=== PATIENT | female | born 1950 | race Caucasian/White ===

== ENCOUNTER → 2017-07-28 12:04 | Outpatient (CLI) | payer MEDICARE, OTHER, SELFPAY | PROVIDERS: PCP Family Medicine; Visit Provider Internal Medicine Cardiovascular Disease | DX: I48.0 Paroxysmal atrial fibrillation (principal) | CPT/HCPCS: 93005 ==

== ENCOUNTER → 2019-01-04 13:30 | Outpatient (CLI) | payer MEDICARE, OTHER, SELFPAY ==
--- NOTE | 2019-01-04 13:33 | CA_ITS ---
PROCEDURE: 2-D M-mode and color Doppler study INDICATIONS FOR THE TEST: Chest pain COPD Heart Murmur Tobacco Smoking Palpitations+ Fatigue Syncope Edema Hypertension+Diabetes Mellitus Rheumatic Fever SOB FRANCES+Obesity Hyperlipidemia Family History HD Additional History A-FIB,ABLATION 10/2018 PATIENT INFORMATION HEIGHT: 65 WEIGHT:230 GENDER: Female B/P:133/76 2-D/M-MODE INTERPRETATION: 2-D MEASUREMENTS OBSERVED VALUES IN CMS Right Ventricular Dimension (RVDd) 1.6 Interventricular Septum (Thickness)(IVsd) 0.9 Left Ventricular Internal Dimensions(LVIDd) 5.7 Left Ventricular Posterior Wall (Thickness)(LVPWd) 0.7 Aortic Root 2.3 Aortic Cusp Separation 1.7 Left Atrial Dimensions (LAD) 4.1 2D 1. Left atrium is mildly enlarged, left ventricle is normal size, mild concentric left ventricular hypertrophy, visually estimated ejection fraction 55% with no regional wall motion abnormality. 2. The right atrium and right ventricle are normal size and contractility. 3. The aortic valve is minimally thickened and fibrosed. 4. The mitral and tricuspid valvular grossly normal. 5. The pulmonic valve is poorly visualized. 6. No significant pericardial effusion noted. DOPPLER INTERROGATION: Doppler interrogation of the aortic, mitral and tricuspid valvular presence of mild mitral and tricuspid regurgitation, tricuspid regurgitation jet velocity is inadequate for calculation of the right ventricular systolic pressure, grade 1 diastolic dysfunction seen with tissue Doppler evidence of raised left atrial pressure. CONCLUSION: 1. Mildly enlarged left atrium, normal left ventricular size, visually estimated ejection fraction 55% with no regional wall motion abnormality, mild concentric left ventricular hypertrophy present. Grade 1 diastolic dysfunction seen with tissue Doppler evidence of raised left atrial pressure. 2. Mild mitral and tricuspid regurgitation 3. No significant pericardial effusion noted.
== END ==
PROVIDERS: PCP Family Medicine; Visit Provider Internal Medicine Cardiovascular Disease
DX: R06.02 Shortness of breath (principal); Z86.79 Personal history of other diseases of the circulatory system; Z98.890 Other specified postprocedural states
CPT/HCPCS: 93306

== ENCOUNTER → 2019-01-27 10:59 | Outpatient (CLI) | payer MEDICARE, OTHER, SELFPAY | PROVIDERS: Visit Provider Internal Medicine Cardiovascular Disease | DX: R06.02 Shortness of breath (principal) | CPT/HCPCS: 36415; 83880 ==

== ENCOUNTER → 2019-02-02 06:48 | Outpatient (CLI) | payer MEDICARE, OTHER, SELFPAY ==
--- NOTE | 2019-02-02 06:51 | NM_ITS ---
CARDIOLITE SPECT MYOCARDIAL PERFUSION LEXISCAN, REST AND STRESS: History: Hypertension, hyperlipidemia, family history, shortness of breath and fatigue Procedure: Patient received a 0.4 mg of intravenous Lexiscan, resting heart rate 77 bpm resting blood pressure 133/64, with Lexiscan maximum heart rate achieved was 84 bpm which is less than 85% of the maximum predicted heart rate and a blood pressure was 127/54. With Lexiscan patient denied any complained of chest pain. Electrocardiogram: Resting electrocardiogram showed sinus rhythm, with Lexiscan there is less than 1.[address] segment depression noted from the baseline EKG. The EKG portion of the Lexiscan Myoview is nondiagnostic. Cardiac stress and resting SPECT images: Cardiac stress and resting SPECT images were obtained using technetium 99 Myoview 30.2 mCi stress and 10.6 mCi at rest. Gated SPECT further analysis of segmental wall motion and calculation of ejection fraction also done. Cardiac stress and resting SPECT images show uniform myocardial activity without segmental perfusion abnormality, computer derived ejection fraction is over 65% with no regional wall motion abnormality, right ventricle is normal size and contractility. Conclusion: 1. The EKG portion of the Lexiscan Myoview is nondiagnostic. 2. No scintigraphic evidence of reversible ischemia seen, computer derived ejection fraction is over 65% with no regional wall motion abnormality, right ventricle is normal size and contractility. 3. Normal Lexiscan Myoview study.
--- NOTE | 2019-02-02 09:32 | HMH.ITSHM ---
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 [] simvastatin diltiazam xarelto lasartan flecainide hydrocodon
== END ==
PROVIDERS: PCP Family Medicine; Visit Provider Internal Medicine Cardiovascular Disease
DX: R06.02 Shortness of breath (principal); I11.9 Hypertensive heart disease without heart failure; I48.0 Paroxysmal atrial fibrillation; R53.83 Other fatigue
CPT/HCPCS: 78452; 93017; A9502; J2785

== ENCOUNTER → 2019-02-06 10:49 | Outpatient (CLI) | payer SELFPAY ==
--- NOTE | 2019-02-06 10:54 | CT_ITS ---
CT heart w calcium score . HISTORY: short of breath. Chest pain. No previous studies Report Ordering Physician: Jonnie Longoria MD Patient Age: 68 years: Female .. COMPARISON: None Technique: . Routine CT heart w calcium score technique All CT scans at this facility use one or more dose reduction techniques, viz.: automated exposure control, ma/kV adjustment per patient size (including targeted exams where dose is matched to indication, i.e. head) or iterative reconstruction technique. FINDINGS: Coronary calcium score is 0 a. No identifiable atherosclerotic lack. Very low cardiovascular disease CVD risk. These limited images of the heart and mediastinum show normal caliber ascending aorta 3.8 cm These Limited images of the heart and mediastinum demonstrate no significant findings otherwise. Minimal calcified hilar nodes in the right silviano as well as base of right silviano towards mediastinum reflect over elements disease. Normal moderate caliber proximal ascending aorta 3.8 cm. Limited views at the medial aspect of the lungs are unremarkable.. Marginal osteophytes T-spine. IMPRESSION: Calcium score = 0. No identifiable plaque. Implies Very low risk of cardiovascular disease.
== END ==
PROVIDERS: PCP Family Medicine; Visit Provider Internal Medicine Cardiovascular Disease
DX: R06.02 Shortness of breath (principal)
CPT/HCPCS: 75571

== ENCOUNTER 2019-05-10 13:00 | Outpatient (RCR) | payer MEDICARE, OTHER, SELFPAY | END 2019-05-22 10:59 | disposition home or self-care (01) | LOC: OT 13:00 | PROVIDERS: PCP Family Medicine; Visit Provider Orthopaedic Surgery Adult Reconstructive Orthopaedic Surgery | DX: M19.032 Primary osteoarthritis, left wrist (principal) | CPT/HCPCS: 97033; 97110; 97165 ==

== ENCOUNTER → 2019-05-15 13:05 | Outpatient (POV) | payer MEDICARE, OTHER, SELFPAY ==
--- NOTE | 2019-05-16 09:43 | HMH.PMCON ---
Assessment and Plan (1) Sacroiliitis Current visit: Yes Status: Chronic Category: Medical Code(s): M46.1 - Sacroiliitis, not elsewhere classified - Assessment and plan all Dx Assessment and Plan for all problems:: We will plan a right SI joint injection for the patient to see if this is beneficial. She may be a candidate for a percutaneous SI joint fusion. I will follow-up with her after injection reassess her symptoms at that time she is to continue her anti-inflammatories and her home stretching program. She is been instructed to call the office if she has any issues prior to her next appointment. Dr. Soto has reviewed this note and agrees with this plan of care. This note was dictated using voice recognition software and may contain errors or omissions HPI - Data of Consult Consult date: 05/15/19 Requesting Physician: Ana Barreto APRN Primary Care Provider: Marilu Martinez - Consult Narrative Reason for consult: Low back pain History of present illness: Ms. Hebert is a 68 year old female who presents today for consultation in regards to her low back pain. Patient has a low back and right sided pain that radiates into her groin. Patient has had this pain for several years. The only relief she gets is when she takes steroids. Patient and I talked about long-term steroid use and she understands this. Patient is interested in potential injective therapy. Patient is tried and failed physical therapy. She is continuing a home stretching program. She is trying to stay as active as possible she rates her pain today a 6 out of 10. CC: Ana Barreto APRN [facility] History I have reviewed the patient's past medical history: Yes Medical History: Reports:: Atrial Fibrillation, Hypertension *Have you ever received a pneumonia vaccine?: Yes *Have you received a flu vaccine this season?: Yes Other Surgeries: Yes: No Previous Surgery, Hysterectomy-Partial, Other - *Social History Smoking Status: Never smoker Alcohol Intake: never Alcohol Intake Frequency:: other Substance Use Type: denies use *Occupational Status:: retired *Travel in the last 8 weeks: None Family Hx:: Coronary Artery Disease Review of Systems - Review of Systems ROS General: no recent weight change, no fever, no sleep disturbances Respiratory: no cough, no shortness of air, no recurring pulmonary infections Cardiovascular/Peripheral Vascular: No chest pain, No palpitations, no edema, no shortness of breath. Gastrointestinal: no new onset incontinence, normal bowel movements reported Genitourinary: no new onset incontinence Musculoskeletal: SI joint pain Psychiatric: normal mood/ affect Neurological: [denies new onset weakness in extremities], [denies new onset balance issues] Meds Home Medications Medication Instructions Recorded Confirmed Type cholecalciferol (vitamin D3) 1,000 1,000 unit PO BID cap 07/22/17 01/27/19 History unit capsule diltiazem CD 240 mg 240 mg PO QDAY 07/22/17 01/27/19 History capsule,extended release 24 hr fexofenadine 180 mg tablet 180 mg PO QDAY PRN 07/22/17 01/27/19 History hydrocodone 10 mg-acetaminophen 1 tab PO Q6H PRN 07/22/17 01/27/19 History 325 mg tablet ipratropium 20 mcg-albuterol 100 1 puff INHALATION BID PRN g 07/22/17 01/27/19 History mcg/actuation mist for inhalation losartan 100 1 tab PO QDAY 07/22/17 01/27/19 History mg-hydrochlorothiazide 25 mg tablet simvastatin 10 mg tablet 10 mg PO QPM 07/22/17 01/27/19 History rivaroxaban 20 mg tablet 20 mg PO QDAY #30 tab 09/02/17 01/27/19 Rx spironolactone 25 mg tablet 25 mg PO QAM #30 tab 09/02/17 01/27/19 Rx flecainide 100 mg tablet 100 mg PO BID #60 tab 06/13/18 01/27/19 Rx baclofen 10 mg tablet 10 mg PO BID PRN tab 01/27/19 01/27/19 History tramadol 50 mg tablet 50 mg PO TID PRN tab 02/24/19 History Allergies Allergy/AdvReac Type Severity Reaction Status Date / Time No Known Allergies Allergy Verified 0
--- NOTE | 2019-05-16 09:46 | P.CONS_ITS ---
Assessment and Plan (1) Sacroiliitis Current visit: Yes Status: Chronic Category: Medical Code(s): M46.1 - Sacroiliitis, not elsewhere classified - Assessment and plan all Dx Assessment and Plan for all problems:: We will plan a right SI joint injection for the patient to see if this is beneficial. She may be a candidate for a percutaneous SI joint fusion. I will follow-up with her after injection reassess her symptoms at that time she is to continue her anti-inflammatories and her home stretching program. She is been instructed to call the office if she has any issues prior to her next appointment. Dr. Soto has reviewed this note and agrees with this plan of care. This note was dictated using voice recognition software and may contain errors or omissions HPI - Data of Consult Consult date: 05/15/19 Requesting Physician: Ana Barreto APRN Primary Care Provider: Marilu Martinez - Consult Narrative Reason for consult: Low back pain History of present illness: Ms. Hebert is a 68 year old female who presents today for consultation in regards to her low back pain. Patient has a low back and right sided pain that radiates into her groin. Patient has had this pain for several years. The only relief she gets is when she takes steroids. Patient and I talked about long-term steroid use and she understands this. Patient is interested in potential injective therapy. Patient is tried and failed physical therapy. She is continuing a home stretching program. She is trying to stay as active as possible she rates her pain today a 6 out of 10. CC: Ana Barreto APRN [facility] History I have reviewed the patient's past medical history: Yes Medical History: Reports:: Atrial Fibrillation, Hypertension *Have you ever received a pneumonia vaccine?: Yes *Have you received a flu vaccine this season?: Yes Other Surgeries: Yes: No Previous Surgery, Hysterectomy-Partial, Other - *Social History Smoking Status: Never smoker Alcohol Intake: never Alcohol Intake Frequency:: other Substance Use Type: denies use *Occupational Status:: retired *Travel in the last 8 weeks: None Family Hx:: Coronary Artery Disease Review of Systems - Review of Systems ROS General: no recent weight change, no fever, no sleep disturbances Respiratory: no cough, no shortness of air, no recurring pulmonary infections Cardiovascular/Peripheral Vascular: No chest pain, No palpitations, no edema, no shortness of breath. Gastrointestinal: no new onset incontinence, normal bowel movements reported Genitourinary: no new onset incontinence Musculoskeletal: SI joint pain Psychiatric: normal mood/ affect Neurological: [denies new onset weakness in extremities], [denies new onset balance issues] Meds Home Medications Medication Instructions Recorded Confirmed Type cholecalciferol (vitamin D3) 1,000 1,000 unit PO BID cap 07/22/17 01/27/19 History unit capsule diltiazem CD 240 mg 240 mg PO QDAY 07/22/17 01/27/19 History capsule,extended release 24 hr fexofenadine 180 mg tablet 180 mg PO QDAY PRN 07/22/17 01/27/19 History hydrocodone 10 mg-acetaminophen 1 tab PO Q6H PRN 07/22/17 01/27/19 History 325 mg tablet ipratropium 20 mcg-albuterol 100 1 puff INHALATION BID PRN g 07/22/17 01/27/19 History mcg/actuation mist for inhalation losartan 100 1 tab PO QDAY 07/22/17 01/27/19 History mg-hydrochlorothiazide 25 mg tablet
== END ==
PROVIDERS: PCP Family Medicine; Visit Provider Clinical Nurse Specialist Family Health
DX: M46.1 Sacroiliitis, not elsewhere classified (principal)
CPT/HCPCS: 99202

== ENCOUNTER → 2019-06-19 11:38 | Outpatient (POV) | payer MEDICARE, OTHER, SELFPAY ==
[2019-06-19 11:54] VITALS: BP 135/74; PULSE 71; RESP 18; O2SAT 99; BMI 39.9
--- NOTE | 2019-06-19 12:11 | P.CONS_ITS ---
[facility] Pain Management SOAP Note Subjective:: Patient is a pleasant 69-year-old white female who presents today for follow-up after right SI joint injection. Patient got good relief 80% for a week. It was short-lived however she did get some benefit from it. Patient was able to increase her activity. Patient is interested in pursuing an ablation of this area I do believe that would be beneficial she is continuing a home stretching program. She does have a positive SI joint compression test Yoon test and Vic's test on the right side. She is failed medications, anti- inflammatories, steroids. ROS General: no recent weight change, no fever, no sleep disturbances Respiratory: no cough, no shortness of air, no recurring pulmonary infections Cardiovascular/Peripheral Vascular: No chest pain, No palpitations, no edema, no shortness of breath. Gastrointestinal: no new onset incontinence, normal bowel movements reported Genitourinary: no new onset incontinence Musculoskeletal: Right SI joint pain Psychiatric: normal mood/ affect Neurological: [denies new onset weakness in extremities], [denies new onset balance issues] Objective:: Physical Exam General: Alert and oriented x3, no acute distress, pleasant and cooperative, [on room air] Lungs: Resps E/U, Symmetrical chest expansion, Eyes: PERRL Musculoskeletal: Flexion and extension of lumbar spine somewhat guarded secondary to pain, deep tendon reflexes normal, strength in upper and lower extremities [5/5], antalgic gait noted Neurological: speech clear, social insurance adviser equal, no gross sensory deficits Assessment:: Chronic sacroiliitis Plan:: We will plan on a right SI joint RFA. Patient may be a candidate for a SI joint percutaneous fusion. We did discuss this briefly. We will follow-up with her after her SI joint RFA and reassess her at that time she is been instructed to call the office if she has any issues prior to her next appointment. Dr. Soto has reviewed this note and agrees with this plan of care. This note was dictated using voice recognition software and may contain errors or omissions [facility] History I have reviewed the patient's past medical history: Yes Medical History: Reports:: Atrial Fibrillation, Hypertension Denies:: Cancer, Diabetes Mellitus Type 1, Diabetes Mellitus Type 2, MRSA, Seizures *Have you ever received a pneumonia vaccine?: Yes *Have you received a flu vaccine this season?: Yes Other Surgeries: Yes: No Previous Surgery, Cardiac Surgery, Hysterectomy- Partial, Other Amputation: No Fractures: No - *Social History Smoking Status: Never smoker Alcohol Intake: never Alcohol Intake Frequency:: other Substance Use Type: denies use *Occupational Status:: other Housing: apartment Household Members: significant other *Travel in the last 8 weeks: None Family Hx:: Coronary Artery Disease
== END ==
PROVIDERS: PCP Family Medicine; Visit Provider Clinical Nurse Specialist Family Health
DX: M46.1 Sacroiliitis, not elsewhere classified (principal)
CPT/HCPCS: 99212

== ENCOUNTER → 2019-08-07 13:43 | Outpatient (POV) | payer MEDICARE, OTHER, SELFPAY ==
[2019-08-07 14:36] VITALS: BP 140/57; PULSE 69; RESP 18; O2SAT 98; BMI 44.2
--- NOTE | 2019-08-08 09:55 | HMH.PAINSOAP ---
[facility] Pain Management SOAP Note Subjective:: Patient is a pleasant 69-year-old white female who presents today for follow-up after radiofrequency ablation of her SI joint. Patient states that she is doing much better rating her pain a 3 out of 10. Patient is more active. Patient states she has not been able to come off of her pain pills quite yet. However this is her ultimate goal. Patient and I discussed neuro stimulation she may be interested in this in the future. I will give her information in regards to this and see her back in several weeks reassess her at that time she is been instructed to call the office if she has any issues prior to her next appointment. ROS General: no recent weight change, no fever, no sleep disturbances Respiratory: no cough, no shortness of air, no recurring pulmonary infections Cardiovascular/Peripheral Vascular: No chest pain, No palpitations, no edema, no shortness of breath. Gastrointestinal: no new onset incontinence, normal bowel movements reported Genitourinary: no new onset incontinence Musculoskeletal: Back pain, SI joint pain Psychiatric: normal mood/ affect Neurological: [denies new onset weakness in extremities], [denies new onset balance issues] Objective:: Physical Exam General: Alert and oriented x3, no acute distress, pleasant and cooperative, [on room air] Lungs: Resps E/U, Symmetrical chest expansion, Eyes: PERRL Musculoskeletal: Flexion and extension of lumbar spine somewhat guarded secondary to pain, deep tendon reflexes normal, strength in upper and lower extremities [5/5], antalgic gait noted Neurological: speech clear, 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 Patient's been instructed to call the office if she has any issues prior to her next appointment. Dr. Soto has reviewed this note and agrees with this plan of care. This note was dictated using voice recognition software and may contain errors or omissions [facility] History I have reviewed the patient's past medical history: Yes Medical History: Reports:: Atrial Fibrillation, Hypertension Denies:: Cancer, Diabetes Mellitus Type 1, Diabetes Mellitus Type 2, MRSA, Seizures *Have you ever received a pneumonia vaccine?: Yes *Have you received a flu vaccine this season?: Yes Other Surgeries: Yes: No Previous Surgery, Cardiac Surgery, Hysterectomy-Partial, Other Amputation: No Fractures: No - *Social History Smoking Status: Never smoker Alcohol Intake: never Alcohol Intake Frequency:: other Substance Use Type: denies use *Occupational Status:: other Housing: apartment Household Members: significant other *Travel in the last 8 weeks: None Family Hx:: Coronary Artery Disease
== END ==
PROVIDERS: PCP Family Medicine; Visit Provider Clinical Nurse Specialist Family Health
DX: M46.1 Sacroiliitis, not elsewhere classified (principal); I48.91 Unspecified atrial fibrillation; I10 Essential (primary) hypertension; Z82.49 Family history of ischemic heart disease and other diseases of the circulatory system
CPT/HCPCS: 99212

== ENCOUNTER → 2019-09-11 13:37 | Outpatient (POV) | payer MEDICARE, OTHER, SELFPAY ==
[2019-09-11 14:06] VITALS: BP 143/62; PULSE 74; RESP 18; O2SAT 99; BMI 42.9
--- NOTE | 2019-09-11 14:37 | HMH.PAINSOAP ---
[facility] Pain Management SOAP Note Subjective:: Patient is a pleasant 69-year-old white female who presents today for follow-up. Patient and I talked about a neurostimulator at her last visit. She is still considering this. However her biggest issue at this time is her low back. Patient and I discussed an epidural steroid injection she would like to move forward with this. She has low back pain that radiates into her hips at times. Patient is currently on any anticoagulation therapy. We will see if she can come off of this prior to an injection. She is continuing a home stretching program and is on anti-inflammatories. ROS General: no recent weight change, no fever, no sleep disturbances Respiratory: no cough, no shortness of air, no recurring pulmonary infections Cardiovascular/Peripheral Vascular: No chest pain, No palpitations, no edema, no shortness of breath. Gastrointestinal: no new onset incontinence, normal bowel movements reported Genitourinary: no new onset incontinence Musculoskeletal: Back pain Psychiatric: normal mood/ affect Neurological: [denies new onset weakness in extremities], [denies new onset balance issues] Objective:: Physical Exam General: Alert and oriented x3, no acute distress, pleasant and cooperative, [on room air] Lungs: Resps E/U, Symmetrical chest expansion, Eyes: PERRL Musculoskeletal: Flexion and extension of lumbar spine somewhat guarded secondary to pain, deep tendon reflexes normal, strength in upper and lower extremities [5/5], slightly antalgic gait noted, positive straight leg raise test bilaterally at 30 degrees Neurological: speech clear, emergency dispatcher equal, no gross sensory deficits Assessment:: Degenerative disc disease lumbar spine with lumbar radiculopathy Plan:: We will schedule an L4-L5 lumbar epidural steroid injection for the patient. I do believe it would be beneficial given her symptomology. I will follow-up with her after this reassess her symptoms at that time she has been instructed to call the office if she has any issues prior to her next appointment. Dr. Soto has reviewed this note and agrees with this plan of care. This note was dictated using voice recognition software and may contain errors or omissions [facility] History I have reviewed the patient's past medical history: Yes Medical History: Reports:: Atrial Fibrillation, Hypertension Denies:: Cancer, Diabetes Mellitus Type 1, Diabetes Mellitus Type 2, MRSA, Seizures *Have you ever received a pneumonia vaccine?: Yes *Have you received a flu vaccine this season?: Yes Other Surgeries: Yes: No Previous Surgery, Cardiac Surgery, Hysterectomy-Partial, Other Amputation: No Fractures: No - *Social History Smoking Status: Never smoker Alcohol Intake: never Alcohol Intake Frequency:: other Substance Use Type: denies use *Occupational Status:: other Housing: apartment Household Members: significant other *Travel in the last 8 weeks: None Family Hx:: Coronary Artery Disease
== END ==
PROVIDERS: PCP Family Medicine; Visit Provider Clinical Nurse Specialist Family Health
DX: M51.16 Intervertebral disc disorders with radiculopathy, lumbar region (principal)
CPT/HCPCS: 99212

== ENCOUNTER 2019-11-03 08:01 | Day surgery (SDC) | payer MEDICARE, OTHER, SELFPAY ==
[2019-11-03 08:14] VITALS: BP 163/84; PULSE 74; RESP 18; TEMP 36.9; O2SAT 96; BMI 36.0
[2019-11-03 08:48] VITALS: BP 160/77; PULSE 70; RESP 18
[2019-11-03 08:49] VITALS: BP 155/75; PULSE 79; RESP 18; O2SAT 99
--- NOTE | 2019-11-03 08:50 | HMH.PMPROC ---
- Procedure Date: 11/03/19 Time: 08:50 Anesthesiologist:: Demetrius Soto MD Complications:: None Pre-procedure Diagnosis:: Degenerative disc disease of lumbar spine with lumbar radiculopathy symptoms Post-procedure Diagnosis:: Same Indications for Procedure:: This patient is a pleasant 69-year-old white female who we are treating for low back pain with lumbar radiculopathy symptoms. She has low back pain which radiates into both hips. We will do a lumbar epidural steroid injection today to see if this will help with her pain symptoms primarily in the low back area and hips area. Pain is increased significantly is affecting her function activities of daily living. We will do an injection today to keep her out of the emergency room and off oral opioids. Procedure Details:: Lumbar epidural steroid injection under fluoroscopy Informed consent was obtained and the risk and benefits of the procedure was explained to the patient. The patient was taken to the procedure room. The patient was placed prone on the procedure table. The patient was prepped and draped in sterile fashion. C-arm fluoroscopy was used to view the lumbar spine. Skin and subcutaneous tissues were anesthetized using lidocaine. I placed an 18-gauge epidural needle and advanced into the L4-L5 interspace using fluoroscopic guidance and [id number] to air. After confirmation of needle placement in the epidural space with dye I injected 2 mL of lidocaine 1.5% with Depo-Medrol 80 mg. Patient tolerated the procedure well with no complications. Plan and Disposition:: We will follow-up with her in 2 weeks. Will reevaluate her symptoms at that time.
[2019-11-03 08:56] VITALS: BP 177/93; PULSE 74; RESP 20; O2SAT 96
== END 2019-11-03 08:57 | disposition home or self-care (01) ==
LOC: SC.PAINP 08:03
PROVIDERS: PCP Family Medicine; Visit Provider Anesthesiology
DX: M51.16 Intervertebral disc disorders with radiculopathy, lumbar region (principal)
CPT/HCPCS: 62323; J1040; Q9966

== ENCOUNTER → 2019-12-13 13:11 | Outpatient (CLI) | payer MEDICARE, OTHER, SELFPAY ==
--- NOTE | 2019-12-13 13:12 | CA_ITS ---
APPROVED REPORT EXAM: Comprehensive 2D, Doppler, and color-flow Echocardiogram Well Driller: Nereida Amanda RT(R) Ht: 5 ft 5 in Wt: 265lbs BSA: 2.23 BP: 148/97 mmHg Indications: AFLUTTER,PAF,HTN,ORION,ABLATION 10/2018 2D Dimensions LVOT 2.09 cm (M/F) 1.5-2.5 M-Mode Dimensions RVDd 2.58 cm (0.9-2.6) LVDd 5.48 cm (3.5-5.7) LVDs 3.83 cm (3.5-5.7) IVSd 0.56 cm (0.6-1.1) PWd 0.89 cm (0.6-1.1) EF (Teich) 56.80% FS 30.10% EDV (Teich) 146.20 mL ESV (Teich) 63.10 mL LV Diastology E/A Ratio 0.57 Mitral Valve MV A Velocity 81.00 (40-130 cm/s) Left Ventricle Left atrium is mildly enlarged, left ventricle is normal size, mild concentric left ventricular hypertrophy, visually estimated ejection fraction 55% with no regional wall motion abnormality, grade 1 diastolic dysfunction seen without tissue Doppler evidence of raise left atrial pressure. Right Ventricle Right atrium and right ventricular normal size and contractility. Aortic Valve Aortic valve is minimally thickened and fibrosed. There is no aortic stenosis or aortic insufficiency. Mitral Valve Mitral valve is grossly normal, there is mild mitral regurgitation. Tricuspid Valve Tricuspid valve grossly normal, there is mild tricuspid regurgitation noted. Pulmonic Valve Pulmonic valve is poorly visualized. Great Vessels Aortic root is normal size. Pericardium No significant pericardial effusion noted. Conclusion 1. Mildly enlarged left atrium, normal left ventricular size, mild concentric left ventricular hypertrophy, visually estimated ejection fraction 55% with no regional wall motion abnormality, grade 1 diastolic dysfunction seen without tissue Doppler evidence of raise left atrial pressure. 2. Mild mitral and tricuspid regurgitation. 3. No significant pericardial effusion noted. Electronically signed by : Jonnie Longoria, 12/14/2019 16:10:31
== END ==
PROVIDERS: PCP Family Medicine; Visit Provider Internal Medicine Cardiovascular Disease
DX: G47.33 Obstructive sleep apnea (adult) (pediatric) (principal); I11.9 Hypertensive heart disease without heart failure; I48.0 Paroxysmal atrial fibrillation; Z79.01 Long term (current) use of anticoagulants
CPT/HCPCS: 93306

== ENCOUNTER → 2019-12-14 13:17 | Outpatient (CLI) | payer MEDICARE, OTHER, SELFPAY ==
[2019-12-14 15:15] LABS: Chloride 102 mmol/L (98-107); Sodium 136 mmol/L (136-145)
[2019-12-14 15:18] LABS: Blood Urea Nitrogen 44 mg/dl (7-17); Carbon Dioxide 27 mmol/L (22.0-30.0); Estimated Glomerular Filt Rate 40 ml/min (>60); GFR (African American) 49 ML/MIN (>60)
[2019-12-14 15:24] LABS: Calcium 9.7 mg/dl (8.4-10.2)
[2019-12-14 15:51] LABS: Glucose 89 mg/dl (74-100)
== END ==
PROVIDERS: Visit Provider Internal Medicine Cardiovascular Disease
DX: I48.0 Paroxysmal atrial fibrillation; I11.9 Hypertensive heart disease without heart failure; G47.33 Obstructive sleep apnea (adult) (pediatric); Z79.01 Long term (current) use of anticoagulants
CPT/HCPCS: 36415; 80048

== ENCOUNTER → 2019-12-19 09:09 | Outpatient (POV) | payer MEDICARE, OTHER, SELFPAY ==
[2019-12-19 10:10] VITALS: BP 129/89; PULSE 76; RESP 18; TEMP 36.4; O2SAT 99; BMI 41.5
--- NOTE | 2019-12-19 15:44 | P.CONS_ITS ---
[facility] Pain Management SOAP Note Subjective:: Is a pleasant 69-year-old white female who presents today for follow-up after lumbar epidural steroid injection. She rates her pain a 5 out of 10 and is doing extremely well. Her only pain is some trigger points that are palpable along the left thoracic paraspinous muscles. She states that she utilizes a tennis ball or an apple to help massage these out and it works well. At this time she like to follow-up on an as-needed basis. ROS General: no recent weight change, no fever, no sleep disturbances Respiratory: no cough, no shortness of air, no recurring pulmonary infections Cardiovascular/Peripheral Vascular: No chest pain, No palpitations, no edema, no shortness of breath. Gastrointestinal: no new onset incontinence, normal bowel movements reported Genitourinary: no new onset incontinence Musculoskeletal: Back pain, myofascial pain Psychiatric: normal mood/ affect Neurological: [denies new onset weakness in extremities], [denies new onset balance issues] Objective:: Physical Exam General: Alert and oriented x3, no acute distress, pleasant and cooperative, [on room air] Lungs: Resps E/U, Symmetrical chest expansion, Eyes: PERRL Musculoskeletal: Flexion and extension of lumbar spine somewhat guarded secondary to pain, deep tendon reflexes normal, strength in upper and lower extremities [5/5], slightly antalgic gait noted Neurological: speech clear, money manager equal, no gross sensory deficits Assessment:: Degenerative disc disease lumbar spine lumbar radiculopathy and myofascial pain syndrome Plan:: I will follow-up with the patient on an as-needed basis she has been instructed to call the office if she has any issues prior to her next appointment. Dr. Soto has reviewed this note and agrees with this plan of care. This note was dictated using voice recognition software and may contain errors or omissions [facility] History I have reviewed the patient's past medical history: Yes Medical History: Reports:: Atrial Fibrillation, Hypertension Denies:: Cancer, Diabetes Mellitus Type 1, Diabetes Mellitus Type 2, MRSA, Seizures *Have you ever received a pneumonia vaccine?: Yes *Have you received a flu vaccine this season?: Yes Other Medical History: Reports: Arthritis Other Surgeries: Yes: No Previous Surgery, Cardiac Surgery, Hysterectomy- Partial, Other Amputation: No Fractures: No - *Social History Smoking Status: Never smoker Alcohol Intake: never Alcohol Intake Frequency:: other Substance Use Type: denies use *Occupational Status:: other Housing: apartment Household Members: significant other *Travel in the last 8 weeks: None Family Hx:: Coronary Artery Disease
== END ==
PROVIDERS: PCP Family Medicine; Visit Provider Clinical Nurse Specialist Family Health
DX: M51.16 Intervertebral disc disorders with radiculopathy, lumbar region (principal); M79.18 Myalgia, other site
CPT/HCPCS: 99212

== ENCOUNTER 2019-12-22 10:27 | Day surgery (SDC) | payer MEDICARE, OTHER, SELFPAY ==
[2019-12-22 10:43] VITALS: BP 143/81; PULSE 68; RESP 18; O2SAT 97; BMI 41.5
[2019-12-22 11:08] VITALS: BP 135/85; PULSE 85; RESP 18
[2019-12-22 11:09] VITALS: BP 132/87; PULSE 79; RESP 18; O2SAT 98
--- NOTE | 2019-12-22 11:16 | P.PCN_ITS ---
- Procedure Date: 12/22/19 Time: 11:16 Anesthesiologist:: Demetrius Soto MD Complications:: None Pre-procedure Diagnosis:: Myofascial pain thoracic paraspinous muscles on the left side Post-procedure Diagnosis:: Same Indications for Procedure:: This patient is a pleasant 69-year-old white female who we are treating for low back pain with lumbar radiculopathy symptoms. She did very well after her last lumbar epidural steroid injection. She now has developed some myofascial pain over the left thoracic paraspinous muscles. She does have trigger points identified. We will plan on trigger point injections to the left thoracic paraspinous muscles today. Procedure Details:: Trigger point injections x4 to the left thoracic paraspinous muscles Informed consent was obtained the risk and benefits of the procedure was explained to the patient. Patient was taken to the procedure room. The mid back was prepped using ChloraPrep. Trigger points were palpated marked. Each of these trigger points were injected with bupivacaine 0.25% 3 mils and Depo- Medrol 10 mg. A total of 40 mg Depo-Medrol was used for all 4 trigger points on the left side. Patient tolerated the procedure well with no complications. Plan and Disposition:: We will follow-up with her in 2 weeks. Will reevaluate symptoms at that time.
[2019-12-22 11:25] VITALS: BP 137/78; PULSE 61; RESP 18; O2SAT 95
== END 2019-12-22 11:25 | disposition home or self-care (01) ==
LOC: SC.PAINP 10:29
PROVIDERS: PCP Family Medicine; Visit Provider Anesthesiology
DX: M79.18 Myalgia, other site (principal); I11.9 Hypertensive heart disease without heart failure; I48.91 Unspecified atrial fibrillation; J44.9 Chronic obstructive pulmonary disease, unspecified; Z77.22 Contact with and (suspected) exposure to environmental tobacco smoke (acute) (chronic); M46.1 Sacroiliitis, not elsewhere classified; Z79.899 Other long term (current) drug therapy
CPT/HCPCS: 20552; J1030

== ENCOUNTER → 2019-12-28 08:32 | Outpatient (CLI) | payer MEDICARE, OTHER, SELFPAY ==
[2019-12-28 11:03] LABS: Chloride 100 mmol/L (98-107); Potassium 4.8 mmoL/L (3.5-5.1); Sodium 135 mmol/L (136-145)
[2019-12-28 11:06] LABS: Anion Gap 10.8 mEq/L (5-15); Blood Urea Nitrogen 28 mg/dl (7-17); Calcium 9.5 mg/dl (8.4-10.2); Carbon Dioxide 29 mmol/L (22.0-30.0); Estimated Glomerular Filt Rate 49 ml/min (>60); GFR (African American) 59 ML/MIN (>60); Glucose 89 mg/dl (74-100)
== END ==
PROVIDERS: Visit Provider Internal Medicine Cardiovascular Disease
DX: I10 Essential (primary) hypertension (principal)
CPT/HCPCS: 36415; 80048

== ENCOUNTER → 2020-01-08 13:37 | Outpatient (POV) | payer MEDICARE, OTHER, SELFPAY ==
[2020-01-08 14:21] VITALS: BP 129/46; PULSE 66; RESP 18; O2SAT 99; BMI 41.5
--- NOTE | 2020-01-09 08:46 | HMH.PAINSOAP ---
[facility] Pain Management SOAP Note Subjective:: Patient is a pleasant 69-year-old white female who we are treating for low back pain. Patient is following up after thoracic trigger point injections. Patient is doing well rating her pain a 1 out of 10 overall she feels like her injections have been very beneficial for her. Patient is going to follow-up in several months for reassessment. ROS General: no recent weight change, no fever, no sleep disturbances Respiratory: no cough, no shortness of air, no recurring pulmonary infections Cardiovascular/Peripheral Vascular: No chest pain, No palpitations, no edema, no shortness of breath. Gastrointestinal: no new onset incontinence, normal bowel movements reported Genitourinary: no new onset incontinence Musculoskeletal: Back pain Psychiatric: normal mood/ affect Neurological: [denies new onset weakness in extremities], [denies new onset balance issues] Objective:: Physical Exam General: Alert and oriented x3, no acute distress, pleasant and cooperative, [on room air] Lungs: Resps E/U, Symmetrical chest expansion, Eyes: PERRL Musculoskeletal: Flexion and extension of lumbar and thoracic spine somewhat guarded secondary to pain, deep tendon reflexes normal, strength in upper and lower extremities [5/5], slightly antalgic gait noted Neurological: speech clear, turn down worker equal, no gross sensory deficits Assessment:: Myofascial pain, degenerative disc disease lumbar spine lumbar radiculopathy sacroiliitis Plan:: We will see the patient back in 2 to 3 months reassess her symptoms at that time she has been instructed to call the office if she has any issues prior to her next appointment. Dr. Soto has reviewed this note and agrees with this plan of care. This note was dictated using voice recognition software and may contain errors or omissions [facility] History I have reviewed the patient's past medical history: Yes Medical History: Reports:: Atrial Fibrillation, Hypertension Denies:: Cancer, Diabetes Mellitus Type 1, Diabetes Mellitus Type 2, MRSA, Seizures *Have you ever received a pneumonia vaccine?: Yes *Have you received a flu vaccine this season?: Yes Other Medical History: Reports: Arthritis. Denies: Blood Transfusion Reaction Other Surgeries: Yes: No Previous Surgery, Cardiac Surgery, Hysterectomy-Partial, Other Amputation: No Fractures: No - *Social History Smoking Status: Never smoker Alcohol Intake: never Alcohol Intake Frequency:: other Substance Use Type: denies use *Occupational Status:: other Housing: house Household Members: significant other *Travel in the last 8 weeks: None Family Hx:: Coronary Artery Disease
== END ==
PROVIDERS: PCP Family Medicine; Visit Provider Clinical Nurse Specialist Family Health
DX: M79.18 Myalgia, other site (principal); M51.16 Intervertebral disc disorders with radiculopathy, lumbar region; M46.1 Sacroiliitis, not elsewhere classified
CPT/HCPCS: 99212

== ENCOUNTER → 2020-02-01 09:57 | Outpatient (POV) | payer MEDICARE, OTHER, SELFPAY ==
[2020-02-01 10:04] VITALS: BP 140/60; PULSE 75; RESP 18; TEMP 36.6; O2SAT 98; BMI 41.5
--- NOTE | 2020-02-01 10:34 | P.CONS_ITS ---
[facility] Pain Management SOAP Note Subjective:: Patient is a pleasant 69-year-old white female who presents today for complaints of bilateral buttock pain. Patient says that she has been doing some prolonged sitting making masks with her daughter during the virus pandemic. She says that she started to develop severe bilateral buttock pain. The pain does not radiate into her back or hips or lower extremities. She rates her pain a 10 out of 10. She says it is very painful and causes her to do frequent repositioning. She has tried anti-inflammatory gel which has given her about 30 to 40% relief. Review of Systems General: No recent weight changes, no fever, no sleep disturbances Respiratory: No cough, no shortness of air, no recurring pulmonary infections Cardiovascular/peripheral vascular: No chest pain, no palpitations, no edema, no shortness of breath Gastrointestinal: No new onset incontinence, normal bowel movements reported Genitourinary: No new onset incontinence Musculoskeletal: Lateral buttock pain Psychiatric: Normal mood/affect Neurological: [Denies weakness in extremities], [denies balance issues] Objective:: Physical exam General: Alert and oriented x3, no acute distress, pleasant and cooperative, [on room air] Lungs: Respirations even and unlabored, symmetrical chest expansion Eyes: PERRL Musculoskeletal: Flexion and extension of lumbar spine somewhat guarded secondary to pain, deep tendon reflexes normal, strength in upper and lower extremities [5/5], [abnormal gait noted] Neurological: Speech clear, instructor traffic safety equal, no gross sensory deficit Assessment:: Piriformis syndrome, bilateral buttock pain Plan:: Patient I did discuss plan of care. Will proceed with bilateral piriformis injections. She will also continue with her anti-inflammatory gel that she has currently. We will see her back in the clinic after her injections reassess her symptoms. She has been instructed to contact clinic if she has any concerns before next appointment. The patient and I specifically discussed risk factors for COVID19. These risks include, but are not limited to age greater than 60, heart or lung disease, diabetes, immunosuppression, and travel. We also discussed NSAIDs may worsen COVID19 infection or symptoms. Patient should not use NSAIDs to treat COVID19 signs or symptoms. Patient was also informed that any type of corticosteroid of any form (oral or injection) will decrease the patient's immune system response and may increase the likelihood of COVID19 infection [address] symptoms[address] Soto has reviewed this note and agrees with this plan of care. This note was dictated using voice recognition software and make contain errors or omissions. [facility] History I have reviewed the patient's past medical history: Yes Medical History: Reports:: Atrial Fibrillation, Hypertension Denies:: Cancer, Diabetes Mellitus Type 1, Diabetes Mellitus Type 2, MRSA, Seizures *Have you ever received a pneumonia vaccine?: Yes *Have you received a flu vaccine this season?: Yes Other Medical History: Reports: Arthritis. Denies: Blood Transfusion Reaction Other Surgeries: Yes: No Previous Surgery, Cardiac Surgery, Hysterectomy- Partial, Other Amputation: No Fractures: No - *Social History Smoking Status: Never smoker Alcohol Intake: never Alcohol Intake Frequency:: other Substance Use Type: denies use *Occupational Status:: other Housing: house Household Members: significant other *Travel in the last 8 weeks: None Family Hx:: Coronary Artery Disease
== END ==
PROVIDERS: PCP Family Medicine; Visit Provider Clinical Nurse Specialist Family Health
DX: G57.00 Lesion of sciatic nerve, unspecified lower limb (principal); M79.18 Myalgia, other site
CPT/HCPCS: 99212

== ENCOUNTER 2020-02-12 13:34 | Day surgery (SDC) | payer MEDICARE, OTHER, SELFPAY ==
[2020-02-12 13:44] VITALS: BP 128/64; PULSE 83; RESP 18; TEMP 36.6; O2SAT 97; BMI 41.5
[2020-02-12 14:01] VITALS: BP 125/85; BP 128/88; PULSE 85; RESP 18; O2SAT 98
[2020-02-12 14:10] VITALS: BP 118/61; PULSE 73; RESP 18; O2SAT 97
--- NOTE | 2020-02-12 14:13 | HMH.PMPROC ---
- Procedure Date: 02/12/20 Time: 14:13 Anesthesiologist:: Cherie Damian APRN Complications:: None Pre-procedure Diagnosis:: Piriformis syndrome Post-procedure Diagnosis:: Same Indications for Procedure:: Patient is a pleasant 69-year-old white female who presents today for bilateral piriformis injections. She is having pain in bilateral buttock area. She says the pain is been ongoing for some time is worse with sitting. She says she has been making masks with her daughter during the virus pandemic and says that the pain has gotten worse since then. She rates her pain a 7 out of 10 today. We will perform the injections today to see if she gets relief. Physical exam General: Alert and oriented x3, no acute distress, pleasant and cooperative, [on room air] Lungs: Respirations even and unlabored, symmetrical chest expansion Eyes: PERRL Musculoskeletal: Flexion and extension of lumbar spine somewhat guarded secondary to pain, deep tendon reflexes normal, strength in upper and lower extremities [5/5], [abnormal gait noted] Neurological: Speech clear, outboard system operator equal, no gross sensory deficit Procedure Details:: Informed consent was obtained and the risks and benefits of the procedure were explained to the patient. The patient was taken to the procedure room and noninvasive monitors were placed including a noninvasive blood pressure cuff and pulse examiner. The patient was placed prone on the procedure table. The l bilateral buttock were cleansed using chlorhexidine as a cleansing solution. , a 22-gauge spinal needle was inserted into the right piriformis so. Approximately 5 mL of bupivacaine, at 0.25% and Nlke-Ekbiiz-Vmqrfl, 40 mg was incrementally injected into the piriformis. We then moved to the left piriformis muscle. Approximately 5 mL of bupivacaine 0.25% and Depo-Medrol 40 mg was incrementally injected into the left piriformis muscle. The patient tolerated the procedure without no complications. Plan and Disposition:: We will see the patient back in the clinic in 2 weeks to reassess his symptoms. He has been instructed to contact clinic if he has any concerns before his next appointment. The patient and I specifically discussed risk factors for COVID19. These risks include, but are not limited to age greater than 60, heart or lung disease, diabetes, immunosuppression, and travel. We also discussed NSAIDs may worsen COVID19 infection or symptoms. Patient should not use NSAIDs to treat COVID19 signs or symptoms. Patient was also informed that any type of corticosteroid of any form (oral or injection) will decrease the patient's immune system response and may increase the likelihood of COVID19 infection [address] symptoms[address] Soto has reviewed this note and agrees with this plan of care. This note was dictated using voice recognition software and make contain errors or omissions.
== END 2020-02-12 14:00 | disposition home or self-care (01) ==
LOC: SC.PAINP 13:37
PROVIDERS: PCP Family Medicine; Visit Provider Clinical Nurse Specialist Family Health
DX: G57.03 Lesion of sciatic nerve, bilateral lower limbs; I10 Essential (primary) hypertension; I48.91 Unspecified atrial fibrillation; J44.9 Chronic obstructive pulmonary disease, unspecified; Z77.22 Contact with and (suspected) exposure to environmental tobacco smoke (acute) (chronic); G47.33 Obstructive sleep apnea (adult) (pediatric); M46.1 Sacroiliitis, not elsewhere classified; Z79.899 Other long term (current) drug therapy
CPT/HCPCS: 20552; J1030

== ENCOUNTER → 2020-02-26 11:25 | Outpatient (POV) | payer MEDICARE, OTHER, SELFPAY ==
[2020-02-26 12:18] VITALS: BP 135/85; PULSE 85; RESP 18; TEMP 36.6; O2SAT 98; BMI 42.9
--- NOTE | 2020-02-26 13:01 | HMH.PAINSOAP ---
[facility] Pain Management SOAP Note Subjective:: Is a pleasant 69-year-old white female who presents today for follow-up after bilateral piriformis injections. Patient did not get any relief in regards to this. She is having pain in her low back radiating down her leg and stopping in her buttock region. Patient is had good relief with SI joint injections in the past. However her pain present slightly differently today. Patient and I discussed lumbar epidural steroid injection she like to move forward with this. We she rates her pain today a 7 out of 10. She is on anticoagulation therapy. We will see if she can come off of it prior to her injection. ROS General: no recent weight change, no fever, no sleep disturbances Respiratory: no cough, no shortness of air, no recurring pulmonary infections Cardiovascular/Peripheral Vascular: No chest pain, No palpitations, no edema, no shortness of breath. Gastrointestinal: no new onset incontinence, normal bowel movements reported Genitourinary: no new onset incontinence Musculoskeletal: Back pain, leg pain Psychiatric: normal mood/ affect Neurological: [denies new onset weakness in extremities], [denies new onset balance issues] Objective:: Physical Exam General: Alert and oriented x3, no acute distress, pleasant and cooperative, [on room air] Lungs: Resps E/U, Symmetrical chest expansion, Eyes: PERRL Musculoskeletal: Flexion and extension of lumbar spine somewhat guarded secondary to pain, deep tendon reflexes normal, strength in upper and lower extremities [5/5], antalgic gait noted Neurological: speech clear, aircraft cabin cleaner equal, no gross sensory deficits Assessment:: Degenerative disc disease lumbar spine lumbar radiculopathy, sacroiliitis, piriformis syndrome Plan:: We will set the patient up for an L4-L5 lumbar epidural steroid injection. We will see if she can come off of her anticoagulation therapy prior to this. She has been instructed to call the office if she has any issues prior to her next appointment. Dr. Soto has reviewed this note and agrees with this plan of care. This note was dictated using voice recognition software and may contain errors or omissions [facility] History I have reviewed the patient's past medical history: Yes Medical History: Reports:: Atrial Fibrillation, Hypertension Denies:: Cancer, Diabetes Mellitus Type 1, Diabetes Mellitus Type 2, MRSA, Seizures *Have you ever received a pneumonia vaccine?: Yes *Have you received a flu vaccine this season?: Yes Other Medical History: Reports: Arthritis. Denies: Blood Transfusion Reaction Other Surgeries: Yes: No Previous Surgery, Cardiac Surgery, Hysterectomy-Partial, Other Amputation: No Fractures: No - *Social History Smoking Status: Never smoker Alcohol Intake: never Alcohol Intake Frequency:: other Substance Use Type: denies use *Occupational Status:: other Housing: house Household Members: significant other *Travel in the last 8 weeks: None Family Hx:: Coronary Artery Disease
== END ==
PROVIDERS: PCP Family Medicine; Visit Provider Clinical Nurse Specialist Family Health
DX: M51.16 Intervertebral disc disorders with radiculopathy, lumbar region (principal); M46.1 Sacroiliitis, not elsewhere classified; G57.00 Lesion of sciatic nerve, unspecified lower limb
CPT/HCPCS: 99212

== ENCOUNTER 2020-03-08 10:38 | Day surgery (SDC) | payer MEDICARE, OTHER, SELFPAY ==
[2020-03-08 10:56] VITALS: BP 142/54; PULSE 67; RESP 18; TEMP 36.6; O2SAT 98; BMI 41.5
[2020-03-08 11:48] VITALS: BP 112/78; PULSE 74; RESP 18; O2SAT 99
[2020-03-08 11:49] VITALS: BP 115/74; PULSE 78; RESP 18; O2SAT 99
--- NOTE | 2020-03-08 11:53 | HMH.PMPROC ---
- Procedure Date: 03/08/20 Time: 11:53 Anesthesiologist:: Demetrius Soto MD Complications:: None Pre-procedure Diagnosis:: Degenerative disc disease of lumbar spine with lumbar radiculopathy symptoms Post-procedure Diagnosis:: Same Indications for Procedure:: This patient is a pleasant 69-year-old white female who we are treating for low back pain with lumbar radiculopathy symptoms. There is increasing pain in her low back rating down both buttocks. She did not get good relief with bilateral piriformis injections. Will do lumbar epidural steroid injection today to help her with her pain symptoms. She has been off her Xarelto since Wednesday. Procedure Details:: Epidural steroid injection under fluoroscopy Informed consent was obtained and the risk and benefits of the procedure was explained to the patient. The patient was taken to the procedure room. The patient was placed prone on the procedure table. The patient was prepped and draped in sterile fashion. C-arm fluoroscopy was used to view the lumbar spine. Skin and subcutaneous tissues were anesthetized using lidocaine. I placed an 18-gauge epidural needle and advanced into the L4-L5 interspace using fluoroscopic guidance and [id number] to air. After confirmation of needle placement in the epidural space with dye I injected 2 mL of lidocaine 1.5% with Depo-Medrol 80 mg. Patient tolerated the procedure well with no complications. Plan and Disposition:: We will follow-up with her in 2 weeks. Will reevaluate symptoms at that time. She can restart her Xarelto tomorrow.
[2020-03-08 12:10] VITALS: BP 110/66; PULSE 61; RESP 20; O2SAT 98
== END 2020-03-08 12:10 | disposition home or self-care (01) ==
LOC: SC.PAINP 10:39
PROVIDERS: PCP Family Medicine; Visit Provider Anesthesiology
DX: M51.16 Intervertebral disc disorders with radiculopathy, lumbar region (principal); I10 Essential (primary) hypertension; I48.91 Unspecified atrial fibrillation; J44.9 Chronic obstructive pulmonary disease, unspecified; Z77.22 Contact with and (suspected) exposure to environmental tobacco smoke (acute) (chronic); Z79.899 Other long term (current) drug therapy
CPT/HCPCS: 62323; J1040; Q9966

== ENCOUNTER → 2020-04-04 10:32 | Outpatient (POV) | payer MEDICARE, OTHER, SELFPAY ==
[2020-04-04 10:40] VITALS: BP 125/82; PULSE 72; RESP 18; TEMP 36.6; O2SAT 98; BMI 41.5
--- NOTE | 2020-04-04 11:04 | HMH.PAINSOAP ---
[facility] Pain Management SOAP Note Subjective:: Patient is a 69-year-old white female who presents today for follow-up after a lumbar epidural steroid injection. Patient is being treated for chronic low back pain. Patient does report that she got approximately 85% relief after her injection. She says that her pain is now 4 out of 10. Patient does say that while the injections do help her, she is not tolerating the steroids in the injection. She says that it does cause her heart to go out of rhythm after taking corticosteroids. Patient is currently on Xarelto and recently underwent a cardiac ablation. She says that at this time she does not feel her pain is worse enough to undergo a repeat injection, however, she says that she may need a repeat injection in the future. Patient has requested that any further injective therapy be done without any type of corticosteroid. Patient and I did discuss that she could undergo the injection with lidocaine only. She says her pain is primarily in her low back and is nonradicular. Review of Systems General: No recent weight changes, no fever, no sleep disturbances Respiratory: No cough, no shortness of air, no recurring pulmonary infections Cardiovascular/peripheral vascular: No chest pain, no palpitations, no edema, no shortness of breath Gastrointestinal: No new onset incontinence, normal bowel movements reported Genitourinary: No new onset incontinence Musculoskeletal: Low back pain Psychiatric: Normal mood/affect Neurological: [Denies weakness in extremities], [denies balance issues] Objective:: Physical exam General: Alert and oriented x3, no acute distress, pleasant and cooperative, [on room air] Lungs: Respirations even and unlabored, symmetrical chest expansion Eyes: PERRL Musculoskeletal: Flexion and extension of lumbar spine somewhat guarded secondary to pain, deep tendon reflexes normal, strength in upper and lower extremities [5/5], normal gait noted Neurological: Speech clear, restorative rehab aide equal, no gross sensory deficit Assessment:: Low back pain, degenerative disc disease lumbar spine Plan:: Overall, the patient did well with her injection. Patient would like to postpone any further injective therapy. She does say that the corticosteroid has caused her heart to go out of rhythm. She is on Xarelto and she recently underwent a cardiac ablation. She would like to contact us with her next appointment. She has been instructed to contact the clinic if she has any concerns before her next appointment. The patient and I specifically discussed risk factors for COVID19. These risks include, but are not limited to age greater than 60, heart or lung disease, diabetes, immunosuppression, and travel. We also discussed NSAIDs may worsen COVID19 infection or symptoms. Patient should not use NSAIDs to treat COVID19 signs or symptoms. Patient was also informed that any type of corticosteroid of any form (oral or injection) will decrease the patient's immune system response and may increase the likelihood of COVID19 infection and symptoms. [facility] History I have reviewed the patient's past medical history: Yes Medical History: Reports:: Atrial Fibrillation, Hypertension Denies:: Cancer, Diabetes Mellitus Type 1, Diabetes Mellitus Type 2, MRSA, Seizures *Have you ever received a pneumonia vaccine?: Yes *Have you received a flu vaccine this season?: Yes Other Medical History: Reports: Arthritis. Denies: Blood Transfusion Reaction Other Surgeries: Yes: No Previous Surgery, Cardiac Surgery, Hysterectomy-Partial, Other Amputation: No Fractures: No - *Social History Smoking Status: Never smoker Alcohol Intake: never Alcohol Intake Frequency:: other Substance Use Type: denies use *Occupational Status:: other Housing: house Household Members: significant other *Travel in the last 8 weeks: None Family Hx:: Coronary Artery Disease
== END ==
PROVIDERS: Visit Provider Clinical Nurse Specialist Family Health
DX: M51.36 Other intervertebral disc degeneration, lumbar region (principal)
CPT/HCPCS: 99212

== ENCOUNTER → 2020-04-29 09:34 | Outpatient (POV) | payer MEDICARE, OTHER, SELFPAY ==
[2020-04-29 09:42] VITALS: BP 142/74; PULSE 85; RESP 18; TEMP 37; O2SAT 98; BMI 41.5
--- NOTE | 2020-04-29 10:01 | P.CONS_ITS ---
[facility] Pain Management SOAP Note Subjective:: Pleasant 69-year-old white female who presents today for follow-up. Patient had decided to take a break from her injections due to side effects from the steroid. Patient states that she has arrhythmia after her injections. Patient currently on Xarelto. Patient and I had a long discussion in regard to moving forward in the future with potentially a neurostimulator or intrathecal pain pump. I do believe that she would benefit from this without the contraindication of the steroid. We have also discussed doing injections with decrease steroid. Patient's pain pattern is in her lower back with radiation into her hips and buttock region. Patient rates her pain today a 6 out of 10. She is on Xarelto however she has permission to have it held for procedures. Patient does get good relief up to 85% with her injection therapy. ROS General: no recent weight change, no fever, no sleep disturbances Respiratory: no cough, no shortness of air, no recurring pulmonary infections Cardiovascular/Peripheral Vascular: No chest pain, No palpitations, no edema, no shortness of breath. Gastrointestinal: no new onset incontinence, normal bowel movements reported Genitourinary: no new onset incontinence Musculoskeletal: Back pain, leg pain Psychiatric: normal mood/ affect Neurological: [denies new onset weakness in extremities], [denies new onset balance issues] Objective:: Physical Exam General: Alert and oriented x3, no acute distress, pleasant and cooperative, [on room air] Lungs: Resps E/U, Symmetrical chest expansion, Eyes: PERRL Musculoskeletal: Flexion and extension of lumbar spine somewhat guarded secondary to pain, deep tendon reflexes normal, strength in upper and lower extremities [5/5], slightly antalgic gait noted Neurological: speech clear, bobbin sorter equal, no gross sensory deficits Assessment:: Degenerative disc disease lumbar spine lumbar radiculopathy Plan:: We will schedule the patient for L4-L5 lumbar epidural steroid injection. We will give her half of the steroid dose due to her arrhythmias. Patient I also had a long discussion about implantable therapies including intrathecal therapy and neuro stimulation. I discussed with her that this should be considered due to her inability to tolerate large doses of steroids. Patient is on Xarelto however she has permission to come off of it for her injections I will follow-up with her after her injection reassess her symptoms at that time she has been instructed to call the office if she has any issues prior to her next appointment. Dr. Soto has reviewed this note and agrees with this plan of care. This note was dictated using voice recognition software and may contain errors or omissions [facility] History I have reviewed the patient's past medical history: Yes Medical History: Reports:: Atrial Fibrillation, Hypertension Denies:: Cancer, Diabetes Mellitus Type 1, Diabetes Mellitus Type 2, MRSA, Seizures *Have you ever received a pneumonia vaccine?: Yes *Have you received a flu vaccine this season?: Yes Other Medical History: Reports: Arthritis. Denies: Blood Transfusion Reaction Other Surgeries: Yes: No Previous Surgery, Cardiac Surgery, Hysterectomy- Partial, Other Amputation: No Fractures: No - *Social History Smoking Status: Never smoker Alcohol Intake: never Alcohol Intake Frequency:: other Substance Use Type: denies use *Occupational Status:: other Housing: house Household Members: significant other *Travel in the last 8 weeks: None Family Hx:: Coronary Artery Disease
== END ==
PROVIDERS: PCP Family Medicine; Visit Provider Clinical Nurse Specialist Family Health
DX: M51.16 Intervertebral disc disorders with radiculopathy, lumbar region (principal)
CPT/HCPCS: 99212

== ENCOUNTER 2020-05-10 09:55 | Day surgery (SDC) | payer MEDICARE, OTHER, SELFPAY ==
[2020-05-10 10:21] VITALS: BP 143/78; PULSE 71; RESP 18; TEMP 36.5; O2SAT 98; BMI 41.5
[2020-05-10 11:33] VITALS: BP 133/89; PULSE 89; RESP 79; O2SAT 98
[2020-05-10 11:34] VITALS: BP 141/78; PULSE 89; RESP 18; O2SAT 98
--- NOTE | 2020-05-10 11:35 | HMH.PMPROC ---
- Procedure Date: 05/10/20 Time: 11:35 Anesthesiologist:: Demetrius Soto MD Complications:: None Pre-procedure Diagnosis:: Degenerative disc disease of lumbar spine with lumbar radiculopathy symptoms Post-procedure Diagnosis:: Same Indications for Procedure:: This patient is a pleasant 69-year-old white female who we have been treating for low back pain with lumbar radiculopathy symptoms. She has been off her Xarelto for 5 days. She does get arrhythmias with any steroids so we will decrease her steroid to half and plan on a lumbar pleural steroid injection to help with her low back pain today. Most of her pain radiates to her buttocks. Procedure Details:: Lumbar epidural steroid injection under fluoroscopy Informed consent was obtained and the risk and benefits of the procedure was explained to the patient. The patient was taken to the procedure room. The patient was placed prone on the procedure table. The patient was prepped and draped in sterile fashion. C-arm fluoroscopy was used to view the lumbar spine. Skin and subcutaneous tissues were anesthetized using lidocaine. I placed an 18-gauge epidural needle and advanced into the L4-L5 interspace using fluoroscopic guidance and [id number] to air. After confirmation of needle placement in the epidural space with dye I injected 2 mL of lidocaine 1.5% with Depo-Medrol 40 mg. Patient tolerated the procedure well with no complications. Plan and Disposition:: We will follow-up with her and 2 weeks. Will reevaluate symptoms at that time.
[2020-05-10 11:55] VITALS: BP 109/51; PULSE 65; RESP 18; O2SAT 98
== END 2020-05-10 11:55 | disposition home or self-care (01) ==
LOC: SC.PAINP 09:57
PROVIDERS: PCP Family Medicine; Visit Provider Anesthesiology
DX: M51.16 Intervertebral disc disorders with radiculopathy, lumbar region (principal); I11.0 Hypertensive heart disease with heart failure; E78.5 Hyperlipidemia, unspecified; I50.9 Heart failure, unspecified; I48.91 Unspecified atrial fibrillation; J44.9 Chronic obstructive pulmonary disease, unspecified
CPT/HCPCS: 62323; J1030; Q9966

== ENCOUNTER → 2020-06-03 10:25 | Outpatient (POV) | payer MEDICARE, OTHER, SELFPAY ==
[2020-06-03 10:51] VITALS: BP 118/74; PULSE 77; RESP 18; TEMP 36.8; O2SAT 98; BMI 41.5
--- NOTE | 2020-06-03 11:34 | HMH.PAINSOAP ---
[facility] Pain Management SOAP Note Subjective:: Is a pleasant 70-year-old white female Zentz today for follow-up after lumbar epidural steroid injection. Patient got 80% relief of her symptoms and is doing well she rates her pain today a 2 out of 10. Patient had her steroid cut in half due to palpitations. She had no palpations after having her epidural injection. Overall patient doing well she would like to repeat this in several weeks. Given the efficacy of it. Patient is on Xarelto however she has permission to come off prior to injective therapy. ROS General: no recent weight change, no fever, no sleep disturbances Respiratory: no cough, no shortness of air, no recurring pulmonary infections Cardiovascular/Peripheral Vascular: No chest pain, No palpitations, no edema, no shortness of breath. Gastrointestinal: no new onset incontinence, normal bowel movements reported Genitourinary: no new onset incontinence Musculoskeletal: Back pain, leg pain Psychiatric: normal mood/ affect Neurological: [denies new onset weakness in extremities], [denies new onset balance issues] Objective:: Physical Exam General: Alert and oriented x3, no acute distress, pleasant and cooperative, Lungs: Resps E/U, Symmetrical chest expansion, Eyes: PERRL Musculoskeletal: Flexion and extension of lumbar spine somewhat guarded secondary to pain, deep tendon reflexes normal, strength in upper and lower extremities [5/5], antalgic gait noted Neurological: speech clear, gate watch equal, no gross sensory deficits Assessment:: Degenerative disc disease lumbar spine lumbar radiculopathy Plan:: We will see the patient back in several weeks repeat her epidural steroid injection given the efficacy of the last 1. We will continue to do her epidural steroid injections with decreased steroid. Patient's been instructed to call the office if she has any issues prior to her next appointment. Dr. Soto has reviewed this note and agrees with this plan of care. This note was dictated using voice recognition software and may contain errors or omissions [facility] History I have reviewed the patient's past medical history: Yes Medical History: Reports:: Atrial Fibrillation, Congestive Heart Failure, Hyperlipidemia, Hypertension Denies:: Cancer, Diabetes Mellitus Type 1, Diabetes Mellitus Type 2, MRSA, Seizures *Have you ever received a pneumonia vaccine?: Yes *Have you received a flu vaccine this season?: Yes Other Medical History: Reports: Arthritis. Denies: Blood Transfusion Reaction Other Surgeries: Yes: No Previous Surgery, Cardiac Surgery, Hysterectomy-Partial, Other Amputation: No Fractures: No - *Social History Smoking Status: Never smoker Alcohol Intake: never Alcohol Intake Frequency:: other Substance Use Type: denies use *Occupational Status:: other Housing: house Household Members: significant other *Travel in the last 8 weeks: None Family Hx:: Coronary Artery Disease
== END ==
PROVIDERS: PCP Family Medicine; Visit Provider Clinical Nurse Specialist Family Health
DX: M51.16 Intervertebral disc disorders with radiculopathy, lumbar region (principal)
CPT/HCPCS: 99212

== ENCOUNTER → 2020-06-19 11:09 | Outpatient (CLI) | payer MEDICARE, OTHER, SELFPAY ==
[2020-06-20 09:52] LABS: Covid-19 Nasal PCR Sendout Lex NOT DETECTED
== END ==
PROVIDERS: PCP Family Medicine; Visit Provider Family Medicine
DX: Z03.818 Encounter for observation for suspected exposure to other biological agents ruled out (principal)
CPT/HCPCS: U0004

== ENCOUNTER 2020-07-05 08:50 | Day surgery (SDC) | payer MEDICARE, OTHER, SELFPAY ==
[2020-07-05 08:58] VITALS: BP 122/60; BP 157/62; PULSE 70; PULSE 73; RESP 18; RESP 20; TEMP 36.4; O2SAT 98; BMI 42.9
[2020-07-05 10:02] VITALS: BP 115/79; PULSE 85; RESP 18
[2020-07-05 10:04] VITALS: BP 116/79; PULSE 85; RESP 18; O2SAT 98
--- NOTE | 2020-07-05 10:12 | HMH.PMPROC ---
- Procedure Date: 07/05/20 Time: 10:12 Anesthesiologist:: Demetrius Soto MD Complications:: None Pre-procedure Diagnosis:: Degenerative disc disease of lumbar spine with lumbar radiculopathy symptoms Post-procedure Diagnosis:: Same Indications for Procedure:: This patient is a pleasant 70-year-old white female who we are treating for low back pain with lumbar radiculopathy symptoms. She got 80 to 90% relief of her pain symptoms after her last lumbar epidural steroid injection. She still has some residual pain. We will do repeat lumbar epidural steroid injection today. We will reduce steroid to 40 mg as patient does have arrhythmias with full dose steroids. Procedure Details:: Lumbar epidural steroid injection under fluoroscopy Informed consent was obtained and the risk and benefits of the procedure was explained to the patient. The patient was taken to the procedure room. The patient was placed prone on the procedure table. The patient was prepped and draped in sterile fashion. C-arm fluoroscopy was used to view the lumbar spine. Skin and subcutaneous tissues were anesthetized using lidocaine. I placed an 18-gauge epidural needle and advanced into the L4-L5 interspace using fluoroscopic guidance and [id number] to air. After confirmation of needle placement in the epidural space with dye I injected 2 mL of lidocaine 1.5% with Depo-Medrol 40 mg. Patient tolerated the procedure well with no complications. Plan and Disposition:: We will follow-up with her in 2 weeks. Will reevaluate symptoms at that time.
== END 2020-07-05 10:17 | disposition home or self-care (01) ==
LOC: SC.PAINP 08:53
PROVIDERS: PCP Family Medicine; Visit Provider Anesthesiology
DX: M51.16 Intervertebral disc disorders with radiculopathy, lumbar region (principal); I10 Essential (primary) hypertension; E78.5 Hyperlipidemia, unspecified; I48.91 Unspecified atrial fibrillation; J44.9 Chronic obstructive pulmonary disease, unspecified; F41.9 Anxiety disorder, unspecified; F32.9 Major depressive disorder, single episode, unspecified; Z79.899 Other long term (current) drug therapy
CPT/HCPCS: 62323; J1030; Q9966

== ENCOUNTER → 2020-07-29 09:09 | Outpatient (POV) | payer MEDICARE, OTHER, SELFPAY ==
--- NOTE | 2020-07-29 09:33 | HMH.PAINSOAP ---
[facility] Pain Management SOAP Note Subjective:: Patient is a pleasant 70-year-old white female who presents today for follow-up after lumbar epidural steroid injection. Patient is 90% better. She rates her pain a 2 out of 10. Overall doing extremely well we did reduce her steroids to 40 mg and she had no arrhythmias post epidural. ROS General: no recent weight change, no fever, no sleep disturbances Respiratory: no cough, no shortness of air, no recurring pulmonary infections Cardiovascular/Peripheral Vascular: No chest pain, No palpitations, no edema, no shortness of breath. Gastrointestinal: no new onset incontinence, normal bowel movements reported Genitourinary: no new onset incontinence Musculoskeletal: Back pain at times Psychiatric: normal mood/ affect Neurological: [denies new onset weakness in extremities], [denies new onset balance issues] Objective:: Physical Exam General: Alert and oriented x3, no acute distress, pleasant and cooperative, [on room air] Lungs: Resps E/U, Symmetrical chest expansion, Eyes: PERRL Musculoskeletal: Flexion and extension of lumbar spine somewhat guarded secondary to pain, deep tendon reflexes normal, strength in upper and lower extremities [5/5], slightly antalgic gait noted Neurological: speech clear, 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 Dr. Soto has reviewed this note and agrees with this plan of care. This note was dictated using voice recognition software and may contain errors or omissions [facility] History I have reviewed the patient's past medical history: Yes Medical History: Reports:: Atrial Fibrillation, Congestive Heart Failure, Hyperlipidemia, Hypertension Denies:: Cancer, Diabetes Mellitus Type 1, Diabetes Mellitus Type 2, MRSA, Seizures *Have you ever received a pneumonia vaccine?: No *Have you received a flu vaccine this season?: No Other Medical History: Reports: Arthritis. Denies: Blood Transfusion Reaction Other Surgeries: Yes: No Previous Surgery, Cardiac Surgery, Hysterectomy-Partial, Other Amputation: No Fractures: No - *Social History Smoking Status: Never smoker Alcohol Intake: never Alcohol Intake Frequency:: other Substance Use Type: denies use *Occupational Status:: retired Housing: house Household Members: significant other *Travel in the last 8 weeks: None Family Hx:: Coronary Artery Disease
[2020-07-29 09:55] VITALS: BP 144/90; PULSE 66; RESP 18; O2SAT 98; BMI 42.5
== END ==
PROVIDERS: PCP Family Medicine; Visit Provider Clinical Nurse Specialist Family Health
DX: M51.16 Intervertebral disc disorders with radiculopathy, lumbar region (principal)
CPT/HCPCS: 99212; G0463

== ENCOUNTER → 2021-03-04 08:15 | Outpatient (CLI) | payer MEDICARE, OTHER, SELFPAY ==
--- NOTE | 2021-03-04 08:31 | XR_ITS ---
PROCEDURE: XR KNEE RT 4V CLINICAL INDICATION: WANG KNEE PAIN COMPARISON: No exams were available for comparison FINDINGS: No fracture or dislocation. No lytic or blastic change. There is normal mineralization. Mild osteoarthritic changes involving all 3 compartments greatest at the medial compartment. 13 mm area calcification noted projecting over the distal femur at the intercondylar region which is felt to be due to loose body posteriorly in the intercondylar area of the distal femur. IMPRESSION: Mild osteoarthritis Suspect loose body in the intercondylar region of the distal femur Dictated by: John Monae MD 03/04/2021 09:42 John Monae MD in [place] 03/04/2021 09:42
--- NOTE | 2021-03-04 08:31 | XR_ITS ---
PROCEDURE: XR KNEE LT 4V CLINICAL INDICATION: WANG KNEE PAIN COMPARISON: No exams were available for comparison FINDINGS: No acute fracture or dislocation. Mild osteoarthritic changes involves all 3 compartments greatest at the medial compartment with decrease in the joint space and small bony spurs. Other findings:Lobular soft tissue densities noted along the medial knee which may be due to varicosities. IMPRESSION: Mild osteoarthritis Dictated by: John Monae MD 03/04/2021 09:57 John Monae MD in [place] 03/04/2021 09:57
--- NOTE | 2021-03-04 08:31 | XR_ITS ---
PROCEDURE: XR SHOULDER RT MIN 2V CLINICAL INDICATION: RT SHOULDER PAIN COMPARISON: No exams were available for comparison FINDINGS: There are osteoarthritic changes of the acromioclavicular joint with mild bony hypertrophy of the distal aspect of the right clavicle. Subacromial stenosis is present. There osteoarthritic changes of the glenohumeral joint. No fracture or dislocation. Small bony spur projects off the medial aspect of the coracoid process. No lytic or blastic change. Other findings:None. IMPRESSION: Osteoarthritis of the acromioclavicular and glenohumeral joint with subacromial stenosis Dictated by: John Monae MD 03/04/2021 09:39 John Monae MD in [place] 03/04/2021 09:39
== END ==
PROVIDERS: PCP Family Medicine; Visit Provider Family Medicine
DX: M25.511 Pain in right shoulder (principal); M25.562 Pain in left knee; M25.561 Pain in right knee
CPT/HCPCS: 73030; 73564

== ENCOUNTER → 2021-06-19 11:30 | Outpatient (CLI) | payer MEDICARE, OTHER, SELFPAY | PROVIDERS: Visit Provider Nurse Practitioner | DX: Z20.822 Contact with and (suspected) exposure to COVID-19 (principal) | CPT/HCPCS: C9803; U0003; U0005 ==

== ENCOUNTER → 2021-07-08 08:24 | Outpatient (POV) | payer MEDICARE, OTHER, SELFPAY ==
[2021-07-08 08:50] VITALS: BP 130/95; PULSE 73; RESP 20; TEMP 36.8; O2SAT 96; BMI 45.4
--- NOTE | 2021-07-08 09:28 | HMH.PAINSOAP ---
[facility] Pain Management SOAP Note Subjective:: Patient is a pleasant 72-year-old female who comes in here today for for follow-up. Patient is currently being treated for chronic backpain and multiple joint osteoarthritis including her feet, knees, hips, hands, fingers, and toes. For her joint pains, she is currently taking Quinault 10 mg 4 times a day, prescribed by Dr. Martinez, but according to her, she only takes it three times a day and takes an extra dose on some days. She denies any side effects from this medication. Dr. Martinez referred her to rheumatology for the chronic joint paints, but rheumatology said that they cannot do anything for her. She is currently seeing Dr. Alin Rushing in [place] for her joint injection in her shoulders, hands, fingers, and knees. Patient says that the intraarticular injections work for her but she can't do too much injections because it causes her to have atrial fibrillation if taken too much. Today, patient presents today because Dr. Martinez told her that they are changing policy and won't be able to write her prescriptions anymore. According to Dr. Martinez, patient's current regimen is working for her. She's never had positive drug screen for other drugs and she does not show any signs of abuse or addiction. She came to us because we have established care with her and we're closer to where she lives. She rates her pain today as 8 out of 10. Her Catrachito is [phone] with an active morphine equivalent of 40. We are obtaining a drug screen today. Low Back Pain Patient has had chronic back pain for years and is currently being treated for degenerative disc disease of the lumbar spine with lumbar radiculopathy symptoms. She was seen here in July for a lumbar epidural steroid injection of her back which provided 80-90% relief. She denies any issues with the procedure. Today, patient says that she is starting to have some back pain again and would like to schedule for another lumbar epidural steroid injection. Patient denies any loss of bowel and bladder functions. Objective:: Physical exam General: Alert and oriented x3, no acute distress, pleasant and cooperative Lungs: Respirations even and unlabored, symmetrical chest expansion Eyes: PERRL Musculoskeletal: Flexion and extension of lumbar [spine] somewhat guarded secondary to pain; limited range of motion of bilateral shoulders and bilateral knees. Neurological: Speech clear, no gross sensory deficit Assessment:: Osteoarthritis of bilateral shoulders, hands, fingers, hips, and knees Degenerative disc disease of the lumbar spine with lumbar radiculopathy symptoms Plan:: Patient is currently taking Quinault 10 mg 4 times a day that is prescribed by Dr. Martinez. According to Dr. Martinez, they are changing their policy and won't be able to continue prescribing her medication. Dr. Martinez says that the patient has never had any positive drug screen and has not shown any signs of abuse or addiction. Dr. Martinez also says that this current pain regimen is working well for the patient. I have discussed this patient with Dr. Soto and he said that we can take over her Quinault prescription. However, we will only prescribe Quinault 10 mg 3 times a day instead of 4 times a day. Patient still has enough prescriptions for 1-2 weeks, so we will see her again in July 2021 for follow-up. We will also see if the patient is willing to let us do her knees and shoulder injections where we can work on getting her nerve blocks if the intraarticular joint injections work minimally. At her appointment in July, we will see if the patient would be willing to have her right shoulder injection scheduled then. Degenerative disc disease of the lumbar spine with lumbar radiculopathy symptoms Patient has tried and failed oral medications and at home exercised for greater than6 weeks. Patient also had a lumbar epidural steroid injection in July that provided her about 80 to 90% relief. We will
[2021-07-08 11:05] LABS: Amphetamine/Metha Screen,Urine Negative ng/ml (<1000); Barbiturates Screen,Urine Negative ng/ml (<200)
[2021-07-08 11:06] LABS: Benzodiazepines Screen,Urine Negative ng/ml (<200); Cannabinoid Screen,Urine Negative ng/ml (<50)
[2021-07-08 11:07] LABS: Cocaine Screen,Urine Negative ng/ml (<300)
[2021-07-08 11:08] LABS: Methadone Screen,Urine Negative ng/ml (<300)
[2021-07-08 11:12] LABS: Opiate Screen,Urine Positive ng/ml (<300); Phencyclidine Screen,Urine Negative ng/ml (<25)
[2021-07-22 10:10] LABS: Codeine Negative (Cutoff=100); Hydrocodone Positive (.); Hydromorphone Positive (.); Morphine Negative (Cutoff=100); Opiates Positive (.)
== END ==
PROVIDERS: Visit Provider Clinical Nurse Specialist Family Health
DX: M19.011 Primary osteoarthritis, right shoulder (principal); M19.012 Primary osteoarthritis, left shoulder; M19.041 Primary osteoarthritis, right hand; M16.0 Bilateral primary osteoarthritis of hip; M17.0 Bilateral primary osteoarthritis of knee; M51.16 Intervertebral disc disorders with radiculopathy, lumbar region; M19.042 Primary osteoarthritis, left hand; Z79.899 Other long term (current) drug therapy
CPT/HCPCS: 80305; 80361; 80365; 99212; G0463; G0480

== ENCOUNTER → 2021-07-22 08:20 | Outpatient (POV) | payer MEDICARE, OTHER, SELFPAY ==
[2021-07-22 08:42] VITALS: BP 166/67; PULSE 78; RESP 18; O2SAT 96; BMI 45.4
--- NOTE | 2021-07-22 08:53 | HMH.PAINSOAP ---
[facility] Pain Management SOAP Note Subjective:: Patient is a pleasant 72-year-old female who comes in here today for follow-up and medication refill. Currently being treated for osteoarthritis of bilateral shoulders, hands, fingers, hips, and knees. Patient also has degenerative disc disease of lumbar spine with lumbar radiculopathy symptoms. Patient was being managed Embudo 10mg 4 times a day but since we are taking over her pain management, we will only prescribe Embudo 10mg three times a day starting today. Patient is agreeable to this, since she said that she only takes the fourth medication when she really needs to. Patient also gets injections in her low back, bilateral shoulders, hands, fingers, hips, and knees. We have given lumbar epidural steroid injections to this patient in the past which provided her significant relief. Patient will hold off in getting this injection for now. She does say that her right shoulder is bothering her the most right now and would like an injection in this. She says that she is having trouble putting her clothes on because of the limited range of motion of her right shoulder. She rates her pain as 5/10. Her Catrachito number is [phone] with an active morphine equivalent of 40. Review of Systems General: No recent weight changes, no fever, no sleep disturbances Respiratory: No cough, no shortness of air, no recurring pulmonary infections Cardiovascular/peripheral vascular: No chest pain, no palpitations, no edema, no shortness of breath Gastrointestinal: No new onset incontinence, normal bowel movements reported Genitourinary: No new onset incontinence Musculoskeletal: Low back pain, right shoulder pain, left knee pain Psychiatric: [Normal mood/affect] Neurological: [Denies weakness in extremities], [denies balance issues] Objective:: Physical exam General: Alert and oriented x3, no acute distress, pleasant and cooperative Lungs: Respirations even and unlabored, symmetrical chest expansion Eyes: PERRL Musculoskeletal: Flexion and extension of lumbar [spine] somewhat guarded secondary to pain; Limited ROM on the right shoulder and left knee Neurological: Speech clear, no gross sensory deficit Assessment:: Osteoarthritis of bilateral shoulders, hands, fingers, hips, and her knees Degenerative disc disease of lumbar spine with lumbar radiculopathy symptoms Plan:: Dr. Martinez will not be able to cover the patient's Embudo medication and would like us to start managing it. According to Dr. Martinez, patient has never had positive drug screen for other drugs and does not show any signs of abuse or addiction. I have discussed this patient with Dr. Soto in her last appointment. Starting today, we will take over the patient's Embudo 10 mg. However, we will only give the patient Embudo 10mg three times a day. We will provide the patient 1 month worth of refill. Patient has tried conservative therapy such as oral medication and physical therapy for greater than 6 weeks in the past. Patient has had significant relief from intra-articular injections before. We will schedule the patient for a right shoulder injection. Risks and benefits of this procedure has been discussed with the patient. Then after 2 weeks of the shoulder injection, we will schedule the patient for a left knee injection. Patient says that her low back is not bothering her right now and would like to hold off on getting a lumbar epidural steroid injection. Risks and benefits of the medication have been explained in detail to the patient. The patient does understand the risk of dependence on the medication when given over a prolonged period. Patient has been advised of risks of oversedation with the prescribed medication. Narcan has been offered to the paitent in the event of oversedation. Patient has been advised that a family member should also be educated regarding administration of Narcan. The patient has been advised to consul
== END ==
PROVIDERS: Visit Provider Clinical Nurse Specialist Family Health
DX: M19.011 Primary osteoarthritis, right shoulder (principal); M19.012 Primary osteoarthritis, left shoulder; M19.042 Primary osteoarthritis, left hand; M19.041 Primary osteoarthritis, right hand; M16.0 Bilateral primary osteoarthritis of hip; M17.0 Bilateral primary osteoarthritis of knee; M51.16 Intervertebral disc disorders with radiculopathy, lumbar region
CPT/HCPCS: 99212; G0463

== ENCOUNTER 2021-08-08 08:54 | Day surgery (SDC) | payer MEDICARE, OTHER, SELFPAY ==
[2021-08-08 09:08] VITALS: BP 150/58; PULSE 69; RESP 20; TEMP 36.1; O2SAT 97; BMI 42.9
[2021-08-08 09:24] VITALS: BP 136/72; PULSE 74; RESP 18; O2SAT 97
[2021-08-08 09:25] VITALS: BP 136/72; PULSE 73; RESP 18; O2SAT 97
[2021-08-08 09:34] VITALS: BP 142/56; PULSE 73; RESP 20; O2SAT 97
--- NOTE | 2021-08-08 09:39 | P.PCN_ITS ---
- Procedure Date: 08/08/21 Time: 09:39 Anesthesiologist:: Demetrius Soto MD Complications:: None Pre-procedure Diagnosis:: Right shoulder pain with degenerative osteoarthritis Post-procedure Diagnosis:: Same Indications for Procedure:: This patient is a pleasant 71-year-old white female who we are treating for right shoulder pain with degenerative osteoarthritis. She has multi joint pain and is currently medically managed with Ferris 10 mg 1 tablet 3 times a day. Right shoulder seems to be the worst at this time. We will do an intra- articular injection today to see if this helps with her pain symptoms. Procedure Details:: Right shoulder intra-articular injection Informed consent was obtained risk and benefits of the procedure were explained to the patient. Patient was taken to the procedure room. The right shoulder was prepped using ChloraPrep. A 25-gauge needle was used first anteriorly, laterally, and then posteriorly to inject 10 mL bupivacaine 0.25% and Depo- Medrol 40 mg. Patient tolerated procedure well with no complications. Plan and Disposition:: We will follow-up with her in 2 weeks. Will reevaluate symptoms at that time. We will plan on a knee injection on August 22.
== END 2021-08-08 09:36 | disposition home or self-care (01) ==
LOC: SC.PAINP 08:55
PROVIDERS: PCP Family Medicine; Visit Provider Anesthesiology
DX: M19.011 Primary osteoarthritis, right shoulder (principal); E78.5 Hyperlipidemia, unspecified; I48.91 Unspecified atrial fibrillation; I11.0 Hypertensive heart disease with heart failure; J44.9 Chronic obstructive pulmonary disease, unspecified
CPT/HCPCS: 20610; J1040

== ENCOUNTER → 2021-08-21 07:51 | Outpatient (POV) | payer MEDICARE, OTHER, SELFPAY ==
--- NOTE | 2021-08-21 09:06 | HMH.PAINSOAP ---
[facility] Pain Management SOAP Note Subjective:: Patient is following up via telehealth medicine today. She is a 71-year-old white female who recently underwent shoulder injection with Dr. Soto. She is also managed with [place] 10 mg 1 tablet p.o. 3 times daily. She says she is doing much better since having her right shoulder injection. She got significant relief at about 60 to 70%. She has not had to take as much oral medication since the injection. Patient says that her pain is about a 5 out of 10 today. She denies any side effects to the medicine. Dr. Soto was in agreement to take over the patient's medication regimen from Dr. Marin. Hao and drug screens have been appropriate. We do treat the patient for chronic arthritis. Review of Systems General: No recent weight changes, no fever, no sleep disturbances Respiratory: No cough, no shortness of air, no recurring pulmonary infections Cardiovascular/peripheral vascular: No chest pain, no palpitations, no edema, no shortness of breath Gastrointestinal: No new onset incontinence, normal bowel movements reported Genitourinary: No new onset incontinence Musculoskeletal: Shoulder pain, hand pain, joint pain Psychiatric: [Normal mood/affect] Neurological: [Denies weakness in extremities], [denies balance issues] Objective:: Physical exam General: Alert and oriented x3, no acute distress, pleasant and cooperative Assessment:: Osteoarthritis bilateral shoulders, bilateral hands, bilateral knees Plan:: We will continue the patient's [place] 10 mg 1 tablet p.o. 3 times daily. She will get a month medication will be seen back in clinic in 1 month. She is scheduled a another injection with Dr. Soto. Risks and benefits of the medication have been explained in detail to the patient. The patient does understand the risk of dependence on the medication when given over a prolonged period. Patient has been advised of risks of oversedation with the prescribed medication. Narcan has been offered to the paitent in the event of oversedation. Patient has been advised that a family member should also be educated regarding administration of Narcan. The patient has been advised to consult with his/her primary care provider and pharmacist regarding drug-drug interaction of medications currently prescribed. Patient has been prescribed a controlled substance after being counseled on the medication, medication safety, and possible side effects. HAO report has been obtained and reviewed prior to prescription and found to be appropriate. Opioid contract was reviewed and signed by the patient, and that they have agreed to all of the terms set forth by our compliance program. Patient has been instructed to contact the clinic with any concerns before the next appointment. Dr. Soto has reviewed this note and agrees with this plan of care. This note was dictated using voice recognition software and make contain errors or omissions. [facility] History I have reviewed the patient's past medical history: Yes Medical History: Reports:: Arrhythmia, Atrial Fibrillation, Congestive Heart Failure, Hyperlipidemia, Hypertension Denies:: Cancer, Diabetes Mellitus Type 1, Diabetes Mellitus Type 2, MRSA, Seizures *Have you ever received a pneumonia vaccine?: Yes *Have you received a flu vaccine this season?: Yes Other Medical History: Reports: Arthritis. Denies: Blood Transfusion Reaction Other Surgeries: Yes: No Previous Surgery, Cardiac Surgery, Hysterectomy-Partial, Other Amputation: No Fractures: No - *Social History Smoking Status: Never smoker Alcohol Intake: never Alcohol Intake Frequency:: other Substance Use Type: denies use *Occupational Status:: retired Housing: house Household Members: other *Travel in the last 8 weeks: None Family Hx:: Coronary Artery Disease
--- NOTE | 2021-09-01 15:56 | HMH.VVPMSO ---
[facility] PM Virtual Visit SOAP Consent for virtual visit:: With the recent concerns about the COVID-19, we are trying to minimize exposure to you by shifting to telehealth appointments whenever possible. It restricts me from seeing you in person, but the trade off is protecting you during this pandemic. Can you see and hear me okay, and do you consent to this option? If not, I would be happy to see if we can reschedule your appointment in the future, when feasible. Has patient consented to this virtual visit?: Yes Subjective:: Patient is following up via telehealth medicine today. She is a 71-year-old white female who recently underwent shoulder injection with Dr. Soto. She is also managed with [place] 10 mg 1 tablet p.o. 3 times daily. She says she is doing much better since having her right shoulder injection. She got significant relief at about 60 to 70%. She has not had to take as much oral medication since the injection. Patient says that her pain is about a 5 out of 10 today. She denies any side effects to the medicine. Dr. Soto was in agreement to take over the patient's medication regimen from Dr. Marin. Hao and drug screens have been appropriate. We do treat the patient for chronic arthritis. Objective:: Physical exam General: Alert and oriented x3, no acute distress, pleasant and cooperative Assessment:: Degenerative disc disease lumbar spine with lumbar radiculopathy symptoms Plan:: We will continue the patient's [place] 10 mg 1 tablet p.o. 3 times daily. She will get a month medication will be seen back in clinic in 1 month. She is scheduled a another injection with Dr. Soto. Risks and benefits of the medication have been explained in detail to the patient. The patient does understand the risk of dependence on the medication when given over a prolonged period. Patient has been advised of risks of oversedation with the prescribed medication. Narcan has been offered to the paitent in the event of oversedation. Patient has been advised that a family member should also be educated regarding administration of Narcan. The patient has been advised to consult with his/her primary care provider and pharmacist regarding drug-drug interaction of medications currently prescribed. Patient has been prescribed a controlled substance after being counseled on the medication, medication safety, and possible side effects. HAO report has been obtained and reviewed prior to prescription and found to be appropriate. Opioid contract was reviewed and signed by the patient, and that they have agreed to all of the terms set forth by our compliance program. Patient has been instructed to contact the clinic with any concerns before the next appointment. Dr. Soto has reviewed this note and agrees with this plan of care. This note was dictated using voice recognition software and make contain errors or omissions. [facility] History Time In:: 10:00 Time Out:: 10:10 [facility] History Medical History: Reports:: Arrhythmia, Atrial Fibrillation, Congestive Heart Failure, Hyperlipidemia, Hypertension Denies:: Cancer, Diabetes Mellitus Type 1, Diabetes Mellitus Type 2, MRSA, Seizures *Have you ever received a pneumonia vaccine?: Yes *Have you received a flu vaccine this season?: Yes Other Medical History: Reports: Arthritis. Denies: Blood Transfusion Reaction Other Surgeries: Yes: No Previous Surgery, Cardiac Surgery, Hysterectomy-Partial, Other Amputation: No Fractures: No - *Social History Smoking Status: Never smoker Alcohol Intake: never Alcohol Intake Frequency:: other Substance Use Type: denies use *Occupational Status:: retired Housing: house Household Members: other *Travel in the last 8 weeks: None Family Hx:: Coronary Artery Disease
== END ==
PROVIDERS: Visit Provider Clinical Nurse Specialist Family Health
DX: M19.011 Primary osteoarthritis, right shoulder (principal); M19.012 Primary osteoarthritis, left shoulder; M19.041 Primary osteoarthritis, right hand; M19.042 Primary osteoarthritis, left hand; M17.0 Bilateral primary osteoarthritis of knee
CPT/HCPCS: 99212; G0463

== ENCOUNTER 2021-09-05 09:57 | Day surgery (SDC) | payer MEDICARE, OTHER, SELFPAY ==
[2021-09-05 10:05] VITALS: BP 131/55; PULSE 66; RESP 20; TEMP 36.1; O2SAT 96; BMI 42.9
[2021-09-05 10:16] VITALS: BP 147/63; PULSE 69; RESP 18; O2SAT 97
[2021-09-05 10:20] VITALS: BP 147/63; PULSE 75; RESP 18; O2SAT 97
--- NOTE | 2021-09-05 10:23 | HMH.PMPROC ---
- Procedure Date: 09/05/21 Time: 10:23 Anesthesiologist:: Demetrius Soto MD Complications:: None Pre-procedure Diagnosis:: Right knee pain with degenerative osteoarthritis Post-procedure Diagnosis:: Same Indications for Procedure:: Patient is a pleasant 71-year-old white female who we are treating for right knee pain with degenerative osteoarthritis. She has increasing pain over the right knee worse when walking. We will do a right knee intra-articular injection today to see if this helps with her pain symptoms. She is doing very well after her right shoulder injection. Procedure Details:: Right knee intra-articular injection Informed consent was obtained the risk and benefits of the procedure were explained to the patient. Patient was taken the procedure room. Right knee was prepped using ChloraPrep. A 25-gauge needle was used first medially then laterally to inject 10 mL bupivacaine 0.25% and Depo-Medrol 40 mg into the right knee. Patient tolerated procedure well with no complications. Plan and Disposition:: We will follow-up with her in 2 weeks. Will reevaluate symptoms at that time.
[2021-09-05 10:30] VITALS: BP 145/46; PULSE 63; RESP 20; O2SAT 98
== END 2021-09-05 10:30 | disposition home or self-care (01) ==
LOC: SC.PAINP 09:59
PROVIDERS: PCP Family Medicine; Visit Provider Anesthesiology
DX: M17.11 Unilateral primary osteoarthritis, right knee (principal); E78.5 Hyperlipidemia, unspecified; I48.91 Unspecified atrial fibrillation; I10 Essential (primary) hypertension; Z86.79 Personal history of other diseases of the circulatory system
CPT/HCPCS: 20610; J1040

== ENCOUNTER → 2021-09-18 09:22 | Outpatient (POV) | payer MEDICARE, OTHER, SELFPAY ==
[2021-09-18 10:36] VITALS: BP 144/76; PULSE 50; RESP 18; TEMP 36.4; O2SAT 96; BMI 42.9
--- NOTE | 2021-09-18 14:56 | HMH.PAINSOAP ---
[facility] Pain Management SOAP Note Subjective:: Patient is a very pleasant 71-year-old white female who presents today. She is currently being treated for right knee pain related to primary osteoarthritis. She states that her pain increases with walking. She has recently undergone intra-articular right knee injection 100% pain relief that is ongoing. Very satisfied the results of the last injection. She rates her pain today as a 4 out of 10. She is also prescribed hydrocodone 10 mg 1 tablet p.o. 3 times daily questing refills on this medication today. She denies any adverse effects to this medication. She states that this medication allows her to be more functional and ambulate better. Objective:: General: Alert and oriented x3, no acute distress, pleasant and cooperative Lungs: Resps E/U, symmetric chest expansion Eyes: PERRL Musculoskeletal: limited flexion and extension of the lumbar spine secondary to pain. Deep tendon reflexes were normal in bilateral lower extremities. Motor exam was grossly intact in the bilateral lower extremities, antalgic gait noted. Neurological: Speech is clear, receiving clerk equal, no gross sensory deficits Assessment:: Right knee and secondary to primary osteoarthritis Plan:: I discussed with the patient that we will refill her [place] 10 mg 1 tablet p.o. 3 times daily #90 for 1 month supply. We will follow-up with this patient in 1 month for reassessment of her chronic pain symptoms and medication refills. [place] and prior drug screens were reviewed and appropriate. [facility] History Medical History: Reports:: Arrhythmia, Atrial Fibrillation, Congestive Heart Failure, Coronary Artery Disease, Hyperlipidemia, Hypertension Denies:: Cancer, Diabetes Mellitus Type 1, Diabetes Mellitus Type 2, MRSA, Seizures *Have you ever received a pneumonia vaccine?: Yes *Have you received a flu vaccine this season?: Yes Other Medical History: Reports: Arthritis. Denies: Blood Transfusion Reaction Other Surgeries: Yes: No Previous Surgery, Cardiac Surgery, Hysterectomy-Partial, Other Amputation: No Fractures: No - *Social History Smoking Status: Never smoker Alcohol Intake: never Alcohol Intake Frequency:: other Substance Use Type: denies use *Occupational Status:: other Housing: house Household Members: other *Travel in the last 8 weeks: None Family Hx:: Coronary Artery Disease
== END ==
PROVIDERS: Visit Provider Anesthesiology Pain Medicine
DX: M17.11 Unilateral primary osteoarthritis, right knee (principal)
CPT/HCPCS: 99212; G0463

== ENCOUNTER → 2021-10-20 09:05 | Outpatient (POV) | payer MEDICARE, OTHER, SELFPAY ==
[2021-10-20 09:21] VITALS: BP 141/72; PULSE 73; RESP 18; TEMP 36.5; O2SAT 97; BMI 40.7
--- NOTE | 2021-10-20 09:52 | HMH.PAINSOAP ---
[facility] Pain Management SOAP Note Subjective:: Patient is a pleasant 72-year-old female who presents today for follow-up. Patient is currently being treated for osteoarthritis of right shoulder, right knee. We have been managing this patient with injective therapy. She had a right intra-articular knee injection last month that is providing her significant relief. She also had a right shoulder injection in the last couple of months. Patient continues to have significant relief from these injections. We are also managing this patient with [place] 10 mg 3 times a day. She denies any side effects from this medication. She denies any worsening pain or change in location of pain. She says that the combination of injective therapy and oral medication is helping her significantly. Rates her pain today as 5 out of 10. [facility] #[id number] with an active morphine equivalent of 30. Patient also sees Dr. Rushing for arthritis of her hands. Review of Systems: General: No recent weight changes, no fever, no sleep disturbances Respiratory: No cough, no shortness of air, no recurring pulmonary infections Cardiovascular/peripheral vascular: No chest pain, no palpitations, no edema, no shortness of breath Gastrointestinal: No new onset incontinence, normal bowel movements reported Genitourinary: No new onset incontinence Musculoskeletal: Right shoulder pain, right knee pain, bilateral hand pain Psychiatric: [Normal mood/affect] Neurological: [Denies weakness in extremities], [denies balance issues] Objective:: Physical Exam: General: Alert and oriented x3, no acute distress, pleasant and cooperative, [on room air] Lungs: Respirations even and unlabored, symmetrical chest expansion Eyes: PERRL Musculoskeletal: Increased range of motion of her right shoulder and right knee. Neurological: Speech clear, no gross sensory deficit Assessment:: Osteoarthritis of the right shoulder and right knee. Osteoarthritis of bilateral hands Plan:: We will continue the patient's [place] 10 mg 3 times a day. We will provide the patient with 1 month worth of refill. I would like to follow-up with the patient in 1 month. Patient states that she is still doing well with her intra-articular joint injections. She does not need to schedule any injections at this time. Patient has been instructed to contact the clinic with any concerns before the next appointment. Dr. Soto has reviewed this note and agrees with this plan of care. This note was dictated using voice recognition software and make contain errors or omissions. [facility] History Medical History: Reports:: Arrhythmia, Atrial Fibrillation, Congestive Heart Failure, Coronary Artery Disease, Hyperlipidemia, Hypertension Denies:: Cancer, Diabetes Mellitus Type 1, Diabetes Mellitus Type 2, MRSA, Seizures *Have you ever received a pneumonia vaccine?: Yes *Have you received a flu vaccine this season?: No Other Medical History: Reports: Arthritis. Denies: Blood Transfusion Reaction Other Surgeries: Yes: No Previous Surgery, Cardiac Surgery, Hysterectomy-Partial, Other Amputation: No Fractures: No - *Social History Smoking Status: Never smoker Alcohol Intake: never Alcohol Intake Frequency:: other Substance Use Type: denies use *Occupational Status:: other Housing: house Household Members: other *Travel in the last 8 weeks: None Family Hx:: Coronary Artery Disease
== END ==
PROVIDERS: Visit Provider Student in an Organized Health Care Education/Training Program
DX: M19.042 Primary osteoarthritis, left hand (principal); M19.041 Primary osteoarthritis, right hand; M19.011 Primary osteoarthritis, right shoulder; M17.11 Unilateral primary osteoarthritis, right knee
CPT/HCPCS: 99212; G0463

== ENCOUNTER → 2021-10-20 09:56 | Outpatient (CLI) | payer MEDICARE, OTHER, SELFPAY ==
[2021-10-20 10:57] LABS: Benzodiazepines Screen,Urine Negative ng/ml (<200)
[2021-10-20 10:58] LABS: Amphetamine/Metha Screen,Urine Negative ng/ml (<1000); Barbiturates Screen,Urine Negative ng/ml (<200)
[2021-10-20 10:59] LABS: Cannabinoid Screen,Urine Negative ng/ml (<50)
[2021-10-20 11:00] LABS: Cocaine Screen,Urine Negative ng/ml (<300); Methadone Screen,Urine Negative ng/ml (<300)
[2021-10-20 11:01] LABS: Opiate Screen,Urine Positive ng/ml (<300)
[2021-10-20 11:02] LABS: Phencyclidine Screen,Urine Negative ng/ml (<25)
[2021-10-28 12:36] LABS: Codeine Negative (Cutoff=100); Hydrocodone Positive (.); Hydromorphone Positive (.); Morphine Negative (Cutoff=100); Opiates Positive (.)
== END ==
PROVIDERS: Visit Provider Student in an Organized Health Care Education/Training Program
DX: Z79.891 Long term (current) use of opiate analgesic (principal)
CPT/HCPCS: 80305; 80361; 80365; 99212; G0463; G0480

== ENCOUNTER → 2021-11-20 08:28 | Outpatient (POV) | payer MEDICARE, OTHER, SELFPAY ==
[2021-11-20 08:52] VITALS: BP 134/77; PULSE 69; RESP 18; TEMP 36.4; O2SAT 97; BMI 40.3
--- NOTE | 2021-11-20 09:09 | P.CONS_ITS ---
[facility] Pain Management SOAP Note Subjective:: Patient is a pleasant 71-year-old female who is here for medication refill and follow-up. Patient is currently being treated for osteoarthritis of bilateral shoulders and bilateral knees. We have been managing this patient with injective therapy. Patient typically gets 2 to 3 months of relief with each intra-articular injections. She has a right knee injection scheduled for next week. Patient is also being managed with [place] 10 mg 3 times a day. Patient denies any side effects from the medications. Patient denies any changes to the location and type of pain. Patient states that this is adequately helping manage their pain. Rates pain as 5 out of 10. [facility] number [id number] with an active m orphine equivalent 30. Drug screens have been reviewed and appropriate. Review of Systems: General: No recent weight changes, no fever, no sleep disturbances Respiratory: No cough, no shortness of air, no recurring pulmonary infections Cardiovascular/peripheral vascular: No chest pain, no palpitations, no edema, no shortness of breath Gastrointestinal: No new onset incontinence, normal bowel movements reported Genitourinary: No new onset incontinence Musculoskeletal: Bilateral shoulder pain, bilateral knee pain Psychiatric: [Normal mood/affect] Neurological: [Denies weakness in extremities], [denies balance issues] Objective:: Physical Exam: General: Alert and oriented x3, no acute distress, pleasant and cooperative Lungs: Respirations even and unlabored, symmetrical chest expansion Eyes: PERRL Musculoskeletal: Limited range of motion of bilateral shoulders and knees secondary to pain Neurological: Speech clear, no gross sensory deficit Assessment:: Osteoarthritis of bilateral shoulders and bilateral knees Plan:: We will continue the patient's [place] 10 mg 3 times a day. We will provide the patient with 1 month worth of refill. We will follow-up with the patient in 1 month for evaluation of chronic pain syndrome. Patient typically gets significant relief with age intra-articular injection. She has a right knee intra-articular injection scheduled for next Wednesday. Her shoulder injections were 2 to 3 months ago. Patient has been instructed to contact the clinic with any concerns before the next appointment. Dr. Soto has reviewed this note and agrees with this plan of care. This note was dictated using voice recognition software and make contain errors or omissions. [facility] History Medical History: Reports:: Arrhythmia, Atrial Fibrillation, Congestive Heart Failure, Coronary Artery Disease, Hyperlipidemia, Hypertension Denies:: Cancer, Diabetes Mellitus Type 1, Diabetes Mellitus Type 2, MRSA, Seizures *Have you ever received a pneumonia vaccine?: No *Have you received a flu vaccine this season?: Yes Other Medical History: Reports: Arthritis. Denies: Blood Transfusion Reaction Other Surgeries: Yes: No Previous Surgery, Cardiac Surgery, Hysterectomy- Partial, Other Amputation: No Fractures: No - *Social History Smoking Status: Never smoker Alcohol Intake: never Alcohol Intake Frequency:: other Substance Use Type: denies use *Occupational Status:: retired Housing: house Household Members: other *Travel in the last 8 weeks: None Family Hx:: Coronary Artery Disease
== END ==
PROVIDERS: Visit Provider Student in an Organized Health Care Education/Training Program
DX: M17.0 Bilateral primary osteoarthritis of knee (principal); M19.011 Primary osteoarthritis, right shoulder; M19.012 Primary osteoarthritis, left shoulder
CPT/HCPCS: 99212; G0463

== ENCOUNTER 2021-11-28 07:48 | Day surgery (SDC) | payer MEDICARE, OTHER, SELFPAY ==
[2021-11-28 08:03] VITALS: BP 134/71; PULSE 63; RESP 18; TEMP 36.5; O2SAT 98; BMI 40.3
[2021-11-28 08:27] VITALS: BP 148/85; PULSE 70; RESP 20
[2021-11-28 08:28] VITALS: BP 140/69; BP 146/85; PULSE 62; PULSE 78; RESP 20; O2SAT 97
--- NOTE | 2021-11-28 08:40 | HMH.PMPROC ---
- Procedure Date: 11/28/21 Time: 08:40 Anesthesiologist:: Vic Zarco CRNA Complications:: None Pre-procedure Diagnosis:: Osteoarthritis right knee Post-procedure Diagnosis:: Name Indications for Procedure:: Very pleasant 71-year-old female that we have been seeing from time to time regarding bilateral knee arthritis osteoarthritis. Today she presents for right intra-articular cortisone injection knee. Patient has had significant improvement in her knee pain following previous cortisone injections. Procedure Details:: Details of the procedure explained to the patient. The patient was placed in the sitting position with the right leg at 90 degrees. The knee joint was accessed from the right lateral condylar notch. This was using a 22-gauge inch and a half needle. Milligrams of Depo-Medrol was injection and a solution containing 4 cc of 1% lidocaine and 4 cc of 0.25% Marcaine. Patient tolerated procedure without difficulty. There are no complications. Plan and Disposition:: Patient was discharged without incident
== END 2021-11-28 08:28 | disposition home or self-care (01) ==
LOC: SC.PAINP 07:49
PROVIDERS: PCP Family Medicine; Visit Provider Nurse Anesthetist, Certified Registered
DX: M17.11 Unilateral primary osteoarthritis, right knee (principal); I48.91 Unspecified atrial fibrillation; I50.9 Heart failure, unspecified; I25.10 Atherosclerotic heart disease of native coronary artery without angina pectoris; E78.5 Hyperlipidemia, unspecified; I10 Essential (primary) hypertension; G47.33 Obstructive sleep apnea (adult) (pediatric); J44.9 Chronic obstructive pulmonary disease, unspecified
CPT/HCPCS: 20610; J1040

== ENCOUNTER → 2021-12-18 13:50 | Outpatient (POV) | payer MEDICARE, OTHER, SELFPAY ==
[2021-12-18 14:12] VITALS: BP 130/72; PULSE 73; RESP 18; TEMP 36.7; O2SAT 97; BMI 40.3
--- NOTE | 2021-12-18 15:54 | HMH.PAINSOAP ---
[facility] Pain Management SOAP Note Subjective:: Patient is a pleasant 71-year-old female who is here for follow-up after a right knee intra-articular injection. Patient is currently being treated for osteoarthritis of bilateral shoulders and bilateral knees. We have been managing this patient with injective therapy. Patient typically gets 2 to 3 months of relief with each intra-articular injections. After her recent right knee intra-articular injection, patient had significant relief of 90 to 100%. She has been able to increase her activity. She has been gardening more. She wants to schedule for an injection 3 months from now. She is still doing well with her bilateral shoulders. She does not need any injections in her shoulders at this time. We are also managing the patient with [place] 10 mg 3 times a day. Denies any side effect from this medication. Denies any change to location type of pain. Rates her pain today as 7 out of 10. [place] [phone] with an active morphine equivalent of 30. Drug screen appropriate. Additionally, patient states that she has been doing well with her weight loss. When she recently saw her wildlife refuge manager, they were actually able to decrease her blood pressure medications. She is hopeful that with her continued weight loss, her arthritis would get better. Review of Systems: General: No recent weight changes, no fever, no sleep disturbances Respiratory: No cough, no shortness of air, no recurring pulmonary infections Cardiovascular/peripheral vascular: No chest pain, no palpitations, no edema, no shortness of breath Gastrointestinal: No new onset incontinence, normal bowel movements reported Genitourinary: No new onset incontinence Musculoskeletal: Bilateral shoulder pain, bilateral knee pain Psychiatric: [Normal mood/affect] Neurological: [Denies weakness in extremities], [denies balance issues] Objective:: Physical Exam: General: Alert and oriented x3, no acute distress, pleasant and cooperative Lungs: Respirations even and unlabored, symmetrical chest expansion Eyes: PERRL Musculoskeletal: Flexion and extension of bilateral shoulders and knees somewhat guarded secondary to pain, [antalgic gait noted] Neurological: Speech clear, no gross sensory deficit Assessment:: Osteoarthritis of bilateral shoulders and bilateral knees Plan:: Patient is doing significantly well after a right knee intra-articular injection. We will schedule her for a repeat injection in the first week of February. We will continue the patient's [place] 10 mg 3 times a day. We will provide the patient with 1 month worth of refill. I would like to follow-up with this patient in 1 month. Patient has been instructed to contact the clinic with any concerns before the next appointment. Dr. Soto has reviewed this note and agrees with this plan of care. This note was dictated using voice recognition software and make contain errors or omissions. [facility] History Medical History: Reports:: Arrhythmia, Atrial Fibrillation, Congestive Heart Failure, Coronary Artery Disease, Hyperlipidemia, Hypertension Denies:: Cancer, Diabetes Mellitus Type 1, Diabetes Mellitus Type 2, MRSA, Seizures *Have you ever received a pneumonia vaccine?: Yes *Have you received a flu vaccine this season?: Yes Other Medical History: Reports: Arthritis. Denies: Blood Transfusion Reaction Other Surgeries: Yes: No Previous Surgery, Cardiac Surgery, Hysterectomy-Partial, Other Amputation: No Fractures: No - *Social History Smoking Status: Never smoker Alcohol Intake: never Alcohol Intake Frequency:: other Substance Use Type: denies use *Occupational Status:: retired Housing: house Household Members: other *Travel in the last 8 weeks: None Family Hx:: No significant family history
== END ==
PROVIDERS: Visit Provider Student in an Organized Health Care Education/Training Program
DX: M17.0 Bilateral primary osteoarthritis of knee (principal); M19.012 Primary osteoarthritis, left shoulder; M19.011 Primary osteoarthritis, right shoulder
CPT/HCPCS: 99212; G0463

== ENCOUNTER → 2022-01-20 13:07 | Outpatient (POV) | payer MEDICARE, OTHER, SELFPAY ==
--- NOTE | 2022-01-20 13:27 | HMH.PAINSOAP ---
[facility] Pain Management SOAP Note Subjective:: Patient is a pleasant 71-year-old female who is here for medication refill and follow-up. 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 She has been managed with injective therapy in the past. Typically gets 2 to 3 months of relief with each intra-articular injection. Today she rates her pain a 5 out of 10 with generalized pain. She has been able to increase her activity and gardening this summer. She is scheduled for a knee injection on February 20. We are managing the pain with [place] 10 mg 3 times a day. She is requesting a refill at this time. She denies any side effects of this medication. She denies any change to the location or type of pain. Her Catr[place] is [phone]. It has been reviewed and is appropriate. Patient is continuing to try to lose weight. 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 She is hoping to discontinue some medications at this visit. Review of Systems: General: No recent weight changes, no fever, no sleep disturbances Respiratory: No cough, no shortness of air, no recurring pulmonary infections Cardiovascular/peripheral vascular: No chest pain, no palpitations, no edema, no shortness of breath Gastrointestinal: No new onset incontinence, normal bowel movements reported Genitourinary: No new onset incontinence Musculoskeletal: Bilateral shoulder pain, bilateral knee pain Psychiatric: [Normal mood/affect] Neurological: [Denies weakness in extremities], [denies balance issues] Objective:: Physical Exam: General: Alert and oriented x3, no acute distress, pleasant and cooperative Lungs: Respirations even and unlabored, symmetrical chest expansion Eyes: PERRL Musculoskeletal: Flexion and extension of bilateral shoulders and knees somewhat guarded secondary to pain, [antalgic gait noted] Neurological: Speech clear, no gross sensory deficit Assessment:: Osteoarthritis of bilateral shoulders and bilateral knees Plan:: We will continue the patient's hydrocodone 10 mg 3 times a day. We will provide the patient with 1 month of refills. Patient is scheduled for a knee injection on February 20. At this visit we will also do medication refill as well. Patient has been advised of risks of oversedation with the prescribed medication. Narcan has been offered to the patient in the event of oversedation. Patient has been advised that a family member should also be educated regarding administration of Narcan. Patient has been instructed to contact the clinic with any concerns before the next appointment. Dr. Soto has reviewed this note and agrees with this plan of care. This note was dictated using voice recognition software and make contain errors or omissions. [facility] History I have reviewed the patient's past medical history: Yes Medical History: Reports:: Arrhythmia, Atrial Fibrillation, Congestive Heart Failure, Coronary Artery Disease, Hyperlipidemia, Hypertension Denies:: Cancer, Diabetes Mellitus Type 1, Diabetes Mellitus Type 2, MRSA, Seizures *Have you ever received a pneumonia vaccine?: Yes *Have you received a flu vaccine this season?: Yes Other Medical History: Reports: Arthritis. Denies: Blood Transfusion Reaction Other Surgeries: Yes: No Previous Surgery, Cardiac Surgery, Hysterectomy-Partial, Other Amputation: No Fractures: No - *Social History Smoking Status: Never smoker Alcohol Intake: never Alcohol Intake Frequency:: other Substance Use Type: denies use *Occupational Status:: retired Housing: house Household Members: other *Travel in the last 8 weeks: Inside the [facility] Family Hx:: No significant family history
[2022-01-20 13:32] VITALS: BP 144/64; PULSE 70; RESP 20; TEMP 36.4; O2SAT 97; BMI 39.4
== END ==
PROVIDERS: Visit Provider Student in an Organized Health Care Education/Training Program
DX: M17.0 Bilateral primary osteoarthritis of knee (principal); M19.011 Primary osteoarthritis, right shoulder; M19.012 Primary osteoarthritis, left shoulder
CPT/HCPCS: 99212; G0463

== ENCOUNTER → 2022-01-21 13:13 | Outpatient (CLI) | payer MEDICARE, OTHER, SELFPAY ==
[2022-01-21 15:42] LABS: Amphetamine/Metha Screen,Urine Negative ng/ml (<1000)
[2022-01-21 15:45] LABS: Benzodiazepines Screen,Urine Negative ng/ml (<200)
[2022-01-21 15:46] LABS: Barbiturates Screen,Urine Negative ng/ml (<200); Cannabinoid Screen,Urine Negative ng/ml (<50)
[2022-01-21 15:47] LABS: Methadone Screen,Urine Negative ng/ml (<300); Opiate Screen,Urine Positive ng/ml (<300)
[2022-01-21 15:48] LABS: Cocaine Screen,Urine Negative ng/ml (<300)
[2022-01-21 15:49] LABS: Phencyclidine Screen,Urine Negative ng/ml (<25)
[2022-01-28 10:13] LABS: Codeine Negative (Cutoff=100); Hydrocodone Positive (.); Hydromorphone Positive (.); Morphine Negative (Cutoff=100); Opiates Positive (.)
== END ==
PROVIDERS: PCP Family Medicine; Visit Provider Student in an Organized Health Care Education/Training Program
DX: Z79.891 Long term (current) use of opiate analgesic (principal)
CPT/HCPCS: 80305; 80361; 80365; G0480

== ENCOUNTER 2022-02-20 09:56 | Day surgery (SDC) | payer MEDICARE, OTHER, SELFPAY ==
[2022-02-20 10:07] VITALS: BP 175/63; PULSE 72; RESP 20; TEMP 36.3; O2SAT 98; BMI 39.1
[2022-02-20 10:45] VITALS: BP 156/82; PULSE 76; RESP 20; O2SAT 96
[2022-02-20 11:00] VITALS: BP 144/63; PULSE 61; RESP 20; O2SAT 98
--- NOTE | 2022-02-20 11:02 | HMH.PMPROC ---
- Procedure Date: 02/20/22 Time: 11:02 Anesthesiologist:: Demetrius Soto MD Complications:: None Pre-procedure Diagnosis:: Bilateral knee pain left greater than right Post-procedure Diagnosis:: Same Indications for Procedure:: This patient is a pleasant 71-year-old white female who been treating for bilateral knee pain. She has been receiving intra-articular knee injections which have helped tremendously. She is done injections on her right knee most recently. She has increasing pain in her left knee today. We will do a left knee intra-articular injection today. She is also on [place] 10 mg 3 times a day. Catrachito and drug screen are all appropriate. We will refill her [place] as well. Procedure Details:: Procedure: Left knee intra-articular injection Informed consent was obtained risk and benefits of the procedure were explained to the patient. Patient was taken the procedure room. Left knee was prepped using ChloraPrep. 25-gauge needle was used first medially then laterally to inject 10 mL bupivacaine 0.25% and Depo-Medrol 40 mg into the left knee joint. Patient tolerated procedure well no complications. Plan and Disposition:: We will follow-up with this patient in 2 weeks. Will reevaluate symptoms at that time.
== END 2022-02-20 11:00 | disposition home or self-care (01) ==
LOC: SC.PAINP 02-23 12:10
PROVIDERS: PCP Family Medicine; Visit Provider Anesthesiology
DX: M17.0 Bilateral primary osteoarthritis of knee (principal)
CPT/HCPCS: 20610; J1040

== ENCOUNTER → 2022-03-19 09:55 | Outpatient (POV) | payer MEDICARE, OTHER, SELFPAY ==
[2022-03-19 10:05] VITALS: BP 138/80; PULSE 64; RESP 18; TEMP 36.8; O2SAT 97; BMI 40.3
--- NOTE | 2022-03-19 10:13 | A.OFFVIS_ITS ---
[facility] Pain Management SOAP Note Subjective:: Patient is a pleasant 71-year-old female who presents today for follow-up of bilateral knee intra-articular injections on 02/20/2022. We are currently treating the patient for osteoarthritis of bilateral shoulders and bilateral knees. Patient states that she had minimal relief with this injection. She states that she may have gotten a day or 2 worth of improvement however it was not like her previous injection that provided significant pain relief. Patient denies any new trauma or injury to the site. Patient states this is the same pain she experiences on a daily basis. Patient rates her pain today a 5 out of 10 and states it is primarily in her knees and other joints. She does use her compounding cream that provides significant improvement on her feet, wrist and hands. We are currently managing the patient with [place] 10 mg 3 times a day. She denies any side effects from these medications. She states his medications are adequately managing her pain. She is requesting a refill at today's visit. Her Catrachito is [phone]. Its been reviewed and appropriate. Review of Systems: General: No recent weight changes, no fever, no sleep disturbances Respiratory: No cough, no shortness of air, no recurring pulmonary infections Cardiovascular/peripheral vascular: No chest pain, no palpitations, no edema, no shortness of breath Gastrointestinal: No new onset incontinence, normal bowel movements reported Genitourinary: No new onset incontinence Musculoskeletal: Bilateral knee pain, joint pain Psychiatric: [Normal mood/affect] Neurological: [Denies weakness in extremities], [denies balance issues] Objective:: Physical Exam: General: Alert and oriented x3, no acute distress, pleasant and cooperative Lungs: Respirations even and unlabored, symmetrical chest expansion Eyes: PERRL Musculoskeletal: Flexion and extension of bilateral knees somewhat guarded secondary to pain, [antalgic gait noted] Neurological: Speech clear, no gross sensory deficit Assessment:: Osteoarthritis bilateral shoulders and bilateral knees Plan:: Patient is having significant pain in her bilateral knees with limited range of motion. I have discussed with the patient regarding repeat intra-articular injections. Risk and benefits were discussed with the patient. She would like to proceed forward with this injection. I will also refill the patient's [place] 10 mg 3 times a day and provide a 1 month supply of this medication. We will schedule the patient for bilateral knee intra-articular injections at today's visit. Patient has been instructed to contact the clinic with any concerns before the next appointment. Dr. Soto has reviewed this note and agrees with this plan of care. This note was dictated using voice recognition software and make contain errors or omissions. 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
== END | disposition home or self-care (01) ==
PROVIDERS: PCP Family Medicine; Visit Provider Nurse Practitioner Family
DX: M17.0 Bilateral primary osteoarthritis of knee (principal); M19.011 Primary osteoarthritis, right shoulder; M19.012 Primary osteoarthritis, left shoulder
CPT/HCPCS: 99212; G0463

== ENCOUNTER 2022-03-31 09:53 | Day surgery (SDC) | payer MEDICARE, OTHER, SELFPAY ==
[2022-03-31 09:58] VITALS: BP 149/71; PULSE 67; RESP 20; O2SAT 98; BMI 39.1
[2022-03-31 10:09] VITALS: BP 139/75; PULSE 70; RESP 18; O2SAT 98
[2022-03-31 10:10] VITALS: BP 139/75; PULSE 70; RESP 18; O2SAT 98
--- NOTE | 2022-03-31 10:12 | P.PCN_ITS ---
Procedure Date: 03/31/22 Time: 10:12 Anesthesiologist:: Vic Zarco CRNA Complications:: None Pre-procedure Diagnosis:: Osteoarthritis bilateral shoulders and bilateral knees Post-procedure Diagnosis:: Same Indications for Procedure:: Patient is a pleasant 71-year-old female who presents today for bilateral intra- articular knee injections. Today the patient rates her pain an 8 out of 10 and states primarily is in her knees. Patient denies any new trauma or injury to the site. She states this is the same pain she has been experiencing on a daily basis. Patient does continue to use her compounding cream however she states she has more improvement on her feet, wrists and hands in comparison to on her knees. Patient is currently managed with [place] 10 mg 3 times a day. She denies any side effects from this medications. Procedure Details:: Procedure was explained to the patient in detail and all questions were answered. Informed consent was obtained. The patient was positioned, the bilateral knees were draped appropriately. Anatomical landmarks were identified. The skin was prepped using ChloraPrep as a cleansing solution. Using sterile technique a 22-gauge 3-1/2 inch needle was inserted using the lateral approach into the knee joint space. After negative aspiration 10 mL of 0.25% Marcaine along with 1 mL of Depo-Medrol 40 mg/mL was injected into each knee joint space. The needle was removed and a sterile bandage was applied. Patient tolerated the procedure well. Plan and Disposition:: Patient was brought to the post procedure area following injections where they recovered nicely. We will follow up with this patient in 2 weeks in clinic for reevaluation of symptoms. Patient has been instructed to contact the clinic with any concerns before the next appointment. Dr. Soto agrees with this plan of care. This note was dictated using voice recognition software and may contain errors or omissions.
[2022-03-31 10:24] VITALS: BP 145/53; PULSE 65; RESP 20; O2SAT 97
== END 2022-03-31 10:25 | disposition home or self-care (01) ==
PROVIDERS: PCP Family Medicine; Visit Provider Nurse Anesthetist, Certified Registered
DX: M17.0 Bilateral primary osteoarthritis of knee (principal); M19.012 Primary osteoarthritis, left shoulder; M19.011 Primary osteoarthritis, right shoulder
CPT/HCPCS: 20610; J1030

== ENCOUNTER → 2022-04-20 13:22 | Outpatient (POV) | payer MEDICARE, OTHER, SELFPAY ==
--- NOTE | 2022-04-20 13:59 | EXP.PAIN.SOA ---
[facility] Pain Management SOAP Note Subjective:: Patient is a pleasant 71-year-old female who presents today for follow-up of bilateral intra-articular knee injections on 03/31/2022. We are currently treating the patient for osteoarthritis bilateral shoulders and bilateral knees. Patient states that she has had significant improvement of at least 50% following these injections. She states she does feel like she is still getting some relief following these injections however they are not helping as well as they did in the beginning. Today the patient rates her pain a 5 out of 10. She states the pain is primarily in her bilateral knees. She denies any new trauma or injury. She denies any change to location or type of pain she experiences. Patient describes this as a aching, throbbing sensation that is worse with increased activity. She is currently managed with compounding cream however she states she has better improvement on her feet, wrist and hands in comparison to her knees. She is currently managed with [place] 10 mg 3 times a day. Patient states she does take MiraLAX every other day to help treat her occasional constipation. Patient states that this medication does adequately help manage her pain symptoms. She is requesting a refill at today's visit. Patient states she has been trying to increase ambulation and walking more frequently with her daughter. Her Catrachito is [phone]. Review of Systems: General: No recent weight changes, no fever, no sleep disturbances Respiratory: No cough, no shortness of air, no recurring pulmonary infections Cardiovascular/peripheral vascular: No chest pain, no palpitations, no edema, no shortness of breath Gastrointestinal: No new onset incontinence, normal bowel movements reported Genitourinary: No new onset incontinence Musculoskeletal: Bilateral knee pain Psychiatric: [Normal mood/affect] Neurological: [Denies weakness in extremities], [denies balance issues] Objective:: Physical Exam: General: Alert and oriented x3, no acute distress, pleasant and cooperative Lungs: Respirations even and unlabored, symmetrical chest expansion Eyes: PERRL Musculoskeletal: Flexion and extension of bilateral knees somewhat guarded secondary to pain, [antalgic gait noted] Neurological: Speech clear, no gross sensory deficit Assessment:: Osteoarthritis bilateral shoulder and bilateral knees Plan:: Patient continues to have significant pain along her bilateral knees. I have discussed with the patient that she may benefit from a genicular nerve block. Risk and benefits were discussed with the patient. At this time the patient would like to wait before deciding to proceed forward with these injections. I have also counseled the patient that she may benefit from physical therapy in the future. I will refill her [place] 10 mg 3 times a day and provide a 1 month supply of this medication. We will follow-up with the patient in 1 month. Patient will return to clinic in 1 month for reevaluation of symptoms, medication refill and follow-up. Patient has been advised of risks of oversedation with the prescribed medication. Narcan has been offered to the patient in the event of oversedation. Patient has been advised that a family member should also be educated regarding administration of Narcan. Patient has been instructed to contact the clinic with any concerns before the next appointment. Dr. Soto has reviewed this note and agrees with this plan of care. This note was dictated using voice recognition software and make contain errors or omissions. 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
[2022-04-20 14:02] VITALS: BP 121/75; PULSE 75; RESP 18; TEMP 36.6; O2SAT 98; BMI 38.6
[2022-04-20 15:04] LABS: Amphetamine/Metha Screen,Urine Negative ng/ml (<1000)
[2022-04-20 15:05] LABS: Barbiturates Screen,Urine Negative ng/ml (<200)
[2022-04-20 15:06] LABS: Benzodiazepines Screen,Urine Negative ng/ml (<200); Cannabinoid Screen,Urine Negative ng/ml (<50)
[2022-04-20 15:07] LABS: Cocaine Screen,Urine Negative ng/ml (<300)
[2022-04-20 15:08] LABS: Methadone Screen,Urine Negative ng/ml (<300); Opiate Screen,Urine Positive ng/ml (<300)
[2022-04-20 15:09] LABS: Phencyclidine Screen,Urine Negative ng/ml (<25)
[2022-04-28 11:47] LABS: Codeine Negative (Cutoff=100); Hydrocodone Positive (.); Hydromorphone Positive (.); Morphine Negative (Cutoff=100); Opiates Positive (.)
== END | disposition home or self-care (01) ==
PROVIDERS: PCP Family Medicine; Visit Provider Nurse Practitioner Family
DX: M17.0 Bilateral primary osteoarthritis of knee (principal); Z79.891 Long term (current) use of opiate analgesic; M19.011 Primary osteoarthritis, right shoulder; M19.012 Primary osteoarthritis, left shoulder
CPT/HCPCS: 80305; 80361; 80365; 99212; G0463; G0480

== ENCOUNTER → 2022-04-20 14:10 | Outpatient (CLI) | payer MEDICARE, OTHER, SELFPAY | PROVIDERS: PCP Family Medicine; Visit Provider Nurse Practitioner Family | DX: Z79.891 Long term (current) use of opiate analgesic (principal) ==

== ENCOUNTER 2022-05-13 12:13 | Emergency (ER) | payer MEDICARE, OTHER, SELFPAY ==
--- NOTE | 2022-05-13 12:20 | EXP.UTC ---
Discharge Plan Disposition Patient Disposition: Home, Self-Care Condition: Good Prescriptions Prescriptions: No Action cholecalciferol (vitamin D3) 1,250 mcg (50,000 unit) capsule 1,250 mcg PO WEEKLY ipratropium-albuterol 20-100 mcg/actuation mist 1 puff IH BID PRN (Reason: .) cetirizine 10 MG capsule 10 mg PO DAILY diltiazem HCl 120 MG capsule,extended release 24hr 60 mg PO DAILY losartan-hydrochlorothiazide 1 EACH tablet 1 tab PO DAILY hydrocodone-acetaminophen 1 EACH tablet 1 tab PO TID Qty: 90 0RF rivaroxaban 20 MG tablet 20 mg PO QDAY atorvastatin 20 MG tablet 20 mg PO DAILY spironolactone 50 MG tablet 25 mg PO DAILY Referrals Follow up/Referrals: Marilu Martinez [Primary Care Provider] - See instructions Activity Restrictions/Add. Instructions Additional Instructions/Restrictions: Drink plenty of fluids. Take tylenol or ibuprofen for pain or fever. Take the medications as directed. Follow up with your regular doctor. GO TO THE ER FOR ANY WORSENING SYMPTOMS Clinical Impressions Clinical Impression: Exposure to 2019 novel coronavirus, Viral syndrome Instructions Patient Instructions: Coronavirus Disease 2019, Preventing the Spread of Coronavirus Discharge Instructions Discharge ED Provider: Corwin Ahuja [facility] General Stated complaint: chills, nausea Time Seen by Provider: 05/13/22 12:19 History of Present Illness Provider Complaint: She states that since this morning she has had chills, low grade fever, body aches, cough, and she has felt bad. She states that she tested positive for covid-19 on a home test today. She denies shortness of breath. Related Data Home Medications Medication Instructions Recorded Confirmed ipratropium 20 mcg-albuterol 100 1 puff inhalation BID PRN . 07/22/17 04/20/22 mcg/actuation mist for inhalation rivaroxaban 20 mg tablet 20 mg PO QDAY Blood thinner 05/30/19 04/20/22 atorvastatin 20 mg tablet 20 mg PO DAILY Cholesterol 12/22/19 04/20/22 spironolactone 50 mg tablet 25 mg PO DAILY bp 12/22/19 04/20/22 cetirizine 10 mg capsule 10 mg PO DAILY allergies 07/08/21 04/20/22 cholecalciferol (vitamin D3) 1,250 1,250 mcg PO WEEKLY SUPPLIMENT 11/12/21 04/20/22 mcg (50,000 unit) capsule diltiazem HCl 120 mg 60 mg PO DAILY HEART RATE 11/20/21 04/20/22 capsule,extended release 24 hr losartan 50 mg-hydrochlorothiazide 1 tab PO DAILY blood pressure 11/20/21 04/20/22 12.5 mg tablet Previous Rx's Medication Instructions Recorded hydrocodone 10 mg-acetaminophen 1 tab PO TID Pain #90 tabs 04/20/22 325 mg tablet Allergies Allergy/AdvReac Type Severity Reaction Status Date / Time No Known Allergies Allergy Verified 02/20/22 10:09 [facility] Medical History Atrial fibrillation Dizziness Essential hypertension Fatigue Hypertensive heart disease detention current use of anticoagulant ORION (obstructive sleep apnea) PAF (paroxysmal atrial fibrillation) SOB (shortness of breath) Family History Other No significant family history Social History Smoking Status: Never smoker alcohol intake: never substance use type: denies use current occupational status: retired Travel in the last 8 weeks: None household members: other housing: house current occupational exposures/hazards: No caffeine: Yes ROS Obtained: Yes All systems reviewed & no additional complaints except as documented Constitutional Constitutional: Reports chills and Reports fever(s) Eyes Eyes: Denies eye discharge ENT Ears, Nose, Mouth, and Throat: Reports as per HPI Cardiovascular Cardiovascular: Denies chest pain and Denies dyspnea Respiratory Respiratory: Reports chest congestion, Reports cough, Denies dyspnea, Denies stridor and Denies wheezi
[2022-05-13 12:25] VITALS: BP 133/71; PULSE 70; RESP 20; TEMP 36.7; O2SAT 98; BMI 39.7
[2022-05-13 13:10] VITALS: BP 130/77; PULSE 71; RESP 18; TEMP 36.7; O2SAT 98
== END 2022-05-13 13:11 | disposition home or self-care (01) ==
PROVIDERS: Emergency Provider Nurse Practitioner Family; PCP Family Medicine
DX: Z20.822 Contact with and (suspected) exposure to COVID-19 (principal); R50.9 Fever, unspecified; R11.0 Nausea
CPT/HCPCS: 99212; C9803; G0463; U0003; U0005

== ENCOUNTER 2022-05-17 17:59 | Emergency (ER) | payer MEDICARE, OTHER, SELFPAY ==
[2022-05-17 19:05] VITALS: BP 140/49; PULSE 75; RESP 16; TEMP 37; O2SAT 95; BMI 39.9
--- NOTE | 2022-05-17 19:35 | EXP.UTC ---
Discharge Plan Disposition Patient Disposition: Home, Self-Care Condition: Good Prescriptions Prescriptions: No Action cholecalciferol (vitamin D3) 1,250 mcg (50,000 unit) capsule 1,250 mcg PO WEEKLY ipratropium-albuterol 20-100 mcg/actuation mist 1 puff IH BID PRN (Reason: .) cetirizine 10 MG capsule 10 mg PO DAILY diltiazem HCl 120 MG capsule,extended release 24hr 60 mg PO DAILY losartan-hydrochlorothiazide 1 EACH tablet 1 tab PO DAILY hydrocodone-acetaminophen 1 EACH tablet 1 tab PO TID Qty: 90 0RF rivaroxaban 20 MG tablet 20 mg PO QDAY atorvastatin 20 MG tablet 20 mg PO DAILY spironolactone 50 MG tablet 25 mg PO DAILY Referrals Follow up/Referrals: Marilu Martinez [Primary Care Provider] - See instructions Activity Restrictions/Add. Instructions Additional Instructions/Restrictions: No sign of a bacterial infection. Likely viral. Viruses can take 7-14 days to run their course. Nasal saline and bulb syringe or nose Audra to remove nasal drainage to help with nasal congestion. Hard to eat, drink, sleep with nasal congestion so important to keep this cleaned out. Monitor temp. Tylenol or Motrin as needed for pain or fever Encourage fluids, water, Gatorade, Powerade, Pedialyte if infant/toddler/child Warm salt water gargles Warm fluids Sore throat lozenges Sleep elevated Humidifier/vaporizer Follow-up immediately for new or worsening symptoms or no noticeable improvement over the next 48-72 hours. Clinical Impressions Clinical Impression: Close exposure to COVID-19 virus, Acute upper respiratory infection Discharge ED Provider: Boyd ([facility])[place] [place] General Stated complaint: covid exposure, SOA,weak nausea Mode of Arrival: Ambulatory Source of Information: Patient Limitations: No Limitations Time Seen by Provider: 05/17/22 19:35 Description of Symptoms (Recalled from Triage Doc. by RN): PATIENT C/O CHEST CONGESTION, RUNNY NOSE, FATIGUE, DRAINAGE, SORE THROAT AND NAUSEA. RECENTLY EXPOSED TO COVID HEENT Symptoms (Recalled from RN notes): Yes Resp Symptoms (Recalled from RN notes): Yes Skin Symptoms (Recalled from RN notes): No MS Symptoms (Recalled from RN notes): No Functional Status (Recalled from RN notes): WNL History of Present Illness Provider Complaint: 71 yr old female presents for nasal congestion, chest congestion and runny nose Related Data Home Medications Medication Instructions Recorded Confirmed ipratropium 20 mcg-albuterol 100 1 puff inhalation BID PRN . 07/22/17 04/20/22 mcg/actuation mist for inhalation rivaroxaban 20 mg tablet 20 mg PO QDAY Blood thinner 05/30/19 04/20/22 atorvastatin 20 mg tablet 20 mg PO DAILY Cholesterol 12/22/19 04/20/22 spironolactone 50 mg tablet 25 mg PO DAILY bp 12/22/19 04/20/22 cetirizine 10 mg capsule 10 mg PO DAILY allergies 07/08/21 04/20/22 cholecalciferol (vitamin D3) 1,250 1,250 mcg PO WEEKLY SUPPLIMENT 11/12/21 04/20/22 mcg (50,000 unit) capsule diltiazem HCl 120 mg 60 mg PO DAILY HEART RATE 11/20/21 04/20/22 capsule,extended release 24 hr losartan 50 mg-hydrochlorothiazide 1 tab PO DAILY blood pressure 11/20/21 04/20/22 12.5 mg tablet Previous Rx's Medication Instructions Recorded hydrocodone 10 mg-acetaminophen 1 tab PO TID Pain #90 tabs 04/20/22 325 mg tablet Allergies Allergy/AdvReac Type Severity Reaction Status Date / Time No Known Allergies Allergy Verified 02/20/22 10:09 Worker's Comp Is this a Worker's Comp case?: No PFSH PFSH Medical History , 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
[2022-05-17 19:44] VITALS: BP 140/49; PULSE 75; RESP 16; TEMP 37; O2SAT 95
[2022-05-17 19:45] LABS: UTC Influenza A Antigen Negative (Negative)
[2022-05-17 19:46] LABS: UTC Influenza B Antigen Negative (Negative)
== END 2022-05-17 19:48 | disposition home or self-care (01) ==
PROVIDERS: Emergency Provider Nurse Practitioner Family; PCP Family Medicine
DX: J06.9 Acute upper respiratory infection, unspecified (principal)
CPT/HCPCS: 87804; 99212; C9803; G0463; U0003; U0005

== ENCOUNTER → 2022-05-21 10:22 | Outpatient (POV) | payer MEDICARE, OTHER, SELFPAY ==
[2022-05-21 10:45] VITALS: BP 115/88; PULSE 66; RESP 18; TEMP 36.6; O2SAT 98; BMI 39.9
--- NOTE | 2022-05-21 11:22 | EXP.PAIN.SOA ---
[facility] Pain Management SOAP Note Subjective:: Patient is a pleasant 71-year-old female who presents today for follow-up and medication refill. We are currently treating the patient for osteoarthritis bilateral shoulders and bilateral knees. Today the patient rates her pain a 5 out of 10. Patient denies any new trauma or injury. Patient denies any change in location or type of pain she experiences. In the past we have done bilateral knee intra-articular injections however patient states over time these have became less and less effective. Patient is currently managed with [place] 10 mg 3 times a day. Patient denies any side effects from this medication. Patient states she occasionally will take MiraLAX to help with any constipation related issues. She states this medication does adequately help manage her pain symptoms. Patient is requesting a refill at today's visit. Patient is also managed with compounding cream that she states does provide some additional improvement of her symptoms. Patient is currently waiting to hear back from clinic for an orthopedic physician for her knee pain and whether or not if she possibly needs surgery. Patient states she has tried muscle relaxers in the past however they did not help with her symptoms. Patient's Catrachito is [phone]. It is been reviewed and appropriate. Review of Systems: General: No recent weight changes, no fever, no sleep disturbances Respiratory: No cough, no shortness of air, no recurring pulmonary infections Cardiovascular/peripheral vascular: No chest pain, no palpitations, no edema, no shortness of breath Gastrointestinal: No new onset incontinence, normal bowel movements reported Genitourinary: No new onset incontinence Musculoskeletal: Bilateral shoulder bilateral knee pain Psychiatric: [Normal mood/affect] Neurological: [Denies weakness in extremities], [denies balance issues] Objective:: Physical Exam: General: Alert and oriented x3, no acute distress, pleasant and cooperative Lungs: Respirations even and unlabored, symmetrical chest expansion Eyes: PERRL Musculoskeletal: Flexion and extension of bilateral shoulders, bilateral knees somewhat guarded secondary to pain, [antalgic gait noted] Neurological: Speech clear, no gross sensory deficit Assessment:: Osteoarthritis bilateral shoulders and bilateral knees Plan:: Patient continues to have significant pain in her bilateral shoulders and bilateral knees. I will refill the patient's [place] 10 mg 3 times a day and provide a 1 month supply of this medication. I have discussed with the patient regarding genicular nerve block in the future and that she may get beneficial relief from these injections. We will follow-up with the patient in 1 month. Patient will return to clinic in 1 month for reevaluation of symptoms, medication refill and follow-up. Patient has been advised of risks of oversedation with the prescribed medication. Narcan has been offered to the patient in the event of oversedation. Patient has been advised that a family member should also be educated regarding administration of Narcan. Patient has been instructed to contact the clinic with any concerns before the next appointment. Dr. Soto has reviewed this note and agrees with this plan of care. This note was dictated using voice recognition software and make contain errors or omissions. 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
== END | disposition home or self-care (01) ==
PROVIDERS: PCP Family Medicine; Visit Provider Nurse Practitioner Family
DX: M19.011 Primary osteoarthritis, right shoulder (principal); M19.012 Primary osteoarthritis, left shoulder; M17.0 Bilateral primary osteoarthritis of knee
CPT/HCPCS: 99212; G0463

== ENCOUNTER → 2022-06-18 10:40 | Outpatient (POV) | payer MEDICARE, OTHER, SELFPAY ==
[2022-06-18 10:48] VITALS: BP 125/64; PULSE 78; RESP 18; O2SAT 96; BMI 39.9
--- NOTE | 2022-06-18 11:04 | EXP.PAIN.SOA ---
[facility] Pain Management SOAP Note Subjective:: Patient is a pleasant 72-year-old female who presents today for medication refill and follow-up. We are currently treating the patient for osteoarthritis bilateral shoulders and bilateral knees. Today the patient rates her pain a 8 out of 10. Patient denies any new trauma or injury. Patient denies any change location or type of pain she experiences. Patient is currently managed with [place] 10 mg 3 times a day. Patient denies any side effects from this medication. She states this medication does significantly improve her pain symptoms. She is requesting a refill at today's visit. Patient states she will occasionally take MiraLAX if needed for any constipation issues she may have. Patient is also prescribed compounding cream that she states does provide some improvement however temporary. Patient is going to see Dr. Alin robb for possible gel injections of her knees Or if she needs surgery. Her Catrachito is [phone]. It is been reviewed and appropriate. Review of Systems: General: No recent weight changes, no fever, no sleep disturbances Respiratory: No cough, no shortness of air, no recurring pulmonary infections Cardiovascular/peripheral vascular: No chest pain, no palpitations, no edema, no shortness of breath Gastrointestinal: No new onset incontinence, normal bowel movements reported Genitourinary: No new onset incontinence Musculoskeletal: Right shoulder, right knee pain Psychiatric: [Normal mood/affect] Neurological: [Denies weakness in extremities], [denies balance issues] Objective:: Physical Exam: General: Alert and oriented x3, no acute distress, pleasant and cooperative Lungs: Respirations even and unlabored, symmetrical chest expansion Eyes: PERRL Musculoskeletal: Flexion and extension of right shoulder, bilateral knees somewhat guarded secondary to pain, [antalgic gait noted] Neurological: Speech clear, no gross sensory deficit Assessment:: Osteoarthritis bilateral shoulders and bilateral knees, bilateral knee pain, shoulder pain Plan:: Patient continues to experience significant pain in her shoulders and her knees. I have discussed with the patient that she may benefit from a repeat intra-articular shoulder injection. Risk and benefits were discussed with the patient. She would like to proceed forward with this plan of care. I will also refill the patient's [place] 10 mg 3 times a day and provide a 1 month supply of this medication. I have discussed with the patient that she may benefit from future genicular nerve blocks. Patient states that her right knee is the worst knee. We will discuss this option at future visits. Patient will be scheduled for a right intra-articular shoulder injection at today's visit. Patient has been advised of risks of oversedation with the prescribed medication. Narcan has been offered to the patient in the event of oversedation. Patient has been advised that a family member should also be educated regarding administration of Narcan. Patient has been instructed to contact the clinic with any concerns before the next appointment. Dr. Soto has reviewed this note and agrees with this plan of care. This note was dictated using voice recognition software and make contain errors or omissions. [facility] Disclaimer: The information contained in this section may have been updated after the patient was seen, as this information can be updated by other users. 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
== END | disposition home or self-care (01) ==
PROVIDERS: PCP Family Medicine; Visit Provider Nurse Practitioner Family
DX: M17.0 Bilateral primary osteoarthritis of knee (principal); M19.011 Primary osteoarthritis, right shoulder; M19.012 Primary osteoarthritis, left shoulder; Z79.899 Other long term (current) drug therapy
CPT/HCPCS: 99212; G0463

== ENCOUNTER 2022-06-23 13:02 | Day surgery (SDC) | payer MEDICARE, OTHER, SELFPAY ==
[2022-06-23 13:12] VITALS: BP 153/61; PULSE 68; RESP 18; TEMP 36.4; O2SAT 96; BMI 41.1
--- NOTE | 2022-06-23 13:27 | P.PCN_ITS ---
Procedure Date: 06/23/22 Time: 13:30 Anesthesiologist:: Vic Zarco CRNA Complications:: None Pre-procedure Diagnosis:: Right osteoarthritis shoulder Post-procedure Diagnosis:: Same Indications for Procedure:: Patient is a very pleasant 72-year-old female comes our clinic today with right shoulder pain. She describes the pain as constant, dull, aching. Patient has 5/5 motor strength right arm. However, certain positions increase the pain significantly. Patient reports having intra-articular shoulder injection in the past with significant improvement. Procedure Details:: Procedure Details: Right shoulder intra-articular injection Informed consent was obtained risk and benefits of the procedure were explained to the patient. Patient was taken to the procedure room. The right shoulder was prepped using ChloraPrep. A 25-gauge needle was used first anteriorly, laterally, and then posteriorly to inject 10 mL bupivacaine 0.25% and Depo- Medrol 40 mg. Patient tolerated procedure well with no complications. Plan and Disposition: We will follow-up with her in 2 weeks. Will reevaluate symptoms at that time. We will plan on a knee injection on August 22. Plan and Disposition:: Patient was discharged without incident
[2022-06-23 13:35] VITALS: BP 141/53; PULSE 60; RESP 18; O2SAT 96
== END 2022-06-23 13:35 | disposition home or self-care (01) ==
PROVIDERS: PCP Family Medicine; Visit Provider Nurse Anesthetist, Certified Registered
DX: M19.011 Primary osteoarthritis, right shoulder (principal)
CPT/HCPCS: 20610; J1040

== ENCOUNTER 2022-06-30 14:37 | Day surgery (SDC) | payer MEDICARE, OTHER, SELFPAY ==
[2022-06-30 14:48] VITALS: BP 163/97; PULSE 73; RESP 18; TEMP 36.9; O2SAT 97; BMI 34.6
[2022-06-30 14:58] VITALS: BP 147/74; PULSE 67; RESP 18; O2SAT 98
[2022-06-30 14:59] VITALS: BP 147/74; PULSE 67; RESP 18; O2SAT 98
--- NOTE | 2022-06-30 15:03 | EXP.PAIN.PRO ---
Procedure Date: 06/30/22 Time: 15:00 Anesthesiologist:: Vic Zarco CRNA Complications:: None Pre-procedure Diagnosis:: Osteoarthritis right knee. Post-procedure Diagnosis:: Same. Indications for Procedure:: Very pleasant 72-year-old female comes our clinic today for right genicular nerve block. Patient has continuous dull aching sensation in the right knee joint. This pain intensifies with ambulation. She rates the pain 8/10. Procedure Details:: Right knee genicular block Informed consent was obtained and the risk and benefits of the procedure was explained to the patient. The patient was taken to the procedure room. The left knee was prepped using ChloraPrep. I placed 22-gauge needles into the area of the right superior medial genicular nerve, right superior lateral genicular nerve and right inferior medial genicular nerve. Needle placement was confirmed in AP and lateral views with dye. We then injected bupivacaine 0.25% 3 mL's and Depo-Medrol 25 mg into each area of the right superior medial genicular nerve, right superior lateral genicular nerve and right inferior medial genicular nerve. Patient tolerated the procedure well with no complications. Plan and Disposition:: Patient was discharged without incident. She will follow-up in the clinic in 2 weeks for visit.
[2022-06-30 15:06] VITALS: BP 121/75; PULSE 69; RESP 18; O2SAT 97
== END 2022-06-30 15:06 | disposition home or self-care (01) ==
PROVIDERS: PCP Family Medicine; Visit Provider Nurse Anesthetist, Certified Registered
DX: M17.11 Unilateral primary osteoarthritis, right knee (principal)
CPT/HCPCS: 64454; J1040

== ENCOUNTER → 2022-07-23 10:53 | Outpatient (POV) | payer MEDICARE, OTHER, SELFPAY ==
[2022-07-23 11:39] VITALS: BP 152/80; PULSE 66; RESP 18; O2SAT 98; BMI 39.1
--- NOTE | 2022-08-21 10:15 | EXP.PAIN.SOA ---
[facility] Pain Management SOAP Note Subjective:: Patient is a pleasant 72-year-old female who presents today for follow-up of right knee genicular nerve block on 06/30/2022.? We are currently treating the patient for osteoarthritis bilateral knees, degenerative disc disease of lumbar spine with lumbar radiculopathy symptoms.? Today the patient states that she has had at least 80% relief following this injection and feels like it still continuing to provide improvement.? She does rate her pain a 6 out of 10.? Patient does states she continues to experience pain in her low back and describes it as a aching, throbbing sensation that is worse with increased activity.? Patient does state that she thinks she had gotten injections years ago in the past from Dr. Soto that did provide significant improvement.? Patient states that this time she does not need an injection.? She is currently managed with [place] 10 mg 3 times a day.? Patient denies any side effects from this medication.? She states this medication does help manage her pain symptoms.? She is requesting a refill at today's visit.? Her Catrachito is [phone].? Its been reviewed and appropriate. Review of Systems: General: No recent weight changes, no fever, no sleep disturbances Respiratory: No cough, no shortness of air, no recurring pulmonary infections Cardiovascular/peripheral vascular: No chest pain, no palpitations,? no edema, no shortness of breath Gastrointestinal: No new onset incontinence, normal bowel movements reported Genitourinary: No new onset incontinence Musculoskeletal: Low back pain Psychiatric: [Normal mood/affect] Neurological: [Denies weakness in extremities], [denies balance issues] Objective:: Objective:: Physical Exam: General: Alert and oriented x3, no acute distress, pleasant and cooperative Lungs: Respirations even and unlabored, symmetrical chest expansion Eyes: PERRL Musculoskeletal: Flexion and extension of lumbar [spine] somewhat guarded secondary to pain, [antalgic gait noted] Neurological: Speech clear,? no gross sensory deficit ORT score updated with minimal risk of 0 Assessment:: Degenerative disc disease of lumbar spine with lumbar radiculopathy symptoms, bilateral osteoarthritis knees Plan:: Patient continues to experience significant pain in her low back however she is doing well with her current medication regimen.? I will refill the patient's [place] 10 mg 3 times a day and provide a 1 month supply of this medication.? Patient will return to clinic in 1 month for reevaluation of symptoms, medication refill and follow-up. ? Patient has been advised of risks of oversedation with the prescribed medication.? Narcan has been offered to the patient in the event of oversedation.? Patient has been advised that a family member should also be educated regarding administration of Narcan.? ? Patient has been instructed to contact the clinic with any concerns before the next appointment.? Dr. Soto has reviewed this note and agrees with this plan of care.? This note was dictated using voice recognition software and make contain errors or omissions. [facility] Disclaimer: The information contained in this section may have been updated after the patient was seen, as this information can be updated by other users. Medical History (Updated 08/12/22 @ 11:09 by Bonny Calvert RN) Atrial fibrillation Dizziness Essential hypertension Fatigue Hypertensive heart disease snf current use of anticoagulant ORION (obstructive sleep apnea) PAF (paroxysmal atrial fibrillation) SOB (shortness of breath) Wheezing Family History Other No significant family history Social History Smoking Status: Never smoker alcohol intake: never substance use type: denies use current occupational status: retired Travel in the last 8 weeks: None household members: other housing: house
== END | disposition home or self-care (01) ==
PROVIDERS: PCP Family Medicine; Visit Provider Nurse Practitioner Family
DX: M51.16 Intervertebral disc disorders with radiculopathy, lumbar region (principal); M17.0 Bilateral primary osteoarthritis of knee
CPT/HCPCS: 99212; G0463

== ENCOUNTER → 2022-07-23 11:36 | Outpatient (CLI) | payer MEDICARE, OTHER, SELFPAY ==
--- NOTE | 2022-07-23 11:52 | EXP.PAIN.SOA ---
[facility] Pain Management SOAP Note Subjective:: Patient is a pleasant 72-year-old female who presents today for follow-up of right knee genicular nerve block on 06/30/2022. We are currently treating the patient for osteoarthritis bilateral knees, degenerative disc disease of lumbar spine with lumbar radiculopathy symptoms. Today the patient states that she has had at least 80% relief following this injection and feels like it still continuing to provide improvement. She does rate her pain a 6 out of 10. Patient does states she continues to experience pain in her low back and describes it as a aching, throbbing sensation that is worse with increased activity. Patient does state that she thinks she had gotten injections years ago in the past from Dr. Soto that did provide significant improvement. Patient states that this time she does not need an injection. She is currently managed with [place] 10 mg 3 times a day. Patient denies any side effects from this medication. She states this medication does help manage her pain symptoms. She is requesting a refill at today's visit. Her Catrachito is [phone]. Its been reviewed and appropriate. Review of Systems: General: No recent weight changes, no fever, no sleep disturbances Respiratory: No cough, no shortness of air, no recurring pulmonary infections Cardiovascular/peripheral vascular: No chest pain, no palpitations, no edema, no shortness of breath Gastrointestinal: No new onset incontinence, normal bowel movements reported Genitourinary: No new onset incontinence Musculoskeletal: Low back pain Psychiatric: [Normal mood/affect] Neurological: [Denies weakness in extremities], [denies balance issues] Objective:: Physical Exam: General: Alert and oriented x3, no acute distress, pleasant and cooperative Lungs: Respirations even and unlabored, symmetrical chest expansion Eyes: PERRL Musculoskeletal: Flexion and extension of lumbar [spine] somewhat guarded secondary to pain, [antalgic gait noted] Neurological: Speech clear, no gross sensory deficit ORT score updated with minimal risk of 0 Assessment:: Degenerative disc disease of lumbar spine with lumbar radiculopathy symptoms, bilateral osteoarthritis knees Plan:: Patient continues to experience significant pain in her low back however she is doing well with her current medication regimen. I will refill the patient's [place] 10 mg 3 times a day and provide a 1 month supply of this medication. Patient will return to clinic in 1 month for reevaluation of symptoms, medication refill and follow-up. Patient has been advised of risks of oversedation with the prescribed medication. Narcan has been offered to the patient in the event of oversedation. Patient has been advised that a family member should also be educated regarding administration of Narcan. Patient has been instructed to contact the clinic with any concerns before the next appointment. Dr. Soto has reviewed this note and agrees with this plan of care. This note was dictated using voice recognition software and make contain errors or omissions. [facility] Disclaimer: The information contained in this section may have been updated after the patient was seen, as this information can be updated by other users. 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
[2022-07-23 13:52] LABS: Barbiturates Screen,Urine Negative ng/ml (<200); Benzodiazepines Screen,Urine Negative ng/ml (<200)
[2022-07-23 13:53] LABS: Cannabinoid Screen,Urine Negative ng/ml (<50)
[2022-07-23 13:54] LABS: Cocaine Screen,Urine Negative ng/ml (<300); Methadone Screen,Urine Negative ng/ml (<300)
[2022-07-23 13:55] LABS: Opiate Screen,Urine Positive ng/ml (<300)
[2022-07-23 13:56] LABS: Phencyclidine Screen,Urine Negative ng/ml (<25)
[2022-07-23 14:03] LABS: Amphetamine/Metha Screen,Urine Negative ng/ml (<1000)
[2022-07-27 08:10] LABS: Codeine Negative (Cutoff=100); Hydrocodone Positive (.); Hydromorphone Positive (.); Morphine Negative (Cutoff=100); Opiates Positive (.)
== END ==
PROVIDERS: PCP Family Medicine; Visit Provider Nurse Practitioner Family
DX: Z79.891 Long term (current) use of opiate analgesic (principal)
CPT/HCPCS: 80305; 80361; 80365; 99212; G0463; G0480

== ENCOUNTER → 2022-08-12 11:18 | Outpatient (CLI) | payer MEDICARE, OTHER, SELFPAY ==
--- NOTE | 2022-08-12 11:23 | XR_ITS ---
FINAL REPORT CLINICAL HISTORY: wheezing FINDINGS: TWO-VIEW CHEST Two views of the chest were obtained. The heart size and pulmonary vascularity are within normal limits. The mediastinum is normal. No acute pulmonary abnormality is identified. There is no pneumothorax. The bony thorax is intact. IMPRESSION: No active cardiopulmonary disease. Reviewed, Interpreted and Dictated by Chani Zavaleta MD Transcribed by Linda Barajas Authenticated and [facility]
== END ==
PROVIDERS: PCP Family Medicine; Visit Provider Physician Assistant
DX: E66.9 Obesity, unspecified (principal); I11.9 Hypertensive heart disease without heart failure; I48.0 Paroxysmal atrial fibrillation; R06.2 Wheezing
CPT/HCPCS: 71046

== ENCOUNTER → 2022-08-24 09:33 | Outpatient (POV) | payer MEDICARE, OTHER, SELFPAY ==
--- NOTE | 2022-08-24 09:49 | EXP.PAIN.SOA ---
[facility] Pain Management SOAP Note Subjective:: Patient is a pleasant 72-year-old female who presents today for medication refill and follow-up. We are currently treating the patient for osteoarthritis bilateral knees, degenerative disc disease of lumbar spine with lumbar radiculopathy symptoms. Today she rates her pain a 7 out of 10. Patient denies any new trauma or injury. Patient denies any change in location or type of pain she experiences. Patient does state that her pain in her right knee has been worse since our last visit. Patient does describe this as a aching, throbbing sensation that is worse with increased activity. Patient did have her first right knee genicular nerve block on 06/30/2022 and this did provide upwards of 80% or more relief and has worked almost 2 months. Patient does state that she has recently been to see her cardiac physician for guarding and increased fatigue and that she is scheduled for a reevaluation for her CPAP. Patient is currently managed with [place] 10 mg 3 times a day. Patient denies any side effects from this medication. She states this medication does help manage her pain symptoms. She is requesting a refill. Her Catrachito is [phone]. Has been reviewed and appropriate. Review of Systems: General: No recent weight changes, no fever, no sleep disturbances Respiratory: No cough, no shortness of air, no recurring pulmonary infections Cardiovascular/peripheral vascular: No chest pain, no palpitations, no edema, no shortness of breath Gastrointestinal: No new onset incontinence, normal bowel movements reported Genitourinary: No new onset incontinence Musculoskeletal: Right knee pain Psychiatric: [Normal mood/affect] Neurological: [Denies weakness in extremities], [denies balance issues] Objective:: Physical Exam: General: Alert and oriented x3, no acute distress, pleasant and cooperative Lungs: Respirations even and unlabored, symmetrical chest expansion Eyes: PERRL Musculoskeletal: Flexion and extension of right knee somewhat guarded secondary to pain, [antalgic gait noted] Neurological: Speech clear, no gross sensory deficit Assessment:: Degenerative disc 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 I have discussed with the patient that she may benefit from a second right genicular nerve block. Risk and benefits were discussed with the patient. She would like to proceed forward with this plan of care. I will refill the patient's [place] 10 mg 3 times a day and provide a 1 month supply of this medication. We will schedule the patient for a diagnostic right genicular nerve block #2. Patient has been instructed to contact the clinic with any concerns before the next appointment. Dr. Soto has reviewed this note and agrees with this plan of care. This note was dictated using voice recognition software and make contain errors or omissions. [facility] Disclaimer: The information contained in this section may have been updated after the patient was seen, as this information can be updated by other users. 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
[2022-08-24 09:53] VITALS: BP 138/82; PULSE 70; RESP 18; O2SAT 96; BMI 40.7
== END | disposition home or self-care (01) ==
PROVIDERS: PCP Family Medicine; Visit Provider Nurse Practitioner Family
DX: M51.16 Intervertebral disc disorders with radiculopathy, lumbar region (principal); M17.0 Bilateral primary osteoarthritis of knee
CPT/HCPCS: 99212; G0463

== ENCOUNTER → 2022-09-01 08:29 | Outpatient (CLI) | payer MEDICARE, OTHER, SELFPAY ==
[2022-09-01 09:08] LABS: Basophils % 0.6 % (0.1-2.0); Eosinophils # 0.1 K/mm3 (0.0-0.4); Eosinophils % 0.6 % (0.1-12.0); Hematocrit 44.9 % (37.0-47.0); Lymphocytes # 2.5 K/mm3 (0.7-4.5); Lymphocytes % 32.5 % (10-50); Mean Corpuscular HGB Conc 31.3 g/dL (31.8-35.4); Mean Corpuscular Hemoglobin 31.4 pg (27.0-31.2); Mean Corpuscular Volume 100.4 fl (81-99); Mean Platelet Volume 7.9 fl (7.4-10.4); Monocytes # 0.4 K/mm3 (0.1-1.0); Monocytes % 5.4 % (1.7-9.3); Neutrophils # 4.6 K/mm3 (1.8-7.8); Neutrophils % 60.9 % (37.0-80.0); Platelet Count 347 K/mm3 (142-424); Red Blood Count 4.47 M/mm3 (4.20-5.40); Red Cell Distribution Width 12.8 % (11.5-17.5); White Blood Count 7.5 K/mm3 (4.8-10.8)
[2022-09-01 16:28] LABS: Alanine Aminotransferase 21 U/L (12-78); Albumin Level 4.1 g/dl (3.5-5.0); Albumin/Globulin Ratio 1.6 (1.1-1.8); Alkaline Phosphatase 69 U/L (38-126); Anion Gap 13.3 mEq/L (5-15); Aspartate Amino Transferase 30 U/L (14-36); Bilirubin,Total 0.7 mg/dl (0.2-1.3); Blood Urea Nitrogen 28 mg/dl (7-17); Calcium 8.9 mg/dl (8.4-10.2); Carbon Dioxide 23 mmol/L (22.0-30.0); Chloride 105 mmol/L (98-107); Estimated Glomerular Filt Rate 49 ml/min (>60); GFR (African American) 59 ML/MIN (>60); Globulin 2.6 g/dL (1.3-3.2); Glucose 104 mg/dl (74-100); Potassium 4.3 mmoL/L (3.5-5.1); Sodium 137 mmol/L (136-145); Total Protein,Serum 6.7 g/dl (6.3-8.2)
[2022-09-01 16:56] LABS: 25-OH Vitamin D, Total 39.3 ng/mL (30-100)
[2022-09-01 17:12] LABS: Thyroid Stimulating Hormone 2.59 uIU/mL (0.465-4.68)
[2022-09-01 17:48] LABS: Vitamin B12 407 pg/mL (239-931)
[2022-09-02 07:39] LABS: Ferritin 96.5 ng/ml (11.1-264)
== END ==
PROVIDERS: PCP Family Medicine; Visit Provider Nurse Practitioner Family
DX: R53.83 Other fatigue; E83.10 Disorder of iron metabolism, unspecified; E55.9 Vitamin D deficiency, unspecified
CPT/HCPCS: 36415; 80053; 82306; 82607; 82728; 82746; 84443; 85025

== ENCOUNTER 2022-09-08 09:05 | Day surgery (SDC) | payer MEDICARE, OTHER, SELFPAY ==
[2022-09-08 09:21] VITALS: BP 154/100; PULSE 70; RESP 18; TEMP 36.6; O2SAT 97; BMI 39.9
[2022-09-08 09:33] VITALS: BP 146/87; PULSE 80; RESP 18; O2SAT 97
[2022-09-08 09:34] VITALS: BP 146/87; PULSE 80; RESP 18; O2SAT 97
[2022-09-08 09:38] VITALS: BP 136/60; PULSE 65; RESP 18; O2SAT 97
--- NOTE | 2022-09-08 10:47 | P.PCN_ITS ---
Procedure Date: 09/08/22 Time: 10:00 Anesthesiologist:: Vic Zarco CRNA Complications:: None Pre-procedure Diagnosis:: Osteoarthritis right knee Post-procedure Diagnosis:: Same. Indications for Procedure:: Very pleasant 72-year-old female comes our clinic today for repeat right genicular nerve block. Patient reports 6 to 8 weeks of significant improvement in terms of her right knee pain following her first right genicular nerve block. Procedure Details:: Right knee genicular block Informed consent was obtained and the risk and benefits of the procedure was explained to the patient. The patient was taken to the procedure room. The right knee was prepped using ChloraPrep. I placed 22-gauge needles into the area of the right superior medial genicular nerve, right superior lateral genicular nerve and right inferior medial genicular nerve. Needle placement was confirmed in AP and lateral views with dye. We then injected bupivacaine 0.25% 3 mL's and Depo-Medrol 25 mg into each area of the right superior medial genicular nerve, r ight superior lateral genicular nerve and right inferior medial genicular nerve. Patient tolerated the procedure well with no complications. Plan and Disposition:: Patient was discharged without incident.
== END 2022-09-08 09:38 | disposition home or self-care (01) ==
LOC: SC.PAINP 09:06
PROVIDERS: PCP Family Medicine; Visit Provider Nurse Anesthetist, Certified Registered
DX: M17.0 Bilateral primary osteoarthritis of knee (principal); M25.561 Pain in right knee
CPT/HCPCS: 64454; J1040

== ENCOUNTER → 2022-09-24 14:25 | Outpatient (POV) | payer MEDICARE, OTHER, SELFPAY ==
--- NOTE | 2022-09-24 15:06 | EXP.PAIN.SOA ---
[facility] Pain Management SOAP Note Subjective:: Patient is a pleasant 72-year-old female who presents today for follow-up of right genicular nerve block #2 on 09/08/2022. We are currently treating the patient for degenerative disc disease of lumbar spine with lumbar radiculopathy symptoms, osteoarthritis bilateral knees. Today she rates her pain a 5 out of 10. Patient states that she has had at least 85 to 90% improvement following this injection and it is still providing additional relief. Patient states that she has been able to increase her activity with decreased pain symptoms. Patient did get approximately 2 months of relief following her first genicular nerve block. Patient states that she did have increased pain with her left knee a couple of days ago while she was outside picking up sticks however this has improved and is not bothering her at this time. Patient is currently managed on Cottonwood 10 mg 3 times a day. Patient denies any side effects from this medication. Her Catrachito is [id number]. Its been reviewed and appropriate. Review of Systems: General: No recent weight changes, no fever, no sleep disturbances Respiratory: No cough, no shortness of air, no recurring pulmonary infections Cardiovascular/peripheral vascular: No chest pain, no palpitations, no edema, no shortness of breath Gastrointestinal: No new onset incontinence, normal bowel movements reported Genitourinary: No new onset incontinence Musculoskeletal: Knee pain, low back pain Psychiatric: [Normal mood/affect] Neurological: [Denies weakness in extremities], [denies balance issues] Objective:: Physical Exam: General: Alert and oriented x3, no acute distress, pleasant and cooperative Lungs: Respirations even and unlabored, symmetrical chest expansion Eyes: PERRL Musculoskeletal: Flexion and extension of lumbar [spine] somewhat guarded secondary to pain, [antalgic gait noted] Neurological: Speech clear, no gross sensory deficit Assessment:: Degenerative disc disease of lumbar spine with lumbar radiculopathy symptoms, osteoarthritis bilateral knees Plan:: Patient has had significant improvement following her second right knee genicular nerve block and does not require any additional injective therapy at this time. I will refill the patient's Cottonwood 10 mg 3 times a day and provide a 1 month supply of this medication. Patient will return to clinic in 1 month for reevaluation of symptoms, medication refill and follow-up. Patient has been advised of risks of oversedation with the prescribed medication. Narcan has been offered to the patient in the event of oversedation. Patient has been advised that a family member should also be educated regarding administration of Narcan. Patient has been instructed to contact the clinic with any concerns before the next appointment. Dr. Soto has reviewed this note and agrees with this plan of care. This note was dictated using voice recognition software and make contain errors or omissions. [facility] Disclaimer: The information contained in this section may have been updated after the patient was seen, as this information can be updated by other users. Medical History Atrial fibrillation Dizziness Essential hypertension Fatigue Likely multifactorial in the setting of sleep apnea, suspected RLS, chronic pain, narcotic therapy, COPD. Hypertensive heart disease residential current use of anticoagulant ORION (obstructive sleep apnea) PAF (paroxysmal atrial fibrillation) SOB (shortness of breath) Wheezing Surgical History History of cardiac radiofrequency ablation History of partial hysterectomy Family History Other Coronary artery disease Hypertension Social History Smoking Status: Never smoker alcohol intake: never s
[2022-09-24 16:04] VITALS: BP 116/92; PULSE 74; RESP 18; O2SAT 98; BMI 41.4
== END | disposition home or self-care (01) ==
PROVIDERS: PCP Family Medicine; Visit Provider Nurse Practitioner Family
DX: M51.16 Intervertebral disc disorders with radiculopathy, lumbar region (principal); M17.0 Bilateral primary osteoarthritis of knee
CPT/HCPCS: 99212; G0463

== ENCOUNTER → 2022-10-29 09:03 | Outpatient (POV) | payer MEDICARE, OTHER, SELFPAY ==
--- NOTE | 2022-10-29 09:17 | EXP.PAIN.SOA ---
[facility] Pain Management SOAP Note Subjective:: Patient is a pleasant 72-year-old female who presents today for follow-up. We are currently treating the patient for degenerative disc disease of lumbar spine with lumbar radiculopathy symptoms, osteoarthritis bilateral knees. Today she rates her pain a 9 out of 10. Patient states her pain is all in her left knee and describes it as a sharp, achy, throbbing sensation that is worse with increased activity. Patient denies any specific trauma or injury to this joint. She states it is interfering with her ability to perform activities of daily living such as cooking and cleaning or even simple ambulation is difficult. Patient has gotten intra-articular injections in this knee in the past and that she has currently been doing genicular nerve blocks on the right side due to that being her worst side. Patient is interested in doing something for her left knee pain today. She is currently managed with Millwood 10 mg 3 times a day. Patient denies any side effects from this medication. Her Catrachito is [phone]. Its been reviewed and appropriate. Review of Systems: General: No recent weight changes, no fever, no sleep disturbances Respiratory: No cough, no shortness of air, no recurring pulmonary infections Cardiovascular/peripheral vascular: No chest pain, no palpitations, no edema, no shortness of breath Gastrointestinal: No new onset incontinence, normal bowel movements reported Genitourinary: No new onset incontinence Musculoskeletal: Left knee pain Psychiatric: [Normal mood/affect] Neurological: [Denies weakness in extremities], [denies balance issues] Objective:: Physical Exam: General: Alert and oriented x3, no acute distress, pleasant and cooperative Lungs: Respirations even and unlabored, symmetrical chest expansion Eyes: PERRL Musculoskeletal: Flexion and extension of left knee somewhat guarded secondary to pain, [antalgic gait noted] Neurological: Speech clear, no gross sensory deficit Assessment:: Degenerative disc disease of lumbar spine with lumbar radiculopathy symptoms, osteoarthritis bilateral knees Plan:: Patient is having severe pain in her left knee with limited range of motion. Patient is experiencing significant difficulty in even walking. I have discussed with the patient that she may benefit from a left genicular nerve block. Risk and benefits were discussed with the patient and she would like to proceed forward with this plan of care. I will also refill her Millwood 10 mg 3 times a day and provide a 1 month supply of this medication. We will schedule her for a left genicular nerve block. Patient has been advised of risks of oversedation with the prescribed medication. Narcan has been offered to the patient in the event of oversedation. Patient has been advised that a family member should also be educated regarding administration of Narcan. Patient has been instructed to contact the clinic with any concerns before the next appointment. Dr. Soto has reviewed this note and agrees with this plan of care. This note was dictated using voice recognition software and make contain errors or omissions. [facility] Disclaimer: The information contained in this section may have been updated after the patient was seen, as this information can be updated by other users. Medical History Atrial fibrillation Dizziness Essential hypertension Fatigue Likely multifactorial in the setting of sleep apnea, suspected RLS, chronic pain, narcotic therapy, COPD. 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
[2022-10-29 09:27] VITALS: BP 138/59; PULSE 63; RESP 18; O2SAT 97; BMI 41.4
== END | disposition home or self-care (01) ==
PROVIDERS: PCP Family Medicine; Visit Provider Nurse Practitioner Family
DX: M51.16 Intervertebral disc disorders with radiculopathy, lumbar region (principal); M17.0 Bilateral primary osteoarthritis of knee
CPT/HCPCS: 99212; G0463

== ENCOUNTER 2022-11-03 08:35 | Day surgery (SDC) | payer MEDICARE, OTHER, SELFPAY ==
[2022-11-03 09:01] VITALS: BP 163/76; PULSE 65; RESP 18; TEMP 36.6; O2SAT 99; BMI 41.5
[2022-11-03 09:10] VITALS: BP 137/52; PULSE 66; RESP 18; O2SAT 98
[2022-11-03 09:11] VITALS: BP 137/52; PULSE 66; RESP 18; O2SAT 98
--- NOTE | 2022-11-03 09:18 | EXP.PAIN.PRO ---
Procedure Date: 11/03/22 Time: 09:10 Anesthesiologist:: Vic Zarco CRNA Complications:: None Pre-procedure Diagnosis:: Osteoarthritis left knee. Post-procedure Diagnosis:: Same. Indications for Procedure:: Patient is a very pleasant 72-year-old female comes our clinic today for a left genicular nerve block. She has had 2 right genicular nerve blocks with significant improvement terms of her right knee pain. She describes her left knee pain as constant, dull, aching. She has difficulty with ambulation. Difficulty transitioning from sitting to standing. Procedure Details:: Left knee genicular block Informed consent was obtained and the risk and benefits of the procedure was explained to the patient. The patient was taken to the procedure room. The left knee was prepped using ChloraPrep. I placed 22-gauge needles into the area of the left superior medial genicular nerve, left superior lateral genicular nerve and left inferior medial genicular nerve. Needle placement was confirmed in AP and lateral views with dye. We then injected bupivacaine 0.25% 3 mL's and Depo-Medrol 25 mg into each area of the left superior medial genicular nerve, left superior lateral genicular nerve and left inferior medial genicular nerve. Patient tolerated the procedure well with no complications. Plan and Disposition:: We will follow-up with her in 2 weeks. Will reevaluate symptoms at that time. Plan and Disposition:: Patient was discharged without incident.
[2022-11-03 09:22] VITALS: BP 150/72; PULSE 63; RESP 18; O2SAT 99
--- NOTE | 2022-11-03 09:25 | EXP.PAIN.PRO ---
Procedure Anesthesiologist:: Vic Zarco CRNA Complications:: None Pre-procedure Diagnosis:: Pre-procedure Diagnosis:: Right knee pain with degenerative osteoarthritis Post-procedure Diagnosis: Same Indications for Procedure: This patient is a pleasant 57-year-old white female who we are treating for degenerative arthritis of the right knee with increasing right knee pain. She has had intra-articular injections which have not given her much relief. We will do a right knee genicular nerve block today to see if this helps with her pain symptoms. She also has low back pain and lumbar radicular symptoms Procedure Details: Right knee genicular block Informed consent was obtained and the risk and benefits of the procedure was explained to the patient. The patient was taken to the procedure room. The left knee was prepped using ChloraPrep. I placed 22-gauge needles into the area of the right superior medial genicular nerve, right superior lateral genicular nerve and right inferior medial genicular nerve. Needle placement was confirmed in AP and lateral views with dye. We then injected bupivacaine 0.25% 3 mL's and Depo-Medrol 25 mg into each area of the right superior medial genicular nerve, right superior lateral genicular nerve and right inferior medial genicular nerve. Patient tolerated the procedure well with no complications. Plan and Disposition:: We will follow-up with her in 2 weeks. Will reevaluate symptoms at that time.
== END 2022-11-03 09:22 | disposition home or self-care (01) ==
PROVIDERS: PCP Family Medicine; Visit Provider Nurse Anesthetist, Certified Registered
DX: M17.12 Unilateral primary osteoarthritis, left knee (principal)
CPT/HCPCS: 64454; J1040

== ENCOUNTER → 2022-11-19 10:34 | Outpatient (POV) | payer MEDICARE, OTHER, SELFPAY ==
--- NOTE | 2022-11-19 11:00 | EXP.PAIN.SOA ---
[facility] Pain Management SOAP Note Subjective:: Patient is a pleasant 72-year-old female who presents today for follow-up of left genicular nerve block on 11/03/2022. We are currently treating the patient for degenerative disc disease of lumbar spine with lumbar radiculopathy symptoms, osteoarthritis bilateral knees. Today she rates her pain at a 6 out of 10. Patient denies any new trauma or injury. Patient denies any change location or type of pain that she experiences. She states that initially following this injection she had worsening pain symptoms at the sites and described it as a throbbing toothache sensation. She did state that over 2 days it was worse however from then on it started to progressively increase with less pain symptoms. Today she states she is doing much better and feels like she has had significant improvement along that joint. She does state that her right knee has continued to do well and does not need any injections right now either. Patient is currently managed with Spicewood 10 mg 3 times a day. Patient denies any side effects from this medication. She is requesting a refill at today's visit. Her Catrachito is [phone]. Its been reviewed and appropriate. Review of Systems: General: No recent weight changes, no fever, no sleep disturbances Respiratory: No cough, no shortness of air, no recurring pulmonary infections Cardiovascular/peripheral vascular: No chest pain, no palpitations, no edema, no shortness of breath Gastrointestinal: No new onset incontinence, normal bowel movements reported Genitourinary: No new onset incontinence Musculoskeletal: Low back pain, bilateral knee pain Psychiatric: [Normal mood/affect] Neurological: [Denies weakness in extremities], [denies balance issues] Objective:: Physical Exam: General: Alert and oriented x3, no acute distress, pleasant and cooperative Lungs: Respirations even and unlabored, symmetrical chest expansion Eyes: PERRL Musculoskeletal: Flexion and extension of lumbar [spine] somewhat guarded secondary to pain, [antalgic gait noted] Neurological: Speech clear, no gross sensory deficit Assessment:: Degenerative disc disease of lumbar spine with lumbar radiculopathy symptoms, osteoarthritis bilateral knees Plan:: Patient is currently doing well following her left genicular nerve block and does not require any additional injective therapy. I will refill her Spicewood 10 mg 3 times a day and provide a 1 month supply of this medication. Patient will return to clinic in 1 month for reevaluation of symptoms, medication refill and plan of care. Patient has been advised of risks of oversedation with the prescribed medication. Narcan has been offered to the patient in the event of oversedation. Patient has been advised that a family member should also be educated regarding administration of Narcan. Patient has been instructed to contact the clinic with any concerns before the next appointment. Dr. Soto has reviewed this note and agrees with this plan of care. This note was dictated using voice recognition software and make contain errors or omissions. [facility] Disclaimer: The information contained in this section may have been updated after the patient was seen, as this information can be updated by other users. Medical History Atrial fibrillation Dizziness Essential hypertension Fatigue Likely multifactorial in the setting of sleep apnea, suspected RLS, chronic pain, narcotic therapy, COPD. 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
[2022-11-19 11:24] VITALS: BP 140/65; PULSE 74; RESP 20; BMI 18.8
[2022-11-19 11:44] LABS: Barbiturates Screen,Urine Negative ng/ml (<200)
[2022-11-19 11:45] LABS: Amphetamine/Metha Screen,Urine Negative ng/ml (<1000); Benzodiazepines Screen,Urine Negative ng/ml (<200)
[2022-11-19 11:46] LABS: Cannabinoid Screen,Urine Negative ng/ml (<50)
[2022-11-19 11:47] LABS: Cocaine Screen,Urine Negative ng/ml (<300); Methadone Screen,Urine Negative ng/ml (<300)
[2022-11-19 11:48] LABS: Opiate Screen,Urine Positive ng/ml (<300)
[2022-11-19 11:49] LABS: Phencyclidine Screen,Urine Negative ng/ml (<25)
[2022-11-29 17:55] LABS: Codeine Negative (Cutoff=100); Hydrocodone Positive (.); Hydromorphone Positive (.); Morphine Negative (Cutoff=100); Opiates Positive (.)
== END | disposition home or self-care (01) ==
PROVIDERS: PCP Family Medicine; Visit Provider Nurse Practitioner Family
DX: M51.16 Intervertebral disc disorders with radiculopathy, lumbar region (principal); Z79.891 Long term (current) use of opiate analgesic; M17.0 Bilateral primary osteoarthritis of knee
CPT/HCPCS: 80305; 80361; 80365; 99212; G0463; G0480

== ENCOUNTER → 2022-12-21 10:21 | Outpatient (POV) | payer MEDICARE, OTHER, SELFPAY ==
--- NOTE | 2022-12-21 10:40 | EXP.PAIN.SOA ---
[facility] Pain Management SOAP Note Subjective:: Patient is a pleasant 72-year-old female who presents today for medication refill and follow-up. We are currently treating the patient for degenerative disc disease of lumbar spine with lumbar radiculopathy symptoms, osteoarthritis bilateral knees. Today she rates her pain a 5 out of 10. She states recently mowing she did hurt her left wrist and she does state that she has been having more issues related to her blood thinner and is bruising excessively. Patient denies have a large bruise noted at her right lower leg that she states she merely brushed up against an object and immediately applied ice. She does states she continues to have significant relief in her bilateral knees related to her genicular nerve blocks. Patient has had 2 injections on the right side and 1 injection on the left that was back in October and has continued to do well. Patient states she is scheduled to see cardiology in about 2 weeks to discuss additional options she may be able to do. Patient is currently managed with Sargeant 10 mg 3 times a day. Patient denies any side effects from this medication. Her Catrachito is [phone]. Its been reviewed and appropriate. Review of Systems: General: No recent weight changes, no fever, no sleep disturbances Respiratory: No cough, no shortness of air, no recurring pulmonary infections Cardiovascular/peripheral vascular: No chest pain, no palpitations, no edema, no shortness of breath Gastrointestinal: No new onset incontinence, normal bowel movements reported Genitourinary: No new onset incontinence Musculoskeletal: Low back pain Psychiatric: [Normal mood/affect] Neurological: [Denies weakness in extremities], [denies balance issues] Objective:: Physical Exam: General: Alert and oriented x3, no acute distress, pleasant and cooperative Lungs: Respirations even and unlabored, symmetrical chest expansion Eyes: PERRL Musculoskeletal: Flexion and extension of lumbar [spine] somewhat guarded secondary to pain, [antalgic gait noted] Neurological: Speech clear, no gross sensory deficit Assessment:: Degenerative disc disease of lumbar spine with lumbar radiculopathy symptoms, osteoarthritis bilateral knees Plan:: I will refill the patient's Sargeant 10 mg 3 times a day and provide a 1 month supply of this medication. Patient will return to clinic in 1 month for reevaluation of symptoms, medication refill and follow-up. Patient has been advised of risks of oversedation with the prescribed medication. Narcan has been offered to the patient in the event of oversedation. Patient has been advised that a family member should also be educated regarding administration of Narcan. Patient has been instructed to contact the clinic with any concerns before the next appointment. Dr. Soto has reviewed this note and agrees with this plan of care. This note was dictated using voice recognition software and make contain errors or omissions. [facility] Disclaimer: The information contained in this section may have been updated after the patient was seen, as this information can be updated by other users. Medical History Atrial fibrillation Dizziness Essential hypertension Fatigue Likely multifactorial in the setting of sleep apnea, suspected RLS, chronic pain, narcotic therapy, COPD. 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
[2022-12-21 12:47] VITALS: BP 130/74; PULSE 70; RESP 18; O2SAT 97; BMI 41.4
== END | disposition home or self-care (01) ==
PROVIDERS: PCP Family Medicine; Visit Provider Nurse Practitioner Family
DX: M51.16 Intervertebral disc disorders with radiculopathy, lumbar region (principal); M17.0 Bilateral primary osteoarthritis of knee
CPT/HCPCS: 99212; G0463

== ENCOUNTER → 2023-01-21 10:27 | Outpatient (POV) | payer MEDICARE, OTHER, SELFPAY ==
--- NOTE | 2023-01-21 10:49 | EXP.PAIN.SOA ---
[facility] Pain Management SOAP Note Subjective:: Patient is a pleasant 72-year-old female who presents today for 1 month follow-up and medication refill. We are currently treating the patient for degenerative disc disease of lumbar spine with lumbar radiculopathy symptoms, osteoarthritis bilateral knees. Today she rates her pain a 6 out of 10. She denies any new trauma or injury. Patient denies any change location or type of pain she experiences. She does state that currently her knees are both sore however they continue to do well following their genicular nerve blocks and are still very tolerable at this time. She states she has been doing a lot of increased activity including working outside which is the reason for the increased pain. Patient is currently managed with Mineral 10 mg 3 times a day. She denies any side effects from this medication. At our last visit she had discussed that she had a upcoming cardiology appointment however she states that she is a month early for that visit and it is scheduled now for this month on the . Her Catrachito is [phone]. Its been reviewed and appropriate. Review of Systems: General: No recent weight changes, no fever, no sleep disturbances Respiratory: No cough, no shortness of air, no recurring pulmonary infections Cardiovascular/peripheral vascular: No chest pain, no palpitations, no edema, no shortness of breath Gastrointestinal: No new onset incontinence, normal bowel movements reported Genitourinary: No new onset incontinence Musculoskeletal: Low back pain, bilateral knee pain Psychiatric: [Normal mood/affect] Neurological: [Denies weakness in extremities], [denies balance issues] Objective:: Physical Exam: General: Alert and oriented x3, no acute distress, pleasant and cooperative Lungs: Respirations even and unlabored, symmetrical chest expansion Eyes: PERRL Musculoskeletal: Flexion and extension of lumbar [spine] somewhat guarded secondary to pain, [antalgic gait noted] Neurological: Speech clear, no gross sensory deficit Assessment:: Degenerative disc disease of lumbar spine with lumbar radiculopathy symptoms, bilateral osteoarthritis knees Plan:: I will refill the patient's Mineral 10 mg 3 times a day and provide a 1 month supply of this medication. Patient will return to clinic in 1 month for reevaluation of symptoms and medication refill. Patient has been advised of risks of oversedation with the prescribed medication. Narcan has been offered to the patient in the event of oversedation. Patient has been advised that a family member should also be educated regarding administration of Narcan. Patient has been instructed to contact the clinic with any concerns before the next appointment. Dr. Soto has reviewed this note and agrees with this plan of care. This note was dictated using voice recognition software and make contain errors or omissions. [facility] Disclaimer: The information contained in this section may have been updated after the patient was seen, as this information can be updated by other users. Medical History Atrial fibrillation Dizziness Essential hypertension Fatigue Likely multifactorial in the setting of sleep apnea, suspected RLS, chronic pain, narcotic therapy, COPD. 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
[2023-01-21 11:15] VITALS: BP 115/76; PULSE 73; RESP 20; BMI 41.5
== END | disposition home or self-care (01) ==
PROVIDERS: PCP Family Medicine; Visit Provider Nurse Practitioner Family
DX: M51.16 Intervertebral disc disorders with radiculopathy, lumbar region (principal); M17.0 Bilateral primary osteoarthritis of knee
CPT/HCPCS: 99212; G0463

== ENCOUNTER → 2023-02-18 09:51 | Outpatient (POV) | payer MEDICARE, OTHER, SELFPAY ==
--- NOTE | 2023-02-18 10:24 | EXP.PAIN.SOA ---
[facility] Pain Management SOAP Note Subjective:: Patient is a pleasant 72-year-old female who presents today for medication refill and follow-up. We are currently treating the patient for degenerative disc disease of lumbar spine with lumbar radiculopathy symptoms, osteoarthritis bilateral knees. Today she rates her pain a 7 out of 10. Patient denies any new trauma or injury. She denies any change to location or type of pain she experiences. She does state that she is starting to experience more pain in her bilateral knees and does think that she may have to do additional injective therapy. She does describe the pain as an aching, throbbing sensation that makes it difficult for ambulation or activities of daily living such as cooking and cleaning. Patient previously had significant improvement following her genicular nerve blocks with at least 80% relief. Patient is currently managed with Vista 10 mg 3 times a day. She denies any side effects from this medication. Her Catrachito is [phone]. Its been reviewed and appropriate. Injections: 11/03/2022 left genicular nerve block #1 09/08/2022 right genicular nerve block #2 06/30/2022 right genicular nerve block #1 Review of Systems: General: No recent weight changes, no fever, no sleep disturbances Respiratory: No cough, no shortness of air, no recurring pulmonary infections Cardiovascular/peripheral vascular: No chest pain, no palpitations, no edema, no shortness of breath Gastrointestinal: No new onset incontinence, normal bowel movements reported Genitourinary: No new onset incontinence Musculoskeletal: Bilateral knee pain Psychiatric: [Normal mood/affect] Neurological: [Denies weakness in extremities], [denies balance issues] Objective:: Physical Exam: General: Alert and oriented x3, no acute distress, pleasant and cooperative Lungs: Respirations even and unlabored, symmetrical chest expansion Eyes: PERRL Musculoskeletal: Flexion and extension of bilateral knees somewhat guarded secondary to pain, [antalgic gait noted] Neurological: Speech clear, no gross sensory deficit Assessment:: Degenerative disc disease of lumbar spine with lumbar radiculopathy symptoms, osteoarthritis bilateral knees Plan:: Patient is experiencing significant pain in her bilateral knees with limited range of motion. I have discussed with the patient that she may benefit from a repeat left genicular nerve block or a right genicular RFA. Risk and benefits were discussed with the patient and she states at this time she does have additional appointments that are limiting her schedule. I have counseled the patient that she can call and schedule these procedures over the phone. Patient has had significant improvement from her right genicular nerve blocks in the past of at least 80% lasting several months. I will refill the patient's Vista 10 mg 3 times a day and provide a 1 month supply of this medication. Patient will return to clinic in 1 month for medication refill and follow-up. Patient has been advised of risks of oversedation with the prescribed medication. Narcan has been offered to the patient in the event of oversedation. Patient has been advised that a family member should also be educated regarding administration of Narcan. Patient has been instructed to contact the clinic with any concerns before the next appointment. Dr. Soto has reviewed this note and agrees with this plan of care. This note was dictated using voice recognition software and make contain errors or omissions. [facility] Disclaimer: The information contained in this section may have been updated after the patient was seen, as this information can be updated by other users. Medical History Atrial fibrillation Dizziness Essential hypertension Fatigue Likely multifactorial in the setting of sleep apnea, chronic pain, narcotic therapy, COPD. No indications of desats on AutoPap 6/10 cm. Noncontribu
[2023-02-18 13:19] VITALS: BP 143/73; PULSE 71; RESP 20; O2SAT 96; BMI 41.5
== END | disposition home or self-care (01) ==
PROVIDERS: Visit Provider Nurse Practitioner Family
DX: M51.16 Intervertebral disc disorders with radiculopathy, lumbar region (principal); M17.0 Bilateral primary osteoarthritis of knee
CPT/HCPCS: 99212; G0463

== ENCOUNTER → 2023-02-24 08:30 | Outpatient (CLI) | payer MEDICARE, OTHER, SELFPAY ==
--- NOTE | 2023-02-24 08:32 | CA_ITS ---
APPROVED REPORT EXAM: Comprehensive 2D, Doppler, and color-flow Echocardiogram Clinical Trial Manager: Saira Ann RVT Ht: 5 ft 5 in Wt: 235lbs BSA: 2.12 BP: 132/51 mmHg Indications: FRANCES,A-FIB,PRIOR ABLATION 2019,HTN,FATIGUE,OBESITY,ORION 2D Dimensions LVOT 2.38 cm (M/F) 1.5-2.5 LA Volume 59.50 mL LA Volume Index 28.07 mL/m2 (M/F) 16-34 M-Mode Dimensions RVDd 3.02 cm (0.9-2.6) LA Diam 3.56 cm (1.9-4.0) LVDd 5.27 cm (3.5-5.7) Ao Diam 3.37 cm (2.0-3.7) LVDs 3.36 cm (3.5-5.7) IVSd 0.51 cm (0.6-1.1) PWd 0.55 cm (0.6-1.1) EF (Teich) 65.50% FS 36.20% EDV (Teich) 133.60 mL TAPSE 3.63 (<1.7) ESV (Teich) 46.10 mL LV Diastology E Decel Time 247.00 (160-240 msec) E/A Ratio 1.1 MED E' 7.90 (< 7 cm/sec) E'/MED E' Ratio 10.38 (>14) LAT E' 10.90 (<10 cm/sec) E/LAT E' Ratio 7.52 (>14) Aortic Valve AO Peak GR. 11.30 mmHg Mitral Valve MV E Max Joseluis. 82.00 (40-130 cm/s) MV A Velocity 74.00 (40-130 cm/s) E/A Ratio 1.11 MV Decel. Time 247.00 (160-240 ms) MV PHT 72.00 ms Pulmonary Valve PV Peak Velocity 89.00 (50-150 cm/s) Tricuspid Valve TR P. Velocity 146.00 cm/s RAP Estimate 10.00 mmHg RVSP 18.50 mmHg Left Ventricle The left ventricle is normal size. The left ventricular systolic function is normal. The left ventricular ejection fraction is within the normal range. There is normal left ventricular wall thickness. There is normal LV segmental wall motion. The left ventricular diastolic function is normal. LVEF is 55%. Right Ventricle The right ventricle is normal size. The right ventricular systolic function is normal. Atria The left atrium size is normal. The right atrium size is normal. There is no Doppler evidence of interatrial shunt. Aortic Valve The aortic valve is normal in structure. There is no aortic valvular stenosis. No aortic regurgitation is present. Mitral Valve The mitral valve is normal in structure. No evidence of mitral valve stenosis. There is no mitral valve regurgitation noted. Tricuspid Valve Trace tricuspid regurgitation. RVSP is normal. Pulmonic Valve The pulmonary valve is normal in structure. Mild pulmonic regurgitation. Great Vessels The aortic root is normal in size. The ascending aorta is normal in size. IVC is normal in size and collapses >50% with inspiration. Pericardium There is no pericardial effusion. Other Information Study Quality: Adequate Conclusion Normal biventricular systolic function. No significant valvular disease. Electronically signed by : Clemencia Lepe, 02/24/2023 13:02:24
== END ==
PROVIDERS: PCP Family Medicine; Visit Provider Internal Medicine
DX: E66.9 Obesity, unspecified (principal); G47.33 Obstructive sleep apnea (adult) (pediatric); I11.9 Hypertensive heart disease without heart failure; I48.0 Paroxysmal atrial fibrillation; Z79.01 Long term (current) use of anticoagulants; R06.09 Other forms of dyspnea
CPT/HCPCS: 93306

== ENCOUNTER 2023-03-09 12:42 | Day surgery (SDC) | payer MEDICARE, OTHER, SELFPAY ==
[2023-03-09 13:07] VITALS: BP 185/89; PULSE 82; RESP 18; TEMP 36.3; O2SAT 98; BMI 41.5
[2023-03-09 13:12] VITALS: BP 138/69; PULSE 75; RESP 18; O2SAT 98
--- NOTE | 2023-03-09 13:20 | EXP.PAIN.PRO ---
Procedure Date: 03/09/23 Time: 13:05 Anesthesiologist:: Vic Zarco CRNA Complications:: None Pre-procedure Diagnosis:: Osteoarthritis left knee. Chronic left knee pain. Post-procedure Diagnosis:: Same. Indications for Procedure:: Is a pleasant 72-year-old female comes our clinic today for left genicular nerve block. Patient complains of left chronic knee pain she describes as constant, dull, aching. She rates her pain 8/10. Patient has had left genicular nerve block in the past with significant improvement terms of her overall left knee pain lasting 60 to 90 days. She rates her pain today 8/10. Procedure Details:: Left knee genicular block Informed consent was obtained and the risk and benefits of the procedure was explained to the patient. The patient was taken to the procedure room. The left knee was prepped using ChloraPrep. I placed 22-gauge needles into the area of the left superior medial genicular nerve, left superior lateral genicular nerve and left inferior medial genicular nerve. Needle placement was confirmed in AP and lateral views with dye. We then injected bupivacaine 0.25% 3 mL's and Depo-Medrol 25 mg into each area of the left superior medial genicular nerve, left superior lateral genicular nerve and left inferior medial genicular nerve. Patient tolerated the procedure well with no complications. Plan and Disposition:: Patient was discharged without incident.
[2023-03-09 13:22] VITALS: BP 157/84; PULSE 78; RESP 18; O2SAT 98
== END 2023-03-09 13:22 | disposition home or self-care (01) ==
LOC: SC.PAINP 12:43
PROVIDERS: PCP Family Medicine; Visit Provider Nurse Anesthetist, Certified Registered
DX: M17.12 Unilateral primary osteoarthritis, left knee (principal); M25.562 Pain in left knee; G89.29 Other chronic pain
CPT/HCPCS: 64454; J1040

== ENCOUNTER → 2023-03-29 09:43 | Outpatient (POV) | payer MEDICARE, OTHER, SELFPAY ==
--- NOTE | 2023-03-29 10:04 | EXP.PAIN.SOA ---
[facility] Pain Management SOAP Note Subjective:: Patient is a pleasant 72-year-old female who presents today for follow-up of her second left genicular nerve block on 03/09/2023. We are currently treating the patient for degenerative disc disease of lumbar spine with lumbar radiculopathy symptoms, osteoarthritis bilateral knees, bilateral knee pain. Today she rates her pain a 5 out of 10. Patient denies any new trauma or injury. Patient states that she has had at least 90% improvement of her left knee pain and that it is still continuing to provide additional relief. Patient states that the throbbing sensation that she was experiencing on a daily basis has improved and she has been able to increase her activity with decreased pain symptoms. Patient is currently managed with [place] 10 mg 3 times a day. Patient denies any side effects from this medication. Her Catrachito is [phone]. Its been reviewed and appropriate. Review of Systems: General: No recent weight changes, no fever, no sleep disturbances Respiratory: No cough, no shortness of air, no recurring pulmonary infections Cardiovascular/peripheral vascular: No chest pain, no palpitations, no edema, no shortness of breath Gastrointestinal: No new onset incontinence, normal bowel movements reported Genitourinary: No new onset incontinence Musculoskeletal: Low back pain, bilateral knee pain Psychiatric: [Normal mood/affect] Neurological: [Denies weakness in extremities], [denies balance issues] Objective:: Physical Exam: General: Alert and oriented x3, no acute distress, pleasant and cooperative Lungs: Respirations even and unlabored, symmetrical chest expansion Eyes: PERRL Musculoskeletal: Flexion and extension of lumbar [spine] somewhat guarded secondary to pain, [antalgic gait noted] Neurological: Speech clear, no gross sensory deficit Assessment:: Degenerative disc disease of lumbar spine with lumbar radiculopathy symptoms, osteoarthritis bilateral knees, bilateral knee pain Plan:: Patient continues to do well following her second genicular nerve block with at least 90% improvement. I will refill the patient's [place] 10 mg 3 times a day and provide a 1 month supply of this medication. Patient will return to clinic in 1 month for reevaluation of symptoms, medication refill and follow-up. Patient has been advised of risks of oversedation with the prescribed medication. Narcan has been offered to the patient in the event of oversedation. Patient has been advised that a family member should also be educated regarding administration of Narcan. Patient has been instructed to contact the clinic with any concerns before the next appointment. Dr. Soto has reviewed this note and agrees with this plan of care. This note was dictated using voice recognition software and make contain errors or omissions. [facility] Disclaimer: The information contained in this section may have been updated after the patient was seen, as this information can be updated by other users. Medical History Atrial fibrillation Dizziness Essential hypertension Fatigue Likely multifactorial in the setting of sleep apnea, chronic pain, narcotic therapy, COPD. No indications of desats on AutoPap 6/10 cm. Noncontributory labs including CBC, CMP, B12, folate, TSH, vitamin D, ferritin. Hypertensive heart disease assisted current use of anticoagulant ORION (obstructive sleep apnea) PAF (paroxysmal atrial fibrillation) SOB (shortness of breath) Wheezing Surgical History History of cardiac radiofrequency ablation History of partial hysterectomy Family History Other Coronary artery disease Hypertension Social History Smoking Status: Never smoker alcohol intake: never substance use type: denies use current occu
[2023-03-29 10:22] VITALS: BP 147/82; PULSE 61; RESP 18; O2SAT 97; BMI 41.5
== END | disposition home or self-care (01) ==
PROVIDERS: Visit Provider Nurse Practitioner Family
DX: M51.16 Intervertebral disc disorders with radiculopathy, lumbar region (principal); M17.0 Bilateral primary osteoarthritis of knee; M25.561 Pain in right knee; M25.562 Pain in left knee
CPT/HCPCS: 99212; G0463

== ENCOUNTER → 2023-04-26 10:22 | Outpatient (POV) | payer MEDICARE, OTHER, SELFPAY ==
--- OUTSIDE RECORDS SUMMARY | 2023-04-26 10:25 | XMS_ITS | Continuity of Care Document ---
Author Name Unknown Organization [facility] Address [address] [place] [id number] Phone Care Team Providers Care Glove Presser Name Role Phone Reymundo Yip DO Unavailable Unavailable Allergies, Adverse Reactions, Alerts Substance Reaction Status Criticality No Known Allergies Active No Inform ation Medications Medication Instructions Dosage Effective Dates (start - stop) Status Comments spironolactone 25 mg tablet take 1 tablet by oral route every day 25 MG - Active flecainide 100 mg tablet take 1 tablet by oral route every 2 days 100 MG - Active diltiazem ER 240 mg capsule,24 hr,extended release take 1 capsule by oral route every day 240 MG - Active Xarelto 20 mg tablet take 1 tablet by oral route every day with the evening meal 20 MG - Active hydrocodone-acetaminop hen 10 mg-325 mg/15 mL (15 mL) oral solution - Active Vitamin D3 1,000 unit capsule take 1 capsule by oral route every day 1 capsule - Active tramadol 50 mg tablet take 1 tablet by oral route 4 times every day as needed 50 MG - Active
[2023-04-26 10:45] VITALS: BP 141/75; PULSE 76; RESP 20; BMI 41.5
--- NOTE | 2023-04-26 11:07 | A.OFFVIS_ITS ---
[facility] Pain Management SOAP Note Subjective:: This patient is a very pleasant 72-year-old female that comes our clinic today for follow-up regarding medication refills. We are treating the patient for chronic low back pain she describes as constant, dull, aching. Chronic osteoarthritis multiple joints. Specifically, in the last several months we have given the patient bilateral knee genicular blocks. Patient reports 90% improvement in terms of her overall bilateral knee pain with genicular blocks. Patient discussed with me today regarding genicular ablation in the knee. I discussed in detail with the patient. Answered her questions. She will call the clinic when she is ready for ablation. She still having some moderate rel ief from genicular nerve blocks. Patient is being medically managed with hydrocodone 10 mg 1 p.o. 3 times daily. Patient states medication decreases her pain over 50%. Her Catrachito #[phone] is been reviewed and appropriate. She does not report any side effects from the current medication Objective:: Patient is awake alert [place] x3. In no acute distress. Flexion-extension lumbar spine somewhat guarded secondary to pain. Deep tendon reflexes upper and lower extremities normal. Motor strength upper and lower extremities normal. There is no gross sensory deficit. Gait is normal. Assessment:: Degenerative disc lumbar spine multilevels. Lumbar radiculopathy. Chronic history osteoarthritis. DJD bilateral knee joints. Plan:: Patient will call the office when ready for genicular ablation. Otherwise, we will continue medical management with hydrocodone 10 mg 1 p.o. 3 times daily. [facility] Disclaimer: The information contained in this section may have been updated after the patient was seen, as this information can be updated by other users. Medical History Atrial fibrillation Dizziness Essential hypertension Fatigue Likely multifactorial in the setting of sleep apnea, chronic pain, narcotic therapy, COPD. No indications of desats on AutoPap 6/10 cm. Noncontributory labs including CBC, CMP, B12, folate, TSH, vitamin D, ferritin. Hypertensive heart disease long-term current use of anticoagulant ORION (obstructive sleep apnea) PAF (paroxysmal atrial fibrillation) SOB (shortness of breath) Wheezing Surgical History History of cardiac radiofrequency ablation History of partial hysterectomy Family History Other Coronary artery disease Hypertension Social History Smoking Status: Never smoker alcohol intake: never substance use type: denies use current occupational status: other Travel in the last 8 weeks: None household members: other housing: house current occupational exposures/hazards: No caffeine: Yes
== END | disposition home or self-care (01) ==
PROVIDERS: PCP Family Medicine; Visit Provider Nurse Anesthetist, Certified Registered
DX: M51.16 Intervertebral disc disorders with radiculopathy, lumbar region (principal); M17.0 Bilateral primary osteoarthritis of knee; M15.9 Polyosteoarthritis, unspecified
CPT/HCPCS: 99212; G0463

== ENCOUNTER → 2023-04-26 11:24 | Outpatient (CLI) | payer MEDICARE, OTHER, SELFPAY ==
[2023-04-26 14:34] LABS: Amphetamine/Metha Screen,Urine Negative ng/ml (<1000)
[2023-04-26 14:35] LABS: Barbiturates Screen,Urine Negative ng/ml (<200)
[2023-04-26 14:36] LABS: Benzodiazepines Screen,Urine Negative ng/ml (<200); Cannabinoid Screen,Urine Negative ng/ml (<50)
[2023-04-26 14:37] LABS: Cocaine Screen,Urine Negative ng/ml (<300); Methadone Screen,Urine Negative ng/ml (<300)
[2023-04-26 14:38] LABS: Opiate Screen,Urine Positive ng/ml (<300)
[2023-04-26 14:39] LABS: Phencyclidine Screen,Urine Negative ng/ml (<25)
[2023-05-01 15:35] LABS: Codeine Negative (Cutoff=100); Hydrocodone Positive (.); Hydromorphone Positive (.); Morphine Negative (Cutoff=100); Opiates Positive (.)
== END ==
LOC: LAB 11:29
PROVIDERS: PCP Family Medicine; Visit Provider Nurse Anesthetist, Certified Registered
DX: Z79.891 Long term (current) use of opiate analgesic (principal)
CPT/HCPCS: 80305; 80307; 80361; 80365; 99212; G0463; G0480

== ENCOUNTER → 2023-05-27 08:39 | Outpatient (POV) | payer MEDICARE, OTHER, SELFPAY ==
--- NOTE | 2023-05-27 08:59 | EXP.PAIN.SOA ---
[facility] Pain Management SOAP Note Subjective:: Patient is a pleasant 73-year-old female who presents today for follow-up and medication refill. We are currently treating the patient for degenerative disc disease of lumbar spine with lumbar radiculopathy symptoms, osteoarthritis bilateral knees. Today she rates her pain a 7 out of 10. Patient denies any new trauma or injury. She does state that her right knee has been causing significant pain and that she has been increasing her activity which is worsened it. Patient does describe this as a constant aching, throbbing sensation that is worse with increased range of motion or even ambulation. She states the pain does interfere with the ability perform activities of daily living such as cooking and cleaning. Patient has had 2 genicular nerve blocks that did provide 80% relief for more in this joint. Patient is interested in proceeding forward with the genicular RFA next. Patient is currently managed with Pax 10 mg 3 times a day. She denies any side effects from this medication. Her Catrachito has been reviewed and appropriate. Review of Systems: General: No recent weight changes, no fever, no sleep disturbances Respiratory: No cough, no shortness of air, no recurring pulmonary infections Cardiovascular/peripheral vascular: No chest pain, no palpitations, no edema, no shortness of breath Gastrointestinal: No new onset incontinence, normal bowel movements reported Genitourinary: No new onset incontinence Musculoskeletal: Right knee pain Psychiatric: [Normal mood/affect] Neurological: [Denies weakness in extremities], [denies balance issues] Objective:: Physical Exam: General: Alert and oriented x3, no acute distress, pleasant and cooperative Lungs: Respirations even and unlabored, symmetrical chest expansion Eyes: PERRL Musculoskeletal: Flexion and extension of right knee somewhat guarded secondary to pain, [antalgic gait noted] Neurological: Speech clear, no gross sensory deficit Assessment:: Degenerative disc disease of lumbar spine with lumbar radiculopathy symptoms, bilateral knee pain/osteoarthritis Plan:: Patient is experiencing worsening pain in her right knee with limited range of motion. Patient has had 2 successful right genicular nerve blocks that did provide 80% improvement lasting several months with each 1. I have discussed with the patient that she may benefit from a genicular RFA. Risk and benefits were discussed with patient and she would like to proceed forward with this plan of care. Patient is not on any blood thinners. I will also refill the patient's Pax 10 mg 3 times a day and provide a 1 month supply of this medication. Patient will be scheduled for a right genicular nerve block. Patient has been advised of risks of oversedation with the prescribed medication. Narcan has been offered to the patient in the event of oversedation. Patient has been advised that a family member should also be educated regarding administration of Narcan. Patient has been instructed to contact the clinic with any concerns before the next appointment. Dr. Soto has reviewed this note and agrees with this plan of care. This note was dictated using voice recognition software and make contain errors or omissions. [facility] Disclaimer: The information contained in this section may have been updated after the patient was seen, as this information can be updated by other users. Medical History Atrial fibrillation Dizziness Essential hypertension Fatigue Likely multifactorial in the setting of sleep apnea, chronic pain, narcotic therapy, COPD. No indications of desats on AutoPap 6/10 cm. Noncontributory labs including CBC, CMP, B12, folate, TSH, vitamin D, ferritin. 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
[2023-05-27 09:53] VITALS: BP 101/51; PULSE 67; RESP 18; O2SAT 97; BMI 41.5
== END | disposition home or self-care (01) ==
PROVIDERS: PCP Family Medicine; Visit Provider Nurse Practitioner Family
DX: M51.16 Intervertebral disc disorders with radiculopathy, lumbar region (principal); M17.0 Bilateral primary osteoarthritis of knee; M25.561 Pain in right knee; M25.562 Pain in left knee
CPT/HCPCS: 99212; G0463

== ENCOUNTER → 2023-06-16 16:09 | Outpatient (CLI) | payer MEDICARE, OTHER, SELFPAY ==
[2023-06-16 15:36] LABS: Vitamin B12 > 1000 pg/mL (239-931)
== END ==
PROVIDERS: PCP Nurse Practitioner Family; Visit Provider Nurse Practitioner Family
DX: D64.9 Anemia, unspecified (principal)
CPT/HCPCS: 82607

== ENCOUNTER 2023-06-29 08:44 | Day surgery (SDC) | payer MEDICARE, OTHER, SELFPAY ==
[2023-06-29 08:57] VITALS: BP 161/80; PULSE 74; RESP 16; TEMP 36.6; O2SAT 99; BMI 41.5
[2023-06-29 09:09] VITALS: BP 149/72; PULSE 71; O2SAT 98
[2023-06-29 09:16] VITALS: BP 149/72; PULSE 71; O2SAT 97
[2023-06-29 09:20] VITALS: BP 141/65; PULSE 69; RESP 16; O2SAT 99
--- NOTE | 2023-06-29 09:39 | EXP.PAIN.PRO ---
Procedure Date: 06/29/23 Time: 09:15 Anesthesiologist:: Vic Zarco CRNA Complications:: None Pre-procedure Diagnosis:: DJD right knee. Osteoarthritis right knee. Chronic right knee pain. Post-procedure Diagnosis:: Same. Indications for Procedure:: Patient is a very pleasant 73-year-old female comes our clinic today for right genicular radiofrequency ablation. Patient is status post 2 right genicular knee blocks with significant improvement terms of her overall right knee pain. Patient reports knee pain increases significantly with standing or ambulation. She rates her pain 7/10 Procedure Details:: Right knee genicular RFA Informed consent was obtained risk and benefits of the procedure were explained to the patient. Patient was taken the procedure room. The right knee was prepped using ChloraPrep. The skin and subcutaneous tissues were anesthetized using lidocaine. I placed 20-gauge RF needles into the right superior lateral genicular nerve area of the right superior medial genicular nerve area and inferior medial genicular nerve area we underwent sensory stimulation. There is good sensory stimulation at 1 V. We underwent motor stimulation. There was no motor stimulation at 3 V. We then anesthetized all 3 nerves with bupivacaine and Depo-Medrol. We then burned each genicular nerve superior lateral, superior medial and inferior medial 80 ?C for 4 minutes. Patient tolerated procedure well with no complications. Plan and Disposition: We will follow-up with him in 2 weeks. Will reevaluate symptoms at that time. Plan and Disposition:: Patient was discharged without incident.
== END 2023-06-29 09:20 | disposition home or self-care (01) ==
PROVIDERS: PCP Nurse Practitioner Family; Visit Provider Nurse Anesthetist, Certified Registered
DX: M17.11 Unilateral primary osteoarthritis, right knee (principal); M25.561 Pain in right knee; G89.29 Other chronic pain
CPT/HCPCS: 64624; J1040

== ENCOUNTER → 2023-07-13 10:12 | Outpatient (POV) | payer MEDICARE, OTHER, SELFPAY ==
--- NOTE | 2023-07-13 10:30 | EXP.PAIN.SOA ---
[facility] Pain Management SOAP Note Subjective:: This patient is a very pleasant 73-year-old female that we have been seeing for quite some time for chronic DJD right knee. Osteoarthritis right knee. Chronic right knee pain. Degenerative disc lumbar spine multilevels. Lumbar radicular symptoms. We have been managing the patient with hydrocodone 10 mg 1 p.o. 3 times daily. Her Catrachito #[phone] is been reviewed and appropriate. Patient recently underwent right knee genicular nerve ablation. She is reporting significant improvement terms of her overall right knee pain as well as ambulation. She rates her pain today 2/10. Patient very pleased with the results. She is asking for similar procedure to be done on her left knee. This would be appropriate. Objective:: Patient is awake alert [place] x 3. In no acute distress. Flexion-extension lumbar spine somewhat guarded secondary to pain. Deep tendon reflexes upper lower extremities normal. Motor strength upper and lower extremities normal. There is no gross sensory deficit. Gait is normal. Assessment:: DJD bilateral knees. Chronic knee pain bilaterally. Osteoarthritis bilateral knees. Plan:: Will refill the patient's pain medication. Hydrocodone 10 mg 1 p.o. 3 times daily. Will investigate left knee chronic pain with genicular block and subsequent radiofrequency ablation when patient is ready. [facility] Disclaimer: The information contained in this section may have been updated after the patient was seen, as this information can be updated by other users. Medical History Atrial fibrillation Dizziness Essential hypertension Fatigue Likely multifactorial in the setting of sleep apnea, chronic pain, narcotic therapy, COPD. No indications of desats on AutoPap 6/10 cm. Noncontributory labs including CBC, CMP, B12, folate, TSH, vitamin D, ferritin. 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
[2023-07-13 10:46] VITALS: BP 141/69; PULSE 68; RESP 18; O2SAT 98; BMI 41.5
== END | disposition home or self-care (01) ==
PROVIDERS: PCP Nurse Practitioner Family; Visit Provider Nurse Anesthetist, Certified Registered
DX: M17.0 Bilateral primary osteoarthritis of knee (principal); M25.561 Pain in right knee; M25.562 Pain in left knee; G89.29 Other chronic pain
CPT/HCPCS: 99212; G0463

== ENCOUNTER → 2023-08-12 09:56 | Outpatient (POV) | payer MEDICARE, OTHER, SELFPAY ==
--- NOTE | 2023-08-12 10:13 | EXP.PAIN.SOA ---
[facility] Pain Management SOAP Note Subjective:: Patient is a pleasant 73-year-old female who presents today for 1 month follow-up of right genicular RFA. We are currently treating the patient for degenerative disc disease of lumbar spine with lumbar radiculopathy symptoms, osteoarthritis bilateral knees. Today she rates her pain a 7 out of 10. Patient denies any new trauma or injury. She states that she continues to have significant relief following her RFA procedure in her right knee however today she states her left knee is causing additional pain. This is a constant aching, throbbing sensation that is worse with increased range of motion or even ambulation. She states the pain does interfere with the ability perform activities of daily living such as cooking and cleaning. Patient has already had 2 genicular nerve blocks that did provide significant relief of upwards of 80%. Patient is interested in proceeding forward with the ablation to the left knee. Patient is currently managed with [place] 10 mg 3 times a day. She denies any side effects from this medication. Her Catrachito has been reviewed and appropriate. Review of Systems: General: No recent weight changes, no fever, no sleep disturbances Respiratory: No cough, no shortness of air, no recurring pulmonary infections Cardiovascular/peripheral vascular: No chest pain, no palpitations, no edema, no shortness of breath Gastrointestinal: No new onset incontinence, normal bowel movements reported Genitourinary: No new onset incontinence Musculoskeletal: Left knee pain Psychiatric: [Normal mood/affect] Neurological: [Denies weakness in extremities], [denies balance issues] Objective:: Physical Exam: General: Alert and oriented x3, no acute distress, pleasant and cooperative Lungs: Respirations even and unlabored, symmetrical chest expansion Eyes: PERRL Musculoskeletal: Flexion and extension of left knee somewhat guarded secondary to pain, [antalgic gait noted] Neurological: Speech clear, no gross sensory deficit Assessment:: Degenerative disc disease of lumbar spine with lumbar radiculopathy symptoms, osteoarthritis bilateral knees Plan:: Patient is experiencing worsening pain in her left knee with limited range of motion. I have discussed with the patient that she may benefit from the left genicular RFA. Risk and benefits were discussed with the patient and she would like to proceed forward with this plan of care. Patient has already had 2 successful left knee and blocks. Patient is not on any blood thinners. I will also refill the patient's [place] 10 mg 3 times a day and provide a 1 month supply of this medication. Patient will be scheduled for a left genicular RFA. Risks and benefits of the medication have been explained in detail to the patient. The patient does understand the risk of dependence on the medication when given over a prolonged period. Patient has been advised of risks of oversedation with the prescribed medication. Narcan has been offered to the paitent in the event of oversedation. Patient has been advised that a family member should also be educated regarding administration of Narcan. The patient has been advised to consult with his/her primary care provider and pharmacist regarding drug-drug interaction of medications currently prescribed. Patient has been prescribed a controlled substance after being counseled on the medication, medication safety, and possible side effects. Opioid contract was reviewed and signed by the patient, and that they have agreed to all of the terms set forth by our compliance program. Patient has been instructed to contact the clinic with any concerns before the next appointment. Dr. Soto has reviewed this note and agrees with this plan of care. This note was dictated using voice recognition software and make contain errors or omissions. [facility] Disclaimer: The information contained in this section may have been updated after the patient was seen, as this information can be updated by other users. Medical History Atrial fibrillation Dizziness Essential hypertension Fatigue Likely multifactorial in the setting of sleep apnea, chronic pain, narcotic therapy, COPD. No indications of desats on AutoPap 6/10 cm. Noncontributory labs including CBC, CMP, B12, folate, TSH, vitamin D, ferritin. 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
[2023-08-12 12:16] VITALS: BP 104/79; PULSE 73; RESP 18; O2SAT 98; BMI 41.5
== END | disposition home or self-care (01) ==
PROVIDERS: PCP Internal Medicine; Visit Provider Nurse Practitioner Family
DX: M51.16 Intervertebral disc disorders with radiculopathy, lumbar region (principal); M17.0 Bilateral primary osteoarthritis of knee
CPT/HCPCS: 99212; G0463

== ENCOUNTER 2023-08-12 10:38 | Outpatient (CLI) | payer MEDICARE, OTHER, SELFPAY ==
[2023-08-12 11:36] LABS: Basophils # 0.1 K/mm3 (0-0.2); Basophils % 0.6 % (0.1-2.0); Eosinophils % 0.5 % (0.1-12.0); Hematocrit 46.7 % (37.0-47.0); Hemoglobin 15.5 g/dL (12.2-16.2); Lymphocytes # 2.1 K/mm3 (0.7-4.5); Lymphocytes % 22.5 % (10-50); Mean Corpuscular HGB Conc 33.1 g/dL (31.8-35.4); Mean Corpuscular Volume 99.6 fl (81-99); Mean Platelet Volume 8.7 fl (7.4-10.4); Monocytes # 0.7 K/mm3 (0.1-1.0); Monocytes % 7.3 % (1.7-9.3); Neutrophils # 6.5 K/mm3 (1.8-7.8); Neutrophils % 69.1 % (37.0-80.0); Platelet Count 300 K/mm3 (142-424); Red Blood Count 4.69 M/mm3 (4.20-5.40); Red Cell Distribution Width 12.8 % (11.5-17.5); White Blood Count 9.5 K/mm3 (4.8-10.8)
[2023-08-12 11:47] LABS: Chloride 105 mmol/L (98-107); Sodium 138 mmol/L (136-145)
[2023-08-12 11:50] LABS: Alanine Aminotransferase 32 U/L (12-78); Albumin Level 3.9 g/dl (3.5-5.0); Alkaline Phosphatase 79 U/L (38-126); Aspartate Amino Transferase 39 U/L (14-36); Bilirubin,Direct 0.6 mg/dl (0.0-0.4); Bilirubin,Indirect 0.1 mg/dL (0.0-0.9); Bilirubin,Total 0.7 mg/dl (0.2-1.3); Blood Urea Nitrogen 18 mg/dl (7-17); Calcium 9.6 mg/dl (8.4-10.2); Carbon Dioxide 24 mmol/L (22.0-30.0); Cholesterol 170 mg/dl (140-200); Estimated Glomerular Filt Rate 61 ml/min (>60); GFR (African American) 74 ML/MIN (>60); Glucose 100 mg/dl (74-100); Total Protein,Serum 6.8 g/dl (6.3-8.2); Triglycerides 136 mg/dl (30-150); VLDL Cholesterol 27 mg/dL (0-40)
[2023-08-12 11:51] LABS: Chol/HDL Ratio 2.9 (1-3.5); HDL Cholesterol 58 mg/dl (40-60); Magnesium 1.8 mg/dl (1.6-2.3)
[2023-08-12 12:02] LABS: Direct LDL Cholesterol 78.75 mg/dL (100-129)
[2023-08-12 12:06] LABS: Free T4 (Free Thyroxine) 1.06 ng/dl (0.78-2.19)
[2023-08-12 12:20] LABS: Thyroid Stimulating Hormone 1.02 uIU/mL (0.465-4.68)
== END 2023-08-12 23:59 ==
PROVIDERS: PCP Internal Medicine; Visit Provider Nurse Practitioner Family
DX: E66.9 Obesity, unspecified (principal); G47.33 Obstructive sleep apnea (adult) (pediatric); I11.9 Hypertensive heart disease without heart failure; I48.0 Paroxysmal atrial fibrillation; Z79.01 Long term (current) use of anticoagulants
CPT/HCPCS: 36415; 80048; 80061; 80076; 83735; 84439; 84443; 85025; 99212; G0463

== ENCOUNTER 2023-09-07 10:02 | Day surgery (SDC) | payer MEDICARE, OTHER, SELFPAY ==
[2023-09-07 10:16] VITALS: BP 117/97; PULSE 70; RESP 18; O2SAT 100; BMI 41.5
[2023-09-07] MEDS: methylPREDNISolone ACETATE 80MG/ML VIAL 80 MG (10:35)
[2023-09-07] MEDS: LIDOCAINE 1% 5ML PF VIAL 15 ML (10:35)
[2023-09-07 10:36] VITALS: BP 153/78; PULSE 82; RESP 18; O2SAT 96
[2023-09-07] MEDS: BUPIVACAINE 0.25% 10ML INJ 25 MG IJ (10:36)
[2023-09-07 10:37] VITALS: BP 153/78; PULSE 82; RESP 18; O2SAT 96
[2023-09-07 10:50] VITALS: BP 134/62; PULSE 76; RESP 16; O2SAT 100
--- NOTE | 2023-09-07 10:50 | P.PCN_ITS ---
Procedure Date: 09/07/23 Time: 10:40 Anesthesiologist:: Vic Zarco CRNA Complications:: None Pre-procedure Diagnosis:: DJD left knee. Osteoarthritis left knee. Chronic left knee pain. Post-procedure Diagnosis:: Same. Indications for Procedure:: Patient is a very pleasant 73-year-old female comes our clinic today for a left genicular radiofrequency ablation. Patient has had significant improvement following 2 left genicular nerve blocks. Patient rates her left knee pain 6/10. She describes her left knee pain as dull, aching. Procedure Details:: Informed consent was obtained risk and benefits of the procedure were explained to the patient. Patient was taken the procedure room. The left knee was prepped using ChloraPrep. The skin and subcutaneous tissues were anesthetized using lidocaine. I placed 20-gauge RF needles into the superior lateral genicular nerve area of the superior medial genicular nerve area and inferior medial genicular nerve area we underwent sensory stimulation. There is good sensory stimulation at 1 V. We underwent motor stimulation. There was no motor stimulation at 3 V. We then anesthetized all 3 nerves with bupivacaine and Depo- Medrol. We then burned each genicular nerve superior lateral, superior medial and inferior medial 80 ?C for 4 minutes. Patient tolerated procedure well with no complications. Plan and Disposition:: Patient was discharged without incident.
== END 2023-09-07 10:50 | disposition home or self-care (01) ==
PROVIDERS: PCP Internal Medicine; Visit Provider Nurse Anesthetist, Certified Registered
DX: M17.12 Unilateral primary osteoarthritis, left knee (principal); M25.562 Pain in left knee; G89.29 Other chronic pain
CPT/HCPCS: 64624; J1040

== ENCOUNTER → 2023-09-22 10:12 | Outpatient (POV) | payer MEDICARE, OTHER, SELFPAY ==
[2023-09-22 10:25] VITALS: BP 114/80; PULSE 79; RESP 20; BMI 41.5
--- NOTE | 2023-09-22 10:35 | EXP.PAIN.SOA ---
[facility] Pain Management SOAP Note Subjective:: Patient is a pleasant 73-year-old female who presents today for follow-up of left genicular radiofrequency ablation on 09/07/2023. We are currently treating the patient for degenerative disc disease of lumbar spine with lumbar radiculopathy symptoms, bilateral knee pain/osteoarthritis. Today she rates her pain a 5 out of 10. Patient denies any new trauma or injury. She does state that she has had at least 90% improvement in her left knee symptoms following this procedure. She states she has been able to increase her activity with decreased pain and feels overall more functional. Patient does state that from our last visit she did go to rheumatology and was diagnosed with fibromyalgia. She states that they are starting her on Cymbalta 30 mg daily however she has not yet started this medication. Patient is currently managed with [place] 10 mg 3 times a day and denies any side effects from this medication. Her Catrachito has been reviewed and is appropriate. Review of Systems: General: No recent weight changes, no fever, no sleep disturbances Respiratory: No cough, no shortness of air, no recurring pulmonary infections Cardiovascular/peripheral vascular: No chest pain, no palpitations, no edema, no shortness of breath Gastrointestinal: No new onset incontinence, normal bowel movements reported Genitourinary: No new onset incontinence Musculoskeletal: Low back pain Psychiatric: [Normal mood/affect] Neurological: [Denies weakness in extremities], [denies balance issues] Objective:: Physical Exam: General: Alert and oriented x3, no acute distress, pleasant and cooperative Lungs: Respirations even and unlabored, symmetrical chest expansion Eyes: PERRL Musculoskeletal: Flexion and extension of lumbar [spine] somewhat guarded secondary to pain, [antalgic gait noted] Neurological: Speech clear, no gross sensory deficit Assessment:: Degenerative disc disease of lumbar spine with lumbar radiculopathy symptoms, osteoarthritis bilateral knees, bilateral knee pain Plan:: Patient has had significant improvement following her left knee RFA and does not require any additional injection therapy at this time. I have counseled the patient in future she may also benefit from the addition of Lyrica into her medication regimen with the Cymbalta for the fibromyalgia. I have counseled her that we will wait and give her time to start the Cymbalta to make sure that she does not have any reactions before starting pregabalin. I will refill the patient's [place] 10 mg 3 times a day and provide a 1 month supply of this medication. Patient will return to clinic in 1 month for reevaluation of symptoms and plan of care. Risks and benefits of the medication have been explained in detail to the patient. The patient does understand the risk of dependence on the medication when given over a prolonged period. Patient has been advised of risks of oversedation with the prescribed medication. Narcan has been offered to the paitent in the event of oversedation. Patient has been advised that a family member should also be educated regarding administration of Narcan. The patient has been advised to consult with his/her primary care provider and pharmacist regarding drug-drug interaction of medications currently prescribed. Patient has been prescribed a controlled substance after being counseled on the medication, medication safety, and possible side effects. Opioid contract was reviewed and signed by the patient, and that they have agreed to all of the terms set forth by our compliance program. Patient has been instructed to contact the clinic with any concerns before the next appointment. Dr. Soto has reviewed this note and agrees with this plan of care. This note was dictated using voice recognition software and make contain errors or omissions. [facility] Disclaimer: The information contained in this section may have been updated after the patient was seen, as this information can be updated by other users. 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
== END | disposition home or self-care (01) ==
PROVIDERS: Visit Provider Nurse Practitioner Family
DX: M51.16 Intervertebral disc disorders with radiculopathy, lumbar region (principal); M17.0 Bilateral primary osteoarthritis of knee; M25.561 Pain in right knee; M25.562 Pain in left knee
CPT/HCPCS: 99212; G0463

== ENCOUNTER 2023-10-20 10:42 | Outpatient (POV) | payer MEDICARE, OTHER, SELFPAY ==
[2023-10-20 11:10] VITALS: BP 139/70; PULSE 73; RESP 18; O2SAT 96; BMI 41.5
--- NOTE | 2023-10-20 11:17 | EXP.PAIN.SOA ---
[facility] Pain Management SOAP Note Subjective:: Patient is a pleasant 73-year-old female who presents today for medication refill and follow-up. Today she rates her pain a 7 out of 10. Patient denies any new trauma or injury. She does state that her knees are still doing well. Today she states that she has a lot of pain in her hands and feet and has been experiencing more swelling. Patient does state that she went to the hand specialist and that they did basically say that there was not a whole lot that they could do for her hands because it was just arthritis. Patient was previously ordered compounded cream however she states that this last prescription did end up causing itching and breaking out where she applied it. Patient does state that her son has used a cream that is a combination of CBD and THC and stated that she is interested in possibly trying this medication however she was concerned that it may show in her urine. Patient does also state that she has been using the Cymbalta 30 mg daily however she has not yet noticed improvement. Patient is prescribed [place] 10 mg 3 times a day from our office. She denies any side effects from this medication. Her Catrachito has been reviewed and is appropriate. Review of Systems: General: No recent weight changes, no fever, no sleep disturbances Respiratory: No cough, no shortness of air, no recurring pulmonary infections Cardiovascular/peripheral vascular: No chest pain, no palpitations, no edema, no shortness of breath Gastrointestinal: No new onset incontinence, normal bowel movements reported Genitourinary: No new onset incontinence Musculoskeletal: Bilateral hand swelling, feet swelling, chronic low back pain Psychiatric: [Normal mood/affect] Neurological: [Denies weakness in extremities], [denies balance issues] Objective:: Physical Exam: General: Alert and oriented x3, no acute distress, pleasant and cooperative Lungs: Respirations even and unlabored, symmetrical chest expansion Eyes: PERRL Musculoskeletal: Flexion and extension of lumbar [spine] somewhat guarded secondary to pain, [antalgic gait noted] Neurological: Speech clear, no gross sensory deficit Assessment:: Degenerative disc disease of lumbar spine with lumbar radiculopathy symptoms, osteoarthritis bilateral knees, bilateral knee pain, hand pain/feet pain Plan:: I will refill the patient's [place] 10 mg 3 times a day and provide a 1 month supply of this medication. I have counseled the patient that we can reach out to him. [facility] out of [place] see about sending in a different combination if she would like. We will follow-up with this at future visits. I have counseled the patient regarding the CBD and THC cream that as long as we have clear communication regarding the use of this cream that it will not affect her prescription from our office. Patient acknowledges understanding. Patient will return to clinic in 1 month for reevaluation of symptoms and plan of care. Risks and benefits of the medication have been explained in detail to the patient. The patient does understand the risk of dependence on the medication when given over a prolonged period. Patient has been advised of risks of oversedation with the prescribed medication. Narcan has been offered to the paitent in the event of oversedation. Patient has been advised that a family member should also be educated regarding administration of Narcan. The patient has been advised to consult with his/her primary care provider and pharmacist regarding drug-drug interaction of medications currently prescribed. Patient has been prescribed a controlled substance after being counseled on the medication, medication safety, and possible side effects. Opioid contract was reviewed and signed by the patient, and that they have agreed to all of the terms set forth by our compliance program. Patient has been instructed to contact the clinic with any concerns before the next appointment. Dr. Soto has reviewed this note and agrees with this plan of care. This note was dictated using voice recognition software and make contain errors or omissions. [facility] Disclaimer: The information contained in this section may have been updated after the patient was seen, as this information can be updated by other users. 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
[2023-10-20 16:13] LABS: Amphetamine/Metha Screen,Urine Negative ng/ml (<1000); Benzodiazepines Screen,Urine Negative ng/ml (<200)
[2023-10-20 16:14] LABS: Barbiturates Screen,Urine Negative ng/ml (<200)
[2023-10-20 16:16] LABS: Opiate Screen,Urine Positive ng/ml (<300)
[2023-10-20 16:17] LABS: Phencyclidine Screen,Urine Negative ng/ml (<25)
[2023-10-20 16:26] LABS: Cannabinoid Screen,Urine Negative ng/ml (<50)
[2023-10-20 16:27] LABS: Cocaine Screen,Urine Negative ng/ml (<300); Methadone Screen,Urine Negative ng/ml (<300)
[2023-10-25 12:25] LABS: Codeine Negative (Cutoff=100); Hydrocodone Positive (.); Hydromorphone Positive (.); Morphine Negative (Cutoff=100); Opiates Positive (.)
== END 2023-10-20 23:59 | disposition home or self-care (01) ==
PROVIDERS: PCP Internal Medicine; Visit Provider Nurse Practitioner Family
DX: Z79.891 Long term (current) use of opiate analgesic (principal); M51.16 Intervertebral disc disorders with radiculopathy, lumbar region; M17.0 Bilateral primary osteoarthritis of knee; M25.561 Pain in right knee; M25.562 Pain in left knee; M79.641 Pain in right hand; M79.642 Pain in left hand; M79.671 Pain in right foot; M79.672 Pain in left foot
CPT/HCPCS: 80307; 80361; 80365; 99212; G0463; G0480

== ENCOUNTER 2023-11-18 09:39 | Outpatient (POV) | payer MEDICARE, OTHER, SELFPAY ==
[2023-11-18 09:53] VITALS: BP 136/62; PULSE 70; RESP 16; O2SAT 98; BMI 40.7
--- NOTE | 2023-11-18 10:01 | A.OFFVIS_ITS ---
[facility] Pain Management SOAP Note Subjective:: Patient is a pleasant 73-year-old female who presents today for medication refill and follow-up. Today she rates her pain a 6 out of 10. Patient denies any new trauma or injury. Patient does state that she still continues to have chronic knee pain. Patient has been using her CBD cream along with the Cymbalta 30 mg daily and [place] 10 mg 3 times a day from our office. She denies any side effects from this medication. Patient does state that she did notice she was using her CBD cream a lot and it did cause her to be extremely fatigued. Patient does also state in a side note that she did get 2 bills from her insurance that was secondary for $400 each. Patient states that she is unsure whether or not if she just met her maximum amount in the no longer covered the remainder. Patient states she is planning on reaching back out to her secondary insurance to ask additional questions. Patient states unfortunately if this is what she will have to pay for these injections [id number] if she will be very limited going forward. Her Catrachito has been reviewed and is appropriate. Review of Systems: General: No recent weight changes, no fever, no sleep disturbances Respiratory: No cough, no shortness of air, no recurring pulmonary infections Cardiovascular/peripheral vascular: No chest pain, no palpitations, no edema, no shortness of breath Gastrointestinal: No new onset incontinence, normal bowel movements reported Genitourinary: No new onset incontinence Musculoskeletal: Bilateral knee pain Psychiatric: [Normal mood/affect] Neurological: [Denies weakness in extremities], [denies balance issues] Objective:: Physical Exam: General: Alert and oriented x3, no acute distress, pleasant and cooperative Lungs: Respirations even and unlabored, symmetrical chest expansion Eyes: PERRL Musculoskeletal: Flexion and extension of bilateral knees somewhat guarded secondary to pain, [antalgic gait noted] Neurological: Speech clear, no gross sensory deficit Assessment:: Degenerative disc disease of lumbar spine with lumbar radiculopathy symptoms, osteoarthritis bilateral knees, bilateral knee pain , Hand pain/feet pain Plan:: I will refill the patient's [place] 10 mg 3 times a day and increase her Cymbalta from 30 mg daily to twice daily. Patient agrees with this plan of care. We will provide a 1 month supply of these medications. I discussed with patient in future if she still continues to have to pay [id number] for any dollars with each of her injections that we can look at seeing if we can do the injections cheaper. Through financial services at [facility] or if needed we can send her to the outpatient clinic in [place] for these injections. We will follow-up with her in future regarding this. Patient will return to clinic in 1 month for reevaluation of symptoms and plan of care. Risks and benefits of the medication have been explained in detail to the patient. The patient does understand the risk of dependence on the medication when given over a prolonged period. Patient has been advised of risks of oversedation with the prescribed medication. Narcan has been offered to the paitent in the event of oversedation. Patient has been advised that a family member should also be educated regarding administration of Narcan. The patient has been advised to consult with his/her primary care provider and pharmacist regarding drug-drug interaction of medications currently prescribed. Patient has been prescribed a controlled substance after being counseled on the medication, medication safety, and possible side effects. Opioid contract was reviewed and signed by the patient, and that they have agreed to all of the terms set forth by our compliance program. Patient has been instructed to contact the clinic with any concerns before the next appointment. Dr. Soto has reviewed this note and agrees with this plan of care. This note was dictated using voice recognition software and make contain errors or omissions. [facility] Disclaimer: The information contained in this section may have been updated after the patient was seen, as this information can be updated by other users. Medical History Fibromyalgia Hyperlipidemia Wheezing Dizziness Fatigue Likely multifactorial in the setting of sleep apnea, chronic pain, narcotic therapy, COPD. No indications of desats on AutoPap 6/10 cm. Noncontributory labs including CBC, CMP, B12, folate, TSH, vitamin D, ferritin. 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
== END 2023-11-18 23:59 | disposition home or self-care (01) ==
PROVIDERS: PCP Internal Medicine; Visit Provider Nurse Practitioner Family
DX: M51.16 Intervertebral disc disorders with radiculopathy, lumbar region (principal); M17.0 Bilateral primary osteoarthritis of knee; M25.561 Pain in right knee; M25.562 Pain in left knee; M79.643 Pain in unspecified hand; M79.671 Pain in right foot; M79.672 Pain in left foot
CPT/HCPCS: 99212; G0463

== ENCOUNTER 2023-12-20 10:48 | Outpatient (POV) | payer MEDICARE, OTHER, SELFPAY ==
[2023-12-20 10:49] VITALS: BP 129/58; PULSE 65; RESP 18; O2SAT 98; BMI 39.9
--- NOTE | 2023-12-20 11:03 | A.OFFVIS_ITS ---
[facility] Pain Management SOAP Note Subjective:: Patient is a pleasant 73-year-old female who presents today for medication refill. Today she rates her pain an 8 out of 10. Patient denies any new trauma or injury. She does state that she recently has been experiencing allover itching and she does states she is unsure whether or not it is her CBD cream or the addition of cod liver oil tablets that she started. Patient states that she did go to her PCP and they did prescribe her an anti-itch medication and that she did stop both of these items this morning. Patient does state that she is worried about her continued pain because the CBD cream was really helping. Patient is prescribed Cymbalta 30 mg twice a day and [place] 10 mg 3 times a day. She denies any side effects from this medication. Patient does state that she did just get her Cymbalta prescription and that does not need refills of that medication at this time. Her Catrachito has been reviewed and is appropriate. Review of Systems: General: No recent weight changes, no fever, no sleep disturbances Respiratory: No cough, no shortness of air, no recurring pulmonary infections Cardiovascular/peripheral vascular: No chest pain, no palpitations, no edema, no shortness of breath Gastrointestinal: No new onset incontinence, normal bowel movements reported Genitourinary: No new onset incontinence Musculoskeletal: Low back pain, bilateral knee pain Psychiatric: [Normal mood/affect] Neurological: [Denies weakness in extremities], [denies balance issues] Objective:: Physical Exam: General: Alert and oriented x3, no acute distress, pleasant and cooperative Lungs: Respirations even and unlabored, symmetrical chest expansion Eyes: PERRL Musculoskeletal: Flexion and extension of lumbar [spine] somewhat guarded secondary to pain, [antalgic gait noted] Neurological: Speech clear, no gross sensory deficit Assessment:: Degenerative disc disease of lumbar spine with lumbar radiculopathy symptoms, osteoarthritis bilateral knees, bilateral knee pain Plan:: I have discussed with the patient that she still may be able to use her CBD cream however I do recommend that she wait a few days to make sure the itching resolves completely and then only to start back 1 medication at a time in order to ensure that the itching does not start back. Patient was counseled that it could have even been the combination of the 2 taking them at the same time. Patient acknowledges understanding and agrees with plan of care. I will send in a 1 month supply of her Finley. Patient will return to clinic in 1 month for reevaluation of symptoms and plan of care. Risks and benefits of the medication have been explained in detail to the patient. The patient does understand the risk of dependence on the medication when given over a prolonged period. Patient has been advised of risks of oversedation with the prescribed medication. Narcan has been offered to the paitent in the event of oversedation. Patient has been advised that a family member should also be educated regarding administration of Narcan. The patient has been advised to consult with his/her primary care provider and pharmacist regarding drug-drug interaction of medications currently prescribed. Patient has been prescribed a controlled substance after being counseled on the medication, medication safety, and possible side effects. Opioid contract was reviewed and signed by the patient, and that they have agreed to all of the terms set forth by our compliance program. Patient has been instructed to contact the clinic with any concerns before the next appointment. Dr. Soto has reviewed this note and agrees with this plan of care. This note was dictated using voice recognition software and make contain errors or omissions. [facility] Disclaimer: The information contained in this section may have been updated after the patient was seen, as this information can be updated by other users. Medical History Fibromyalgia Hyperlipidemia Wheezing Dizziness Fatigue Likely multifactorial in the setting of sleep apnea, chronic pain, narcotic therapy, COPD. No indications of desats on AutoPap 6/10 cm. Noncontributory labs including CBC, CMP, B12, folate, TSH, vitamin D, ferritin. SOB (shortness of breath) Atrial fibrillation [facility] current use of anticoagulant ORION (obstructive sleep apnea) Hypertensive heart disease Essential hypertension PAF (paroxysmal atrial fibrillation) Surgical History History of partial hysterectomy History of cardiac radiofrequency ablation Family History Other Coronary artery disease Hypertension Social History Smoking Status: Never smoker alcohol intake: never substance use type: denies use current occupational status: other Travel in the last 8 weeks: None household members: other housing: house current occupational exposures/hazards: No caffeine: Yes
[2023-12-20 15:52] LABS: Basophils # 0.1 K/mm3 (0-0.2); Basophils % 0.6 % (0.1-2.0); Eosinophils % 0.5 % (0.1-12.0); Hematocrit 45.5 % (37.0-47.0); Hemoglobin 14.4 g/dL (12.2-16.2); Lymphocytes # 2.3 K/mm3 (0.7-4.5); Lymphocytes % 27.6 % (10-50); Mean Corpuscular HGB Conc 31.7 g/dL (31.8-35.4); Mean Corpuscular Hemoglobin 32.1 pg (27.0-31.2); Mean Corpuscular Volume 101.2 fl (81-99); Monocytes # 0.6 K/mm3 (0.1-1.0); Monocytes % 7.5 % (1.7-9.3); Neutrophils # 5.3 K/mm3 (1.8-7.8); Neutrophils % 63.8 % (37.0-80.0); Platelet Count 360 K/mm3 (142-424); Red Cell Distribution Width 13.1 % (11.5-17.5); White Blood Count 8.3 K/mm3 (4.8-10.8)
[2023-12-20 16:47] LABS: Alanine Aminotransferase 23 U/L (12-78); Albumin/Globulin Ratio 1.3 (1.1-1.8); Alkaline Phosphatase 77 U/L (38-126); Anion Gap 16.6 mEq/L (5-15); Aspartate Amino Transferase 34 U/L (14-36); Bilirubin,Total 0.8 mg/dl (0.2-1.3); Blood Urea Nitrogen 20 mg/dl (7-17); Carbon Dioxide 24 mmol/L (22.0-30.0); Chloride 100 mmol/L (98-107); Creatinine Clearance Estimated 85 mL/min (50-200); Estimated Glomerular Filt Rate 54 ml/min (>60); GFR (African American) 66 ML/MIN (>60); Globulin 3.1 g/dL (1.3-3.2); Glucose 95 mg/dl (74-100); Potassium 4.6 mmoL/L (3.5-5.1); Sodium 136 mmol/L (136-145); Total Protein,Serum 7.1 g/dl (6.3-8.2)
== END 2023-12-20 23:59 | disposition home or self-care (01) ==
PROVIDERS: Nurse Practitioner Family; Visit Provider Nurse Practitioner Family
DX: L29.9 Pruritus, unspecified (principal); M51.16 Intervertebral disc disorders with radiculopathy, lumbar region; M17.0 Bilateral primary osteoarthritis of knee; M25.561 Pain in right knee; M25.562 Pain in left knee
CPT/HCPCS: 80053; 85025; 99212; G0463

== ENCOUNTER 2024-01-24 11:56 | Outpatient (POV) | payer MEDICARE, OTHER, SELFPAY ==
--- NOTE | 2024-01-24 12:17 | EXP.PAIN.SOA ---
[facility] Disclaimer: The information contained in this section may have been updated after the patient was seen, as this information can be updated by other users. Medical History Fibromyalgia Hyperlipidemia Wheezing Dizziness Fatigue Likely multifactorial in the setting of sleep apnea, chronic pain, narcotic therapy, COPD. No indications of desats on AutoPap 6/10 cm. Noncontributory labs including CBC, CMP, B12, folate, TSH, vitamin D, ferritin. SOB (shortness of breath) Atrial fibrillation jail current use of anticoagulant ORION (obstructive sleep apnea) Hypertensive heart disease Essential hypertension PAF (paroxysmal atrial fibrillation) Surgical History History of partial hysterectomy History of cardiac radiofrequency ablation Family History Other Coronary artery disease Hypertension Social History Smoking Status: Never smoker alcohol intake: never substance use type: denies use current occupational status: other Travel in the last 8 weeks: None household members: other housing: house current occupational exposures/hazards: No caffeine: Yes PM Subjective & Objective Subjective Subjective:: Patient is a pleasant 73-year-old female who presents today for medication refill and follow-up. Today she rates her pain a 7 out of 10. Patient denies any new trauma or injury. She does state that she continues to have pain with her right knee as well as her left wrist where she had a tendon rupture. Patient states that currently her wrist is bothering her more than her knee and thinks that she might have to do surgical intervention coming up due to this pain. Patient has also previously had genicular blocks and genicular ablations that did provide significant relief however her last 1 she believes was not covered by her insurance. Patient states she keeps getting bills or letters in the mail regarding that. Patient is currently managed with Cymbalta 30 mg twice a day and [place] 10 mg 3 times a day. She denies any side effects from this medication and feels like the combination is helping well. Her Catrachito has been reviewed and is appropriate. Review of Systems: General: No recent weight changes, no fever, no sleep disturbances Respiratory: No cough, no shortness of air, no recurring pulmonary infections Cardiovascular/peripheral vascular: No chest pain, no palpitations, no edema, no shortness of breath Gastrointestinal: No new onset incontinence, normal bowel movements reported Genitourinary: No new onset incontinence Musculoskeletal: Left wrist pain, right knee pain Psychiatric: [Normal mood/affect] Neurological: [Denies weakness in extremities], [denies balance issues] Pain at rest (0-10 scale): 7 Objective Objective:: Physical Exam: General: Alert and oriented x3, no acute distress, pleasant and cooperative Lungs: Respirations even and unlabored, symmetrical chest expansion Eyes: PERRL Musculoskeletal: Flexion and extension of right knee somewhat guarded secondary to pain, [antalgic gait noted] Neurological: Speech clear, no gross sensory deficit Has patient had previous pain injection?: No Conservative treatment options previously tried: Home exercise plan Length of treatment: Longer than 6 weeks and Prescription medications Length of treatment: Longer than 6 weeks Meds Home Medications and Allergies Home Medications Medication Instructions Recorded Confirmed Type ipratropium 20 mcg-albuterol 100 1 puff inhalation BID PRN . 07/22/17 12/20/23 History mcg/actuation mist for inhalation atorvastatin 20 mg tablet 20 mg PO DAILY Cholesterol 12/22/19 12/20/23 History cetirizine 10 mg capsule 10 mg PO DAILY allergies 07/08/21 12/20/23 History losartan 50 mg-hydrochlorothiazide 1 tab PO DAILY blood pressure 90 08/10/23 12/20/23 Rx 12.5 mg tablet days #90 tabs rivaroxaban 20 mg tablet 20 mg PO QDAY Blood thinner 90 09/03/23 12/20/23 Rx days #90 tabs spironolactone 50 mg tablet 25 mg (1/2 x 50 mg) PO DAILY bp 90 10/08/23 12/20/23 Rx days #45 tabs duloxetine 30 mg capsule,delayed 30 mg PO DAILY 12/20/23 12/20/23 History release (Cymbalta) fluticasone propionate 50 2 spray intranasal DAILY #3 ea 12/20/23 12/20/23 Rx mcg/actuation nasal spray,suspension (Flonase Allergy Relief) hydrocodone 10 mg-acetaminophen 1 tab PO TID Pain #90 tabs 12/20/23 Rx 325 mg tablet hydroxyzine HCl 25 mg tablet 25 mg PO TID PRN itching #90 tabs 12/20/23 12/20/23 Rx montelukast 10 mg tablet 10 mg PO DAILY allergies #90 tabs 12/20/23 12/20/23 Rx (Singulair) olopatadine 0.2 % eye drops 1 drp ophthalmic (eye) Q24H PRN 12/20/23 12/20/23 Rx itching #2.5 mL diltiazem HCl 120 mg 120 mg PO DAILY 90 days #90 tabs 01/14/24 Rx tablet,extended release 24 hr New Prescriptions to Start Prescriptions: Allergies Allergy/AdvReac Type Severity Reaction Status Date / Time No Known Allergies Allergy Verified 12/20/23 09:24 Assessment and Plan *Assessment and plan (1) Degenerative disc disease, lumbar: Status: Acute Category: Medical Code(s): M51.36 - Other intervertebral disc degeneration, lumbar region (2) Lumbar radiculopathy: Status: Acute Category: Medical Code(s): M54.16 - Radiculopathy, lumbar region (3) Bilateral knee pain: Status: Acute Qualifiers: Chronicity: chronic Qualified Code(s): M25.561 - Pain in right knee; M25.562 - Pain in left knee; G89.29 - Other chronic pain Category: Medical Code(s): M25.561 - Pain in right knee; M25.562 - Pain in left knee (4) Left wrist pain: Status: Acute Category: Medical Code(s): M25.532 - Pain in left wrist Plan I will refill the patient's [place] and Cymbalta and provide a 1 month supply of this medication. Patient was counseled that we can still do the genicular RFA's if she would want to pain out right without insurance. Patient states she will follow-up with us regarding this in future. Patient will return to clinic in 1 month for reevaluation of symptoms and plan of care. Risks and benefits of the medication have been explained in detail to the patient. The patient does understand the risk of dependence on the medication when given over a prolonged period. Patient has been advised of risks of oversedation with the prescribed medication. Narcan has been offered to the paitent in the event of oversedation. Patient has been advised that a family member should also be educated regarding administration of Narcan. The patient has been advised to consult with his/her primary care provider and pharmacist regarding drug-drug interaction of medications currently prescribed. Patient has been prescribed a controlled substance after being counseled on the medication, medication safety, and possible side effects. Opioid contract was reviewed and signed by the patient, and that they have agreed to all of the terms set forth by our compliance program. Patient has been instructed to contact the clinic with any concerns before the next appointment. Dr. Soto has reviewed this note and agrees with this plan of care. This note was dictated using voice recognition software and make contain errors or omissions.
[2024-01-24 12:22] VITALS: BP 111/66; PULSE 65; RESP 16; O2SAT 96; BMI 39.9
== END 2024-01-24 23:59 | disposition home or self-care (01) ==
PROVIDERS: PCP Nurse Practitioner Family; Visit Provider Nurse Practitioner Family
DX: M51.36 Other intervertebral disc degeneration, lumbar region (principal); M54.16 Radiculopathy, lumbar region; M25.561 Pain in right knee; M25.562 Pain in left knee; G89.29 Other chronic pain; M25.532 Pain in left wrist
CPT/HCPCS: 99212; G0463

== ENCOUNTER 2024-02-21 10:31 | Outpatient (POV) | payer MEDICARE, OTHER, SELFPAY ==
--- NOTE | 2024-02-21 10:56 | EXP.PAIN.SOA ---
[facility] Disclaimer: The information contained in this section may have been updated after the patient was seen, as this information can be updated by other users. Medical History Fibromyalgia Hyperlipidemia Wheezing Dizziness Fatigue Likely multifactorial in the setting of sleep apnea, chronic pain, narcotic therapy, COPD. No indications of desats on AutoPap 6/10 cm. Noncontributory labs including CBC, CMP, B12, folate, TSH, vitamin D, ferritin. SOB (shortness of breath) Atrial fibrillation jail current use of anticoagulant ORION (obstructive sleep apnea) Hypertensive heart disease Essential hypertension PAF (paroxysmal atrial fibrillation) Surgical History History of partial hysterectomy History of cardiac radiofrequency ablation Family History Other Coronary artery disease Hypertension Social History Smoking Status: Never smoker alcohol intake: never substance use type: denies use current occupational status: other Travel in the last 8 weeks: None household members: other housing: house current occupational exposures/hazards: No caffeine: Yes PM Subjective & Objective Subjective Subjective:: Patient is a pleasant 73-year-old female who presents today for medication refill and follow-up. She rates her pain at 9 out of 10. Patient does state that she is just been having more pain on a day-to-day basis and does believe that the right knee weather has been playing a role. Patient denies any new trauma or injury. She does state that she is experiencing more pain in her knees and that the left still continues to be the worst knee. Patient has had genicular RFA's in the past with significant relief. Patient does state that she is still getting relief with her Cymbalta 30 mg twice a day and [place] 10 mg 3 times a day. She denies any side effects from this medication. She does state that recently the [facility] mail order prescription of her Cymbalta was delayed and she ended up running out. Patient states that she did have some pins and needle sensation and by the time she got the medicine and that she took it and it did subside. Patient is asking in future if there is a delay in the mail-order medication if she would be able to call and get a temporary medicine from a local pharmacy. Patient does also states she has been recently to her bistro attendant but did discuss possibly putting in a loop recorder and that if she ended up not having any A-fib for a month that they might possibly take her off her blood thinner. Her Catrachito has been reviewed and is appropriate. Review of Systems: General: No recent weight changes, no fever, no sleep disturbances Respiratory: No cough, no shortness of air, no recurring pulmonary infections Cardiovascular/peripheral vascular: No chest pain, no palpitations, no edema, no shortness of breath Gastrointestinal: No new onset incontinence, normal bowel movements reported Genitourinary: No new onset incontinence Musculoskeletal: Bilateral knee pain Psychiatric: [Normal mood/affect] Neurological: [Denies weakness in extremities], [denies balance issues] Pain at rest (0-10 scale): 9 Objective Objective:: Physical Exam: General: Alert and oriented x3, no acute distress, pleasant and cooperative Lungs: Respirations even and unlabored, symmetrical chest expansion Eyes: PERRL Musculoskeletal: Flexion and extension of bilateral knees somewhat guarded secondary to pain, [antalgic gait noted] Neurological: Speech clear, no gross sensory deficit Has patient had previous pain injection?: No Conservative treatment options previously tried: Home exercise plan Length of treatment: Longer than 6 weeks Meds Home Medications and Allergies Home Medications ?Medication ?Instructions ?Recorded ?Confirmed ?Type ipratropium 20 mcg-albuterol 100 1 puff inhalation BID PRN . 07/22/17 02/10/24 History mcg/actuation mist for inhalation cetirizine 10 mg capsule 10 mg PO DAILY allergies 07/08/21 02/10/24 History spironolactone 50 mg tablet 25 mg (1/2 x 50 mg) PO DAILY bp 90 10/08/23 02/10/24 Rx days #45 tabs fluticasone propionate 50 2 spray intranasal DAILY #3 ea 12/20/23 02/10/24 Rx mcg/actuation nasal spray,suspension (Flonase Allergy Relief) hydroxyzine HCl 25 mg tablet 25 mg PO TID PRN itching #90 tabs 12/20/23 02/10/24 Rx montelukast 10 mg tablet 10 mg PO DAILY allergies #90 tabs 12/20/23 02/10/24 Rx (Singulair) olopatadine 0.2 % eye drops 1 drp ophthalmic (eye) Q24H PRN 12/20/23 02/10/24 Rx itching #2.5 mL diltiazem HCl 120 mg 120 mg PO DAILY 90 days #90 tabs 01/14/24 02/10/24 Rx tablet,extended release 24 hr duloxetine 30 mg capsule,delayed 30 mg PO BID #60 caps 01/24/24 02/10/24 Rx release (Cymbalta) hydrocodone 10 mg-acetaminophen 1 tab PO TID Pain #90 tabs 01/24/24 02/10/24 Rx 325 mg tablet atorvastatin 20 mg tablet 20 mg PO DAILY Cholesterol #30 tabs 02/14/24 Rx losartan 50 mg-hydrochlorothiazide 1 tab PO DAILY blood pressure #30 02/14/24 Rx 12.5 mg tablet tabs rivaroxaban 20 mg tablet 20 mg PO QDAY Blood thinner #30 02/14/24 Rx tabs New Prescriptions to Start Prescriptions: Allergies Allergy/AdvReac Type Severity Reaction Status Date / Time No Known Allergies Allergy Verified 02/10/24 10:15 Assessment and Plan *Assessment and plan (1) Lumbar radiculopathy: Status: Acute Category: Medical Code(s): M54.16 - Radiculopathy, lumbar region (2) Bilateral knee pain: Status: Acute Qualifiers: Chronicity: chronic Qualified Code(s): M25.561 - Pain in right knee; M25.562 - Pain in left knee; G89.29 - Other chronic pain Category: Medical Code(s): M25.561 - Pain in right knee; M25.562 - Pain in left knee Plan I did discuss with the patient in the future that we still can try and submit to her insurance for the genicular RFA's because she has had such good relief. Will follow-up with her on this at future visits. I will refill her Cymbalta and provide a 3-month supply of this medication and send in a 1 month supply of her [place]. Patient was counseled that if she has additional issues with her mail-order prescription that she can always call us and we have no problem sending in a temporary dose of her Cymbalta until the mail-order refill arrives. Patient is agreeable to this plan of care. Risks and benefits of the medication have been explained in detail to the patient. The patient does understand the risk of dependence on the medication when given over a prolonged period. Patient has been advised of risks of oversedation with the prescribed medication. Narcan has been offered to the paitent in the event of oversedation. Patient has been advised that a family member should also be educated regarding administration of Narcan. The patient has been advised to consult with his/her primary care provider and pharmacist regarding drug-drug interaction of medications currently prescribed. Patient has been prescribed a controlled substance after being counseled on the medication, medication safety, and possible side effects. Opioid contract was reviewed and signed by the patient, and that they have agreed to all of the terms set forth by our compliance program. Patient has been instructed to contact the clinic with any concerns before the next appointment. Dr. Soto has reviewed this note and agrees with this plan of care. This note was dictated using voice recognition software and make contain errors or omissions.
[2024-02-21 11:56] VITALS: BP 116/65; PULSE 72; RESP 18; O2SAT 96; BMI 39.6
== END 2024-02-21 23:59 | disposition home or self-care (01) ==
PROVIDERS: PCP Nurse Practitioner Family; Visit Provider Nurse Practitioner Family
DX: M54.16 Radiculopathy, lumbar region (principal); M25.561 Pain in right knee; M25.562 Pain in left knee; G89.29 Other chronic pain; Z79.899 Other long term (current) drug therapy
CPT/HCPCS: 99212; G0463

== ENCOUNTER 2024-03-13 13:02 | Outpatient (CLI) | payer MEDICARE, OTHER, SELFPAY ==
[2024-03-13 13:09] LABS: Basophils % 0.4 % (0.1-2.0); Eosinophils % 0.3 % (0.1-12.0); Hematocrit 44.5 % (37.0-47.0); Hemoglobin 14.5 g/dL (12.2-16.2); Lymphocytes # 2.4 K/mm3 (0.7-4.5); Lymphocytes % 30.2 % (10-50); Mean Corpuscular HGB Conc 32.5 g/dL (31.8-35.4); Mean Corpuscular Hemoglobin 33.4 pg (27.0-31.2); Mean Corpuscular Volume 102.8 fl (81-99); Mean Platelet Volume 8.1 fl (7.4-10.4); Monocytes # 0.5 K/mm3 (0.1-1.0); Monocytes % 6.6 % (1.7-9.3); Neutrophils % 62.4 % (37.0-80.0); Platelet Count 312 K/mm3 (142-424); Red Blood Count 4.33 M/mm3 (4.20-5.40); Red Cell Distribution Width 13.2 % (11.5-17.5)
[2024-03-13 13:38] LABS: Alanine Aminotransferase 21 U/L (12-78); Albumin Level 4.2 g/dl (3.5-5.0); Albumin/Globulin Ratio 1.4 (1.1-1.8); Alkaline Phosphatase 83 U/L (38-126); Anion Gap 12.3 mEq/L (5-15); Aspartate Amino Transferase 34 U/L (14-36); Bilirubin,Total 0.9 mg/dl (0.2-1.3); Blood Urea Nitrogen 23 mg/dl (7-17); Calcium 10.1 mg/dl (8.4-10.2); Carbon Dioxide 25 mmol/L (22.0-30.0); Chloride 103 mmol/L (98-107); Chol/HDL Ratio 2.9 (1-3.5); Cholesterol 192 mg/dl (140-200); Estimated Glomerular Filt Rate 54 ml/min (>60); GFR (African American) 66 ML/MIN (>60); Globulin 3.1 g/dL (1.3-3.2); Glucose 91 mg/dl (74-100); HDL Cholesterol 66 mg/dl (40-60); Magnesium 1.9 mg/dl (1.6-2.3); Potassium 4.3 mmoL/L (3.5-5.1); Sodium 136 mmol/L (136-145); Total Protein,Serum 7.3 g/dl (6.3-8.2); Triglycerides 104 mg/dl (30-150); VLDL Cholesterol 21 mg/dL (0-40)
[2024-03-13 13:48] LABS: Direct LDL Cholesterol 86.34 mg/dL (100-129)
[2024-03-13 13:55] LABS: 25-OH Vitamin D, Total 56.7 ng/mL (30-100)
[2024-03-13 13:57] LABS: T4 (Thyroxine) 7.6 ug/dl (5.53-11.0)
[2024-03-13 14:10] LABS: Thyroid Stimulating Hormone 2.46 uIU/mL (0.465-4.68)
[2024-03-13 14:30] LABS: Vitamin B12 742 pg/mL (239-931)
[2024-03-14 08:19] LABS: Triiodothyronine (T3) Free 3.1 pg/mL (2.0-4.4)
== END 2024-03-13 23:59 | disposition home or self-care (01) ==
LOC: LAB.DROPOF 13:03
PROVIDERS: PCP Nurse Practitioner Family; Visit Provider Nurse Practitioner Family
DX: E78.2 Mixed hyperlipidemia (principal); M79.7 Fibromyalgia; R53.83 Other fatigue; R63.4 Abnormal weight loss; R42 Dizziness and giddiness; E55.9 Vitamin D deficiency, unspecified; Z68.37 Body mass index [BMI] 37.0-37.9, adult
CPT/HCPCS: 80053; 80061; 82306; 82607; 83735; 84436; 84443; 84481; 85025

== ENCOUNTER 2024-03-24 11:48 | Outpatient (CLI) | payer MEDICARE, OTHER, SELFPAY ==
--- NOTE | 2024-03-24 | CA_ITS ---
APPROVED REPORT Exam: Pharmacologic Technologist: Nadya Chase, Ht: 5 ft 5 in Wt: 226 lbs BSA: 2.08 m2 HR: 70 bpm BP: 127/43 mmHg Medical History Medications: Losartan,,,,, Atorvastatin,,,,, HCTZ,,,,, Flonase,,,,, Duoneb,,,,, Cymbalta,,,,, Singulair,,,,, DilTiazem,,,,, Hydroxyzine,,,,, CetIRIZINE,,,,, RIvaROXABAN,,,,, Hydrocodone-Acetaminophen,,,,, Stress Test Details Test: LEXISCAN Reason for pharmacologic stress test: physical limitation. HR Resting HR: 76 bpm Max Heart Rate (APMHR): 146 bpm Max HR Achieved: 96 bpm Target HR (85% APMHR): 124 bpm % of APMHR: 66 Recovery HR: 78 bpm BP Resting BP: 127.0/43.0 mmHg Max BP: 138.0/54.0 mmHg Recovery BP: 138.0/54.0 mmHg ECG Resting ECG: NSR, left axis deviation Stress ECG: No significant ST changes Arrhythmia: Occasional PACs Clinical Exercise duration: 04:00 min Highest Stage Achieved: Exercise capacity: 1.0 METs Stress ECG Conclusion Symptoms: Brief SOA, mild CARLSON. No CP. Arrhythmias/Ectopy: Occasional PAC. ST-T Changes: No significant ST changes. Conclusion: Unremarkable Lexiscan stress. Myoview images reported separately. Test Summary REST . . . . . . . Resting REST 04:16 . . 76 . 127/ 43 . . Stage 1 . . . . . . . Cardiolite injected Stage 1 01:00 . . 91 . . . . Stage 2 01:00 . . 89 . . . . Stage 3 01:00 . . 87 . 131/ 47 . . Stage 4 01:00 . . 83 . 120/ 44 . Stop exercise at 04:00 RECOVERY 01:00 . . 86 . . . . RECOVERY 02:00 . . 82 . . . . RECOVERY 03:00 . . 78 . . . . RECOVERY 03:39 . . 78 . 138/ 54 . . Electronically signed by : Clemencia Lepe MD 03/27/2024 10:59:01
--- NOTE | 2024-03-24 11:49 | NM_ITS ---
APPROVED REPORT Exam: Nuclear Stress Test Indication: soa..fatigue Patient Location: Outpatient Stress Tech: Nadya Almodovar MS Tech:[email or web address] Graves RT(R)(N) Ht: 5 ft 5 in Wt: 235 lbs Bra Size: 42c HR: 76 bpm BP: 127/43 mmHg BSA: 2.12 m2 TID: 1.21 BMI: 39.1 History: soa..fatigue Procedure: Patient received 0.4 mg of intravenous Lexiscan, resting heart rate 76 bpm, resting blood pressure 127/43 mmHg, with Lexiscan maximum heart rate achieved was 96 bpm which is 85 % of the maximum predicted heart rate and blood pressure was 138/54 mmHg. With Lexiscan, patient denied any complaint of chest pain. The patient is not able to lay on her abdomen for prone images. Cardiac Stress and Resting SPECT Images: Cardiac Stress and Resting SPECT images were obtained using technetium 99m Myoview 32.8 mCi stress and 10.43 mCi at rest. The patient could not lie on her abdomen. Therefore, prone stress imaging could not be performed. This may affect the diagnostic interpretation of the study findings. Resting and stress imaging in supine positions demonstrate no evidence of focal fixed or reversible perfusion defects. There is increase in transient ischemic dilatation ratio (TID 1.21), suggestive of possible multivessel disease or balanced ischemia. Gated imaging demonstrates normal global and regional LV systolic function. LVEF is calculated at 66%. Conclusion: No evidence of focal fixed or reversible perfusion defects. There is increase in transient ischemic dilatation ratio (TID 1.21), suggestive of possible multivessel disease or balanced ischemia. Gated imaging demonstrates normal global and regional LV systolic function. LVEF is calculated at 66%. Electronically signed by : Clemencia Lepe MD 03/27/2024 11:01:05
--- NOTE | 2024-03-24 12:10 | CA_ITS ---
APPROVED REPORT EXAM: Comprehensive 2D, Doppler, and color-flow Echocardiogram Certified Orthotic Fitter: Lula Justin, RCS, RVS Ht: 5 ft 5 in Wt: 226lbs BSA: 2.08 BP: 122/82 mmHg Indications: A-fib, HTN, SOA, ORION 2D Dimensions IVSd 0.86 cm LVEF (Visual) 53.80 % PWd 0.82 cm LA Volume 97.10 mL LVDd 4.69 cm LA Volume Index [id number] mL/m2 (M/F) 16-34 LVDs 3.39 cm EF AP4 64.30 % Aortic Root 2.72 cm GL Strain -20.6 % Left Atrium 2.99 cm RVID Base (AP4) 3.46 cm (M/F) 2.5-4.1 LVOT 1.95 cm (M/F) 1.5-2.5 M-Mode Dimensions RVDd 1.59 cm (0.9-2.6) LVDd 4.69 cm (3.5-5.7) Ao Diam 2.98 cm (2.0-3.7) LVDs 3.38 cm (3.5-5.7) IVSd 0.99 cm (0.6-1.1) PWd 0.99 cm (0.6-1.1) EF (Teich) 67.30% EPSs 0.42 cm FS 34.43% EDV (Teich) 143.10 mL TAPSE 3.15 (<1.7) ESV (Teich) 46.80 mL LV Diastology E Decel Time 203 (160-240 msec) E/A Ratio 1.15 MED E' 7.3 (>= 7 cm/sec) MED A' 13.40 cm/s E'/MED E' Ratio 12.00 (<= 14) LAT E' 11.4 (>= 10 cm/sec) LAT A' 16.20 cm/s E/LAT E' Ratio 7.68 (<= 14) Aortic Valve LVOT Max 119.0 (70-110 cm/s) GRIFFIN Index 1.07 cm2/m2 LVOT VTI 28.01 cm AoV Peak Joseluis. 170.0 (50-130 cm/s) AO Mean GR. 6.40 (<5 mmHg) AO VTI 37.8 (18-25 cm) GRIFFIN (VTI) 2.22 (2.5-4.5 cm2) Mitral Valve MV E Max Joseluis. 88.0 (40-130 cm/s) MV A Velocity 76.0 (40-130 cm/s) E/A Ratio 1.15 MV Decel. Time 203 (160-240 ms) Left Ventricle The left ventricle is normal size. The left ventricular systolic function is normal. The left ventricular ejection fraction is within the normal range. There is increased LV wall thickness. There is normal LV segmental wall motion. The left ventricular diastolic function is normal. LVEF is 55%. Right Ventricle The right ventricle is normal size. The right ventricular systolic function is normal. Atria Left atrium is mildly dilated. The right atrium size is normal. There is no Doppler evidence of interatrial shunt. Aortic Valve The aortic valve opens well. There is no aortic valvular stenosis. No aortic regurgitation is present. Mitral Valve The mitral valve is normal in structure. No evidence of mitral valve stenosis. Trace mitral regurgitation. Tricuspid Valve Tricuspid valve is grossly normal in structure and function. Trace tricuspid regurgitation. There is insufficient TR jet to estimate RVSP. Pulmonic Valve The pulmonary valve is normal in structure. Trace pulmonic regurgitation. Great Vessels The aortic root is normal in size. The ascending aorta is normal in size. IVC is normal in size and collapses >50% with inspiration. Pericardium There is no pericardial effusion. Other Information Study Quality: Fair Conclusion Normal biventricular systolic function. Mild LA dlation. No significant valvular stenosis or regurgitation. Electronically signed by : Clemencia Lepe MD 04/02/2024 11:43:53
[2024-03-24] MEDS: REGADENOSON 0.4MG/5ML SYRINGE 0.4 MG IV (13:46)
[2024-03-24] MEDS: ISOTOPE MYOVIEW (PER STUDY) 1 DOSE IV (13:46)
[2024-03-24] MEDS: SODIUM CHLORIDE 0.9% 10ML SYR (RAD ONLY) 10 ML IV ×2 (13:46)
== END 2024-03-24 23:59 | disposition home or self-care (01) ==
LOC: RAD 11:49
PROVIDERS: PCP Nurse Practitioner Family; Visit Provider Nurse Practitioner Family
DX: R06.09 Other forms of dyspnea; R42 Dizziness and giddiness; R00.2 Palpitations
CPT/HCPCS: 78452; 93017; 93018; 93270; 93306; A9502; J2785

== ENCOUNTER 2024-03-27 09:00 | Outpatient (POV) | payer MEDICARE, OTHER, SELFPAY ==
[2024-03-27 09:16] VITALS: BP 118/46; PULSE 97; RESP 16; BMI 38.2
--- NOTE | 2024-03-27 10:02 | A.OFFVIS_ITS ---
[facility] Disclaimer: The information contained in this section may have been updated after the patient was seen, as this information can be updated by other users. Medical History Atrial fibrillation Dizziness Essential hypertension Fatigue Likely multifactorial in the setting of sleep apnea, chronic pain, narcotic therapy, COPD. No indications of desats on AutoPap 6/10 cm. Noncontributory labs including CBC, CMP, B12, folate, TSH, vitamin D, ferritin. 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 ORION (obstructive sleep apnea) PAF (paroxysmal atrial fibrillation) SOB (shortness of breath) Wheezing Surgical History History of cardiac radiofrequency ablation History of partial hysterectomy Family History Other Coronary artery disease Hypertension Social History Smoking Status: Never smoker alcohol intake: never substance use type: denies use current occupational status: retired Travel in the last 8 weeks: None household members: other housing: house current occupational exposures/hazards: No caffeine: Yes PM Subjective & Objective Subjective Subjective:: Patient is a pleasant 73-year-old female who presents today for medication refill and follow-up. Today she rates her pain a 7 out of 10. Patient denies any new trauma or injury. She does state that her knees are back to really bothering her and describes this as a chronic aching sensation. Patient does state that she has always had issues with the left however she would like to possibly proceed forward with a repeat genicular RFA on the right first. Patient does state the current pain interferes with her ability to perform activities of daily living such as cooking and cleaning. Patient has had the RFA in the past that provided significant relief of more than 50% lasting several months. Patient does state that the last genicular she did get a bill for and that she talk to her [place] insurance and they were stating to resubmit that she should not have to cover this. Patient states she is waiting to confirm that she does not have to pay for these injection before proceeding forward. Patient is currently managed with Cymbalta 30 mg twice a day and [place] 10 mg 3 times a day. She denies any side effects from this medication. Patient does however state that she has been having more fatigue and low blood pressure. She states that her PCP did recently order additional cardiac workup including a stress test and echo that all came back with no acute findings. Patients Catr[place]ito has been reviewed and is appropriate. Review of Systems: General: No recent weight changes, no fever, no sleep disturbances Respiratory: No cough, no shortness of air, no recurring pulmonary infections Cardiovascular/peripheral vascular: No chest pain, no palpitations, no edema, no shortness of breath Gastrointestinal: No new onset incontinence, normal bowel movements reported Genitourinary: No new onset incontinence Musculoskeletal: Bilateral knee pain Psychiatric: [Normal mood/affect] Neurological: [Denies weakness in extremities], [denies balance issues] Pain at rest (0-10 scale): 7 Objective Objective:: Physical Exam: General: Alert and oriented x3, no acute distress, pleasant and cooperative Lungs: Respirations even and unlabored, symmetrical chest expansion Eyes: PERRL Musculoskeletal: Flexion and extension of bilateral knees somewhat guarded secondary to pain, [antalgic gait noted] Neurological: Speech clear, no gross sensory deficit Has patient had previous pain injection?: No Conservative treatment options previously tried: Home exercise plan Length of treatment: Longer than 6 weeks and Prescription medications Length of treatment: Longer than 6 weeks Meds Home Medications and Allergies Home Medications ?Medication ?Instructions ?Recorded ?Confirmed ?Type ipratropium 20 mcg-albuterol 100 1 puff inhalation BID PRN . 07/22/17 03/27/24 History mcg/actuation mist for inhalation cetirizine 10 mg capsule 10 mg PO DAILY allergies 07/08/21 03/27/24 History fluticasone propionate 50 2 spray intranasal DAILY #3 ea 12/20/23 03/27/24 Rx mcg/actuation nasal spray,suspension (Flonase Allergy Relief) hydroxyzine HCl 25 mg tablet 25 mg PO TID PRN itching #90 tabs 12/20/23 03/27/24 Rx montelukast 10 mg tablet 10 mg PO DAILY allergies #90 tabs 12/20/23 03/27/24 Rx (Singulair) olopatadine 0.2 % eye drops 1 drp ophthalmic (eye) Q24H PRN 12/20/23 03/27/24 Rx itching #2.5 mL diltiazem HCl 120 mg 120 mg PO DAILY 90 days #90 tabs 01/14/24 03/27/24 Rx tablet,extended release 24 hr duloxetine 30 mg capsule,delayed 30 mg PO BID #180 caps 02/21/24 03/27/24 Rx release (Cymbalta) hydrocodone 10 mg-acetaminophen 1 tab PO TID Pain #90 tabs 02/21/24 03/27/24 Rx 325 mg tablet atorvastatin 20 mg tablet 20 mg PO DAILY Cholesterol #90 tabs 03/07/24 03/27/24 Rx losartan 50 mg-hydrochlorothiazide 1 tab PO DAILY blood pressure #90 03/07/24 03/27/24 Rx 12.5 mg tablet tabs rivaroxaban 20 mg tablet 20 mg PO QDAY Blood thinner #90 03/07/24 03/27/24 Rx tabs spironolactone 50 mg tablet 25 mg (1/2 x 50 mg) PO DAILY bp 90 03/13/24 03/27/24 Rx days #45 tabs hydrocodone 10 mg-acetaminophen 1 tab PO TID #18 tabs 03/16/24 03/27/24 Rx 325 mg tablet hydrocodone 10 mg-acetaminophen 1 tab PO TID #18 tabs 03/17/24 03/27/24 Rx 325 mg tablet New Prescriptions to Start Prescriptions: Allergies Allergy/AdvReac Type Severity Reaction Status Date / Time No Known Allergies Allergy Verified 03/15/24 09:33 Assessment and Plan *Assessment and plan (1) Bilateral knee pain: Status: Acute Qualifiers: Chronicity: chronic Qualified Code(s): M25.561 - Pain in right knee; M25.562 - Pain in left knee; G89.29 - Other chronic pain Category: Medical Code(s): M25.561 - Pain in right knee; M25.562 - Pain in left knee Plan I will refill the patient's [place] and provide a 1 month supply of this medication. Patient did just recently get a 3-month supply of her Cymbalta and does not need refills. I did discuss with the patient due to her increased fatigue that to temporarily change her Cymbalta to once a day and see if this does improve any of those symptoms. Patient is agreeable to this. I did also review with the patient over the risk and benefits of repeat genicular RFA. Patient was counseled that she can call and schedule the right genicular RFA over the phone. Patient is currently waiting to confirm that insurance is covering her last genicular. Patient has had significant improvement with the genicular ablations. Patient's last left sided RFA was in August and her last right genicular was in June. Patient does have significant relief generally more than 60% lasting several months with decreased pain and improved function. Risks and benefits of the medication have been explained in detail to the patient. The patient does understand the risk of dependence on the medication when given over a prolonged period. Patient has been advised of risks of oversedation with the prescribed medication. Narcan has been offered to the paitent in the event of oversedation. Patient has been advised that a family member should also be educated regarding administration of Narcan. The patient has been advised to consult with his/her primary care provider and pharmacist regarding drug-drug interaction of medications currently prescribed. Patient has been prescribed a controlled substance after being counseled on the medication, medication safety, and possible side effects. Opioid contract was reviewed and signed by the patient, and that they have agreed to all of the terms set forth by our compliance program. Patient has been instructed to contact the clinic with any concerns before the next appointment. Dr. Soto has reviewed this note and agrees with this plan of care. This note was dictated using voice recognition software and make contain errors or omissions.
== END 2024-03-27 23:59 | disposition home or self-care (01) ==
PROVIDERS: PCP Nurse Practitioner Family; Visit Provider Nurse Practitioner Family
DX: M25.561 Pain in right knee (principal); M25.562 Pain in left knee; G89.29 Other chronic pain; Z73.89 Other problems related to life management difficulty; Z79.899 Other long term (current) drug therapy
CPT/HCPCS: 99212; G0463

== ENCOUNTER 2024-04-18 09:01 | Outpatient (CLI) | payer MEDICARE, OTHER, SELFPAY ==
--- NOTE | 2024-04-18 09:02 | CT_ITS ---
APPROVED REPORT Senior Talent Acquisition Specialist: CLINICAL INDICATION Chest Pain TECHNIQUE Image Acquisition: A 128 slice MDCT scanner (Attentive.lya View) was used for data acquisition. A noncontrast coronary calcium scan was performed. A CT attenuation threshold of 130 Hounsfield units (HU) was used for the detection of calcium in contiguous voxels of 1 sq mm in area to be counted as individual lesions. Bolus tracking in the ascending aorta with a threshold of 180 HU was performed. Immediately afterwards, ECG synchronized cardiac CT was then performed from the cardiac base to apex using retrospective gating with ECG tube current modulation. A total of 85 mL of Isovue 370 mg/mL contrast medium was administered at 5 mL/sec followed by a saline flush using a biphasic injection protocol. A tube voltage of 120 KVp was used. The patient received the following medications prior to the cardiac CT. 25 mg of oral metoprolol 0.8 mg of sublingual nitroglycerin The average heart rate at the time of acquisition was 56 bpm and regular. Image Reconstruction Transaxial images were reconstructed at 0.67 mm slide thickness. Data was reviewed interactively on an advanced workstation capable of 2 and 3-dimensional displays in all conventional reconstruction formats, including multiplanar reformations, maximum intensity projections, curved multiplanar reformations, and volume rendered reconstructions. When applicable, selected routine images describing the relevant coronary anatomy and pathology were saved and sent to PACS. Complications None Technical Quality Overall image quality was good. Coronary artery opacification was adequate. Total DLP (Dose-Length Product) is 1428.9 mGy-cm. The reported value represents the total of one or more individual components during the CT acquisition of this date and at this time, and as such, the same value may appear in more than one CT report depending on the interpreting/reporting physicians. COMPARISON None FINDINGS CT Coronary Calcium Scoring LMA (Left Main Artery) = 0 LAD (Left Anterior Descending) = 0 LCX (Left Coronary Circumflex) = 0 RCA (Right Coronary Artery) = 0 Total Calcium Score = 0 using the AJ-130 method. The interpretation of the calcium heart score is based on the following continuum*: 0 = no calcified plaque detected (risk of coronary artery disease is very low ??? less than 5%) 1-10 = calcium detected in extremely minimal levels (risk of coronary diseases is still low ??? less than 10%) 11-100 = mild levels of plaque detected with certainty (mild or minimal narrowing of heart arteries is likely) 101-400 = definite,at least moderate levels of plaque detected (relatively high risk of a heart attack within 3-5 years) >401-999 = extensive levels of plaque detected (high risk of heart attack, high levels of vascular disease are present, high likelihood of at least one significant coronary narrowing) *The calcium heart score quantifies the burden of coronary calcification/plaque in the coronary arteries. The calcium heart score is not able to evaluate the presence or burden of non-calcified (i.e. soft) plaque. There is mild calcification noted in the aortic valve. Coronary CT Angiography The coronary arterial system is right dominant. Quantitative Stenosis Grading: Left Main (LM): The left main originates normally from the left sinus of Valsalva. The LM bifurcates into the left anterior descending artery and left circumflex artery. The LM is patent with no evidence of atherosclerosis. Left Anterior Descending (LAD) and Diagonal Branches: The LAD gives off 2 diagonal branch(es). The LAD and its branches are patent with no evidence of atherosclerosis. There is a shallow mid-LAD myocardial bridge, measuring approximately 8 mm in length and 2 mm in depth. Left Circumflex (LCX) and Obtuse Marginals (OM): The LCX gives off 1 Obtuse Marginal (OM) branch(es). The LCX and its branches are patent with no evidence of atherosclerosis. Right Coronary Artery (RCA): The RCA originates normally from the right sinus of Valsalva. The RCA gives off a posterior descending artery (PDA) and posterolateral (PL) branches. The RCA and its branches are patent with no evidence of atherosclerosis. Non-Coronary Cardiac Findings: Analysis of the left ventricular (LV) structure and function was performed after 3-D reconstruction of the LV from axial images, with user-corrected automatic contouring for assessment of LV volumes and user-defined reconstruction from oblique planes for measurement of 3-D cardiac structure and function. -The left ventricle systolic function is normal. -There is no left atrial appendage filling defect. Two right pulmonary veins and two left pulmonary veins drain normally into the left atrium. -No pericardial thickening or calcification. -Central and branch pulmonary arteries in the [id number] are unremarkable. -Thoracic aorta within the visualized thoracic aortic-branches in the [id number] is unremarkable. Extracardiac Structures No significant extra-cardiac findings. Note, however, that this study is focused on the cardiac findings. IMPRESSION -Absence of coronary calcification with an Agatston score = 0 using the AJ-130 method. -No evidence of significant flow-limiting atherosclerosis of the coronary arteries. -CAD-RADS 0. Management recommendations per ACC/AHA guidelines*, as clinically appropriate. -Shallow mid-LAD myocardial bridge, measuring approximately 8 mm in length and 2 mm in depth. -Incidental finding of mild aortic valve calcification. *Recommendations: CAD RADS 0: Reassurance. Consider non-atherosclerotic causes of chest pain. CAD RADS 1: Consider non-atherosclerotic causes of chest pain. Consider preventive therapy and risk factor modification. CAD RADS 2: Consider non-atherosclerotic causes of chest pain. Consider preventive therapy and risk factor modification, particularly for patients with nonobstructive plaque in multiple segments. CAD RADS 3: Consider further functional testing. Consider symptom-guided anti-ischemic and preventive pharmacotherapy as well as risk factor modification per published guideline statements. CAD RADS 4A: Consider further functional testing or invasive coronary angiography with revascularization per published guideline statements. Consider symptom-guided anti-ischemic and preventive pharmacotherapy as well as risk factor modification per published guideline statements. CAD RADS 4B: Invasive coronary angiography recommended with revascularization per published guideline statements. Consider symptom-guided anti-ischemic and preventive pharmacotherapy as well as risk factor modification per published guideline statements. CAD RADS 5: Consider invasive angiography and/or viability assessment with revascularization per published guideline statements. Consider symptom-guided anti-ischemic and preventive pharmacotherapy as well as risk factor modification per published guideline statements. CRITICAL RESULT None COMMUNICATION Per this written report The coronary and cardiac findings of this CCTA were reviewed, reported, and signed by Felton Lepe MD (Construction Lineman) Conclusion Electronically signed by : Clemencia Lepe MD 04/18/2024 13:27:12
[2024-04-18 09:13] VITALS: BMI 37.4
[2024-04-18 09:14] VITALS: BP 143/83; PULSE 69; RESP 18; O2SAT 98
[2024-04-18] MEDS: METOPROLOL TARTRATE 25MG TABLET *IVABRADINE+METOPROLOL REGIMINE 25 MG PO (09:29)
[2024-04-18 09:48] LABS: Chloride 100 mmol/L (98-107); Sodium 135 mmol/L (136-145)
[2024-04-18 09:52] LABS: Blood Urea Nitrogen 22 mg/dl (7-17); Calcium 9.7 mg/dl (8.4-10.2); Carbon Dioxide 28 mmol/L (22.0-30.0); Creatinine Clearance Estimated 80 mL/min (50-200); Estimated Glomerular Filt Rate 61 ml/min (>60); GFR (African American) 74 ML/MIN (>60); Glucose 101 mg/dl (74-100)
[2024-04-18 10:25] VITALS: BP 126/92; PULSE 57; RESP 18; O2SAT 99
--- NOTE | 2024-04-18 10:25 | PC.NURSE ---
To CT, BP 126/92, Nitro 0.8mg SL given per CTA protocol.
[2024-04-18 10:30] VITALS: BP 124/63; PULSE 56; O2SAT 99
--- NOTE | 2024-04-18 10:30 | PC.NURSE ---
5 minutes post Nitor VSS.
[2024-04-18 10:38] VITALS: BP 102/43; PULSE 54; RESP 18; O2SAT 97
--- NOTE | 2024-04-18 10:38 | PC.NURSE ---
To post for recovery, VSS, no C/O.
[2024-04-18] MEDS: SODIUM CHLORIDE 0.9% 10ML SYR (RAD ONLY) 10 ML IV (10:42)
[2024-04-18] MEDS: NITROGLYCERIN 0.4MG SL TABLET 0.8 MG SL (10:42)
[2024-04-18] MEDS: 0.9 % SODIUM CHLORIDE 50 ML VIAL IV (10:42)
[2024-04-18] MEDS: IOPAMIDOL-370 (76%);100ML BOTTLE 85 ML IV (10:42)
[2024-04-18 10:52] VITALS: BP 120/45; PULSE 47; RESP 18; O2SAT 98
[2024-04-18 10:57] VITALS: BP 121/71; PULSE 48; O2SAT 99
--- NOTE | 2024-04-18 10:58 | PC.NURSE ---
pt denies any symptoms, says feels fine. VSS.
== END 2024-04-18 11:00 | disposition home or self-care (01) ==
PROVIDERS: PCP Nurse Practitioner Family; Visit Provider Nurse Practitioner Family
DX: R94.39 Abnormal result of other cardiovascular function study (principal); R06.09 Other forms of dyspnea; I10 Essential (primary) hypertension
CPT/HCPCS: 75574; 80048; Q9967

== ENCOUNTER 2024-05-01 08:51 | Outpatient (POV) | payer MEDICARE, OTHER, SELFPAY ==
[2024-05-01 09:13] VITALS: BP 126/70; PULSE 71; RESP 16; O2SAT 97; BMI 37.4
--- NOTE | 2024-05-01 09:30 | EXP.PAIN.SOA ---
[facility] Disclaimer: The information contained in this section may have been updated after the patient was seen, as this information can be updated by other users. Medical History Abnormal cardiovascular stress test Fibromyalgia Hyperlipidemia Wheezing Dizziness Fatigue Likely multifactorial in the setting of sleep apnea, chronic pain, narcotic therapy, COPD. 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 ORION (obstructive sleep apnea) Hypertensive heart disease Essential hypertension PAF (paroxysmal atrial fibrillation) Surgical History History of partial hysterectomy History of cardiac radiofrequency ablation Family History Other Coronary artery disease Hypertension Social History Smoking Status: Never smoker alcohol intake: never substance use type: denies use current occupational status: other Travel in the last 8 weeks: None household members: other housing: house current occupational exposures/hazards: No caffeine: Yes PM Subjective & Objective Subjective Subjective:: Patient is a pleasant 73-year-old female who presents today for medication refill. Today she rates her pain a 7 out of 10. She denies any new trauma or injury. Patient does state that from our last conversation about decreasing her Cymbalta to once a day that that did seem to improve a lot of her fatigue she was having during the middle of the day. Patient states that she does not need refills on this medication at this time. She is also managed with [place] 10 mg 3 times a day. She denies any side effects from this medication. Her Catrachito has been reviewed and is appropriate. Review of Systems: General: No recent weight changes, no fever, no sleep disturbances Respiratory: No cough, no shortness of air, no recurring pulmonary infections Cardiovascular/peripheral vascular: No chest pain, no palpitations, no edema, no shortness of breath Gastrointestinal: No new onset incontinence, normal bowel movements reported Genitourinary: No new onset incontinence Musculoskeletal: Bilateral knee pain Psychiatric: [Normal mood/affect] Neurological: [Denies weakness in extremities], [denies balance issues] Pain at rest (0-10 scale): 7 Objective Objective:: Physical Exam: General: Alert and oriented x3, no acute distress, pleasant and cooperative Lungs: Respirations even and unlabored, symmetrical chest expansion Eyes: PERRL Musculoskeletal: Flexion and extension of bilateral knees somewhat guarded secondary to pain, [antalgic gait noted] Neurological: Speech clear, no gross sensory deficit Has patient had previous pain injection?: No Conservative treatment options previously tried: Home exercise plan Length of treatment: Longer than 6 weeks Meds Home Medications and Allergies Home Medications ?Medication ?Instructions ?Recorded ?Confirmed ?Type ipratropium 20 mcg-albuterol 100 1 puff inhalation BID PRN . 07/22/17 05/01/24 History mcg/actuation mist for inhalation fluticasone propionate 50 2 spray intranasal DAILY #3 ea 12/20/23 05/01/24 Rx mcg/actuation nasal spray,suspension (Flonase Allergy Relief) hydroxyzine HCl 25 mg tablet 25 mg PO TID PRN itching #90 tabs 12/20/23 05/01/24 Rx olopatadine 0.2 % eye drops 1 drp ophthalmic (eye) Q24H PRN 12/20/23 05/01/24 Rx itching #2.5 mL diltiazem HCl 120 mg 120 mg PO DAILY 90 days #90 tabs 01/14/24 05/01/24 Rx tablet,extended release 24 hr losartan 50 mg-hydrochlorothiazide 1 tab PO DAILY blood pressure #90 03/07/24 05/01/24 Rx 12.5 mg tablet tabs spironolactone 50 mg tablet 25 mg (1/2 x 50 mg) PO DAILY bp 90 03/13/24 05/01/24 Rx days #45 tabs atorvastatin 20 mg tablet 20 mg PO DAILY Cholesterol #90 tabs 03/27/24 05/01/24 Rx montelukast 10 mg tablet 10 mg PO DAILY allergies #90 tabs 03/27/24 05/01/24 Rx (Singulair) rivaroxaban 20 mg tablet 20 mg PO QDAY Blood thinner #90 03/27/24 05/01/24 Rx tabs hydrocodone 10 mg-acetaminophen 1 tab PO TID #12 tabs 04/17/24 05/01/24 Rx 325 mg tablet duloxetine 30 mg capsule,delayed 30 mg PO BID 04/18/24 05/01/24 History release (Cymbalta) New Prescriptions to Start Prescriptions: Allergies Allergy/AdvReac Type Severity Reaction Status Date / Time No Known Allergies Allergy Verified 04/19/24 10:14 Assessment and Plan *Assessment and plan (1) Bilateral knee pain: Status: Acute Qualifiers: Chronicity: chronic Qualified Code(s): M25.561 - Pain in right knee; M25.562 - Pain in left knee; G89.29 - Other chronic pain Category: Medical Code(s): M25.561 - Pain in right knee; M25.562 - Pain in left knee Plan I will refill the patient's [place] and provide a 1 month supply of this medication. Patient will return to clinic in 1 month for reevaluation of symptoms and plan of care. Risks and benefits of the medication have been explained in detail to the patient. The patient does understand the risk of dependence on the medication when given over a prolonged period. Patient has been advised of risks of oversedation with the prescribed medication. Narcan has been offered to the paitent in the event of oversedation. Patient has been advised that a family member should also be educated regarding administration of Narcan. The patient has been advised to consult with his/her primary care provider and pharmacist regarding drug-drug interaction of medications currently prescribed. Patient has been prescribed a controlled substance after being counseled on the medication, medication safety, and possible side effects. Opioid contract was reviewed and signed by the patient, and that they have agreed to all of the terms set forth by our compliance program. Patient has been instructed to contact the clinic with any concerns before the next appointment. Dr. Soto has reviewed this note and agrees with this plan of care. This note was dictated using voice recognition software and make contain errors or omissions.
== END 2024-05-01 23:59 | disposition home or self-care (01) ==
PROVIDERS: PCP Nurse Practitioner Family; Visit Provider Nurse Practitioner Family
DX: M25.561 Pain in right knee (principal); M25.562 Pain in left knee; G89.29 Other chronic pain
CPT/HCPCS: 99212; G0463

== ENCOUNTER 2024-05-29 11:24 | Outpatient (POV) | payer MEDICARE, OTHER, SELFPAY ==
[2024-05-29 11:45] VITALS: BP 164/77; PULSE 77; RESP 16; O2SAT 100; BMI 37.4
--- NOTE | 2024-05-29 12:16 | EXP.PAIN.SOA ---
[facility] Disclaimer: The information contained in this section may have been updated after the patient was seen, as this information can be updated by other users. Medical History Abnormal cardiovascular stress test Fibromyalgia Hyperlipidemia Wheezing Dizziness Fatigue Likely multifactorial in the setting of sleep apnea, chronic pain, narcotic therapy, COPD. 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 ORION (obstructive sleep apnea) Hypertensive heart disease Essential hypertension PAF (paroxysmal atrial fibrillation) Surgical History History of partial hysterectomy History of cardiac radiofrequency ablation Family History Other Coronary artery disease Hypertension Social History Smoking Status: Never smoker alcohol intake: never substance use type: denies use current occupational status: other Travel in the last 8 weeks: None household members: other housing: house current occupational exposures/hazards: No caffeine: Yes PM Subjective & Objective Subjective Subjective:: Patient is a pleasant 74-year-old female who presents today for medication refill and worsening pain. Today she rates her pain a 6 out of 10. She denies any new trauma or injury. She does state that she continues to have the chronic low back pain as well as right knee pain. Patient does state that the right knee has started to become much more problematic and causing worsening pain. Patient did previously have a genicular ablation of this joint back in June of last year. Patient did have overall improvement in function and able to move around easier following that procedure. Patient does state that she is interested in repeating this procedure as the pain has came back and is interfering with her ability perform activities of daily living such as cooking and cleaning. Patient does state that the last 1 she needs to call and verify that her insurance did cover it. Patient is currently managed with Cymbalta 30 mg daily and [place] 10 mg 3 times a day. She denies any side effects from this medication. She does state that she is trying to wean herself down off the Cymbalta and will let us know if she needs refills on this medication in future. Her Catrachito has been reviewed and is appropriate. Review of Systems: General: No recent weight changes, no fever, no sleep disturbances Respiratory: No cough, no shortness of air, no recurring pulmonary infections Cardiovascular/peripheral vascular: No chest pain, no palpitations, no edema, no shortness of breath Gastrointestinal: No new onset incontinence, normal bowel movements reported Genitourinary: No new onset incontinence Musculoskeletal: Right knee pain Psychiatric: [Normal mood/affect] Neurological: [Denies weakness in extremities], [denies balance issues] Pain at rest (0-10 scale): 6 Objective Objective:: Physical Exam: General: Alert and oriented x3, no acute distress, pleasant and cooperative Lungs: Respirations even and unlabored, symmetrical chest expansion Eyes: PERRL Musculoskeletal: Flexion and extension of right knee somewhat guarded secondary to pain, [antalgic gait noted] Neurological: Speech clear, no gross sensory deficit Has patient had previous pain injection?: No Conservative treatment options previously tried: Home exercise plan Length of treatment: Longer than 12 weeks Meds Home Medications and Allergies Home Medications ?Medication ?Instructions ?Recorded ?Confirmed ?Type ipratropium 20 mcg-albuterol 100 1 puff inhalation BID PRN . 07/22/17 05/29/24 History mcg/actuation mist for inhalation fluticasone propionate 50 2 spray intranasal DAILY #3 ea 12/20/23 05/29/24 Rx mcg/actuation nasal spray,suspension (Flonase Allergy Relief) hydroxyzine HCl 25 mg tablet 25 mg PO TID PRN itching #90 tabs 12/20/23 05/29/24 Rx olopatadine 0.2 % eye drops 1 drp ophthalmic (eye) Q24H PRN 12/20/23 05/29/24 Rx itching #2.5 mL diltiazem HCl 120 mg 120 mg PO DAILY 90 days #90 tabs 01/14/24 05/29/24 Rx tablet,extended release 24 hr losartan 50 mg-hydrochlorothiazide 1 tab PO DAILY blood pressure #90 03/07/24 05/29/24 Rx 12.5 mg tablet tabs spironolactone 50 mg tablet 25 mg (1/2 x 50 mg) PO DAILY bp 90 03/13/24 05/29/24 Rx days #45 tabs atorvastatin 20 mg tablet 20 mg PO DAILY Cholesterol #90 tabs 03/27/24 05/29/24 Rx montelukast 10 mg tablet 10 mg PO DAILY allergies #90 tabs 03/27/24 05/29/24 Rx (Singulair) rivaroxaban 20 mg tablet 20 mg PO QDAY Blood thinner #90 03/27/24 05/29/24 Rx tabs hydrocodone 10 mg-acetaminophen 1 tab PO TID #90 tabs 05/01/24 05/29/24 Rx 325 mg tablet New Prescriptions to Start Prescriptions: Allergies Allergy/AdvReac Type Severity Reaction Status Date / Time No Known Allergies Allergy Verified 05/15/24 10:16 Assessment and Plan *Assessment and plan (1) Bilateral knee pain: Status: Acute Qualifiers: Chronicity: chronic Qualified Code(s): M25.561 - Pain in right knee; M25.562 - Pain in left knee; G89.29 - Other chronic pain Category: Medical Code(s): M25.561 - Pain in right knee; M25.562 - Pain in left knee Plan I did discuss with the patient that she may benefit from a repeat right genicular ablation. Risk and benefits were discussed with patient and she would like to proceed forward with this plan of care. Patient is having worsening pain in her right knee with limited range of motion. Patient did previously have the genicular ablation on June 29, 2023 that did provide 80% relief and has really helped up until the last couple of months. Patient has continued at home stretching exercise for longer than 12 weeks with no additional improvements. I will submit for the right genicular ablation under fluoroscopy. Patient was counseled that if she ends up finding out that her insurance no longer covers this procedure we can submit for a right infrapatellar nerve block in place. Patient agrees with this plan of care and will let us know. I will refill the patient's Chili and provide a 1 month supply of this medication. Risks and benefits of the medication have been explained in detail to the patient. The patient does understand the risk of dependence on the medication when given over a prolonged period. Patient has been advised of risks of oversedation with the prescribed medication. Narcan has been offered to the paitent in the event of oversedation. Patient has been advised that a family member should also be educated regarding administration of Narcan. The patient has been advised to consult with his/her primary care provider and pharmacist regarding drug-drug interaction of medications currently prescribed. Patient has been prescribed a controlled substance after being counseled on the medication, medication safety, and possible side effects. Opioid contract was reviewed and signed by the patient, and that they have agreed to all of the terms set forth by our compliance program. Patient has been instructed to contact the clinic with any concerns before the next appointment. Dr. Soto has reviewed this note and agrees with this plan of care. This note was dictated using voice recognition software and make contain errors or omissions.
== END 2024-05-29 23:59 | disposition home or self-care (01) ==
PROVIDERS: PCP Nurse Practitioner Family; Visit Provider Nurse Practitioner Family
DX: M25.561 Pain in right knee (principal); M25.562 Pain in left knee; G89.29 Other chronic pain; Z73.89 Other problems related to life management difficulty
CPT/HCPCS: 99212; G0463

== ENCOUNTER 2024-06-27 13:06 | Day surgery (SDC) | payer MEDICARE, OTHER, SELFPAY ==
[2024-06-27 13:24] VITALS: BP 125/42; PULSE 75; RESP 16; TEMP 36.3; O2SAT 99; BMI 37.8
[2024-06-27] MEDS: BUPIVACAINE 0.25% 10ML INJ 25 MG IJ (13:42)
[2024-06-27] MEDS: LIDOCAINE 1% 5ML PF VIAL 10 ML (13:43)
[2024-06-27] MEDS: methylPREDNISolone ACETATE 80MG/ML VIAL 80 MG (13:45)
--- NOTE | 2024-06-27 13:45 | P.PCN_ITS ---
Procedure Date: 06/27/24 Time: 13:40 Anesthesiologist:: Vic Zarco CRNA Complications:: None Pre-procedure Diagnosis:: DJD right knee. Chronic right knee pain. Post-procedure Diagnosis:: Same. Indications for Procedure:: Patient is a very pleasant 74-year-old female who comes our clinic today for right knee genicular nerve radiofrequency ablation. Patient had the same procedure 1 year ago. She has been doing very well since her previous RFA. She describes right knee pain as constant, dull, aching. She rates her pain 6/10. Procedure Details:: Informed consent was obtained risk and benefits of the procedure were explained to the patient. Patient was taken the procedure room. The right knee was prepped using ChloraPrep. The skin and subcutaneous tissues were anesthetized using lidocaine. I placed 20-gauge RF needles into the superior lateral genicular nerve area of the superior medial genicular nerve area and inferior medial genicular nerve area we underwent sensory stimulation. There is good sensory stimulation at 1 V. We underwent motor stimulation. There was no motor stimulation at 3 V. We then anesthetized all 3 nerves with bupivacaine and Depo- Medrol. We then burned each genicular nerve superior lateral, superior medial and inferior medial 80 ?C for 4 minutes. Patient tolerated procedure well with no complications. Plan and Disposition:: Patient was discharged without incident.
[2024-06-27 13:54] VITALS: BP 155/65; PULSE 73; RESP 18; O2SAT 98
[2024-06-27 13:57] VITALS: BP 139/56; PULSE 66; RESP 16; TEMP 36.8; O2SAT 96
[2024-06-27 14:04] VITALS: BP 155/65; PULSE 73; RESP 18; O2SAT 98
== END 2024-06-27 13:57 | disposition home or self-care (01) ==
PROVIDERS: PCP Nurse Practitioner Family; Visit Provider Nurse Anesthetist, Certified Registered
DX: M17.11 Unilateral primary osteoarthritis, right knee (principal); M25.561 Pain in right knee; G89.29 Other chronic pain
CPT/HCPCS: 64624; J1010

== ENCOUNTER 2024-08-02 11:15 | Outpatient (POV) | payer MEDICARE, OTHER, SELFPAY ==
[2024-08-02 11:44] VITALS: BP 129/63; PULSE 71; RESP 14; O2SAT 99; BMI 37.4
--- NOTE | 2024-08-02 11:51 | A.OFFVIS_ITS ---
[facility] Disclaimer: The information contained in this section may have been updated after the patient was seen, as this information can be updated by other users. Medical History Abnormal cardiovascular stress test Fibromyalgia Hyperlipidemia Wheezing Dizziness Fatigue Likely multifactorial in the setting of sleep apnea, chronic pain, narcotic therapy, COPD. 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 ORION (obstructive sleep apnea) Hypertensive heart disease Essential hypertension PAF (paroxysmal atrial fibrillation) Surgical History History of partial hysterectomy History of cardiac radiofrequency ablation Family History Other Coronary artery disease Hypertension Social History Smoking Status: Never smoker alcohol intake: never substance use type: denies use current occupational status: other Travel in the last 8 weeks: None household members: other housing: house current occupational exposures/hazards: No caffeine: Yes PM Subjective & Objective Subjective Subjective:: Patient is a pleasant 74-year-old female who presents today for follow-up of right genicular RFA on 06/27/2024. Today she rates her pain a 8 out of 10. Patient states this pain is all more related to her low back and not her knee pain. She states that she has had 100% improvement the day of this procedure and has continued to get 90% pain relief along the right knee. She does state that her left knee is still maintaining as well and does not require any additional injections at this time. Patient is currently managed with [place] 10 mg 3 times a day from our office and Cymbalta 30 mg daily. Patient is still in the process of weaning herself down off the Cymbalta and states that she is doing every other day and does not need refills. Her Catrachito has been reviewed and is appropriate. Review of Systems: General: No recent weight changes, no fever, no sleep disturbances Respiratory: No cough, no shortness of air, no recurring pulmonary infections Cardiovascular/peripheral vascular: No chest pain, no palpitations, no edema, no shortness of breath Gastrointestinal: No new onset incontinence, normal bowel movements reported Genitourinary: No new onset incontinence Musculoskeletal: Low back pain Psychiatric: [Normal mood/affect] Neurological: [Denies weakness in extremities], [denies balance issues] Pain at rest (0-10 scale): 8 Objective Objective:: Physical Exam: General: Alert and oriented x3, no acute distress, pleasant and cooperative Lungs: Respirations even and unlabored, symmetrical chest expansion Eyes: PERRL Musculoskeletal: Flexion and extension of lumbar [spine] somewhat guarded secondary to pain, [antalgic gait noted] Neurological: Speech clear, no gross sensory deficit Has patient had previous pain injection?: Yes Percent improvement in pain since last injection: 100% to 90% Conservative treatment options previously tried: Home exercise plan Length of treatment: Longer than 12 weeks Meds Home Medications and Allergies Home Medications ?Medication ?Instructions ?Recorded ?Confirmed ?Type ipratropium 20 mcg-albuterol 100 1 puff inhalation BID PRN . 07/22/17 08/02/24 History mcg/actuation mist for inhalation fluticasone propionate 50 2 spray intranasal DAILY #3 ea 12/20/23 08/02/24 Rx mcg/actuation nasal spray,suspension (Flonase Allergy Relief) hydroxyzine HCl 25 mg tablet 25 mg PO TID PRN itching #90 tabs 12/20/23 08/02/24 Rx olopatadine 0.2 % eye drops 1 drp ophthalmic (eye) Q24H PRN 12/20/23 08/02/24 Rx itching #2.5 mL losartan 50 mg-hydrochlorothiazide 1 tab PO DAILY blood pressure #90 03/07/24 08/02/24 Rx 12.5 mg tablet tabs atorvastatin 20 mg tablet 20 mg PO DAILY Cholesterol #90 tabs 03/27/24 08/02/24 Rx montelukast 10 mg tablet 10 mg PO DAILY allergies #90 tabs 03/27/24 08/02/24 Rx (Singulair) rivaroxaban 20 mg tablet 20 mg PO QDAY Blood thinner #90 03/27/24 08/02/24 Rx tabs hydrocodone 10 mg-acetaminophen 1 tab PO TID #90 tabs 06/27/24 08/02/24 Rx 325 mg tablet spironolactone 50 mg tablet 25 mg (1/2 x 50 mg) PO DAILY bp 90 07/04/24 08/02/24 Rx days #45 tabs diltiazem HCl 120 mg 120 mg PO DAILY 90 days #90 tabs 07/24/24 08/02/24 Rx tablet,extended release 24 hr hydrocodone 10 mg-acetaminophen 1 tab PO TID #18 tabs 07/25/24 08/02/24 Rx 325 mg tablet New Prescriptions to Start Prescriptions: Allergies Allergy/AdvReac Type Severity Reaction Status Date / Time No Known Allergies Allergy Verified 05/15/24 10:16 Assessment and Plan *Assessment and plan (1) Lumbar radiculopathy: Status: Acute Category: Medical Code(s): M54.16 - Radiculopathy, lumbar region (2) Degenerative disc disease, lumbar: Status: Acute Category: Medical Code(s): M51.369 - Other intervertebral disc degeneration, lumbar region without mention of lumbar back pain or lower extremity pain (3) Bilateral knee pain: Status: Acute Qualifiers: Chronicity: chronic Qualified Code(s): M25.561 - Pain in right knee; M25.562 - Pain in left knee; G89.29 - Other chronic pain Category: Medical Code(s): M25.561 - Pain in right knee; M25.562 - Pain in left knee Plan Patient has had significant improvement following her right genicular RFA and does not require any additional interventions at this time. I will refill the patient's [place] and provide a 1 month supply of this medication. Patient will return to clinic in 1 month for reevaluation of symptoms and plan of care. Risks and benefits of the medication have been explained in detail to the patient. The patient does understand the risk of dependence on the medication when given over a prolonged period. Patient has been advised of risks of oversedation with the prescribed medication. Narcan has been offered to the paitent in the event of oversedation. Patient has been advised that a family member should also be educated regarding administration of Narcan. The patient has been advised to consult with his/her primary care provider and pharmacist regarding drug-drug interaction of medications currently prescribed. Patient has been prescribed a controlled substance after being counseled on the medication, medication safety, and possible side effects. Opioid contract was reviewed and signed by the patient, and that they have agreed to all of the terms set forth by our compliance program. A UDS is needed to verify patient's compliance with our office pain contract. This is ordered based off specific treatments related to chronic pain with the potential to abuse certain medications. Patient has been instructed to contact the clinic with any concerns before the next appointment. Dr. Soto has reviewed this note and agrees with this plan of care. This note was dictated using voice recognition software and make contain errors or omissions.
== END 2024-08-02 23:59 | disposition home or self-care (01) ==
PROVIDERS: PCP Nurse Practitioner Family; Visit Provider Nurse Practitioner Family
DX: M51.16 Intervertebral disc disorders with radiculopathy, lumbar region (principal); M25.561 Pain in right knee; M25.562 Pain in left knee; G89.29 Other chronic pain
CPT/HCPCS: 99212; G0463

== ENCOUNTER 2024-08-31 10:30 | Outpatient (POV) | payer MEDICARE, OTHER, SELFPAY ==
--- NOTE | 2024-08-31 10:59 | EXP.PAIN.SOA ---
[facility] Disclaimer: The information contained in this section may have been updated after the patient was seen, as this information can be updated by other users. 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 ORION (obstructive sleep apnea) Hypertensive heart disease Essential hypertension PAF (paroxysmal atrial fibrillation) Surgical History History of partial hysterectomy History of cardiac radiofrequency ablation Family History Other Coronary artery disease Hypertension Social History Smoking Status: Never smoker alcohol intake: never substance use type: denies use current occupational status: other Travel in the last 8 weeks: None household members: other housing: house current occupational exposures/hazards: No caffeine: Yes PM Subjective & Objective Subjective Subjective:: Patient is a pleasant 74-year-old female who presents today for medication refill and worsening pain in her left knee. Today she rates her pain a 7 out of 10. She denies any new trauma or injury. She does feel like she does officially need to get scheduled for her next genicular RFA on that left knee. She feels like it is gotten more severe to where it is interfering with her ability to perform activities of daily living such as cooking and cleaning. Patient states the pain is constant and she does feel like she is starting to favor the right knee because of it. She also states she is starting to have more pain in her right shoulder and would like to see it about injections in future for it as well. Patient is currently managed with [place] 10 mg 3 times a day from our office and was weaning herself off the Cymbalta 30 mg daily. Patient does not need any refills on the Cymbalta. She denies any side effects on the [place]. Her Catrachito has been reviewed and is appropriate. Review of Systems: General: No recent weight changes, no fever, no sleep disturbances Respiratory: No cough, no shortness of air, no recurring pulmonary infections Cardiovascular/peripheral vascular: No chest pain, no palpitations, no edema, no shortness of breath Gastrointestinal: No new onset incontinence, normal bowel movements reported Genitourinary: No new onset incontinence Musculoskeletal: Left knee pain, right shoulder pain Psychiatric: [Normal mood/affect] Neurological: [Denies weakness in extremities], [denies balance issues] Pain at rest (0-10 scale): 7 Objective Objective:: She states physical Exam: General: Alert and oriented x3, no acute distress, pleasant and cooperative Lungs: Respirations even and unlabored, symmetrical chest expansion Eyes: PERRL Musculoskeletal: Flexion and extension of left knee somewhat guarded secondary to pain, [antalgic gait noted] Neurological: Speech clear, no gross sensory deficit Has patient had previous pain injection?: No Conservative treatment options previously tried: Home exercise plan Length of treatment: Longer than 12 weeks Meds Home Medications and Allergies Home Medications ?Medication ?Instructions ?Recorded ?Confirmed ?Type ipratropium 20 mcg-albuterol 100 1 puff inhalation BID PRN . 07/22/17 08/22/24 History mcg/actuation mist for inhalation fluticasone propionate 50 2 spray intranasal DAILY #3 ea 12/20/23 08/22/24 Rx mcg/actuation nasal spray,suspension (Flonase Allergy Relief) hydroxyzine HCl 25 mg tablet 25 mg PO TID PRN itching #90 tabs 12/20/23 08/22/24 Rx olopatadine 0.2 % eye drops 1 drp ophthalmic (eye) Q24H PRN 12/20/23 08/22/24 Rx itching #2.5 mL losartan 50 mg-hydrochlorothiazide 1 tab PO DAILY blood pressure #90 03/07/24 08/22/24 Rx 12.5 mg tablet tabs atorvastatin 20 mg tablet 20 mg PO DAILY Cholesterol #90 tabs 03/27/24 08/22/24 Rx montelukast 10 mg tablet 10 mg PO DAILY allergies #90 tabs 03/27/24 08/22/24 Rx (Singulair) rivaroxaban 20 mg tablet 20 mg PO QDAY Blood thinner #90 03/27/24 08/22/24 Rx tabs spironolactone 50 mg tablet 25 mg (1/2 x 50 mg) PO DAILY bp 90 07/04/24 08/22/24 Rx days #45 tabs diltiazem HCl 120 mg 120 mg PO DAILY 90 days #90 tabs 07/24/24 08/22/24 Rx tablet,extended release 24 hr hydrocodone 10 mg-acetaminophen 1 tab PO TID #18 tabs 07/25/24 08/22/24 Rx 325 mg tablet hydrocodone 10 mg-acetaminophen 1 tab PO TID #90 tabs 08/02/24 08/22/24 Rx 325 mg tablet acyclovir 5 % topical ointment 1 applic topical 6XD 7 days #30 08/22/24 08/22/24 Rx grams oseltamivir 75 mg capsule (Tamiflu) 75 mg PO DAILY 10 days #10 caps 08/28/24 Rx New Prescriptions to Start Prescriptions: Allergies Allergy/AdvReac Type Severity Reaction Status Date / Time No Known Allergies Allergy Verified 08/22/24 14:57 Assessment and Plan *Assessment and plan (1) Bilateral knee pain: Status: Acute Qualifiers: Chronicity: chronic Qualified Code(s): M25.561 - Pain in right knee; M25.562 - Pain in left knee; G89.29 - Other chronic pain Category: Medical Code(s): M25.561 - Pain in right knee; M25.562 - Pain in left knee (2) Right shoulder pain: Status: Acute Category: Medical Code(s): M25.511 - Pain in right shoulder Plan Patient is experiencing worsening pain in her left knee with very limited range of motion. Patient has had a left knee genicular RFA in the past that did provide 90% improvement back in August 2023. It is lasted up until the last month or so. I did review over risk and benefits of repeat genicular RFA and she would like to proceed forward with this plan of care. Patient has done very successful with the genicular RFA's for both of her knees and does get improved function with overall deep creased pain. I will refill the patient's [place] and provide a 1 month supply. Patient will be scheduled for a left genicular RFA under fluoroscopy. After we do proceed forward and get this taken care of we will plan on doing a shoulder injection on the right side after at a later date. Risks and benefits of the medication have been explained in detail to the patient. The patient does understand the risk of dependence on the medication when given over a prolonged period. Patient has been advised of risks of oversedation with the prescribed medication. Narcan has been offered to the paitent in the event of oversedation. Patient has been advised that a family member should also be educated regarding administration of Narcan. The patient has been advised to consult with his/her primary care provider and pharmacist regarding drug-drug interaction of medications currently prescribed. Patient has been prescribed a controlled substance after being counseled on the medication, medication safety, and possible side effects. Opioid contract was reviewed and signed by the patient, and that they have agreed to all of the terms set forth by our compliance program. A UDS is needed to verify patient's compliance with our office pain contract. This is ordered based off specific treatments related to chronic pain with the potential to abuse certain medications. Patient has been instructed to contact the clinic with any concerns before the next appointment. Dr. Soto has reviewed this note and agrees with this plan of care. This note was dictated using voice recognition software and make contain errors or omissions.
[2024-08-31 13:26] VITALS: BP 101/53; PULSE 59; RESP 18; O2SAT 98; BMI 38.6
== END 2024-08-31 23:59 | disposition home or self-care (01) ==
PROVIDERS: PCP Nurse Practitioner Family; Visit Provider Nurse Practitioner Family
DX: M25.561 Pain in right knee (principal); M25.562 Pain in left knee; G89.29 Other chronic pain; M25.511 Pain in right shoulder; Z73.89 Other problems related to life management difficulty; Z79.899 Other long term (current) drug therapy
CPT/HCPCS: 99202; 99212; G0463

== ENCOUNTER 2024-09-22 11:03 | Outpatient (CLI) | payer MEDICARE, OTHER, SELFPAY ==
--- NOTE | 2024-09-22 11:06 | XR_ITS ---
FINAL REPORT CLINICAL HISTORY: Foot Pain COMPARISON: None FINDINGS: LEFT FOOT: Three views demonstrate moderate to severe degenerative change of the first MTP joint. A mild hallux valgus deformity is noted. There are moderate degenerative changes present in the midfoot. Moderate calcaneal spurring is present. IMPRESSION: Degenerative changes as described without acute bony abnormality. Reviewed, Interpreted and Dictated by Chani Zavaleta MD Transcribed by Bev Mccallum Authenticated and [facility]
--- NOTE | 2024-09-22 11:06 | XR_ITS ---
FINAL REPORT CLINICAL HISTORY: Foot Pain COMPARISON: None FINDINGS: RIGHT FOOT Three views demonstrate moderate to severe degenerative change of the first MTP joint. A mild hallux valgus deformity is present. There are moderate degenerative changes seen in the midfoot. A moderate calcaneal spur is noted. IMPRESSION: Degenerative changes as described without acute bony abnormality. Reviewed, Interpreted and Dictated by Chani Zavaleta MD Transcribed by Bev Mccallum Authenticated and . [facility]
== END 2024-09-22 23:59 | disposition home or self-care (01) ==
LOC: RAD 11:04
PROVIDERS: PCP Nurse Practitioner Family; Visit Provider Nurse Practitioner Family
DX: M79.671 Pain in right foot (principal); M79.672 Pain in left foot
CPT/HCPCS: 73630

== ENCOUNTER 2024-09-26 09:33 | Day surgery (SDC) | payer MEDICARE, OTHER, SELFPAY ==
[2024-09-26 09:44] VITALS: BP 128/67; PULSE 71; RESP 16; TEMP 36.8; O2SAT 99; BMI 39.4
--- NOTE | 2024-09-26 10:05 | P.PCN_ITS ---
Procedure Date: 09/26/24 Time: 09:50 Anesthesiologist:: Vic Zarco CRNA Complications:: None Pre-procedure Diagnosis:: DJD left knee. Chronic left knee pain. Post-procedure Diagnosis:: Same. Indications for Procedure:: Patient is a very pleasant 74-year-old female who comes our clinic today for left genicular nerve radiofrequency ablation. Patient has responded very well to left genicular knee blocks in the past. She rates her pain 7/10. Procedure Details:: Informed consent was obtained risk and benefits of the procedure were explained to the patient. Patient was taken the procedure room. The left knee was prepped using ChloraPrep. The skin and subcutaneous tissues were anesthetized using lidocaine. I placed 20-gauge RF needles into the superior lateral genicular nerve area of the superior medial genicular nerve area and inferior medial genicular nerve area we underwent sensory stimulation. There is good sensory stimulation at 1 V. We underwent motor stimulation. There was no motor stimulation at 3 V. We then anesthetized all 3 nerves with bupivacaine and Depo- Medrol. We then burned each genicular nerve superior lateral, superior medial and inferior medial 80 ?C for 4 minutes. Patient tolerated procedure well with no complications. Plan and Disposition:: Patient was discharged without incident.
[2024-09-26 10:11] VITALS: BP 163/73; PULSE 63; RESP 16; O2SAT 98
[2024-09-26] MEDS: BUPIVACAINE 0.25% 10ML INJ 25 MG IJ (11:51)
[2024-09-26 11:52] VITALS: BP 128/67; PULSE 71; RESP 18; O2SAT 99
[2024-09-26] MEDS: LIDOCAINE 1% 5ML PF VIAL 5 ML (11:52)
[2024-09-26] MEDS: methylPREDNISolone ACETATE 80MG/ML VIAL 80 MG (11:52)
[2024-09-26 11:54] VITALS: BP 128/67; PULSE 71; RESP 18; O2SAT 99
== END 2024-09-26 10:11 | disposition home or self-care (01) ==
PROVIDERS: PCP Nurse Practitioner Family; Visit Provider Nurse Anesthetist, Certified Registered
DX: M17.12 Unilateral primary osteoarthritis, left knee (principal); M25.562 Pain in left knee; G89.29 Other chronic pain
CPT/HCPCS: 64624; J1010

== ENCOUNTER 2024-09-27 13:01 | Outpatient (CLI) | payer MEDICARE, OTHER, SELFPAY ==
--- NOTE | 2024-09-27 13:06 | US_ITS ---
FINAL REPORT CLINICAL HISTORY: Decreased Pedal Pulses, HTN, HLD FINDINGS: ANKLE-BRACHIAL PRESSURE INDICES Pressure indices are as follows: RIGHT LOWER EXTREMITY: Ankle-brachial pressure index: 1.2 Comments: Normal LEFT LOWER EXTREMITY: Ankle-brachial pressure index: 1.2 Comments: Normal IMPRESSION: No evidence of significant obstructive peripheral vascular disease of the lower extremities Reviewed, Interpreted and Dictated by Jl Kitchen MD Transcribed by Sheron Marie Authenticated and [facility]
== END 2024-09-27 23:59 | disposition home or self-care (01) ==
LOC: RT 13:02
PROVIDERS: PCP Nurse Practitioner Family; Visit Provider Podiatrist
DX: R09.89 Other specified symptoms and signs involving the circulatory and respiratory systems (principal)
CPT/HCPCS: 93923

== ENCOUNTER 2024-10-09 11:28 | Outpatient (POV) | payer MEDICARE, OTHER, SELFPAY ==
[2024-10-09 11:50] VITALS: BP 131/63; PULSE 68; RESP 16; O2SAT 98; BMI 38.2
--- NOTE | 2024-10-09 12:29 | EXP.PAIN.SOA ---
[facility] Disclaimer: The information contained in this section may have been updated after the patient was seen, as this information can be updated by other users. 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 ORION (obstructive sleep apnea) Hypertensive heart disease Essential hypertension PAF (paroxysmal atrial fibrillation) Surgical History History of partial hysterectomy History of cardiac radiofrequency ablation Family History Other Coronary artery disease Hypertension Social History Smoking Status: Never smoker alcohol intake: never substance use type: denies use current occupational status: other Travel in the last 8 weeks: None household members: other housing: house current occupational exposures/hazards: No caffeine: Yes PM Subjective & Objective Subjective Subjective:: Patient is a pleasant 74-year-old female who presents today for follow-up of left genicular RFA on 09/26/2024. Today she rates her pain a 4 out of 10. Patient does state that she had approximately 90 to 95% improvement following this procedure and feels like it is still working wonderful. Patient does also make mention that she recently had bilateral feet injections with her primary care and that those did help as well. Patient does make mention today that she did start having severe pain in her mid back over the last few weeks and that her primary care did specify that these were trigger points. Patient states this has been a chronic issue however she has not had this come back about 4 years. Patient states that the pain when it was severe was interfering with her ability perform activities of daily living such as cooking and cleaning. Patient does state that the pain did ease off and is not as bothersome currently. She does state that massage and pressure does seem to help with this. Patient is currently managed with [place] 10 mg 3 times a day from our office and Cymbalta 30 mg daily. Patient has been weaning herself off the Cymbalta. Her Catrachito has been reviewed and is appropriate. Review of Systems: General: No recent weight changes, no fever, no sleep disturbances Respiratory: No cough, no shortness of air, no recurring pulmonary infections Cardiovascular/peripheral vascular: No chest pain, no palpitations, no edema, no shortness of breath Gastrointestinal: No new onset incontinence, normal bowel movements reported Genitourinary: No new onset incontinence Musculoskeletal: Mid back pain Psychiatric: [Normal mood/affect] Neurological: [Denies weakness in extremities], [denies balance issues] Pain at rest (0-10 scale): 4 Objective Objective:: Physical Exam: General: Alert and oriented x3, no acute distress, pleasant and cooperative Lungs: Respirations even and unlabored, symmetrical chest expansion Eyes: PERRL Musculoskeletal: Flexion and extension of thoracic [spine] somewhat guarded secondary to pain, [antalgic gait noted] point tenderness along her bilateral thoracic paraspinous/latissimus muscles Neurological: Speech clear, no gross sensory deficit Has patient had previous pain injection?: Yes Percent improvement in pain since last injection: 90 to 95% improvement Conservative treatment options previously tried: Home exercise plan Length of treatment: Longer than 12 weeks Meds Home Medications and Allergies Home Medications ?Medication ?Instructions ?Recorded ?Confirmed ?Type ipratropium 20 mcg-albuterol 100 1 puff inhalation BID PRN . 07/22/17 10/09/24 History mcg/actuation mist for inhalation fluticasone propionate 50 2 spray intranasal DAILY #3 ea 12/20/23 10/09/24 Rx mcg/actuation nasal spray,suspension (Flonase Allergy Relief) olopatadine 0.2 % eye drops 1 drp ophthalmic (eye) Q24H PRN 12/20/23 10/09/24 Rx itching #2.5 mL montelukast 10 mg tablet 10 mg PO DAILY allergies #90 tabs 03/27/24 10/09/24 Rx (Singulair) rivaroxaban 20 mg tablet 20 mg PO QDAY Blood thinner #90 03/27/24 10/09/24 Rx tabs spironolactone 50 mg tablet 25 mg (1/2 x 50 mg) PO DAILY bp 90 07/04/24 10/09/24 Rx days #45 tabs hydrocodone 10 mg-acetaminophen 1 tab PO TID #18 tabs 07/25/24 10/09/24 Rx 325 mg tablet atorvastatin 20 mg tablet 20 mg PO DAILY Cholesterol #90 tabs 09/05/24 10/09/24 Rx diltiazem HCl 120 mg 120 mg PO DAILY 90 days #90 tabs 09/05/24 10/09/24 Rx tablet,extended release 24 hr losartan 50 mg-hydrochlorothiazide See Rx Instructions .Route 09/26/24 10/09/24 Rx 12.5 mg tablet (Hyzaar) .COMPLEX #90 tabs hydrocodone 10 mg-acetaminophen 1 tab PO TID #90 tabs 09/27/24 10/09/24 Rx 325 mg tablet lidocaine 5 % topical patch 1 patch topical DAILY #90 ea 10/02/24 10/09/24 Rx (Lidoderm) New Prescriptions to Start Prescriptions: Allergies Allergy/AdvReac Type Severity Reaction Status Date / Time No Known Allergies Allergy Verified 10/02/24 11:02 Assessment and Plan *Assessment and plan (1) Myofascial pain syndrome of thoracic spine: Status: Acute Category: Medical Code(s): M79.18 - Myalgia, other site Plan Patient did have point tenderness along her bilateral thoracic paraspinals muscles during today's visit. I did discuss with the patient that she may benefit from trigger point injections in future. Patient did have some improvement over the last week. I did work counselor her over the risk and benefits of these injections and did discuss that if it does start to flare back up she can call our office and schedule these injections over the phone. Patient would be scheduled for bilateral thoracic paraspinous trigger point injections without fluoroscopic or ultrasound guidance. I will refill the patient's [place] and provide a 1 month supply of this medication. Patient will be given a tentative 1 month follow-up appointment. Risks and benefits of the medication have been explained in detail to the patient. The patient does understand the risk of dependence on the medication when given over a prolonged period. Patient has been advised of risks of oversedation with the prescribed medication. Narcan has been offered to the paitent in the event of oversedation. Patient has been advised that a family member should also be educated regarding administration of Narcan. The patient has been advised to consult with his/her primary care provider and pharmacist regarding drug-drug interaction of medications currently prescribed. Patient has been prescribed a controlled substance after being counseled on the medication, medication safety, and possible side effects. Opioid contract was reviewed and signed by the patient, and that they have agreed to all of the terms set forth by our compliance program. A UDS is needed to verify patient's compliance with our office pain contract. This is ordered based off specific treatments related to chronic pain with the potential to abuse certain medications. Patient has been instructed to contact the clinic with any concerns before the next appointment. Dr. Soto has reviewed this note and agrees with this plan of care. This note was dictated using voice recognition software and make contain errors or omissions.
== END 2024-10-09 23:59 | disposition home or self-care (01) ==
PROVIDERS: PCP Nurse Practitioner Family; Visit Provider Nurse Practitioner Family
DX: M79.18 Myalgia, other site (principal); Z73.89 Other problems related to life management difficulty
CPT/HCPCS: 99212; G0463

== ENCOUNTER 2024-10-11 11:45 | Emergency (ER) | payer MEDICARE, OTHER, SELFPAY ==
--- NOTE | 2024-10-11 12:07 | PC.NURSE ---
1204hrs- electrical maintenance worker came to nurses station and advised there was a patient in the lobby that was bleeding on blood thinners. 1205hrs- patients paper towel was removed with a dry sterile dressing was placed and wrapped with coband.
[2024-10-11 12:09] VITALS: BP 135/78; PULSE 69; RESP 14; TEMP 37.4; O2SAT 100; BMI 39.1
--- NOTE | 2024-10-11 12:22 | PC.NURSE ---
1215- Patient ambulatory to triage room for initial triage. Patient is A & O x 4. No distress noted. Patient has a bandage to the right lower ferreira, bleeding is currently controlled. Positive PMS to foot. 1220- Patient ambulatory to room 12 for evaluation. Awaiting provider and orders.
--- NOTE | 2024-10-11 12:24 | HMH.EDGENADL ---
Discharge Plan Disposition Patient Disposition: Home, Self-Care Condition: Good Prescriptions Prescriptions: No Action fluticasone propionate [Flonase Allergy Relief] 50 mcg/actuation spray,suspension 2 spray intranasal DAILY Qty: 3 3RF olopatadine 0.2 % drops 1 drp ophthalmic (eye) Q24H PRN (Reason: itching) Qty: 2.5 0RF ipratropium-albuterol 20-100 mcg/actuation mist 1 puff IH BID PRN (Reason: .) lidocaine [Lidoderm] 5 % adhesive patch,medicated 1 patch topical DAILY Qty: 90 2RF Rx Instructions: leave on most painful area for up to 12 hrs montelukast [Singulair] 10 mg tablet 10 mg PO DAILY Qty: 90 1RF rivaroxaban 20 mg tablet 20 mg PO QDAY Qty: 90 1RF spironolactone 50 mg tablet 25 mg PO DAILY 90 Days Qty: 45 1RF atorvastatin 20 mg tablet 20 mg PO DAILY Qty: 90 1RF diltiazem HCl 120 mg tablet extended release 24 hr 120 mg PO DAILY 90 Days Qty: 90 1RF losartan-hydrochlorothiazide [Hyzaar] 50-12.5 mg tablet See Rx Instructions .ROUTE .COMPLEX Qty: 90 1RF Dose Instruction: TAKE ONE TABLET BY MOUTH EVERY DAY FOR BLOOD PRESSURE Rx Instructions: TAKE ONE TABLET BY MOUTH EVERY DAY FOR BLOOD PRESSURE hydrocodone-acetaminophen 10-325 mg tablet 1 tab PO TID Qty: 18 0RF hydrocodone-acetaminophen 10-325 mg tablet 1 tab PO TID Qty: 90 0RF Referrals Follow up/Referrals: Cassandra Collazo APRN [Primary Care Provider] - See instructions Activity Restrictions/Add. Instructions Additional Instructions/Restrictions: As we discussed please keep the wound clean dry and covered to protect the stitches with a nonocclusive dressing. You may wash with soap and water as normal and pat dry. If you see any signs of redness drainage increasing pain or fever in the area return for a visit. Your stitches need to stay in for at least 10 days and you may return to the [facility] PCP or the ER to have your stitches removed. Clinical Impressions Clinical Impression: Laceration of lower leg, right Qualifiers: Encounter type: initial encounter Qualified Code(s): S81.811A - Laceration without foreign body, right lower leg, initial encounter Instructions Patient Instructions: DI for Laceration Repair Print Language Print Language: Moldovan Discharge ED Provider: Francis Massey General Adult HPI <BETTY Hinojosa - Last Filed: 10/11/24 13:11> General Chief complaint: Wound/Laceration Stated complaint: AO 10/11 1130 dropped battery on Rft cut Time Seen by Provider: 10/11/24 12:24 Mode of Arrival: Ambulatory Source of Information: Patient Description of Symptoms (Recalled from ER Triage Doc. 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 Reports laceration to the right lower leg. Bleeding is currently controlled with a bandage. History of Present Illness HPI narrative: Patient presents for a right lower extremity laceration. Patient dropped a lawnmower battery and it struck the anterior portion of her right ferreira causing a skin tear/laceration. She denies any numbness tingling she denies any other injury and she no loss of motor or sensory. Related Data Home Medications ?Medication ?Instructions ?Recorded ?Confirmed ipratropium 20 mcg-albuterol 100 1 puff inhalation BID PRN . 07/22/17 10/11/24 mcg/actuation mist for inhalation Previous Rx's ?Medication ?Instructions ?Recorded fluticasone propionate 50 2 spray intranasal DAILY #3 ea 12/20/23 mcg/actuation nasal spray,suspension (Flonase Allergy Relief) olopatadine 0.2 % eye drops 1 drp ophthalmic (eye) Q24H PRN 12/20/23 itching #2.5 mL montelukast 10 mg tablet 10 mg PO DAILY allergies #90 tabs 03/27/24 (Singulair) rivaroxaban 20 mg tablet 20 mg PO QDAY Blood thinner #90 03/27/24 tabs spironolactone 50 mg tablet 25 mg (1/2 x 50 mg) PO DAILY bp 90 07/04/24 days #45 tabs hydrocodone 10 mg-acetaminophen 1 tab PO TID #18 tabs 07/25/24 325 mg tablet atorvastatin 20 mg tablet 20 mg PO DAILY Cholesterol #90 tabs 09/05/24 diltiazem HCl 120 mg 120 mg PO DAILY 90 days #90 tabs 09/05/24 tablet,extended release 24 hr losartan 50 mg-hydrochlorothiazide See Rx Instructions .Route 03/11/25 12.5 mg tablet (Hyzaar) .COMPLEX #90 tabs lidocaine 5 % topical patch 1 patch topical DAILY #90 ea 10/02/24 (Lidoderm) hydrocodone 10 mg-acetaminophen 1 tab PO TID #90 tabs 10/09/24 325 mg tablet Allergies Allergy/AdvReac Type Severity Reaction Status Date / Time No Known Allergies Allergy Verified 10/02/24 11:02 [facility] <BETTY Hinojosa - Last Filed: 10/11/24 13:11> [facility] Disclaimer: The information contained in this section may have been updated after the patient was seen, as this information can be updated by other users. Medical History Abnormal cardiovascular stress test Fibromyalgia Hyperlipidemia Wheezing Dizziness Fatigue SOB (shortness of breath) Atrial fibrillation residential current use of anticoagulant ORION (obstructive sleep apnea) Hypertensive heart disease Essential hypertension PAF (paroxysmal atrial fibrillation) Surgical History History of partial hysterectomy History of cardiac radiofrequency ablation Family History Other Coronary artery disease Hypertension Social History Smoking Status: Never smoker alcohol intake: never substance use type: denies use current occupational status: other Travel in the last 8 weeks: None household members: other housing: house current occupational exposures/hazards: No caffeine: Yes Have you lived/traveled outside [place] in past 30 days?: No Contact w/someone who lives/traveled outside US past 30 days?: No Exposure to someone with infectious disease in past 14 days?: No Do you have a fever (greater than 100.4 F or 38 C)?: No Have you tested positive for COVID-19: No Exposed to someone with COVID-19 in past 14 days?: No Do you have a sore throat?: No Do you have a cough?: No Do you have any weakness?: No Do you have any diarrhea?: No Are you experiencing any unusual bleeding?: No Do you have any muscle aches/pain?: No Do you have any abdominal pain?: No Are you experiencing loss of taste or smell?: No Other Medical History Have you received the Flu Vaccine for this season: No Have you received the Pneumonia Vaccine: No <BETTY Hinojosa - Last Filed: 10/11/24 13:11> ROS Obtained: Yes Systems reviewed as appropriate & no additional complaints except as documented Physical Exam <BETTY Hinojosa - Last Filed: 10/11/24 13:11> General General appearance: alert and in no apparent distress Respiratory Respiratory exam: Present normal lung sounds bilaterally Cardiovascular Cardiovascular exam: Present regular rate Neurological Exam Neurological exam: Present alert and oriented X3 Medical Decision Making <BETTY Hinojosa - Last Filed: 10/11/24 13:11> Medical Records Medical records reviewed: Yes I reviewed the patient's medical records. Screening: Per USPSTF and CDC recommendations, given the prevalence of disease in our region, it is our hospital?s policy to screen for HIV and viral Hepatitis for all patients aged 18 and over and those with ongoing risk factors. Catrachito Inquiry Pt receiving controlled substance: No Vital Signs: 10/11/24 12:09 10/11/24 13:21 Temperature 99.3 F 98.1 F Temperature Source Oral Pulse Rate 72 Pulse Rate [Right] 69 Respiratory Rate 14 14 Blood Pressure 135/80 Blood Pressure [Right Arm] 135/78 Blood Pressure Mean [Right Arm] 97 02 Sat by Pulse Oximetry 100 Oxygen Delivery Method Room Air Orders (Tests/Meds): ED MEDICATIONS Discontinued Medications Generic Name Dose Route Start Last Admin Trade Name Freq PRN Reason Stop Dose Admin Lidocaine/Epinephrine 20 ml 10/11/24 12:28 10/11/24 13:12 Lidocaine 1% W/Epi 1:100,000 20ml Vial SQ 10/11/24 12:29 20 ml ONCE ONE Administration Tetanus/Reduced Diphtheria/Acell Pertussis 0.5 ml 10/11/24 12:29 10/11/24 13:02 Tet/Diphth/Pert-Adult 0.5ml Syringe IM 10/11/24 12:30 0.5 ml .ONCE ONE Administration Medical Decision Narrative: In summary patient is a 74-year-old female who presents to the emergency department for evaluation of right lower extremity laceration. Patient is hemodynamically stable upon arrival, afebrile. Physical exam is remarkable for a 5 cm chevron shaped anterior medial laceration of her right lower extremity above the ankle joint. Patient is neurovascular intact distally has full range of motion no palpable bony deformity. Differential diagnosis includes superficial versus deep laceration. Initial workup will be conducted with exam under local subcutaneous anesthesia and images were considered however patient only suffered a glancing blow and has no palpable bony deformity on exam thus deferred. Initial interventions include updated tetanus. After adequate anesthesia with 10 cc of lidocaine with epinephrine were infiltrated about the wound wound was probed and explored and irrigated with a liter of normal saline. Wound is superficial and does not penetrate deeper structures. Subsequently wound was repaired with ten 4.0 nylon interrupted sutures. Patient is appropriate for discharge with wound care instructions given to her by myself and instructions to leave the stitches in at least 10 days possibly 14 depending on wound healing. <Francis Massey MD - Last Filed: 10/11/24 14:59> Vital Signs: 10/11/24 12:09 10/11/24 13:21 Temperature 99.3 F 98.1 F Temperature Source Oral Pulse Rate 72 Pulse Rate [Right] 69 Respiratory Rate 14 14 Blood Pressure 135/80 Blood Pressure [Right Arm] 135/78 Blood Pressure Mean [Right Arm] 97 02 Sat by Pulse Oximetry 100 Oxygen Delivery Method Room Air Orders (Tests/Meds): ED MEDICATIONS Discontinued Medications Generic Name Dose Route Start Last Admin Trade Name Freq PRN Reason Stop Dose Admin Lidocaine/Epinephrine 20 ml 10/11/24 12:28 10/11/24 13:12 Lidocaine 1% W/Epi 1:100,000 20ml Vial SQ 10/11/24 12:29 20 ml ONCE ONE Administration Tetanus/Reduced Diphtheria/Acell Pertussis 0.5 ml 10/11/24 12:29 10/11/24 13:02 Tet/Diphth/Pert-Adult 0.5ml Syringe IM 10/11/24 12:30 0.5 ml .ONCE ONE Administration Medical Decision Narrative: In summary patient is a 74-year-old female who presents to the emergency department for evaluation of right lower extremity laceration. Patient is hemodynamically stable upon arrival, afebrile. Physical exam is remarkable for a 5 cm chevron shaped anterior medial laceration of her right lower extremity above the ankle joint. Patient is neurovascular intact distally has full range of motion no palpable bony deformity. Differential diagnosis includes superficial versus deep laceration. Initial workup will be conducted with exam under local subcutaneous anesthesia and images were considered however patient only suffered a glancing blow and has no palpable bony deformity on exam thus deferred. Initial interventions include updated tetanus. After adequate anesthesia with 10 cc of lidocaine with epinephrine were infiltrated about the wound wound was probed and explored and irrigated with a liter of normal saline. Wound is superficial and does not penetrate deeper structures. Subsequently wound was repaired with ten 4.0 nylon interrupted sutures. Patient is appropriate for discharge with wound care instructions given to her by myself and instructions to leave the stitches in at least 10 days possibly 14 depending on wound healing. I was consulted by the ROMEO, and we discussed the complexity of the problems being addressed. I approved the treatment and management plan for this patient's care in the Emergency Department, thus performing a substantive portion of the medical decision making. Francis Massey MD Procedures <BETTY Hinojosa - Last Filed: 10/11/24 13:11> Laceration Laceration 1: Site: lower extremity Side (If applicable): right Size (cm): 5 Description: other (Chevron/triangular shaped) Depth: simple, single layer Local Anesthetic: lidocaine 1% and with epi Amount of anesthesia used (mL): 10 Pre-repair: wound explored, irrigated extensively and deep structures intact Skin layer closed with: nylon Size (cm): 4-0 Number of sutures: 10 Technique: simple, interrupted Critical Care <BETTY Hinojosa - Last Filed: 10/11/24 13:11> Critical Care Time Critical Care Time: No
[2024-10-11] MEDS: TET/DIPHTH/PERT-ADULT 0.5ML SYRINGE 0.5 ML IM (13:02)
[2024-10-11] MEDS: LIDOCAINE 1% W/EPI 1:100,000 20ML VIAL 20 ML SQ (13:12)
[2024-10-11 13:21] VITALS: BP 135/80; PULSE 72; RESP 14; TEMP 36.7; O2SAT 100
== END 2024-10-11 13:21 | disposition home or self-care (01) ==
PROVIDERS: Emergency Provider Emergency Medicine; PCP Nurse Practitioner Family
DX: S81.811A Laceration without foreign body, right lower leg, initial encounter (principal); W22.8XXA Striking against or struck by other objects, initial encounter
CPT/HCPCS: 90471; 90715; 99283

== ENCOUNTER 2024-10-13 14:07 | Outpatient (CLI) | payer MEDICARE, OTHER, SELFPAY ==
[2024-10-13 16:52] LABS: Microscopic, Urine URINE MICROSCOPIC (MICROSCOPIC)
[2024-10-13 17:48] LABS: Appearance,Urine CLEAR (Clear); Bilirubin,Urine Negative (Negative); Blood, Urine TRACE-I (Negative); Color,Urine YELLOW (Yellow); Glucose,Urine (UA) Negative (Negative); Ketones,Urine Negative (Negative); Leukocyte Esterase,Urine Negative (Negative); Nitrate,Urine Negative (Negative); PH,Urine 6.5 (5.0-8.5); Protein,Urine Negative (Negative); Urobilinogen,Urine 0.2 EU/dl (0.2)
[2024-10-13 18:11] LABS: Bacteria,Urine Trace /lpf; RBC,Urine Occasional #/hpf (0-3); Squamous Epithelial Cell,Urine Occasional #/hpf (0-5); WBC,Urine Occasional #/hpf (0-3)
== END 2024-10-13 23:59 | disposition home or self-care (01) ==
LOC: LAB.DROPOF 10-14 11:13
PROVIDERS: PCP Nurse Practitioner Family; Visit Provider Nurse Practitioner Family
DX: R30.9 Painful micturition, unspecified (principal)
CPT/HCPCS: 81001; 87086

== ENCOUNTER 2024-10-16 07:10 | Outpatient (CLI) | payer MEDICARE, OTHER, SELFPAY ==
--- NOTE | 2024-10-16 07:00 | CT_ITS ---
FINAL REPORT CLINICAL HISTORY: thoracic back pain FINDINGS: CT THORACIC SPINE TECHNIQUE: Thin section axial CT with sagittal and coronal reconstructions This study was performed with techniques to keep radiation doses as low as reasonably achievable, (ALARA). Individualized dose reduction techniques using automated exposure control or adjustment of mA and/or kV according to the patient's size were employed. FINDINGS: No fracture is present. There is no malalignment. There is moderate diffuse spondylosis. No bony canal stenosis is seen. There is mild diffuse degenerative disc change. IMPRESSION: No acute fracture or malalignment. Moderate spondylosis. MR thoracic spine may be considered to evaluate spinal cord and disc disease if the patient is a candidate. Reviewed, Interpreted and Dictated by Chani Zavaleta MD Transcribed by Nicci Yi Authenticated and . [facility]
== END 2024-10-16 23:59 | disposition home or self-care (01) ==
LOC: RAD 07:11
PROVIDERS: PCP Nurse Practitioner Family; Visit Provider Nurse Practitioner Family
DX: M54.6 Pain in thoracic spine (principal)
CPT/HCPCS: 72128

== ENCOUNTER 2024-10-28 08:04 | Outpatient (CLI) | payer MEDICARE, OTHER, SELFPAY | END 2024-10-28 23:59 | disposition home or self-care (01) | PROVIDERS: PCP Nurse Practitioner Family; Visit Provider Nurse Practitioner | DX: B99.9 Unspecified infectious disease (principal) | CPT/HCPCS: 87070; 87077; 87186; 87205 ==

== ENCOUNTER 2024-11-08 10:36 | Outpatient (POV) | payer MEDICARE, OTHER, SELFPAY ==
--- NOTE | 2024-11-08 11:09 | A.OFFVIS_ITS ---
[facility] Disclaimer: The information contained in this section may have been updated after the patient was seen, as this information can be updated by other users. Medical History (Updated 11/08/24 @ 10:18 by Nicole Herrera APRN) Pain with urination Wound infection Abnormal cardiovascular stress test Fibromyalgia Hyperlipidemia Wheezing Dizziness Fatigue SOB (shortness of breath) Atrial fibrillation longterm current use of anticoagulant ORION (obstructive sleep apnea) Hypertensive heart disease Essential hypertension PAF (paroxysmal atrial fibrillation) Surgical History History of partial hysterectomy History of cardiac radiofrequency ablation Family History Other Coronary artery disease Hypertension Social History Smoking Status: Never smoker alcohol intake: never substance use type: denies use current occupational status: other Travel in the last 8 weeks: None household members: other housing: house current occupational exposures/hazards: No caffeine: Yes PM Subjective & Objective Subjective Subjective:: Patient is a pleasant 74-year-old female who presents today for 1 month follow- up medication refill. Today she does rate her pain a 4 out of 10. Patient does state from our last visit she ended up dropping a lawnmower battery on her right lower foot causing a wound. She is scheduled to get into see wound management for this and has been to see primary care. Patient does state overall her knees are still doing really well from the last procedures. Patient states that she will occasionally sleep funny and feel like the pain is a little bit more aggravated in her knees however it is still very much manageable following the RFA that she had in September. Patient is currently managed with Petersburg 10 mg 3 times a day. She denies any side effects. Her Catrachito has been reviewed and is appropriate. Review of Systems: General: No recent weight changes, no fever, no sleep disturbances Respiratory: No cough, no shortness of air, no recurring pulmonary infections Cardiovascular/peripheral vascular: No chest pain, no palpitations, no edema, no shortness of breath Gastrointestinal: No new onset incontinence, normal bowel movements reported Genitourinary: No new onset incontinence Musculoskeletal: Low back pain, right foot pain Psychiatric: [Normal mood/affect] Neurological: [Denies weakness in extremities], [denies balance issues] Pain at rest (0-10 scale): 4 Objective Objective:: Physical Exam: General: Alert and oriented x3, no acute distress, pleasant and cooperative Lungs: Respirations even and unlabored, symmetrical chest expansion Eyes: PERRL Musculoskeletal: Flexion and extension of lumbar [spine] somewhat guarded secondary to pain, [antalgic gait noted] Neurological: Speech clear, no gross sensory deficit Has patient had previous pain injection?: No Conservative treatment options previously tried: Home exercise plan Length of treatment: Longer than 12 weeks Meds Home Medications and Allergies Home Medications ?Medication ?Instructions ?Recorded ?Confirmed ?Type ipratropium 20 mcg-albuterol 100 1 puff inhalation BID PRN . 07/22/17 11/08/24 History mcg/actuation mist for inhalation fluticasone propionate 50 2 spray intranasal DAILY #3 ea 12/20/23 11/08/24 Rx mcg/actuation nasal spray,suspension (Flonase Allergy Relief) olopatadine 0.2 % eye drops 1 drp ophthalmic (eye) Q24H PRN 12/20/23 11/08/24 Rx itching #2.5 mL montelukast 10 mg tablet 10 mg PO DAILY allergies #90 tabs 03/27/24 11/08/24 Rx (Singulair) rivaroxaban 20 mg tablet 20 mg PO QDAY Blood thinner #90 03/27/24 11/08/24 Rx tabs spironolactone 50 mg tablet 25 mg (1/2 x 50 mg) PO DAILY bp 90 07/04/24 11/08/24 Rx days #45 tabs hydrocodone 10 mg-acetaminophen 1 tab PO TID #18 tabs 07/25/24 11/08/24 Rx 325 mg tablet atorvastatin 20 mg tablet 20 mg PO DAILY Cholesterol #90 tabs 09/05/24 11/08/24 Rx diltiazem HCl 120 mg 120 mg PO DAILY 90 days #90 tabs 09/05/24 11/08/24 Rx tablet,extended release 24 hr losartan 50 mg-hydrochlorothiazide See Rx Instructions .Route 09/26/24 11/08/24 Rx 12.5 mg tablet (Hyzaar) .COMPLEX #90 tabs lidocaine 5 % topical patch 1 patch topical DAILY #90 ea 10/02/24 11/08/24 Rx (Lidoderm) cyclobenzaprine 10 mg tablet 10 mg PO HS PRN muscle spasm #90 10/13/24 11/08/24 Rx tabs mupirocin 2 % topical ointment 1 applic topical TID 10 days #50 10/30/24 11/08/24 Rx grams New Prescriptions to Start Prescriptions: Allergies Allergy/AdvReac Type Severity Reaction Status Date / Time No Known Allergies Allergy Verified 11/08/24 10:10 Assessment and Plan *Assessment and plan (1) Laceration of lower leg, right: Status: Acute Qualifiers: Encounter type: initial encounter Qualified Code(s): S81.811A - Laceration without foreign body, right lower leg, initial encounter Category: Medical Code(s): S81.811A - Laceration without foreign body, right lower leg, initial encounter (2) Degenerative disc disease, lumbar: Status: Acute Category: Medical Code(s): M51.369 - Other intervertebral disc degeneration, lumbar region without mention of lumbar back pain or lower extremity pain Plan I will refill the patient's Petersburg and provide a 1 month supply this medication. Patient will return to clinic in 1 month for reevaluation of symptoms and plan of care. Risks and benefits of the medication have been explained in detail to the patient. The patient does understand the risk of dependence on the medication when given over a prolonged period. Patient has been advised of risks of oversedation with the prescribed medication. Narcan has been offered to the paitent in the event of oversedation. Patient has been advised that a family member should also be educated regarding administration of Narcan. The patient has been advised to consult with his/her primary care provider and pharmacist regarding drug-drug interaction of medications currently prescribed. Patient has been prescribed a controlled substance after being counseled on the medication, medication safety, and possible side effects. Opioid contract was reviewed and signed by the patient, and that they have agreed to all of the terms set forth by our compliance program. A UDS is needed to verify patient's compliance with our office pain contract. This is ordered based off specific treatments related to chronic pain with the potential to abuse certain medications. Patient has been instructed to contact the clinic with any concerns before the next appointment. Dr. Soto has reviewed this note and agrees with this plan of care. This note was dictated using voice recognition software and make contain errors or omissions.
[2024-11-08 11:21] VITALS: BP 140/69; PULSE 63; RESP 14; O2SAT 100; BMI 40.7
== END 2024-11-08 23:59 | disposition home or self-care (01) ==
PROVIDERS: PCP Nurse Practitioner Family; Visit Provider Nurse Practitioner Family
DX: S81.811A Laceration without foreign body, right lower leg, initial encounter (principal); M51.369 Other intervertebral disc degeneration, lumbar region without mention of lumbar back pain or lower extremity pain
CPT/HCPCS: 99212; G0463

== ENCOUNTER 2024-12-07 14:08 | Outpatient (POV) | payer MEDICARE, OTHER, SELFPAY ==
--- NOTE | 2024-12-07 14:31 | EXP.PAIN.SOA ---
[facility] Disclaimer: The information contained in this section may have been updated after the patient was seen, as this information can be updated by other users. 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 ORION (obstructive sleep apnea) Hypertensive heart disease Essential hypertension PAF (paroxysmal atrial fibrillation) Surgical History History of partial hysterectomy History of cardiac radiofrequency ablation Family History Other Coronary artery disease Hypertension Social History Smoking Status: Never smoker alcohol intake: never substance use type: denies use current occupational status: other Travel in the last 8 weeks?: None household members: other housing: house current occupational exposures/hazards: No caffeine: Yes PM Subjective & Objective Subjective Subjective:: Patient is a pleasant 74-year-old female who presents today for medication refill and follow-up. Today she rates her pain 5 out of 10. Patient does state overall her knees are still doing fairly well. She does state that she was having more back related issues and that she has slept in a recliner for 7 years. Patient did finally decide to try going back to her bed and has been doing this over the last couple of weeks. Patient states she is still trying to get adjusted. Patient is still trying to heal from her right lower leg wounds where she did drop a lawnmower battery on this extremity. Patient is scheduled to see her other physician later this afternoon to continue to do follow-up care on it. Patient does state that it is starting to heal. Patient is currently managed with Derry 10 mg 3 times a day from our office. She denies any side effects. Her Catrachito has been reviewed and is appropriate. Review of Systems: General: No recent weight changes, no fever, no sleep disturbances Respiratory: No cough, no shortness of air, no recurring pulmonary infections Cardiovascular/peripheral vascular: No chest pain, no palpitations, no edema, no shortness of breath Gastrointestinal: No new onset incontinence, normal bowel movements reported Genitourinary: No new onset incontinence Musculoskeletal: Knee pain Psychiatric: [Normal mood/affect] Neurological: [Denies weakness in extremities], [denies balance issues] Pain at rest (0-10 scale): 5 Objective Objective:: Physical Exam: General: Alert and oriented x3, no acute distress, pleasant and cooperative Lungs: Respirations even and unlabored, symmetrical chest expansion Eyes: PERRL Musculoskeletal: Flexion and extension of bilateral knees [spine] somewhat guarded secondary to pain, [antalgic gait noted] Neurological: Speech clear, no gross sensory deficit Has patient had previous pain injection?: No Conservative treatment options previously tried: Home exercise plan Length of treatment: Longer than 12 weeks Meds Home Medications and Allergies Home Medications ?Medication ?Instructions ?Recorded ?Confirmed ?Type ipratropium 20 mcg-albuterol 100 1 puff inhalation BID PRN . 07/22/17 11/08/24 History mcg/actuation mist for inhalation fluticasone propionate 50 2 spray intranasal DAILY #3 ea 12/20/23 11/08/24 Rx mcg/actuation nasal spray,suspension (Flonase Allergy Relief) olopatadine 0.2 % eye drops 1 drp ophthalmic (eye) Q24H PRN 12/20/23 11/08/24 Rx itching #2.5 mL montelukast 10 mg tablet 10 mg PO DAILY allergies #90 tabs 03/27/24 11/08/24 Rx (Singulair) rivaroxaban 20 mg tablet 20 mg PO QDAY Blood thinner #90 03/27/24 11/08/24 Rx tabs spironolactone 50 mg tablet 25 mg (1/2 x 50 mg) PO DAILY bp 90 07/04/24 11/08/24 Rx days #45 tabs atorvastatin 20 mg tablet 20 mg PO DAILY Cholesterol #90 tabs 09/05/24 11/08/24 Rx diltiazem HCl 120 mg 120 mg PO DAILY 90 days #90 tabs 09/05/24 11/08/24 Rx tablet,extended release 24 hr losartan 50 mg-hydrochlorothiazide See Rx Instructions .Route 09/26/24 11/08/24 Rx 12.5 mg tablet (Hyzaar) .COMPLEX #90 tabs lidocaine 5 % topical patch 1 patch topical DAILY #90 ea 10/02/24 11/08/24 Rx (Lidoderm) cyclobenzaprine 10 mg tablet 10 mg PO HS PRN muscle spasm #90 10/13/24 11/08/24 Rx tabs mupirocin 2 % topical ointment 1 applic topical TID 10 days #50 10/30/24 11/08/24 Rx grams hydrocodone 10 mg-acetaminophen 1 tab PO TID #90 tabs 11/08/24 Rx 325 mg tablet fluconazole 150 mg tablet 150 mg PO Q3D 2 doses #2 tabs 11/21/24 Rx New Prescriptions to Start Prescriptions: Allergies Allergy/AdvReac Type Severity Reaction Status Date / Time No Known Allergies Allergy Verified 11/08/24 10:10 Assessment and Plan *Assessment and plan (1) Degenerative disc disease, lumbar: Status: Acute Category: Medical Code(s): M51.369 - Other intervertebral disc degeneration, lumbar region without mention of lumbar back pain or lower extremity pain (2) Fibromyalgia: Status: Acute Category: Medical Code(s): M79.7 - Fibromyalgia (3) Bilateral knee pain: Status: Acute Qualifiers: Chronicity: chronic Qualified Code(s): M25.561 - Pain in right knee; M25.562 - Pain in left knee; G89.29 - Other chronic pain Category: Medical Code(s): M25.561 - Pain in right knee; M25.562 - Pain in left knee Plan I will refill the patient's Derry and provide a 1 month supply of this medication. Patient will return to clinic in 1 month for reevaluation of symptoms and plan of care. Risks and benefits of the medication have been explained in detail to the patient. The patient does understand the risk of dependence on the medication when given over a prolonged period. Patient has been advised of risks of oversedation with the prescribed medication. Narcan has been offered to the paitent in the event of oversedation. Patient has been advised that a family member should also be educated regarding administration of Narcan. The patient has been advised to consult with his/her primary care provider and pharmacist regarding drug-drug interaction of medications currently prescribed. Patient has been prescribed a controlled substance after being counseled on the medication, medication safety, and possible side effects. Opioid contract was reviewed and signed by the patient, and that they have agreed to all of the terms set forth by our compliance program. A UDS is needed to verify patient's compliance with our office pain contract. This is ordered based off specific treatments related to chronic pain with the potential to abuse certain medications. Patient has been instructed to contact the clinic with any concerns before the next appointment. Dr. Soto has reviewed this note and agrees with this plan of care. This note was dictated using voice recognition software and make contain errors or omissions.
[2024-12-07 14:54] VITALS: BP 109/57; PULSE 72; RESP 16; O2SAT 96; BMI 34.4
== END 2024-12-07 23:59 | disposition home or self-care (01) ==
PROVIDERS: Visit Provider Nurse Practitioner Family
DX: M51.369 Other intervertebral disc degeneration, lumbar region without mention of lumbar back pain or lower extremity pain (principal); M79.7 Fibromyalgia; M25.561 Pain in right knee; M25.562 Pain in left knee; G89.29 Other chronic pain
CPT/HCPCS: 99212; G0463

== ENCOUNTER 2024-12-07 16:00 | Outpatient (RCR) | payer MEDICARE, OTHER, SELFPAY ==
--- NOTE | 2024-11-22 16:34 | HMH.PTOPWND ---
Rehab Outpt Wound Evaluation Rehab OP Wound Evaluation Start: 11/22/24 16:19 Freq: Status: Active Protocol: Document 11/22/24 16:27 MARY ANNE (Rec: 11/22/24 16:34 [id number]) E-signed By Jonathon Colbert, PT Subjective/History History History This is the initial PT wound care eval for Sandy Hebert, 74 yowf who presents with c/o R boyer wound x ~ 6 wks. She reports, I dropped a small lawnmower battery and it hit my leg. She reports she went to ED after initial injury and they sutured the wound closed , but only about 1/2 of the sutures held as the skin was just too fragile. She reports no c/o pain at this time, but does have tenderness to palpation around the area. Subjective Subjective Wound bed appears mostly healthy with minimal slough and drainage noted this date. Wound Eval Wound Right Anterior Boyer Wound Type Skin Tear Is This a Chronic Wound Yes Wound Length (cm) 1.2 Wound Width (cm) 2.6 Wound Depth (cm) 0.1 Wound Bed Appearance Beefy Red,Yellow Percentage Granulated (%) 95 Percentage of Slough (%) 5 Wound Margins Description Well Defined Surrounding Tissue Appearance Plover Edema Type Pitting Edema Degree 1+ Query Text:1+ Trace, Barely Detectable, Rebound 15-30 seconds 2+ Moderate, Slight Indentation, Rebound 10-20 seconds 3+ Deep, Deeper Indentation, Rebound > 30 seconds 4+ Very Deep, Rebound > 60 seconds Edema Appearance Puffy Drainage Description Serous Drainage Amount Small Drainage Odor No Odor Wound Topical Solution/Irrigant Saline Irrigant Primary Dressing Composite Comment optifoam gentle border lite Wound Debridement Method Forceps,Gauze,Mechanical Wound Debridement Amount of Tissue Minimal Removed Dressing Change Patient Tolerance Tolerated Well Marroquin-Oneil Wound Assessment Tool Assessment Wound size 1=Length x Width <4 sq cm Wound depth 3=Full thickness skin loss involving damage or necrosis of Wound edges 3=Well-defined, not attached to wound base Wound undermining 1=None present Necrotic tissue type 2=White/juárez non-viable tissue &/or non-adherent yellow slough Necrotic tissue amount 2=<25% of wound bed covered Exudate type 4=Serous: thin, watery, clear Exudate amount 3=Small Skin color surrounding wound 1=Plover or normal for ethnic group Peripheral tissue edema 2=Non-pitting edema extends <4 cm around wound Peripheral tissue induration 1=None present Granulation tissue 2=Bright, beefy red;75% to 100 % of wound filled &/or tissue overgrowth Epithelialization 4=25% to < 50% wound covered Wound assessment total score 29 Wound Problems/Impairments Impairments Problems/Impairmments Palpation Tenderness,Impaired Shower/Bathing,Increased Edema ,Wound Care Needs,Impaired Self Care/Self Management Prognosis Rehab Potential Good Comment Skilled therapy services are indicated to aid reduction of overall wound surface area in order to return pt to [facility]. Clinical Impression Consistent with Diagnosis Yes Short Term Goals Number of Weeks 2 Decreased Palpation Tenderness Yes: 1/4 TTP to jose luis-wound skin Decrease Wound Area Yes: by 25% Skilled Nursing Goals Number of Weeks 4 Decreased Palpation Tenderness Yes: 0/4 to jose luis-wound skin Decrease Wound Area Yes: by 75% Outpatient Therapy Plan of Care Treatment Plan May Include Therapeutic Exercise Including Home Yes Exercise Program Manual Therapy Techniques Yes Neuromuscular Re-education Yes Therapeutic Activities to Return to Yes Previous Functional/Work Level ADL/Self Care Education Yes Orthotics/Bracing/Splinting Yes Wound Care Yes Eval/Re-Eval Yes Frequency Times per week 1 Duration Number of Weeks 4 Addendums This patient is a candidate for social No or vocational rehab? Patient/Guardian verbally acknowledges Yes understanding of treatment program and consents to further treatment? Patient/Guardian verbally acknowledges Yes understanding of diagnosis, prognosis and goals for treatment? Eval Complexity PT Charges [id number] - High Complexity PHYSICIAN CERTIFICATION: I certify the specified therapy services for Sandy Hebert are required, authorized, and reviewed every 30 days.
== END 2024-12-07 23:59 | disposition home or self-care (01) ==
LOC: PT 16:00
PROVIDERS: PCP Nurse Practitioner Family; Visit Provider Nurse Practitioner Family
DX: S81.811A Laceration without foreign body, right lower leg, initial encounter (principal); L08.9 Local infection of the skin and subcutaneous tissue, unspecified; W20.8XXA Other cause of strike by thrown, projected or falling object, initial encounter
CPT/HCPCS: 97163; 97597

== ENCOUNTER 2024-12-28 10:21 | Outpatient (CLI) | payer MEDICARE, OTHER, SELFPAY ==
--- OUTSIDE RECORDS SUMMARY | 2024-12-28 10:40 | XMS_ITS | Encounter Summary ---
Author Organization [place] [address] Care Team Providers Care Paper Finisher Name Role Phone Unavailable Primary Care Provider Unavailabl e Encounter Details Date Type Department Care Team (Late st Contact Info) Description 11/03/2018 Orders Only [facility] [address] [facility] [address] [place] [address] Dajuan Ponce MD [address] [place], [place] [id number] Social History Tobacco Use Types Packs/Day Years Used Date Smoking Tobacco: Never Smokeless Tobacco: Never Alcohol Use Standard Drinks/Week Comments No 0 (1 standard drink = 0.6 oz pur e alcohol) Comments No Sex and Gender Information Value Date Recorded Sex Assigned at Not on file Legal Sex Female 8:47 AM EDT Gender Identity Not on file Sexual Orientation Not on file documented as of this encounter Plan of Treatment Not on file documented as of this encounter Procedures Procedure Name Priority Date/Time Associated Diagnosis Comments EP LAB RECORDINGS Routine 11/03/2018 11:56 AM EDT documented in this encounter Results * EP LAB RECORDINGS (11/03/2018 11:56 AM EDT) 11/03/2018 11:5 6 AM EDT us Dajuan Ponce MD CARDIAC CATH ORDERABLES Final Result [facility] [address] [place] [phone] documented in this encounter Visit Diagnoses Not on filedocumented in this encounter Additional Health Concerns Assessment Noted Time A fall risk assessment has been complete d for the patient 10/25/2018 9:47 AM EDT documented as of this encounter
--- OUTSIDE RECORDS SUMMARY | 2024-12-28 10:40 | XMS_ITS | Clinical Summary ---
Author Organization [facility] Arrhythmia [facility] Address [address] [place] [phone] Phone Care Team Providers Care Inter Com Servicer Name Role Phone Unavailable Primary Care Provider Unavailabl e Allergies No known active allergies Medications diltiazem (TIAZAC) 240 mg Oral Capsule,Sustain ed Action 24 hr Take 240 mg by mouth daily. Active meloxicam (MOBIC) 7.5 mg Oral Tablet Take 7.5 mg by mouth 2 times daily. Active traMADol (ULTRAM) 50 mg Oral Tablet Take 50 mg by mouth every 6 hours as needed (Take 1 or 2 tablets three times a day as needed.). Active simvastatin (ZOCOR) 10 mg Oral Tablet Take 10 mg by mouth nightly. Active losartan-hydroc hlorothiazide (HYZAAR) 100-25 mg Oral Tablet Take 1 Tab by mouth daily. Active montelukast (SINGULAIR) 10 mg Oral Tablet Take 10 mg by mouth daily as needed. Active rivaroxaban (XARELTO) 20 mg Oral Tablet Take 20 mg by mouth daily. Active Cholecalciferol , Vitamin D3, (VITAMIN D3) 1,000 unit Oral Capsule Take by mouth. Active FEXOFENADINE HCL (DAIANA ORAL) Take by mouth. Active HYDROcodone-jaida taminophen (NORCO) 10-325 mg Oral Tablet Take 1 Tab by mouth every 8 hours as needed. Active ipratropium-alb uterol (COMBIVENT RESPIMAT) 20-100 mcg/actuation Inhl Mist Inhale 1 Puff into the lungs every 6 hours as needed. Active Active Problems Problem Noted Date Diagnosed Date S/P ablation of atrial fibrillation 11/03/2018 Overview (11/03/2018): On 11/03/[address] Ponce 1. Radiofrequency Ablation: Atrial Fibrillation Ablation (PVAI) 2. Radiofrequency ablation of cavotricuspid isthmus (linear ablation in right atrium) S/P ablation of atrial flutter 11/03/2018 Overview (11/03/2018): On 11/03/[address] Ponce 1. Radiofrequency Ablation: Atrial Fibrillation Ablation (PVAI) 2. Radiofrequency ablation of cavotricuspid isthmus (linear ablation in right atrium) Essential hypertension 07/08/2017 Paroxysmal atrial fibrillation Diastolic dysfunction Right bundle branch block (RBBB) ORION (obstructive sleep apnea) HLD (hyperlipidemia) Surgical History Surgery Date Site/Laterality Comments HYSTERECTOMY ABLATION OF DYSRHYTHMIC FOCUS 11/03/2018 PVAI, CTI line ablation by Dr. Ponce Medical History Medical History Date Comments Paroxysmal atrial fibrillation (HCC) Diastolic dysfunction Right bundle branch block (RBBB) ORION (obstructive sleep apnea) HLD (hyperlipidemia) Arthritis Hypertension Family History Medical History Relation Name Comments Cancer Brother Cancer Father Heart Disease Mother Relation Name Status Comments Brother Father Mother Social History Tobacco Use Types Packs/Day Years Used Date Smoking Tobacco: Never Smokeless Tobacco: Never Tobacco Cessation:Counseling Given: No Alcohol Use Standard Drinks/Week Comments No 0 (1 standard drink = 0.6 oz pur e alcohol) Comments No Sex and Gender Information Value Date Recorded Sex Assigned at Not on file Legal Sex Female 8:47 AM EDT Gender Identity Not on file Sexual Orientation Not on file Obstetrics History Para Term AB IAB SAB Ectopic Multiple Livin g Live Births 3 3 Date Outcome GA Total Labor Labor/2nd/3rd Weight Sex Type Anes PTL Ivis A1 A5 Name Clin Para Para Para Last Filed Vital Signs Vital Sign Reading Time Taken Comments Blood Pressure 112/78 12/19/2018 10:53 AM EDT Pulse 69 12/19/2018 10:53 AM EDT Temperature 36.9 C (98.4 F) 11/04/2018 8:59 AM EDT Respiratory Rate 14 11/04/2018 8:59 AM EDT Oxygen Saturation 97% 12/19/2018 10:53 AM EDT Inhaled Oxygen Concentration - - Weight 106.1 kg (234 lb) 12/19/2018 10:53 AM EDT Height 165.1 cm (5' 5 ) 12/19/2018 10:53 AM EDT Body Mass Index 38.94 12/19/2018 10:53 AM EDT Plan of Treatment Health Maintenance Due Date Last Done Comments Wellness Exam Medicare 1953 Hepatitis C Screening 1967 DTaP/TDaP/Td (1 - Tdap) 1968 Cologuard 1994 Colon Cancer Screening 1994 Colonoscopy 1994 FIT 1994 Sigmoidoscopy 1994 Virtual Colonography 1994 Pneumococcal Vaccine 50+ (1 of 1 - PCV) 1999 Zoster (1 of 2) 1999 Bone Density Screening 2014 COVID-19 Vaccine (2023-2 5 season) 2024 RSV or 60+ (1 - 1-d ose 75+ series) 2024 Influenza Vaccine (Season Ended) 2025 Hepatitis B Vaccine Aged Out No longe r eligible based on patient's age to complete this topic Meningococcal B Vaccine Aged Out No l onger eligible based on patient's age to complete this topic Insurance [place]ICARE [place] PART A AND B [place]ICARE [place] PART A [place] B
[2024-12-28 10:46] LABS: Basophils % 0.2 % (0.1-2.0); Hematocrit 42.8 % (37.0-47.0); Hemoglobin 13.8 g/dL (12.2-16.2); Immature Granulocytes # 0.05 10^3uL; Immature Granulocytes % 0.5 %; Lymphocytes # 2.4 K/mm3 (0.7-4.5); Lymphocytes % 21.8 % (10-50); Mean Corpuscular HGB Conc 32.2 g/dL (31.8-35.4); Mean Corpuscular Hemoglobin 32.6 pg (27.0-31.2); Mean Corpuscular Volume 101.2 fl (81-99); Mean Platelet Volume 8.5 fl (7.4-10.4); Monocytes # 1.1 K/mm3 (0.1-1.0); Neutrophils # 7.3 K/mm3 (1.8-7.8); Neutrophils % 67.5 % (37.0-80.0); Nucleated Red Blood Cells # 0 10^3/uL; Nucleated Red Blood Cells % 0 %; Platelet Count 321 K/mm3 (142-424); Red Blood Count 4.23 M/mm3 (4.20-5.40); Red Cell Distribution Width 13.2 % (11.5-17.5); Red Cell Distribution Width-SD 49.1 fL; White Blood Count 10.9 K/mm3 (4.8-10.8)
[2024-12-28 11:02] LABS: Alanine Aminotransferase 21 U/L (12-78); Albumin Level 3.9 g/dl (3.5-5.0); Alkaline Phosphatase 64 U/L (38-126); Aspartate Amino Transferase 26 U/L (14-36); Bilirubin,Direct 0.2 mg/dl (0.0-0.4); Bilirubin,Indirect 0.5 mg/dL (0.0-0.9); Bilirubin,Total 0.7 mg/dl (0.2-1.3); Bilirubin,Unconjugated 0.5 mg/dL (0.0-1.1); Blood Urea Nitrogen 27 mg/dl (7-17); Calcium 9.2 mg/dl (8.4-10.2); Carbon Dioxide 26 mmol/L (22.0-30.0); Chloride 107 mmol/L (98-107); Chol/HDL Ratio 2.8 (1-3.5); Cholesterol 181 mg/dl (140-200); Estimated Glomerular Filt Rate 61 ml/min (>60); GFR (African American) 74 ML/MIN (>60); Glucose 87 mg/dl (74-100); HDL Cholesterol 65 mg/dl (40-60); Magnesium 1.7 mg/dl (1.6-2.3); Sodium 137 mmol/L (136-145); Total Protein,Serum 6.8 g/dl (6.3-8.2); Triglycerides 107 mg/dl (30-150); VLDL Cholesterol 21 mg/dL (0-40)
[2024-12-28 11:13] LABS: Direct LDL Cholesterol 78.31 mg/dL (100-129)
[2024-12-28 11:16] LABS: Free T4 (Free Thyroxine) 0.97 ng/dl (0.78-2.19)
[2024-12-28 11:34] LABS: Thyroid Stimulating Hormone 1.76 uIU/mL (0.465-4.68)
== END 2024-12-28 23:59 | disposition home or self-care (01) ==
LOC: LAB 10:22
PROVIDERS: PCP Nurse Practitioner Family; Visit Provider Nurse Practitioner Family
DX: I11.9 Hypertensive heart disease without heart failure (principal)
CPT/HCPCS: 36415; 80048; 80061; 80076; 83735; 84439; 84443; 85025

== ENCOUNTER 2025-01-08 13:24 | Outpatient (POV) | payer MEDICARE, OTHER, SELFPAY ==
--- OUTSIDE RECORDS SUMMARY | 2025-01-08 13:37 | XMS_ITS | Clinical Summary ---
Author Organization [facility] Arrhythmia [facility] Address [address] [place] [phone] Phone Care Team Providers Care Supervisor Laboratory Animal Facility Name Role Phone Unavailable Primary Care Provider [...]
--- OUTSIDE RECORDS SUMMARY | 2025-01-08 13:37 | XMS_ITS | Encounter Summary ---
Author Organization [place] [address] Care Team Providers Care Scientific Glass Blower Name Role Phone Unavailable Primary Care Provider Unavailabl e Encounter Details Date Type Department Care Team (Late st Contact Info) Description 11/03/2018 Orders Only [facility] Ar[facility]tr Edg [address] [facility] [address] [place] [address] Dajuan Ponce MD [address] [place], [place] [id number] Social History Tobacco Use Types Packs/Day Years [...] Ponce MD CARDIAC CATH ORDERABLES Final Result [facility] [address] [place] [phone] documented in this encounter Visit Diagnoses Not on filedocumented in this encounter Additional Health Concerns Assessment Noted Time A fall risk assessment has been complete d for the patient 10/25/2018 9:47 AM EDT documented as of this encounter
--- NOTE | 2025-01-08 14:03 | A.OFFVIS_ITS ---
[facility] Disclaimer: The information contained in this section may have been updated after the patient was seen, as this information can be updated by other users. 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 ORION (obstructive sleep apnea) Hypertensive heart disease Essential hypertension PAF (paroxysmal atrial fibrillation) Surgical History History of partial hysterectomy History of cardiac radiofrequency ablation Family History Other Coronary artery disease Hypertension Social History Smoking Status: Never smoker alcohol intake: never substance use type: denies use current occupational status: other Travel in the last 8 weeks?: None household members: other housing: house current occupational exposures/hazards: No caffeine: Yes PM Subjective & Objective Subjective Subjective:: Patient is a pleasant 74-year-old female who presents today for 1 month follow- up. Today she does rate her pain a 4 out of 10. Patient did end up having an additional injury from her last visit. She states that her grandson's backpack ended up falling across her leg and doing what sounds to be a skin tear. She states that she is waiting to get back into wound management. Patient states the other injury she had has started to clear up completely however it is still a little tender. She denies any other changes. Patient is currently managed with Elizabeth 10 mg 3 times a day from our office. Patient denies any side effects. She does state that her knees are still doing wonderful from the last RFA's. Her Catrachito has been reviewed and is appropriate. Review of Systems: General: No recent weight changes, no fever, no sleep disturbances Respiratory: No cough, no shortness of air, no recurring pulmonary infections Cardiovascular/peripheral vascular: No chest pain, no palpitations, no edema, no shortness of breath Gastrointestinal: No new onset incontinence, normal bowel movements reported Genitourinary: No new onset incontinence Musculoskeletal: Leg pain, chronic back pain Psychiatric: [Normal mood/affect] Neurological: [Denies weakness in extremities], [denies balance issues] Pain at rest (0-10 scale): 4 Objective Objective:: Physical Exam: General: Alert and oriented x3, no acute distress, pleasant and cooperative Lungs: Respirations even and unlabored, symmetrical chest expansion Eyes: PERRL Musculoskeletal: Flexion and extension of lumbar [spine] somewhat guarded secondary to pain, [antalgic gait noted] Neurological: Speech clear, no gross sensory deficit Has patient had previous pain injection?: No Conservative treatment options previously tried: Prescription medications Length of treatment: Longer than 12 weeks Meds Home Medications and Allergies Home Medications ?Medication ?Instructions ?Recorded ?Confirmed ?Type ipratropium 20 mcg-albuterol 100 1 puff inhalation BID PRN . 07/22/17 01/04/25 History mcg/actuation mist for inhalation fluticasone propionate 50 2 spray intranasal DAILY #3 ea 12/20/23 01/04/25 Rx mcg/actuation nasal spray,suspension (Flonase Allergy Relief) olopatadine 0.2 % eye drops 1 drp ophthalmic (eye) Q24 H PRN 12/20/23 01/04/25 Rx itching #2.5 mL diltiazem HCl 120 mg 120 mg PO DAILY 90 days #90 tabs 09/05/24 01/04/25 Rx tablet,extended release 24 hr losartan 50 mg-hydrochlorothiazide See Rx Instructions .Route 09/26/24 01/04/25 Rx 12.5 mg tablet (Hyzaar) .COMPLEX #90 tabs lidocaine 5 % topical patch 1 patch topical DAILY #90 ea 10/02/24 01/04/25 Rx (Lidoderm) cyclobenzaprine 10 mg tablet 10 mg PO HS PRN muscle sp asm #90 10/13/24 01/04/25 Rx tabs mupirocin 2 % topical ointment 1 applic topical TID 10 days #50 10/30/24 01/04/25 Rx grams fluconazole 150 mg tablet 150 mg PO Q3D 2 doses #2 tab s 11/21/24 01/04/25 Rx hydrocodone 10 mg-acetaminophen 1 tab PO TID #90 tabs 12/07/24 01/04/25 Rx 325 mg tablet atorvastatin 20 mg tablet 20 mg PO DAILY Cholesterol # 90 tabs 12/12/24 01/04/25 Rx montelukast 10 mg tablet 10 mg PO DAILY allergies #90 tabs 12/12/24 01/04/25 Rx (Singulair) rivaroxaban 20 mg tablet 20 mg PO QDAY Blood thinner #90 12/12/24 01/04/25 Rx tabs spironolactone 50 mg tablet 25 mg (1/2 x 50 mg) PO GARETH LY bp 90 12/12/24 01/04/25 Rx days #45 tabs mupirocin 2 % topical ointment 1 applic topical TID #2 2 grams 01/04/25 01/04/25 Rx sulfamethoxazole 800 1 tab PO Q12H 10 days #20 ta bs 01/04/25 01/04/25 Rx mg-trimethoprim 160 mg tablet (Bactrim DS) New Prescriptions to Start Prescriptions: Allergies Allergy/AdvReac Type Severity Reaction Status Date / Time No Known Allergies Allergy Verified 01/04/25 14:03 Assessment and Plan *Assessment and plan (1) Degenerative disc disease, lumbar: Status: Acute Category: Medical Code(s): M51.369 - Other intervertebral disc degeneration, lumbar region without mention of lumbar back pain or lower extremity pain Plan I will refill her Elizabeth and provide a 1 month supply of this medication. Patient will return to clinic in 1 month for reevaluation of symptoms and plan of care. Risks and benefits of the medication have been explained in detail to the patient. The patient does understand the risk of dependence on the medication when given over a prolonged period. Patient has been advised of risks of oversedation with the prescribed medication. Narcan has been offered to the paitent in the event of ov ersedation. Patient has been advised that a family member should also be educated regarding administration of Narcan. The patient has been advised to consult with his/her primary care provider and pharmacist regarding drug-drug interaction of medications currently prescribed. Patient has been prescribed a controlled substance after being counseled on the medication, medication safety, and possible side effects. Opioid contract was reviewed and signed by the patient, and that they have agreed to all of the terms set forth by our compliance program. A UDS is needed to verify patient's compliance with our office pain contract. This is ordered based off specific treatments related to chronic pain with the potential to abuse certain medications. Patient has been instructed to contact the clinic with any concerns before the next appointment. Dr. Soto has reviewed this note and agrees with this plan of care. This note was dictated using voice recognition software and make contain errors or omissions.
[2025-01-08 14:13] VITALS: BP 104/68; PULSE 74; RESP 14; O2SAT 96; BMI 39.9
== END 2025-01-08 23:59 | disposition home or self-care (01) ==
PROVIDERS: PCP Nurse Practitioner Family; Visit Provider Nurse Practitioner Family
DX: M51.360 Other intervertebral disc degeneration, lumbar region with discogenic back pain only (principal); Z79.899 Other long term (current) drug therapy
CPT/HCPCS: 99212; G0463

== ENCOUNTER 2025-02-02 13:56 | Outpatient (CLI) | payer MEDICARE, OTHER, SELFPAY ==
--- OUTSIDE RECORDS SUMMARY | 2025-02-05 10:58 | XMS_ITS | Encounter Summary ---
Author Organization [place] [address] Care Team Providers Care Emt Driver Name Role Phone Unavailable Primary Care Provider Unavailabl e Encounter Details Date Type Department Care Team (Late st Contact Info) Description 11/03/2018 Orders Only [facility] Arrhythmia Ctr Edg [address] [facility] [address] [place] [address] Dajuan Ponce MD [address] [place], [place] [id number] Social History Tobacco Use Types Packs/Day Years [...] Ponce MD CARDIAC CATH ORDERABLES Final Result [facility] [address] [place] [phone] documented in this encounter Visit Diagnoses Not on filedocumented in this encounter Additional Health Concerns Assessment Noted Time A fall risk assessment has been complete d for the patient 10/25/2018 9:47 AM EDT documented as of this encounter
--- OUTSIDE RECORDS SUMMARY | 2025-02-05 10:58 | XMS_ITS | Clinical Summary ---
Author Organization [facility] Address [address] [place] [address] Care Team Providers Care Lawn Technician Name Role Phone Marilu Martinez DO Primary Care Provider [phone] Allergies No known active allergies Medications diltiaZEM CD (CARDIZEM CD) 240 MG 24 hr capsule Take 240 mg by mouth Daily. Active simvastatin (ZOCOR) 10 MG tablet Take 10 mg by mouth Every Night. Active losartan-hydroc hlorothiazide (HYZAAR) 100-25 MG per tablet Take 1 tablet by mouth Daily. Active rivaroxaban (XARELTO) 20 MG tablet Take 20 mg by mouth Daily. Active traMADol (ULTRAM) 50 MG tablet Take 50 mg by mouth 2 (Two) Times a Day. Active meloxicam (MOBIC) 7.5 MG tablet Take 7.5 mg by mouth Daily. Active HYDROcodone-jaida taminophen (NORCO) 10-325 MG per tablet Take 1 tablet by mouth Every 8 (Eight) Hours As Needed for Moderate Pain . Active Vitamin D, Cholecalciferol , 1000 units tablet Take by mouth 2 (Two) Times a Day. Active ipratropium-alb uterol (COMBIVENT RESPIMAT) 20-100 MCG/ACT inhaler Inhale 1 puff 4 (Four) Times a Day As Needed for Wheezing. Active flecainide (TAMBOCOR) 100 MG tablet Take 1 tablet by mouth Every 12 (Twelve) Hours. 60 tablet 11 07/08/2017 Active Active Problems Problem Noted Date Diagnosed Date Paroxysmal atrial fibrillation 07/08/2017 Essential hypertension 07/08/2017 Obstructive sleep apnea 07/08/2017 Hyperlipidemia 07/08/2017 Social History Tobacco Use Types Packs/Day Years Used Date Smoking Tobacco: Never Smokeless Tobacco: Never Alcohol Use Standard Drinks/Week Comments No 0 (1 standard drink = 0.6 oz pur e alcohol) Abuse Screen Answer Date Recorded Unsafe at Home or Work/School Not on file Feels Threatened by Someone? Not on file 05/2023 Does Anyone Keep You from Co ntacting Others or Doint Things Outside the Home? Not on file 04/28/2023 Physical Sign of Abuse Present Not on file 1 Housing Stability Answer Date Recorded Current Living Arrangements Not on file 04/18 Potentially Unsafe Housing Conditions Not on cliff e 04/28/2023 Family and Community Support Answer Tomasz e Recorded Help with Day-to-Day Activities Not on file 04/28/2023 Lonely or Isolated Not on file 04/28/2023 Employment Answer Date Recorded Do you want help finding or keeping work or a cody b? Not on file 04/28/2023 Disabilities Answer Date Recorded Concentrating, Remembering, or Making Decisions Difficulty Not on file 04/28/2023 Doing Errands Independently Difficulty Not on fi le 04/28/2023 Education Answer Date Recorded Help with school or training? Not on file Preferred Language Not on file 04/28/2023 Comments Unknown Sex and Gender Information Value Date Recorded Sex Assigned at Not on file Legal Sex Female 1:27 PM EST Gender Identity Not on file Sexual Orientation Not on file Last Filed Vital Signs Vital Sign Reading Time Taken Comments Blood Pressure 130/78 07/08/2017 10:10 AM EST Pulse 107 07/08/2017 10:10 AM EST Temperature - - Respiratory Rate - - Oxygen Saturation - - Inhaled Oxygen Concentration - - Weight 99.8 kg (220 lb) 07/08/2017 10:10 AM EST Height 162.6 cm (5' 4 ) 07/08/2017 10:10 AM EST Body Mass Index 37.76 07/08/2017 10:10 AM EST Plan of Treatment Health Maintenance Due Date Last Done Comments DXA SCAN 1949 LIPID PANEL 1949 TDAP/TD VACCINES (1 - Tdap) 1968 COLOGUARD 1994 COLON CANCER SCREENING 5 YEAR SIGMOIDOSCOPY 1994 COLONOSCOPY 1994 [address]AL CANCER SCREENING 1994 CT COLONOGRAPHY 1994 FECAL OCCULT BLOOD TEST 1994 FIT Testing (1 year) 1994 Pneumococcal Vaccine 50+ (1 of 1 - PCV) 1999 ZOSTER VACCINE (1 of 2) 1999 ANNUAL PHYSICAL 07/08/2017 HEPATITIS C SCREENING 07/08/2017 COVID-19 Vaccine ( - 2023-25 season) 2024 RSV Vaccine - Adults (1 - 1-dose 75+ series) INFLUENZA VACCINE 04/18/2025 Insurance MEDICARE A & B Member Subscriber Plan / Payer (Ef fective 2014-Present) Name:Sandy Hebert Member ID:[id number] Relation to Subscriber:Self Name:Sandy Hebert Subscriber ID:[id number] Payer ID:[id number] Group ID:Not on file Type:Not on file Address: [id number] [place] [address] Care Teams Lawn Technician Relationship Specialty Start Date End Date Marilu Martinez DO [address] [place] [id number] PCP - General Family Medicine 07/08/17
--- OUTSIDE RECORDS SUMMARY | 2025-02-05 10:58 | XMS_ITS | Clinical Summary ---
Author Organization [facility] Arrhythmia [facility] Address [address] [place] [phone] Phone Care Team Providers Care Shellfish Manager Name Role Phone Unavailable Primary Care Provider [...] 1-d ose 75+ series) 2024 Influenza Vaccine (#1) 2025 Hepatitis B Vaccine Aged Out No longe r eligible based on patient's age to complete this topic Meningococcal B Vaccine Aged Out No l onger eligible based on patient's age to complete this topic Insurance [place] B
== END 2025-02-02 23:59 | disposition home or self-care (01) ==
LOC: LAB.DROPOF 02-05 10:48
PROVIDERS: PCP Nurse Practitioner Family; Visit Provider Nurse Practitioner Family
DX: S80.811A Abrasion, right lower leg, initial encounter (principal); L08.9 Local infection of the skin and subcutaneous tissue, unspecified
CPT/HCPCS: 87070; 87205

== ENCOUNTER 2025-02-12 09:39 | Outpatient (POV) | payer MEDICARE, OTHER, SELFPAY ==
--- OUTSIDE RECORDS SUMMARY | 2025-02-12 09:53 | XMS_ITS | Clinical Summary ---
Author Organization [facility] Address [address] [place] [address] Care Team Providers Care Body Specialist Name Role Phone Marilu Martinez DO Primary Care Provider [phone] Allergies No known active allergies Medications diltiaZEM [...] Payer (Ef fective 2014-Present) Name:Sandy Hebert Member ID:[id number] Relation to Subscriber:Self Name:Sandy Hebert Subscriber ID:[id number] Payer ID:[id number] Group ID:Not on file Type:Not on file Address: [address] [place] [address] Care Teams Body Specialist Relationship Specialty Start Date End Date Marilu Martinez DO [address] [place] [id number] PCP - General Family Medicine 07/08/17
--- OUTSIDE RECORDS SUMMARY | 2025-02-12 09:53 | XMS_ITS | Clinical Summary ---
Author Organization [facility] Arrhythmia [facility] Address [address] [place] [phone] Phone Care Team Providers Care Precision Assembler Name Role Phone Unavailable Primary Care Provider [...]
--- OUTSIDE RECORDS SUMMARY | 2025-02-12 09:53 | XMS_ITS | Encounter Summary ---
Author Organization [place] [address] Care Team Providers Care Software Quality Automation Engineer Name Role Phone Unavailable Primary Care Provider Unavailabl e Encounter Details Date Type Department Care Team (Late st Contact Info) Description 11/03/2018 Orders Only [facility] Arrhythmia Ctr Edg [address] [facility] [address] [place] [address] Dajuan Ponce MD [address] [place], [place] [id number] Social History Tobacco Use Types Packs/Day Years [...] Ponce MD CARDIAC CATH ORDERABLES Final Result [facility] [address] [place] [phone] documented in this encounter Visit Diagnoses Not on filedocumented in this encounter Additional Health Concerns Assessment Noted Time A fall risk assessment has been complete d for the patient 10/25/2018 9:47 AM EDT documented as of this encounter
--- NOTE | 2025-02-12 10:07 | A.OFFVIS_ITS ---
[facility] Disclaimer: The information contained in this section may have been updated after the patient was seen, as this information can be updated by other users. Medical History Pain with urination Wound infection Abnormal cardiovascular stress test Fibromyalgia Hyperlipidemia Wheezing Dizziness Fatigue SOB (shortness of breath) Atrial fibrillation senior care current use of anticoagulant ORION (obstructive sleep apnea) Hypertensive heart disease Essential hypertension PAF (paroxysmal atrial fibrillation) Surgical History History of partial hysterectomy History of cardiac radiofrequency ablation Family History Other Coronary artery disease Hypertension Social History Smoking Status: Never smoker alcohol intake: never substance use type: denies use current occupational status: other Travel in the last 8 weeks?: None household members: other housing: house current occupational exposures/hazards: No caffeine: Yes PM Subjective & Objective Subjective Subjective:: Patient is a pleasant 74-year-old female who presents today for medication refill and follow-up. Today she rates her pain a 6 out of 10. She denies any new trauma or injury. She does state that her previous leg wounds are healing. She does state that she is starting to notice a little bit more right knee pain and states that she thinks she will need a repeat of her last genicular RFA coming up but yet it is still manageable currently. Patient denies any other changes. She is currently managed with Hazel 10 mg 3 times a day from our office. Her Catrachito has been reviewed and is appropriate. Injections: Left genicular RFA 09/26/2024 right genicular RFA 06/27/2024 Review of Systems: General: No recent weight changes, no fever, no sleep disturbances Respiratory: No cough, no shortness of air, no recurring pulmonary infections Cardiovascular/peripheral vascular: No chest pain, no palpitations, no edema, no shortness of breath Gastrointestinal: No new onset incontinence, normal bowel movements reported Genitourinary: No new onset incontinence Musculoskeletal: Knee pain Psychiatric: [Normal mood/affect] Neurological: [Denies weakness in extremities], [denies balance issues] Pain at rest (0-10 scale): 6 Objective Objective:: Physical Exam: General: Alert and oriented x3, no acute distress, pleasant and cooperative Lungs: Respirations even and unlabored, symmetrical chest expansion Eyes: PERRL Musculoskeletal: Flexion and extension of bilateral knees somewhat guarded secondary to pain, [antalgic gait noted] Neurological: Speech clear, no gross sensory deficit Has patient had previous pain injection?: No Conservative treatment options previously tried: Home exercise plan Length of treatment: Longer than 12 weeks Meds Home Medications and Allergies Home Medications ?Medication ?Instructions ?Recorded ?Confirmed ?Type ipratropium 20 mcg-albuterol 100 1 puff inhalation BID PRN . 07/22/17 02/02/25 History mcg/actuation mist for inhalation olopatadine 0.2 % eye drops 1 drp ophthalmic (eye) Q24 H PRN 12/20/23 02/02/25 Rx itching #2.5 mL diltiazem HCl 120 mg 120 mg PO DAILY 90 days #90 tabs 09/05/24 02/02/25 Rx tablet,extended release 24 hr losartan 50 mg-hydrochlorothiazide See Rx Instructions .Route 09/26/24 02/02/25 Rx 12.5 mg tablet (Hyzaar) .COMPLEX #90 tabs lidocaine 5 % topical patch 1 patch topical DAILY #90 ea 10/02/24 02/02/25 Rx (Lidoderm) cyclobenzaprine 10 mg tablet 10 mg PO HS PRN muscle sp asm #90 10/13/24 02/02/25 Rx tabs fluconazole 150 mg tablet 150 mg PO Q3D 2 doses #2 tab s 11/21/24 02/02/25 Rx atorvastatin 20 mg tablet 20 mg PO DAILY Cholesterol # 90 tabs 12/12/24 02/02/25 Rx montelukast 10 mg tablet 10 mg PO DAILY allergies #90 tabs 12/12/24 02/02/25 Rx (Singulair) rivaroxaban 20 mg tablet 20 mg PO QDAY Blood thinner #90 12/12/24 02/02/25 Rx tabs spironolactone 50 mg tablet 25 mg (1/2 x 50 mg) PO GARETH LY bp 90 12/12/24 02/02/25 Rx days #45 tabs sulfamethoxazole 800 1 tab PO Q12H 10 days #20 ta bs 01/04/25 02/02/25 Rx mg-trimethoprim 160 mg tablet (Bactrim DS) hydrocodone 10 mg-acetaminophen 1 tab PO TID #90 tabs 01/08/25 02/02/25 Rx 325 mg tablet albuterol sulfate 90 mcg/actuation 2 puff inhalation Q 4-6H PRN 02/02/25 02/02/25 Rx aerosol inhaler (Ventolin HFA) shortness of breath or wheezing #6.7 grams fluticasone propionate 50 2 spray intranasal DAILY #3 ea 02/02/25 02/02/25 Rx mcg/actuation nasal spray,suspension (Flonase Allergy Relief) mupirocin 2 % topical ointment 1 applic topical TID #2 2 grams 02/02/25 02/02/25 Rx New Prescriptions to Start Prescriptions: Allergies Allergy/AdvReac Type Severity Reaction Status Date / Time No Known Allergies Allergy Verified 02/02/25 13:16 Assessment and Plan *Assessment and plan (1) Degenerative disc disease, lumbar: Status: Acute Category: Medical Code(s): M51.369 - Other intervertebral disc degeneration, lumbar region without mention of lumbar back pain or lower extremity pain (2) Bilateral knee pain: Status: Acute Qualifiers: Chronicity: chronic Qualified Code(s): M25.561 - Pain in right knee; M25.562 - Pain in left knee; G89.29 - Other chronic pain Category: Medical Code(s): M25.561 - Pain in right knee; M25.562 - Pain in left knee Plan I will refill the patient's Hazel and provide a 1 month supply of this medication. Patient will return to clinic in 1 month for reevaluation of symptoms and plan of care. Risks and benefits of the medication have been explained in detail to the patient. The patient does understand the risk of dependence on the medication when given over a prolonged period. Patient has been advised of risks of oversedation with the prescribed medication. Narcan has been offered to the paitent in the event of oversedation. Patient has been advised that a family member should also be educated regarding administration of Narcan. The patient has been advised to consult with his/her primary care provider and pharmacist regarding drug-drug interaction of medications currently prescribed. Patient has been prescribed a controlled substance after being counseled on the medication, medication safety, and possible side effects. Opioid contract was reviewed and signed by the patient, and that they have agreed to all of the te jacqueline set forth by our compliance program. A UDS is needed to verify patient's compliance with our office pain contract. This is ordered based off specific treatments related to chronic pain with the potential to abuse certain medications. Patient has been instructed to contact the clinic with any concerns before the next appointment. Dr. Soto has reviewed this note and agrees with this plan of care. This note was dictated using voice recognition software and make contain errors or omissions.
[2025-02-12 10:44] VITALS: BP 133/60; PULSE 69; RESP 14; O2SAT 100; BMI 40.7
== END 2025-02-12 23:59 | disposition home or self-care (01) ==
PROVIDERS: PCP Nurse Practitioner Family; Visit Provider Nurse Anesthetist, Certified Registered
DX: M51.361 Other intervertebral disc degeneration, lumbar region with lower extremity pain only (principal); M25.551 Pain in right hip; M25.552 Pain in left hip; Z79.891 Long term (current) use of opiate analgesic
CPT/HCPCS: 99212; G0463

== ENCOUNTER 2025-02-13 11:00 | Outpatient (RCR) | payer MEDICARE, OTHER, SELFPAY ==
--- NOTE | 2025-01-23 15:59 | HMH.PTOPWND ---
Rehab Outpt Wound Evaluation Rehab OP Wound Evaluation Start: 01/23/25 15:26 Freq: Status: Active Protocol: Document 01/23/25 15:26 MARY ANNE (Rec: 01/23/25 15:58 PHORNE [id number]) E-signed By Jonathon Colbert, PT Subjective/History History History This is the initial PT wound care eval for Sandy Hebert, 74 yowf who presents with c/o R anterior boyer wound x ~ 2 wks. She reports a duffel bag full of magazines fell on my leg, which resulted in a large skin tear. She reports she was able to get her bleeding to stop quickly and did not seek immediate care. She followed up with her PCP who then referred her to our clinic. She has suffered a similar injury previously and healed well. Subjective Subjective Pain currently 0/10, TTP 2/4 in the jose luis-wound skin. Minimal jose luis-wound pitting edema noted. Mild erythema also noted. Wound Eval Wound Right Anterior Boyer Wound Type Skin Tear Is This a Chronic No Wound Wound Length (cm) 4.5 Wound Width (cm) 4.9 Wound Depth (cm) 0.1 Wound Bed Appearance Beefy Red,Yellow Percentage 90 Granulated (%) Percentage of Slough 10 (%) Wound Margins Well Defined Description Surrounding Tissue [place],Bright Red Appearance Drainage Description Serosanguineous Drainage Amount Small Drainage Odor No Odor Wound Topical Saline Irrigant Solution/Irrigant Primary Dressing collagen Comment puracol Wound Secondary Composite Dressing Type Comment optifoam gentle SA Wound Debridement Sharps,Forceps,Gauze,Mechanical Method Wound Debridement Minimal Amount of Tissue Removed Wound Debridement Healthy Tissue Revealed Result Dressing Change Tolerated Well Patient Tolerance Marroquin-Oneil Wound Assessment Tool Assessment Wound size 3= Length x Width 16.1--<36 sq cm Wound depth 2=Partial thickness skin loss involving epidermis &/or dermis Wound edges 2=Distinct, outline clearly visible, attached, even with wound base Wound undermining 1=None present Necrotic tissue type 2=White/juárez non-viable tissue &/or non-adherent yellow slough Necrotic tissue 2=<25% of wound bed covered amount Exudate type 3=Serosanguineous: thin, watery, pale red/pink Exudate amount 3=Small Skin color 2=Bright red &/or blanches to touch surrounding wound Peripheral tissue 4=Pitting edema extends <4 cm around wound edema Peripheral tissue 1=None present induration Granulation tissue 2=Bright, beefy red;75% to 100% of wound filled &/or tissue overgrowth Epithelialization 5= < 25% wound covered Wound assessment 32 total score Wound Problems/Impairments Impairments Problems/ Palpation Tenderness,Impaired Shower/Bathing,Impaired Impairmments Household Care,Increased Edema,Wound Care Needs, Impaired Self Care/Self Management Prognosis Rehab Potential Good Comment Skilled therapy services are indicated to reduce overall wound surface area and aid wound healing in order to return pt to [facility]. Clinical Impression Consistent with Yes Diagnosis Short Term Goals Number of Weeks 2 Decreased Palpation Yes: 1/4 R lower leg Tenderness Decrease Wound Area Yes: by 25% Nursing Home Goals Number of Weeks 4 Decreased Palpation Yes: 0/4 R lower leg Tenderness Decrease Wound Area Yes: by 75% Outpatient Therapy Plan of Care Treatment Plan May Include ADL/Self Care Yes Education Wound Care Yes Eval/Re-Eval Yes Frequency Times per week 1 Duration Number of Weeks 4 Addendums This patient is a No candidate for social or vocational rehab ? Patient/Guardian Yes verbally acknowledges understanding of treatment program and consents to further treatment? Patient/Guardian Yes verbally acknowledges understanding of diagnosis, prognosis and goals for treatment? Eval Complexity PT Charges 23533 - High Complexity PHYSICIAN CERTIFICATION: I certify the specified therapy services for Sandy Hebert are required, authorized, and reviewed every 30 days.
== END 2025-02-13 23:59 | disposition home or self-care (01) ==
LOC: PT 11:00
PROVIDERS: PCP Nurse Practitioner Family; Visit Provider Nurse Practitioner Family
DX: S80.811A Abrasion, right lower leg, initial encounter (principal); L08.9 Local infection of the skin and subcutaneous tissue, unspecified; W20.8XXA Other cause of strike by thrown, projected or falling object, initial encounter
CPT/HCPCS: 97163; 97597

== ENCOUNTER 2025-03-12 11:20 | Outpatient (POV) | payer MEDICARE, OTHER, SELFPAY ==
[2025-03-12 11:48] VITALS: BP 134/68; PULSE 63; RESP 14; O2SAT 98; BMI 40.7
--- NOTE | 2025-03-12 11:58 | A.OFFVIS_ITS ---
[facility] Disclaimer: The information contained in this section may have been updated after the patient was seen, as this information can be updated by other users. Medical History Pain with urination Wound infection Abnormal cardiovascular stress test Fibromyalgia Hyperlipidemia Wheezing Dizziness Fatigue SOB (shortness of breath) Atrial fibrillation alf current use of anticoagulant ORION (obstructive sleep apnea) Hypertensive heart disease Essential hypertension PAF (paroxysmal atrial fibrillation) Surgical History History of partial hysterectomy History of cardiac radiofrequency ablation Family History Other Coronary artery disease Hypertension Social History Smoking Status: Never smoker alcohol intake: never substance use type: denies use current occupational status: other Travel in the last 8 weeks?: None household members: other housing: house current occupational exposures/hazards: No caffeine: Yes PM Subjective & Objective Subjective Subjective:: Patient is a pleasant 74-year-old female who presents today for worsening knee pain. She rates her pain as 7 out of 10. She does also state that she is also having generalized pain there in her buttocks area as well as her shoulders and her feet. Patient does have an appointment with the emergency room registered nurse coming up. Patient does feel like her genicular RFA has officially worn off and her right knee as well as going towards her left knee. Patient would like to see about getting rescheduled as those have been very beneficial. Patient has continued conservative therapy with no additional improvement and does feel like the pain is starting to interfere with her ability perform activities of daily living such as cooking and cleaning. Patient is prescribed Pearl 10 mg 3 times a day from our office. She denies any side effects. Her Catrachito has been reviewed and is appropriate. Review of Systems: General: No recent weight changes, no fever, no sleep disturbances Respiratory: No cough, no shortness of air, no recurring pulmonary infections Cardiovascular/peripheral vascular: No chest pain, no palpitations, no edema, no shortness of breath Gastrointestinal: No new onset incontinence, normal bowel movements reported Genitourinary: No new onset incontinence Musculoskeletal: Right knee pain Psychiatric: [Normal mood/affect] Neurological: [Denies weakness in extremities], [denies balance issues] Pain at rest (0-10 scale): 7 Objective Objective:: Physical Exam: General: Alert and oriented x3, no acute distress, pleasant and cooperative Lungs: Respirations even and unlabored, symmetrical chest expansion Eyes: PERRL Musculoskeletal: Flexion and extension of right knee somewhat guarded secondary to pain, [antalgic gait noted] Neurological: Speech clear, no gross sensory deficit Has patient had previous pain injection?: No Conservative treatment options previously tried: Home exercise plan Length of treatment: Longer than 12 weeks Meds Home Medications and Allergies Home Medications ?Medication ?Instructions ?Recorded ?Confirmed ?Type ipratropium 20 mcg-albuterol 100 1 puff inhalation BID PRN . 07/22/17 03/12/25 History mcg/actuation mist for inhalation olopatadine 0.2 % eye drops 1 drp ophthalmic (eye) Q24 H PRN 12/20/23 03/12/25 Rx itching #2.5 mL diltiazem HCl 120 mg 120 mg PO DAILY 90 days #90 tabs 09/05/24 03/12/25 Rx tablet,extended release 24 hr losartan 50 mg-hydrochlorothiazide See Rx Instructions .Route 09/26/24 03/12/25 Rx 12.5 mg tablet (Hyzaar) .COMPLEX #90 tabs lidocaine 5 % topical patch 1 patch topical DAILY #90 ea 10/02/24 03/12/25 Rx (Lidoderm) cyclobenzaprine 10 mg tablet 10 mg PO HS PRN muscle sp asm #90 10/13/24 03/12/25 Rx tabs fluconazole 150 mg tablet 150 mg PO Q3D 2 doses #2 tab s 11/21/24 03/12/25 Rx atorvastatin 20 mg tablet 20 mg PO DAILY Cholesterol # 90 tabs 12/12/24 03/12/25 Rx montelukast 10 mg tablet 10 mg PO DAILY allergies #90 tabs 12/12/24 03/12/25 Rx (Singulair) rivaroxaban 20 mg tablet 20 mg PO QDAY Blood thinner #90 12/12/24 03/12/25 Rx tabs spironolactone 50 mg tablet 25 mg (1/2 x 50 mg) PO GARETH LY bp 90 12/12/24 03/12/25 Rx days #45 tabs sulfamethoxazole 800 1 tab PO Q12H 10 days #20 ta bs 01/04/25 03/12/25 Rx mg-trimethoprim 160 mg tablet (Bactrim DS) fluticasone propionate 50 2 spray intranasal DAILY #3 ea 02/02/25 03/12/25 Rx mcg/actuation nasal spray,suspension (Flonase Allergy Relief) mupirocin 2 % topical ointment 1 applic topical TID #2 2 grams 02/02/25 03/12/25 Rx hydrocodone 10 mg-acetaminophen 1 tab PO TID #90 tabs 02/12/25 03/12/25 Rx 325 mg tablet albuterol sulfate 90 mcg/actuation 2 inh inhalation Q4 -6H PRN 02/13/25 03/12/25 Rx breath activated powder inhaler wheezing shortness of breath #3 ea New Prescriptions to Start Prescriptions: Allergies Allergy/AdvReac Type Severity Reaction Status Date / Time No Known Allergies Allergy Verified 02/02/25 13:16 Assessment and Plan *Assessment and plan (1) Bilateral knee pain: Status: Acute Qualifiers: Chronicity: chronic Qualified Code(s): M25.561 - Pain in right knee; M25.562 - Pain in left knee; G89.29 - Other chronic pain Category: Medical Code(s): M25.561 - Pain in right knee; M25.562 - Pain in left knee Plan Patient has been getting significant relief with her last right genicular RFA that was in June and did provide significant improvement the last 8 months. Patient only now is stating that she feels like it has really worn off and back to her baseline. Patient did have limited range of motion of her right knee during today's visit. I have reviewed over the risks and benefits of repeat genicular RFA. Patient would like to proceed forward with this plan of care. Patient has tried and failed conservative therapy including oral medication, heat and ice, topicals, physical therapy and continued at home stretching exercise for longer than 12 weeks that was physician guided. Patient will be scheduled for a repeat right genicular RFA. This will be done under fluoroscopic guidance. I will also refill her Pearl. Patient has been instructed to contact the clinic with any concerns before the next appointment. Dr. Soto has reviewed this note and agrees with this plan of care. This note was dictated using voice recognition software and make contain errors or omissions. All injections are used with Lidocaine, Bupivacaine and dexamethasone. Occasionally urine drug screen is needed to verify patient's compliance with our office pain contract. This is ordered based off specific treatments related to chronic pain with the potential to abuse certain medications. Risks and benefits of the medication have been explained in detail to the patient. The patient does understand the risk of dependence on the medication when given over a prolonged period. Patient has been advised of risks of oversedation with the prescribed medication. Narcan has been offered to the paitent in the event of oversedation. Patient has been advised that a family member should also be educated regarding administration of Narcan. The patient has been advised to consult with his/her primary care provider and pharmacist regarding drug-drug interaction of medications currently prescribed. Patient has been prescribed a controlled substance after being counseled on the medication, medication safety, and possible side effects. Opioid contract was reviewed and signed by the patient, and that they have agreed to all of the terms set forth by our compliance program. A UDS is needed to verify patient's compliance with our office pain contract. This is ordered based off specific treatments related to chronic pain with the potential to abuse certain medications. Patient has been instructed to contact the clinic with any concerns before the next appointment. Dr. Soto has reviewed this note and agrees with this plan of care. This note was dictated using voice recognition software and make contain errors or omissions.
--- OUTSIDE RECORDS SUMMARY | 2025-03-12 12:04 | XMS_ITS | Clinical Summary ---
Author Organization [facility] Arrhythmia [facility] Address [address] [place] [phone] Phone Care Team Providers Care Lathmaker Name Role Phone Unavailable Primary Care Provider [...]
--- OUTSIDE RECORDS SUMMARY | 2025-03-12 12:04 | XMS_ITS | Clinical Summary ---
Author Organization [facility] Address [address] [place] [address] Care Team Providers Care Doughnut Machine Operator Helper Name Role Phone Marilu Martinez DO Primary Care Provider [phone] Allergies No known active allergies Medications diltiaZEM [...] Payer (Ef fective 2014-Present) Name:Sandy Hebert Member ID:[id number] Relation to Subscriber:Self Name:Sandy Hebert Subscriber ID:[id number] Payer ID:[id number] Group ID:Not on file Type:Not on file Address: [address] [place] [address] Care Teams Doughnut Machine Operator Helper Relationship Specialty Start Date End Date Marilu Martinez DO [address] [place] [id number] PCP - General Family Medicine 07/08/17
--- OUTSIDE RECORDS SUMMARY | 2025-03-12 12:04 | XMS_ITS | Encounter Summary ---
Author Organization [place] [address] Care Team Providers Care Shipfitter Apprentice Name Role Phone Unavailable Primary Care Provider Unavailabl e Encounter Details Date Type Department Care Team (Late st Contact Info) Description 11/03/2018 Orders Only [facility] [address] [facility] [address] [place] [address] Dajuan Ponce MD [address] [place], [place] [id number] Social History Tobacco Use Types Packs/Day Years [...] Ponce MD CARDIAC CATH ORDERABLES Final Result [facility] [address] [id number] documented in this encounter Visit Diagnoses Not on filedocumented in this encounter Additional Health Concerns Assessment Noted Time A fall risk assessment has been complete d for the patient 10/25/2018 9:47 AM EDT documented as of this encounter
== END 2025-03-12 23:59 | disposition home or self-care (01) ==
PROVIDERS: PCP Nurse Practitioner Family; Visit Provider Nurse Practitioner Family
DX: M25.561 Pain in right knee (principal); M25.562 Pain in left knee; Z79.891 Long term (current) use of opiate analgesic
CPT/HCPCS: 99212; G0463

== ENCOUNTER 2025-03-14 15:26 | Outpatient (CLI) | payer MEDICARE, OTHER, SELFPAY ==
[2025-03-14 20:10] LABS: Coronavirus 19, PCR Not Detected (NotDetected); Influenza A, PCR Not Detected (NotDetected); Influenza B, PCR Not Detected (NotDetected)
--- OUTSIDE RECORDS SUMMARY | 2025-03-15 13:27 | XMS_ITS | Clinical Summary ---
Author Organization [facility] Arrhythmia [facility] Address [address] [place] [phone] Phone Care Team Providers Care Data Processing Supervisor Name Role Phone Unavailable Primary Care Provider [...]
--- OUTSIDE RECORDS SUMMARY | 2025-03-15 13:28 | XMS_ITS | Encounter Summary ---
Author Organization [place] [address] Care Team Providers Care Space Planner Name Role Phone Unavailable Primary Care Provider Unavailabl e Encounter Details Date Type Department Care Team (Late st Contact Info) Description 11/03/2018 Orders Only [facility] Ar[facility]tr Ed[facility] [address] [facility] [address] [place] [address] Dajuan Ponce MD [address] [place], [place] [phone] Social History Tobacco Use Types Packs/Day Years [...] MD CARDIAC CATH ORDERABLES Final Result [facility] [address] [id number] documented in this encounter Visit Diagnoses Not on filedocumented in this encounter Additional Health Concerns Assessment Noted Time A fall risk assessment has been complete d for the patient 10/25/2018 9:47 AM EDT documented as of this encounter
--- OUTSIDE RECORDS SUMMARY | 2025-03-15 13:28 | XMS_ITS | Clinical Summary ---
Author Organization [facility] Address [address] [place] [address] Care Team Providers Care Online Marketing Director Name Role Phone Marilu Martinez DO Primary Care Provider [phone] Allergies No known active allergies Medications diltiaZEM [...] Payer (Ef fective 2014-Present) Name:Sandy Hebert Member ID:[id number] Relation to Subscriber:Self Name:Sandy Hebert Subscriber ID:[id number] Payer ID:[id number] Group ID:Not on file Type:Not on file Address: [address] [place] [address] Care Teams Online Marketing Director Relationship Specialty Start Date End Date Marilu Martinez DO [address] [place] [id number] PCP - General Family Medicine 07/08/17
== END 2025-03-14 23:59 | disposition home or self-care (01) ==
LOC: LAB.DROPOF 03-15 13:20
PROVIDERS: PCP Student in an Organized Health Care Education/Training Program; Visit Provider Student in an Organized Health Care Education/Training Program
DX: R50.9 Fever, unspecified (principal)
CPT/HCPCS: 87631

== ENCOUNTER 2025-05-01 10:49 | Day surgery (SDC) | payer MEDICARE, OTHER, SELFPAY ==
[2025-05-01 10:59] VITALS: BP 146/70; PULSE 68; RESP 18; O2SAT 96
[2025-05-01] MEDS: DEXAMETHASONE 10MG/ML 1ML VIAL 10 MG (11:03)
[2025-05-01] MEDS: LIDOCAINE 1% 5ML PF VIAL 5 ML (11:03)
[2025-05-01] MEDS: BUPIVACAINE 0.25% 10ML INJ 25 MG IJ (11:03)
[2025-05-01 11:07] VITALS: BP 125/45; PULSE 68; RESP 16; O2SAT 97; BMI 39.9
--- NOTE | 2025-05-01 11:16 | EXP.PAIN.PRO ---
Procedure Date: 05/01/25 Time: 11:00 Anesthesiologist:: Alin Zarco CRNA Complications:: None Pre-procedure Diagnosis:: DJD right knee. Chronic right knee pain. Post-procedure Diagnosis:: Same. Indications for Procedure:: Patient is a very pleasant 74-year-old female who comes in today for right genicular nerve ablation. Patient has had significant improvement with prior ablations of both the left and right knee. She describes right knee pain as constant, dull, aching. She rates her pain 7/10. Procedure Details:: Informed consent was obtained risk and benefits of the procedure were explained to the patient. Patient was taken the procedure room. The right knee was prepped using ChloraPrep. The skin and subcutaneous tissues were anesthetized using lidocaine. I placed 20-gauge RF needles into the superior lateral genicular nerve area of the superior medial genicular nerve area and inferior medial genicular nerve area we underwent sensory stimulation. There is good sensory stimulation at 1 V. We underwent motor stimulation. There was no motor stimulation at 3 V. We then anesthetized all 3 nerves with bupivacaine and 10 mg dexamethasone. We then burned each genicular nerve superior lateral, superior medial and inferior medial 80 ?C for 4 minutes. Patient tolerated procedure well with no complications. Plan and Disposition: We will follow-up with him in 2 weeks. Will reevaluate symptoms at that time. Plan and Disposition:: Patient was discharged without incident.
[2025-05-01 11:27] VITALS: BP 141/64; PULSE 59; RESP 16; O2SAT 97
== END 2025-05-01 11:27 | disposition home or self-care (01) ==
PROVIDERS: PCP Nurse Practitioner Family; Visit Provider Nurse Anesthetist, Certified Registered
DX: M17.11 Unilateral primary osteoarthritis, right knee (principal); G89.29 Other chronic pain; I48.91 Unspecified atrial fibrillation; M79.7 Fibromyalgia; E78.5 Hyperlipidemia, unspecified; I11.9 Hypertensive heart disease without heart failure; Z79.01 Long term (current) use of anticoagulants; Z79.891 Long term (current) use of opiate analgesic; Z79.899 Other long term (current) drug therapy
CPT/HCPCS: 64624; J0665; J1100; J2003

== ENCOUNTER 2025-06-04 14:03 | Outpatient (CLI) | payer MEDICARE, OTHER, SELFPAY ==
--- NOTE | 2025-06-04 14:06 | XR_ITS ---
FINAL REPORT CLINICAL HISTORY: shortness of breath COMPARISON: 08/12/2022 FINDINGS: 2 views of the chest were obtained . The heart is normal in size. The mediastinum is within normal limits. There are mild chronic changes at the lung bases. The lungs are otherwise clear. There is no pneumothorax. Osseous structures are unremarkable. IMPRESSION: No acute cardiopulmonary process. Reviewed, Interpreted and Dictated by Jl Kitchen MD Transcribed by Sheron Gottlieb Authenticated and [facility]
== END 2025-06-04 23:59 | disposition home or self-care (01) ==
LOC: RAD 14:04
PROVIDERS: PCP Nurse Practitioner Family; Visit Provider Nurse Practitioner Family
DX: J44.9 Chronic obstructive pulmonary disease, unspecified (principal)
CPT/HCPCS: 71046